=== PATIENT | male | born 1940 | race Caucasian/White ===

== ENCOUNTER 2017-11-10 16:28 | Emergency (ER) | payer BC ==
[~2017-11-10] VITALS: Ht 195.6 cm; Wt 97.6 kg
[~2017-11-10 16:28] MED LIST: ALBU1AER9 INH; CLON0.5T3 PO; CRD200 PO; FINA5TAB PO; MULT-506 PO; SPRIN/30 INH; SYMIN160 INH; VITAMIN D3 PO; XARELTO PO
[2017-11-10 16:33] VITALS: TEMP 36.6; Ht 195.6 cm; Wt 97.6 kg
[2017-11-10] MEDS ORDERED: SILVER NITR/POTASSIUM NITRATE APPLICATOR ONE (16:43)
--- NOTE | 2017-11-10 17:08 | EMERGENCY ROOM VISIT NOTE ---
History Report prepared by Linda: Cain Aquino Under the Supervision of: Dr. Krystal Santiago D.O. 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 He notes the bleeding began last night in the left naris, which resolved itself and immediately began in the right naris. He notes the bleeding has been non-stop. He notes recent cardiac surgery on October 30, 2017. He had a bicuspid valve repair. He has a history of atrial fibrillation. He is currently taking blood thinners. He notes a deviated septum. He denies nausea. He has increased thirst. He denies any history of bloody noses. 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 Review of Systems See HPI for pertinent positives & negatives. A total of 10 systems reviewed and were otherwise negative. 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 (5) Mitral Valve Disorder Surgical Problems: (1) History of prostate surgery (2) S/P aortic valve repair (3) S/P Maze operation for atrial fibrillation Family History Heart disease Social History Smoking Status: Former Smoker Alcohol Use: none Drug Use: none Marital Status: Housing Status: lives with significant other Occupation Status: retired Current/Historical Medications Scheduled Amiodarone HCl (Amiodarone HCl), 200 MG PO QAM Budesonide/Formoterol Fumarate (Symbicort 160/4.5 Inhaler ), 2 PUFFS INH BID Finasteride (Proscar), 5 MG PO QAM Multivitamin (Multivitamin), 1 TAB PO QAM Tiotropium [place] (Spiriva Handihaler), 1 PUFFS INH QAM Scheduled PRN Clonazepam (Klonopin), 0.5 MG PO HS PRN for Sleep Allergies Coded Allergies: No Known Allergies (Verified , 11/10/17) Physical Exam Vital Signs Date Time Temp Pulse Resp B/P (MAP) Pulse Ox O2 Delivery O2 Flow Rate FiO2 11/10/17 17:48 78 16 123/55 96 Room Air 11/10/17 16:33 36.6 81 18 143/65 98 Room Air Physical Exam GENERAL: alert, well appearing, well nourished, no distress, non-toxic EYE EXAM: normal conjunctiva, PERRL and EOM's grossly intact OROPHARYNX: no exudate, no erythema, lips, buccal mucosa, and tongue normal and mucous membranes are moist. There is no active bleeding on the left naris. Right naris: small gauze initially noted and was removed. A large clot was present on the end of the gauze. LUNGS: Clear to auscultation. Normal chest wall mechanics HEART: no murmurs, S1 normal and S2 normal. Healing vertical midline sternotomy scar, glue intact. No surrounding erythema. No drainage. No bleeding. ABDOMEN: abdomen soft, non-tender, normo-active bowel sounds, no masses, no rebound or guarding. SKIN: no rashes and no bruising UPPER EXTREMITIES: upper extremities are grossly normal. LOWER EXTREMITIES: No pitting edema. NEURO EXAM: Normal sensorium, cranial nerves II-XII grossly intact, normal speech, no gross weakness of arms, no gross weakness of legs. Medical Decision & Procedures ED Course 1638: The patient was evaluated in room B2. A complete history and physical exam was performed. 1644: Ordered Silver Nitrate/Potassium Nitrate 2 applications 1645: A silver nitrate stick was used to chemically cauterize right anterior naris along the medial wall. 1656: I reassessed the patient at this time. He is no longer bleeding. 1730: I reassessed the patient at this time. He is feeling better and resting comfortably. I discussed the results and treatment plan with the patient. I answered all pertaining questions that he had. He expressed understanding and verbalized agreement. The patient will be discharged home. Medical Decision Prior records/ancillary studies reviewed. Triage Nursing notes reviewed. The patient's history was concerning for epistaxis. Differential diagnosis: Etiologies such as anterior epistaxis, coagulopathy, traumatic injury, fracture , septal hematoma, posterior epistaxis as well as other pathologies were entertained. Patient well-appearing, anticoagulated following recent surgery. Bleeding located in right anterior inferior nary and controlled following application of silver nitrate. Vital signs otherwise stable, no bleeding from any other site. Discussed the patient precautions regarding bleeding, symptoms to watch and return for, follow-up with ENT, he verbalized understanding was agreeable with plan. Medication Reconcilliation Current Medication List: was personally reviewed by me Blood Pressure Screening Patient's blood pressure: Elevated blood pressure Blood pressure disposition: Elevated BP felt to be situational Impression Primary Impression: Epistaxis Scribe Attestation The scribe's documentation has been prepared under my direction and personally reviewed by me in its entirety. I confirm that the note above accurately reflects all work, treatment, procedures, and medical decision making performed by me. Departure Information Dispostion Home / Self-Care Referrals Fabiola Soares D.O. (PCP) Forms HOME CARE DOCUMENTATION FORM, IMPORTANT VISIT INFORMATION, WORK / SCHOOL INSTRUCTIONS Patient Instructions My [facility] Additional Instructions Please do not blow your nose for at least 24 hours. Please try to avoid any additional trauma to your nose. Please use a saline nasal mist daily. Please continue regular medications as prescribed. If you have any recurrent bleeding , develop vomiting, dizziness, chest pain, trouble breathing, fevers, or you've any other new concerns, please return the emergency room. If you have recurrent episodes of bleeding, you may need to see an ENT specialist for additional evaluation and treatment.
[2017-11-10 17:48] VITALS: BP 123/55; PULSE 78; O2SAT 96
== END 2017-11-10 19:00 | disposition home or self-care (01) ==
LOC: EDBD 16:28 → C.EDB 16:29
DX: R04.0 Epistaxis (principal); J34.2 Deviated nasal septum; J44.9 Chronic obstructive pulmonary disease, unspecified; Z98.890 Other specified postprocedural states; I48.91 Unspecified atrial fibrillation; I10 Essential (primary) hypertension; I05.9 Rheumatic mitral valve disease, unspecified; Z79.01 Long term (current) use of anticoagulants; Z87.891 Personal history of nicotine dependence; Z82.49 Family history of ischemic heart disease and other diseases of the circulatory system

== ENCOUNTER 2017-11-28 17:27 | Inpatient (IN) | payer BC, OTHER ==
[~2017-11-28] VITALS: Ht 195.6 cm; Wt 88.9 kg
[2017-11-28] VITALS (8 sets, daily range): BP systolic 136–158; BP diastolic 51–82; PULSE 81–88; TEMP 36–37.1; O2SAT 96–100
[~2017-11-28 17:27] MED LIST changes: -ALBU1AER9 INH; -VITAMIN D3 PO; -XARELTO PO
[2017-11-28 18:44] LABS: HEMATOCRIT 18.8 % (42-52); HEMOGLOBIN 5.7 g/dL (14.0-18.0); INR 1.2 (0.9-1.1); MEAN CELL VOLUME 99.5 fL (80-100); MEAN CORPUSCULAR HEMOGLOBIN 30.2 pg (25-34); MEAN CORPUSCULAR HGB CONC 30.3 g/dl (32-36); MEAN PLATELET VOLUME 9.2 fL (7.4-10.4); PLATELET COUNT 192 K/uL (130-400); PTT PATIENT 27.6 SECONDS (21.0-31.0); RED CELL DISTRIBUTION WIDTH CV 20.3 % (11.5-14.5); RED CELL DISTRIBUTION WIDTH SD 73.8 fL (36.4-46.3); WHITE BLOOD COUNT 6.98 K/uL (4.8-10.8)
[2017-11-28 18:58] LABS: BASO % 0.1 %; BASO ABS # 0.01 K/uL (0-0.2); EOS % 0.3 %; EOS ABS # 0.02 K/uL (0-0.5); IG# 0.01 K/uL (0.00-0.02); LYMPH % 8.3 %; LYMPH ABS # 0.58 K/uL (1.2-3.4); MONO % 10.6 %; MONO ABS # 0.74 K/uL (0.11-0.59); NEUT % 80.6 %; NEUT ABS # 5.62 K/uL (1.4-6.5)
[2017-11-28 18:59] LABS: ALBUMIN 3.1 gm/dl (3.4-5.0); CALCIUM 8.9 mg/dl (8.5-10.1); CREATININE 1.37 mg/dl (0.60-1.40); POTASSIUM 4.2 mmol/L (3.5-5.1)
[2017-11-28 19:00] LABS: TOTAL PROTEIN 6.3 gm/dl (6.4-8.2)
[2017-11-28] MEDS ORDERED: SENN8.6T36 PO (19:12)
[2017-11-28] MEDS ORDERED: BENZ1CAP90 PO (19:12)
[2017-11-28] MEDS ORDERED: FRS/40 PO (19:12)
[2017-11-28] MEDS ORDERED: ASPI81TA28 PO (19:12)
[2017-11-28] MEDS ORDERED: OXYC1TAB3 PO (19:12)
[2017-11-28] MEDS ORDERED: XRL20 PO (19:12)
[2017-11-28] MEDS ORDERED: SALI0.6510 NAE (19:12)
[2017-11-28] MEDS ORDERED: DOCU100C31 PO (19:12)
[2017-11-28] MEDS ORDERED: LPT40 PO (19:12)
[2017-11-28] MEDS ORDERED: ACET-1256 PO (19:12)
[2017-11-28] MEDS ORDERED: AMOX500C3 PO (19:12)
[2017-11-28] MEDS ORDERED: GUAI1TAB55 PO (19:12)
[2017-11-28] MEDS ORDERED: OXYM0.0525 NAE (19:12)
[2017-11-28] MEDS ORDERED: CHOL1000 PO (19:12)
[2017-11-28] MEDS ORDERED: ALBU18002 INH (19:12)
[2017-11-28] MEDS ORDERED: PRS5 PO (19:12)
[2017-11-28] MEDS ORDERED: POLY1POW2 PO (19:12)
[2017-11-28] MEDS ORDERED: MULT-106 PO (19:12)
[2017-11-28] MEDS ORDERED: FERR325T5 PO (19:12)
--- NOTE | 2017-11-28 22:04 | History and Physical ---
History & Physical Date & Time of Service: Nov 28, 2017 at 22:04 Chief Complaint: Ref By Dr, Out Of Breath, Dark Stool, Abnrmal Labs Primary Care Physician: Fabiola Soares D.O. History of Present Illness Source: patient, spouse, hospital records The patient is a 77-year-old male status post valve replacement one month ago, a recent episode of epistaxis, who is on Xarelto for atrial fibrillation and aspirin daily, who was seen as outpatient doctor's office and laboratories performed showed a hemoglobin in the 5 range, for which he was referred to the ED today. He also notes that he's been having dark stool for the past 2 weeks, and his daughter, who is with him in the ED, notes that he's been short of breath, progressively more pale, and feeling more weak. He also reports an area in his intergluteal region where there is skin breakdown that he is concerned about. 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 Status: Chronic (5) Mitral Valve Disorder Status: Chronic Surgical Problems: (1) History of prostate surgery Status: Resolved (2) S/P aortic valve repair Status: Resolved (3) S/P Maze operation for atrial fibrillation Status: Resolved Family History Heart disease Social History Smoking Status: Former Smoker Smokeless Tobacco Use: No Alcohol Use: none Drug Use: none Marital Status: Housing status: lives with family Occupational Status: retired Immunizations History of Tetanus Vaccine?: YES,5 YRS History of Pneumococcal: YES,5 YRS AGO History of Hepatitis B Vaccine: YES,UNSURE OF DATES Multi-Drug Resistant Organisms History of MDRO: No Allergies Coded Allergies: Levofloxacin (Verified Allergy, Intermediate, A.Fib, 11/28/17) Home Medications Scheduled Aspirin (Aspirin Ec), 81 MG PO QAM Atorvastatin (Atorvastatin Calcium), 40 MG PO HS Budesonide/Formoterol Fumarate (Symbicort 160/4.5 Inhaler ), 2 PUFFS INH AMPM Cholecalciferol (Vitamin D3), 1,000 INTER.UNIT PO QAM Ferrous Sulfate (Ferrous Sulfate), 325 MG PO BIDM Finasteride (Finasteride), 5 MG PO QAM Furosemide (Lasix), 40 MG PO QAM Guaifenesin Ext Rel (Mucinex Ext Rel), 600 MG PO Q12 Multiple Vitamins W/ Minerals (One Daily Mens), 1 TAB PO QAM Rivaroxaban (Xarelto), 20 MG PO QPM Tiotropium [place] (Spiriva Handihaler), 1 CAP INH QAM Scheduled PRN Acetaminophen (Tylenol), 1,000 MG PO Q8 PRN for Pain Albuterol Sulfate (Proair Respiclick), 2 PUFFS INH Q6H PRN for Wheezing Amoxicillin (Amoxil), 2,000 MG PO UD PRN for Dental Pre Treat Benzonatate (Tessalon Perles), 200 MG PO TID PRN for Cough Docusate Sodium (Docusate Sodium), 100 MG PO AMHS PRN for Constipation Oxycodone Ir (Roxicodone Ir), 5 MG PO Q4H PRN for Pain Oxymetazoline Hcl (Nasal Decongestant [place]), 2 SPRAYS CARL Q6H PRN for Nose Bleed(s) Polyethylene Glycol 3350 (Bulk (Polyethylene Glycol 3350), 17 GM PO AMHS PRN for Constipation Saline (Stark Nasal [place]), 2 SPRAYS CARL Q4H PRN for Nasal Dryness Sennosides-Docusate Sodium (Docusate Sodium/Senna), 2 TABS PO AMHS PRN for Constipation Review of Systems The patient denies chest pain, palpitations, vision change, hearing change, sore throat, fevers, chills, sweats, nausea, vomiting, diarrhea or constipation , abdominal pain, pelvic pain, blood in urine or stool, dysuria, urinary frequency or urgency, memory loss, loss of consciousness, rash, abnormal bruising or bleeding, imbalance, focal weakness, numbness or tingling in arms or legs, generalized arthralgias or myalgias, back or neck pain, or night sweats. The review of systems is otherwise negative other than for that already noted above, and at least 10 systems have been reviewed. Physical Exam Vital Signs Date Time Temp Pulse Resp B/P (MAP) Pulse Ox O2 Delivery O2 Flow Rate FiO2 11/28/17 21:10 37.0 81 22 158/70 98 11/28/17 20:10 37.0 82 22 158/70 100 2.0 11/28/17 20:10 36.9 84 20 146/72 100 2.0 11/28/17 19:40 36.0 82 20 147/67 100 2.0 11/28/17 19:23 36.7 84 20 156/68 100 2.0 11/28/17 19:17 83 11/28/17 19:00 82 18 129/53 100 Nasal Cannula 3.0 11/28/17 18:09 100 Nasal Cannula 2.0 11/28/17 17:35 36.7 113 26 95/40 98 Nasal Cannula The patient is awake, alert and oriented 3, normocephalic and atraumatic, sitting upright in bed and in mild respiratory distress with pursed lip breathing. HEENT--PERRL, EOMI, mucous membranes and oropharynx dry. Neck--supple, no JVD or bruits, thyroid normal, trachea midline, no adenopathy. Heart--irregularly irregular, no murmurs, rubs or gallops. Lungs--decreased breath sounds at the bases bilaterally, mild respiratory distress with pursed lip breathing, no accessory muscle use. Abdomen--normal bowel sounds and soft, nontender and nondistended, no hernias or masses, no organomegaly. Extremities--no cyanosis or clubbing. There is bilateral pretibial 2+ pitting Edema. There are good distal pulses b/l. Dermatologic--normal skin turgor. Appears pale. Neurologic--cranial nerves II through XII grossly intact. Rheumatologic--normal range of motion. Psychiatric--normal affect. Diagnostics Laboratory Results Results Past 24 Hours Test 11/28/17 18:19 Range/Units White Blood Count 6.98 4.8-10.8 K/uL Red Blood Count 1.89 4.7-6.1 M/uL Hemoglobin 5.7 14.0-18.0 g/dL Hematocrit 18.8 42-52 % Mean Corpuscular Volume 99.5 80-100 fL Mean Corpuscular Hemoglobin 30.2 25-34 pg Mean Corpuscular Hemoglobin Concent 30.3 32-36 g/dl Platelet Count 192 130-400 K/uL Mean Platelet Volume 9.2 7.4-10.4 fL Neutrophils (%) (Auto) 80.6 % Lymphocytes (%) (Auto) 8.3 % Monocytes (%) (Auto) 10.6 % Eosinophils (%) (Auto) 0.3 % Basophils (%) (Auto) 0.1 % Neutrophils # (Auto) 5.62 1.4-6.5 K/uL Lymphocytes # (Auto) 0.58 1.2-3.4 K/uL Monocytes # (Auto) 0.74 0.11-0.59 K/uL Eosinophils # (Auto) 0.02 0-0.5 K/uL Basophils # (Auto) 0.01 0-0.2 K/uL RDW Standard Deviation 73.8 36.4-46.3 fL RDW Coefficient of Variation 20.3 11.5-14.5 % Immature Granulocyte % (Auto) 0.1 % Immature Granulocyte # (Auto) 0.01 0.00-0.02 K/uL Polychromasia 1+ Basophilic Stippling OCCASIONAL Anisocytosis PRESENT Prothrombin Time 12.9 9.0-12.0 SECONDS Prothromb Time International Ratio 1.2 0.9-1.1 Activated Partial Thromboplast Time 27.6 21.0-31.0 SECONDS Partial Thromboplastin Ratio 1.1 Sodium Level 138 136-145 mmol/L Potassium Level 4.2 3.5-5.1 mmol/L Chloride Level 105 98-107 mmol/L Carbon Dioxide Level 25 21-32 mmol/L Anion Gap 8.0 3-11 mmol/L Blood Urea Nitrogen 43 7-18 mg/dl Creatinine 1.37 0.60-1.40 mg/dl Est Creatinine Clear Calc Drug Dose 56.9 ml/min Estimated GFR () 57.3 Estimated GFR (Non- 49.4 BUN/Creatinine Ratio 31.3 10-20 Random Glucose 104 70-99 mg/dl Calcium Level 8.9 8.5-10.1 mg/dl Total Bilirubin 0.9 0.2-1 mg/dl Direct Bilirubin 0.3 0-0.2 mg/dl Aspartate Amino Transf (AST/SGOT) 13 15-37 U/L Alanine Aminotransferase (ALT/SGPT) 16 12-78 U/L Alkaline Phosphatase 108 45-117 U/L Total Protein 6.3 6.4-8.2 gm/dl Albumin 3.1 3.4-5.0 gm/dl Lipase 251 73-393 U/L EKG EKG shows normal sinus rhythm at 86 bpm, ST-T segment changes in leads V5 and V6. Impression Assessment and Plan Symptomatic anemia/status post valve replacement/ status post episode of epistaxis/hemoglobin 5.7 in the ED andrzej, on Xarelto for atrial fibrillation and aspirin-- The patient will be admitted to telemetry for serial cardiac enzymes, and cardiac rhythm monitoring. The plan will be to transfuse patient to target hemoglobin of 10. We'll give 2 units PRBCs now, with Lasix 40 mg IV during or after the second unit. We'll check H&H every 6 hours Will transfuse 2 additional PRBCs, if appropriate, based on follow-up hemoglobin after the first 2. We will hold Xarelto and aspirin at this time, but not reverse Xarelto unless there is a more acute bleed process. 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 Sacral wound--- Air mattress Consult wound care. COPD-- Continue Symbicort, and Spiriva. BPH-- Continue finasteride Hyperlipidemia-- Hold atorvastatin for now. Level of Care Telemetry Advanced Directives Existing Advance Directive: No Existing Living Will: No Existing Power of Clarity Specialists: No Resuscitation Status FULL RESUSCITATION VTE Prophylaxis VTE Risk Assessment Done? Y/N: Yes Risk Level: Moderate Given or contraindicated: Other Anticoagulation (Xarelto)
[2017-11-28] MEDS ORDERED: ACETAMINOPHEN 325 MG TAB PO PRN (22:45)
[2017-11-28] MEDS ORDERED: FUROSEMIDE INJ 40 MG in SYRINGE 0 ML IV ONE (22:45)
[2017-11-28] MEDS ORDERED: FUROSEMIDE 40 MG/4 ML VIAL IV STA (22:45)
[2017-11-28] MEDS ORDERED: ONDANSETRON 8MG OD TAB PO PRN (22:45)
[2017-11-28] MEDS ORDERED: POLYETHYLENE (MIRALAX) 17 GM PACK PO PRN (22:45)
--- NOTE | 2017-11-28 23:50 | EMERGENCY ROOM VISIT NOTE ---
History Report prepared by Linda: Jb King Under the Supervision of: Dr. Martinez Henry M.D. First contact with patient: 17:41 Chief Complaint: ABNORMAL LABS Stated Complaint: REF BY DR, OUT OF BREATH, DARK STOOL, ABNRMAL LABS History of Present Illness The patient is a 77 year old male who presents to the Emergency Room with complaints of low hemoglobin that was noticed this morning after going to his doctor. The patient's hemoglobin was 5. The patient additionally notes that he has been having dark stool for the past two weeks, and he had a nose bleed three days ago. The patient's daughter states that the patient has also been short of breath, pale, and he has been feeling weak. The patient has been put on oxygen, and he has been taking iron supplements. The patient had an open heart surgery performed at the beginning of last month. He saw his doctor this morning and had blood work, and they told the patient to come to the ED for low hemoglobin. He does not have any history of ulcers, and the patient is currently on Xarelto for A-fib and a baby aspirin. Pt denies LOC, headache, fevers, chills, diaphoresis, visual changes, neck pain, nausea, vomiting, abdominal pain, back pain, urinary symptoms, numbness, weakness, lymphadenopathy , rash, or other complaints. Source of History: patient Onset: this morning Position: other (global) Quality: other (low hemoglobin) Timing: constant Associated Symptoms: + SOB, + melena, + weakness Review of Systems See HPI for pertinent positives and negatives. A total of ten systems were reviewed and were otherwise negative. 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 (5) Mitral Valve Disorder (6) Symptomatic anemia Surgical Problems: (1) History of prostate surgery (2) S/P aortic valve repair (3) S/P Maze operation for atrial fibrillation Family History Heart disease Social History Smoking Status: Unknown if Ever Smoked Alcohol Use: none Drug Use: none Marital Status: Housing Status: lives with significant other Occupation Status: retired Current/Historical Medications Scheduled Aspirin (Aspirin Ec), 81 MG PO QAM Atorvastatin (Atorvastatin Calcium), 40 MG PO HS Budesonide/Formoterol Fumarate (Symbicort 160/4.5 Inhaler ), 2 PUFFS INH AMPM Cholecalciferol (Vitamin D3), 1,000 INTER.UNIT PO QAM Ferrous Sulfate (Ferrous Sulfate), 325 MG PO BIDM Finasteride (Finasteride), 5 MG PO QAM Furosemide (Lasix), 40 MG PO QAM Guaifenesin Ext Rel (Mucinex Ext Rel), 600 MG PO Q12 Multiple Vitamins W/ Minerals (One Daily Mens), 1 TAB PO QAM Rivaroxaban (Xarelto), 20 MG PO QPM Tiotropium [place] (Spiriva Handihaler), 1 CAP INH QAM Scheduled PRN Acetaminophen (Tylenol), 1,000 MG PO Q8 PRN for Pain Albuterol Sulfate (Proair Respiclick), 2 PUFFS INH Q6H PRN for Wheezing Amoxicillin (Amoxil), 2,000 MG PO UD PRN for Dental Pre Treat Benzonatate (Tessalon Perles), 200 MG PO TID PRN for Cough Docusate Sodium (Docusate Sodium), 100 MG PO AMHS PRN for Constipation Oxycodone Ir (Roxicodone Ir), 5 MG PO Q4H PRN for Pain Oxymetazoline Hcl (Nasal Decongestant [place]), 2 SPRAYS CARL Q6H PRN for Nose Bleed(s) Polyethylene Glycol 3350 (Bulk (Polyethylene Glycol 3350), 17 GM PO AMHS PRN for Constipation Saline ([place] Nasal [place]), 2 SPRAYS CARL Q4H PRN for Nasal Dryness Sennosides-Docusate Sodium (Docusate Sodium/Senna), 2 TABS PO AMHS PRN for Constipation Allergies Coded Allergies: Levofloxacin (Verified Allergy, Intermediate, A.Fib, 11/28/17) Physical Exam Vital Signs Date Time Temp Pulse Resp B/P (MAP) Pulse Ox O2 Delivery O2 Flow Rate FiO2 11/28/17 23:28 37.1 87 22 136/51 96 2.0 11/28/17 22:50 37.0 88 2 153/55 100 4.0 11/28/17 22:33 36.8 85 24 150/68 97 2.0 11/28/17 22:12 37.1 86 20 150/82 96 2.0 11/28/17 21:10 37.0 81 22 158/70 98 11/28/17 20:10 37.0 82 22 158/70 100 2.0 11/28/17 20:10 36.9 84 20 146/72 100 2.0 11/28/17 19:40 36.0 82 20 147/67 100 2.0 11/28/17 19:23 36.7 84 20 156/68 100 2.0 11/28/17 19:17 83 11/28/17 19:00 82 18 129/53 100 Nasal Cannula 3.0 11/28/17 18:09 100 Nasal Cannula 2.0 11/28/17 17:35 36.7 113 26 95/40 98 Nasal Cannula Physical Exam GENERAL: Awake, alert, well-appearing, in no distress HENT: Normocephalic, atraumatic. Oropharynx unremarkable. EYES: Pale conjunctiva. Sclera non-icteric. NECK: Supple. No nuchal rigidity. FROM. No JVD. RESPIRATORY: Clear to auscultation. CARDIAC: Regular rate, normal rhythm. Extremities warm and well perfused. Pulses equal. ABDOMEN: Soft, non-distended. No tenderness to palpation. No rebound or guarding. No masses. RECTAL: Deferred. MUSCULOSKELETAL: Chest examination reveals no tenderness. The back is symmetrical on inspection without obvious abnormality. There is no CVA tenderness to palpation. No joint edema. LOWER EXTREMITIES: 1+ lower extremity edema. Chronic venous discoloration. NEURO: Normal sensorium. No sensory or motor deficits noted. SKIN: No rash or jaundice noted. Medical Decision & Procedures Laboratory Results 11/28/17 18:19 Red Blood Count 1.89, Mean Corpuscular Volume 99.5, Mean Corpuscular Hemoglobin 30.2, Mean Corpuscular Hemoglobin Concent 30.3, Mean Platelet Volume 9.2, Neutrophils (%) (Auto) 80.6, Lymphocytes (%) (Auto) 8.3, Monocytes (%) (Auto) 10.6, Eosinophils (%) (Auto) 0.3, Basophils (%) (Auto) 0.1, Neutrophils # (Auto ) 5.62, Lymphocytes # (Auto) 0.58, Monocytes # (Auto) 0.74, Eosinophils # (Auto ) 0.02, Basophils # (Auto) 0.01 11/28/17 18:19 Test 11/28/17 18:19 11/28/17 22:11 White Blood Count 6.98 K/uL (4.8-10.8) Red Blood Count 1.89 M/uL (4.7-6.1) Hemoglobin 5.7 g/dL (14.0-18.0) Hematocrit 18.8 % (42-52) Mean Corpuscular Volume 99.5 fL (80-100) Mean Corpuscular Hemoglobin 30.2 pg (25-34) Mean Corpuscular Hemoglobin Concent 30.3 g/dl (32-36) Platelet Count 192 K/uL (130-400) Mean Platelet Volume 9.2 fL (7.4-10.4) Neutrophils (%) (Auto) 80.6 % Lymphocytes (%) (Auto) 8.3 % Monocytes (%) (Auto) 10.6 % Eosinophils (%) (Auto) 0.3 % Basophils (%) (Auto) 0.1 % Neutrophils # (Auto) 5.62 K/uL (1.4-6.5) Lymphocytes # (Auto) 0.58 K/uL (1.2-3.4) Monocytes # (Auto) 0.74 K/uL (0.11-0.59) Eosinophils # (Auto) 0.02 K/uL (0-0.5) Basophils # (Auto) 0.01 K/uL (0-0.2) RDW Standard Deviation 73.8 fL (36.4-46.3) RDW Coefficient of Variation 20.3 % (11.5-14.5) Immature Granulocyte % (Auto) 0.1 % Immature Granulocyte # (Auto) 0.01 K/uL (0.00-0.02) Polychromasia 1+ Basophilic Stippling OCCASIONAL Anisocytosis PRESENT Prothrombin Time 12.9 SECONDS (9.0-12.0) Prothromb Time International Ratio 1.2 (0.9-1.1) Activated Partial Thromboplast Time 27.6 SECONDS (21.0-31.0) Partial Thromboplastin Ratio 1.1 Anion Gap 8.0 mmol/L (3-11) Est Creatinine Clear Calc Drug Dose 56.9 ml/min Estimated GFR () 57.3 Estimated GFR (Non- 49.4 BUN/Creatinine Ratio 31.3 (10-20) Calcium Level 8.9 mg/dl (8.5-10.1) Total Bilirubin 0.9 mg/dl (0.2-1) Direct Bilirubin 0.3 mg/dl (0-0.2) Aspartate Amino Transf (AST/SGOT) 13 U/L (15-37) Alanine Aminotransferase (ALT/SGPT) 16 U/L (12-78) Alkaline Phosphatase 108 U/L (45-117) Total Protein 6.3 gm/dl (6.4-8.2) Albumin 3.1 gm/dl (3.4-5.0) Lipase 251 U/L (73-393) Urine Color YELLOW Urine Appearance CLEAR (CLEAR) Urine pH 5.5 (4.5-7.5) Urine Specific [place] 1.015 (1.000-1.030) Urine Protein TRACE (NEG) Urine Glucose (UA) NEG (NEG) Urine Ketones NEG (NEG) Urine Occult Blood NEG (NEG) Urine Nitrite NEG (NEG) Urine Bilirubin NEG (NEG) Urine Urobilinogen NEG (NEG) Urine Leukocyte Esterase NEG (NEG) Urine RBC 0-4 /hpf (0-4) Urine WBC 1-5 /hpf (0-5) Urine Epithelial Cells 0-5 /lpf (0-5) Urine Bacteria NEG (NEG) Urine Hyaline Casts 5-10 /lpf (0-5) Urine Granular Casts 0-3 /lpf (0) Laboratory results reviewed by me Medications Administered Medications (Trade) Dose Ordered Sig/Sha Route Start Time Stop Time Status Last Admin Dose Admin Furosemide (Lasix Inj) 40 mg NOW STAT IV 11/28/17 22:45 11/28/17 22:46 DC 11/28/17 22:52 40 MG ECG Indication: SOB/dyspnea Rate (beats per minute): 86 Rhythm: normal sinus Findings: T-wave inversion (Lateral), no ectopy Comparison ECG Date: 11/14/17 Change: T wave inversions are now present. ED Course 1802: The patient was evaluated in room B2. A complete history and physical exam was performed. 2035: I reevaluated the patient, and he was doing okay. 2107: I reassessed the patient, and he was getting his transfusion. 2110: Discussed the patient's case Dr. Salamanca. The patient will be evaluated for further treatment and disposition. Medical Decision Triage Nursing notes reviewed. The patient's presentation and history were concerning for severe anemia and dark stools. Etiologies such as diverticulosis, AVM, coagulopathy, colitis, inflammatory bowel disease, malignancy,Serene-Nuno tear, esophagitis, peptic ulcer disease , variceal bleed, gastritis, epistaxis, fissure, hemorrhoids, as well as others were entertained. The patient was hemodynamically stable. He was initially little tachycardic but repeat vital signs improved. He had pale conjunctiva. He did have some mild ECG changes. He was not having any chest pain. He had blood work obtained. His severe anemia was confirmed with a hemoglobin of 5. The patient was verbally consented and consent was filled out for blood transfusion. I gave my usual and customary discussion regarding this issue. The patient had his transfusion initiated. Consultation with internal medicine. The patient was evaluated in the Emergency Room for further management. Medication Reconcilliation Current Medication List: was personally reviewed by me Blood Pressure Screening Patient's blood pressure: Elevated blood pressure Monitored by the hospitalist. Consults Time Called: 2035 Consulting Physician: Dr. Clark Returned Call: 2110 Discussed the patient's case with Dr. Salamanca. The patient will be evaluated for further treatment and disposition. Impression Primary Impression: GI bleed Additional Impression: Severe anemia Scribe Attestation The scribe's documentation has been prepared under my direction and personally reviewed by me in its entirety. I confirm that the note above accurately reflects all work, treatment, procedures, and medical decision making performed by me. Departure Information Dispostion Being Evaluated By Hospitalist Referrals Fabiola Soares D.O. (PCP) Patient Instructions My [facility] Problem Qualifiers
[2017-11-29] VITALS (25 sets, daily range): BP systolic 107–163; BP diastolic 51–75; PULSE 66–95; TEMP 36–37.2; O2SAT 93–100; BMI 24.8
[2017-11-29 04:03] LABS: BASO % 0.1 %; BASO ABS # 0.01 K/uL (0-0.2); EOS % 0.4 %; EOS ABS # 0.03 K/uL (0-0.5); HEMATOCRIT 23.1 % (42-52); HEMOGLOBIN 7.1 g/dL (14.0-18.0); IG# 0.02 K/uL (0.00-0.02); LYMPH % 6.7 %; LYMPH ABS # 0.45 K/uL (1.2-3.4); MEAN CELL VOLUME 97.5 fL (80-100); MEAN CORPUSCULAR HGB CONC 30.7 g/dl (32-36); MEAN PLATELET VOLUME 9.1 fL (7.4-10.4); MONO % 11.2 %; MONO ABS # 0.75 K/uL (0.11-0.59); NEUT % 81.3 %; NEUT ABS # 5.44 K/uL (1.4-6.5); NUCLEATED RED BLOOD CELL ABS 0.05 K/uL (0-0); PLATELET COUNT 191 K/uL (130-400); RED CELL DISTRIBUTION WIDTH CV 20.1 % (11.5-14.5)
[2017-11-29] MEDS ORDERED: FUROSEMIDE INJ 40 MG in SYRINGE 0 ML IV ONE ×2 (04:15→15:00)
[2017-11-29 04:16] LABS: INR 1.2 (0.9-1.1); PTT PATIENT 29.9 SECONDS (21.0-31.0)
[2017-11-29 04:27] LABS: CALCIUM 8.3 mg/dl (8.5-10.1); CREATININE 1.33 mg/dl (0.60-1.40); POTASSIUM 3.9 mmol/L (3.5-5.1)
[2017-11-29] MEDS ORDERED: PANTOprazole INJ 40 MG in SYRINGE 0 ML IV ONE (06:00)
[2017-11-29 06:48] LABS: CKMB 5.1 ng/ml (0.5-3.6)
--- NOTE | 2017-11-29 07:39 | DIAGNOSTIC IMAGING REPORT ---
CHEST ONE VIEW PORTABLE CLINICAL HISTORY: acute chf dyspnea COMPARISON STUDY: 08/19/2015 Findings: Diffuse prominent parenchymal infiltrative changes versus atypical pulmonary edema. Bilateral parenchymal infiltrative changes are noted. There has been a interval median sternotomy and valve replacement. There is a small left pleural effusion. IMPRESSION: Interval development of pulmonary edema versus a bilateral parenchymal infiltrative change. Small left pleural effusion. The above report was generated using voice recognition software. It may contain grammatical, syntax or spelling errors. Electronically signed by: Jamal Chavez M.D. 11/29/2017 7:38 AM Dictated Date/Time: 11/29/2017 7:36 AM
[2017-11-29] MEDS: BUDESONIDE/FORMOTEROL FUMARATE 160/4.5 60 PUFFS/INHALER INH SCH ×2 (08:12→21:21)
[2017-11-29] MEDS: TIOTROPIUM BROMIDE 5 PUFF/90 MCG INH INH SCH (08:12)
[2017-11-29] MEDS: AMIODARONE 200 MG TAB PO SCH (08:57)
[2017-11-29] MEDS: METOPROLOL TARTRATE 1 MG/ML VIAL IV. SCH ×4 (08:59→23:47)
[2017-11-29] MEDS ORDERED: PANTOprazole INJ 40 MG in SYRINGE 0 ML IV SCH (09:00)
--- NOTE | 2017-11-29 09:21 | CARDIOLOGY CONSULTATION ---
DATE OF CONSULTATION: 11/29/2017 REQUESTING PHYSICIAN: Dr. Salamanca. HEAD WAITER/WAITRESS: Mihir Delgado DO of [facility] Cardiology. REASON FOR CONSULTATION: GI bleed on anticoagulation with a recent bioprosthetic aortic valve replacement. Dear Dr. Salamanca, As you know, Mr. Vallejo underwent an aortic valve replacement with a bioprosthetic aortic valve in October 2017. He was seen at a 2-week post-hospital visit and was doing quite well. He was volume overloaded. We adjusted his diuretics. He is continued at a rehabilitation facility. He notes that his stools have been dark there. According to him, the staff there attributed this to iron supplementation. He was discharged on Monday from [facility] and notes that his stools became darker and more tarry in nature. Additionally, he describes being hypoxic when he was discharged. He did not wish to stay there any longer and they ultimately discharged him home with the understanding that he would see me in the office the next day. When he arrived at the office, he was significantly hypoxic with an O2 sat of 82%. He was also very lacey and ashen and looks significantly worse than he did at the 2-week followup on 11/14/2017 in the office. In light of that, a number of studies were done. An echocardiogram was done, which revealed normal LV function and normal function of his bioprosthetic aortic valve replacement. There was no pericardial effusion. His right ventricle was dilated and he had RV dysfunction, but this has been a known issue even before his open heart surgery. A CBC was drawn and he was found to be significantly anemic with a hemoglobin of 5.5. In light of that, it was recommended he come to the Emergency Room for further evaluation for what appears to be an upper GI bleed. This morning, he looks better. He does describe being short of breath and he describes being anxious, but after talking to him, much of his anxiety is related to his concern about what is going to happen and why this may have happened and whether he had some part in leading to this admission. He denies any lightheadedness, dizziness, chest pain, chest pressure, or chest heaviness. He denies any PND. He does have some orthopnea. His color looks significantly better. He notes he continues to have darker stools. He denies any fevers, chills, sweats, cough, or productive sputum. The rest of review of systems is otherwise negative. PAST MEDICAL HISTORY: 1. Paroxysmal atrial fibrillation, which was initially controlled with amiodarone. 2. Subsequent 3-1 atrial flutter in October 2015, on amiodarone, status post AFib and flutter ablation in February 2016. 3. 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 4. History of severe aortic stenosis with a bicuspid aortic valve and a dimensionless index of 0.12, status post bioprosthetic aortic valve replacement in October 2017 with a 29-mm Olvera valve, Maze procedure, and amputation of his left atrial appendage in October 2017. 5. Minimal epicardial coronary artery disease preoperatively. 6. History of chronic anticoagulation with Xarelto. 7. Moderate pulmonary hypertension. 8. Moderate COPD with an FEV1 to FVC ratio of 73% in September 2017 at [facility]. 9. History of significant right-sided heart failure. SOCIAL HISTORY: He smoked 2 packs per day for 35 years, stopping in 1994. 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 He is . FAMILY HISTORY: Dad at 73. He had atrial fibrillation and after aneurysm surgery in his leg. Mom at 93 of old age. ALLERGIES: No known drug allergies. MEDICATIONS: Reviewed from the outpatient chart as well as the inpatient chart. PHYSICAL EXAMINATION: GENERAL: He is awake, alert, and oriented x3. He does appear slightly anxious. VITAL SIGNS: His heart rate is 84, his respirations are 20, his blood pressure is 149/67, and his sat is 98% on 4 liters. HEENNT: 2+ carotid upstrokes. No evidence of carotid bruits. Jugular venous pressure appeared slightly elevated. His sclerae anicteric. His hearing is normal. LUNGS: Decreased breath sounds in the bases bilaterally. No rales, rhonchi or wheezing. HEART: Regular rate and rhythm. Tachycardic. No appreciable murmurs, rubs or gallops. ABDOMEN: Soft, nontender, and nondistended. Positive bowel sounds. EXTREMITIES: Mild to moderate bilateral lower extremity edema to the mid tibia. PSYCHIATRIC: His affect appeared appropriate. NEUROLOGIC: He is awake, alert and oriented x3. DIAGNOSTIC STUDIES: EKG, sinus rhythm, prolonged QTC, low voltage QRS, and nonspecific ST changes. LABORATORY STUDIES: Hemoglobin 5.7 on admission, white count is 6.98, and platelet count of 192. His hemoglobin after 2 units is 7.1 with a platelet count of 191. Sodium 140, potassium 3.9, his BUN is 37, and creatinine 1.33. His troponin is negative. Chest x-ray was read as congestive heart failure. IMPRESSIONS: 1. Upper gastrointestinal bleed. 2. Recent bioprosthetic aortic valve replacement in October 2017 with a 29-mm Olvera valve, Maze procedure, and amputation of left atrial appendage. 3. History of both atrial fibrillation and atrial flutter ablations. 4. Minimal preoperative epicardial coronary artery disease. 5. Moderate pulmonary hypertension. 6. Known right ventricular dysfunction and chronic right-sided heart failure. As was discussed with the ER physician, I would stop the Xarelto, which has already been done. He has been in sinus rhythm on all of his EKGs postoperatively. In addition, he has had his left atrial appendage amputated. I therefore think the risk of stroke is very small at this point and I would leave him off Xarelto fci. I would try to restart his aspirin therapy when it is okay with GI after his planned endoscopy today. He does need some antiplatelet therapy given his new bioprosthetic aortic valve replacement. He has received diuretics after each unit of blood. We will check a stat H&H as he has received 3 units currently. As long as his hemoglobin is in the 8-9 range, given the fact he does not have coronary artery disease, I would not aggressively transfuse him. I would recommend an additional dose of furosemide 40 mg IV this afternoon with close monitoring of his H&H. He is on a pantoprazole drip for GI protection. I would restart his amiodarone 200 mg daily, which he was on as an outpatient to maintain sinus rhythm and I would also add low dose beta blockers with 2.5 mg of metoprolol q. 6 hours to help with his tachycardia and also to slow and lower his blood pressure. All this was discussed with the patient as well as his nursing staff. We will continue to follow him with you. I believe he can proceed with endoscopy. He would be at intermediate risk and I think the greatest risk is from a respiratory standpoint given his mild heart failure and underlying COPD.
[2017-11-29] MEDS ORDERED: SODIUM CHLORIDE 0.65% NA SOLN 45 ML (OCEAN) ONE (11:32)
[2017-11-29 11:41] LABS: HEMATOCRIT 24.9 % (42-52); HEMOGLOBIN 7.8 g/dL (14.0-18.0)
--- NOTE | 2017-11-29 14:34 | Endo History and Physical ---
History & Physical Date of Service: Nov 29, 2017. Chief Complaint: GI bleed Referring Physician: Dr Soares History of Present Illness For EGD Past Medical History Atrial Fibrillation, Male Genitourinary Prob., Gastrointestinal Disorder, High Cholesterol, CHF, Hypertension, COPD Past Surgical History Hx Cardiac Surgery: Yes (Valve replacement 11/05, CARDIOVERSION-07/2015) Hx Internal Defibrillator: No Hx Pacemaker: No Hx Abdominal Surgery: Yes (AAA REPAIR, INGUINAL HERNIA REPAIR X 2, HIATAL HERNIA REPAIR) Hx Post-Op Nausea and Vomiting: No Hx Cancer Surgery: No Hx Thoracic Surgery: No Hx Orthopedic: No Hx Urinary Tract Surgery: Yes (TURP) Social History Smoking Status: Never Smoker Smokeless Tobacco Use: No Hx Substance Use: No Hx Alcohol Use: No Allergies Coded Allergies: Levofloxacin (Verified Allergy, Intermediate, AAriel, 11/28/17) Current Medications Reported Home Medications Medications Dose Route/Sig Max Daily Dose Days Date Category Dose Instructions Docusate Sodium/Senna (Sennosides-Docusate Sodium) 1 Tab Tab 2 Tabs PO AMHS PRN 11/28/17 Reported Mucinex Ext Rel (Guaifenesin) 600 Mg Tab 600 Mg PO Q12 11/28/17 Reported Tylenol (Acetaminophen) 500 Mg Tab 1,000 Mg PO Q8 PRN 11/28/17 Reported One Daily Mens (Multiple Vitamins W/ Minerals) 1 Tab Tab 1 Tab PO QAM 11/28/17 Reported Vitamin D3 (Cholecalciferol) 1,000 Unit Tab 1,000 Inter.unit PO QAM 11/28/17 Reported Xarelto (Rivaroxaban) 20 Mg Tab 20 Mg PO QPM 11/28/17 Reported Finasteride 5 Mg Tab 5 Mg PO QAM 11/28/17 Reported Aspirin Ec (Aspirin) 81 Mg Tab 81 Mg PO QAM 11/28/17 Reported Atorvastatin Calcium (Atorvastatin) 40 Mg Tab 40 Mg PO HS 11/28/17 Reported Proair Respiclick (Albuterol Sulfate) 108 Mcg/Act Aer 2 Puffs INH Q6H PRN 11/28/17 Reported Ferrous Sulfate 325 Mg Tab 325 Mg PO BIDM 11/28/17 Reported [place] Nasal [place] (Saline) 0.65 % Spr 2 Sprays CARL Q4H PRN 11/28/17 Reported Tessalon Perles (Benzonatate) 200 Mg Cap 200 Mg PO TID PRN 11/28/17 Reported Polyethylene Glycol 3350 (Polyethylene Glycol 3350 (Bulk) 1 Pow Pow 17 Gm PO AMHS PRN 11/28/17 Reported Roxicodone Ir (Oxycodone HCl) 5 Mg Tab 5 Mg PO Q4H PRN 11/28/17 Reported Nasal Decongestant [place] (Oxymetazoline Hcl) 0.05 % Spr 2 Sprays CARL Q6H PRN 11/28/17 Reported Lasix (Furosemide) 40 Mg Tab 40 Mg PO QAM 11/28/17 Reported Docusate Sodium 100 Mg Cap 100 Mg PO AMHS PRN 11/28/17 Reported Amoxil (Amoxicillin) 500 Mg Cap 2,000 Mg PO UD PRN 11/28/17 Reported TAKE 4 CAPSULES ONE HOUR PRIOR TO DENTAL APPOINTMENTS Symbicort 160/4.5 Inhaler (Budesonide/Formoterol Fumarate) Aero 2 Puffs INH AMPM 09/02/15 Reported Spiriva Handihaler (Tiotropium [place]) 30 Puff/540 Mcg Aerp 1 Cap INH QAM 01/08/15 Reported Vital Signs Weight (Kilograms): 91.200 Height (Feet): 6 Height (Inches): 5.00 Date Time Temp Pulse Resp B/P (MAP) Pulse Ox O2 Delivery O2 Flow Rate FiO2 11/29/17 14:05 37.1 82 22 126/56 (79) 100 Partial Rebreather 4 11/29/17 14:00 37.1 82 22 126/56 100 4.0 11/29/17 13:25 37.0 76 18 147/66 99 4.0 11/29/17 12:13 86 136/60 11/29/17 12:00 96 Nasal Cannula 4.0 11/29/17 11:15 36.8 75 20 137/69 (91) 100 4.0 11/29/17 08:59 86 136/65 11/29/17 08:45 36.9 90 18 162/66 99 4.0 11/29/17 08:30 36.0 90 16 158/69 99 4.0 11/29/17 08:00 98 Nasal Cannula 4.0 11/29/17 07:34 37.2 84 20 149/67 (94) 98 4.0 11/29/17 07:30 36.9 95 18 158/69 99 4.0 1/10/18 07:15 36.8 84 18 152/66 99 4.0 11/29/17 06:45 36.8 85 16 143/63 99 4.0 11/29/17 06:14 36.9 86 18 156/73 100 4.0 11/29/17 05:44 36.9 83 18 143/71 100 2.0 11/29/17 05:26 36.8 83 18 134/59 99 2.0 11/29/17 04:00 Nasal Cannula 2.0 11/29/17 03:11 36.8 82 18 148/63 (91) 100 Nasal Cannula 2.0 11/29/17 02:28 36.9 81 18 149/65 100 2.0 11/29/17 01:28 36.9 83 18 133/69 97 2.0 11/29/17 00:28 36.8 84 20 146/73 95 2.0 11/29/17 00:01 36.7 92 20 163/63 93 Nasal Cannula 2.0 11/28/17 23:28 37.1 87 22 136/51 96 2.0 11/28/17 22:50 37.0 88 2 153/55 100 4.0 11/28/17 22:33 36.8 85 24 150/68 97 2.0 11/28/17 22:12 37.1 86 20 150/82 96 2.0 11/28/17 21:10 37.0 81 22 158/70 98 11/28/17 20:10 37.0 82 22 158/70 100 2.0 11/28/17 20:10 36.9 84 20 146/72 100 2.0 11/28/17 19:40 36.0 82 20 147/67 100 2.0 11/28/17 19:23 36.7 84 20 156/68 100 2.0 11/28/17 19:17 83 11/28/17 19:00 82 18 129/53 100 Nasal Cannula 3.0 11/28/17 18:09 100 Nasal Cannula 2.0 11/28/17 17:35 36.7 113 26 95/40 98 Nasal Cannula Physical Exam General Appearance: no apparent distress Respiratory/Chest: Respiratory effort: pertinent finding (Nasal oxygen) Cardiovascular: Apical Impulse: pertinent finding (AVR) Abdomen: Inspection & Palpation: soft (GI bleed for EGD) Assessment and Plan GI bleed for EGD
--- NOTE | 2017-11-29 14:49 | GASTROINTESTINAL CONSULTATION ---
DATE OF CONSULTATION: 11/29/2017 REASON FOR EVALUATION: GI bleed. HISTORY OF PRESENT ILLNESS: The patient is a 77-year-old male who had an aortic valve replacement a month ago and was placed on Xarelto and aspirin for his valve and atrial fibrillation. The patient has been seeing dark stools for the past 2 weeks and has had a recent episode of nose bleeding. He was seen in the doctor's office yesterday and appeared pale and had a hemoglobin done which was in the 5 range. He was referred to the ER where he was subsequently admitted. Since being hospitalized, he has been transfused 3 units of red cells and started on IV Protonix and GI consultation has been requested. PAST MEDICAL HISTORY: Remarkable for an abdominal aortic aneurysm, COPD, hypertension, benign prostatic hypertrophy, mitral valve disorder, aortic valve disorder with repair. He has had prostate surgery. MEDICATIONS: Per list: He is on aspirin and Xarelto, but no PPI. ALLERGIES: LEVOFLOXACIN. SOCIAL HISTORY: The patient is and lives with his . He is retired, former smoker, no alcohol use. FAMILY HISTORY: Positive for heart disease. REVIEW OF SYSTEMS: The patient has a little bit of shortness of breath at rest. PHYSICAL EXAMINATION: GENERAL: The patient appears in no distress. He is on a mask oxygen. VITAL SIGNS: Blood pressure is 158/70, pulse is 80, O2 saturation on 2 liters of oxygen is 98%. HEART: Showed an irregularly irregular rhythm. LUNGS: Showed some decreased breath sounds. ABDOMEN: Soft. There are no masses or hepatosplenomegaly. EXTREMITIES: Showed no clubbing, cyanosis or edema other than a little bit of ankle edema. LABORATORY: Shows hemoglobin of 5.7, MCV 99.5; BUN 43 and creatinine 1.37. IMPRESSION AND PLAN: The patient has evidence of gastrointestinal bleeding, probably an aspirin-induced ulcer with bleeding exacerbated by Xarelto. The patient has been transfused 3 units of blood and was placed on IV Protonix. We will proceed with an esophagogastroduodenoscopy today for further evaluation.
--- NOTE | 2017-11-29 14:50 | Discharge Instructions ---
Endoscopy Patient Instructions Date / Procedure(s) Performed Nov 29, 2017. EGD Allergy Information Coded Allergies: Levofloxacin (Verified Allergy, Intermediate, A.Fib, 11/28/17) Discharge Date / Findings Nov 29, 2017. normal EGD Medication Instructions Restart Stopped Medication(s): resume meds Current Inpatient Medications Medications (Trade) Dose Ordered Sig/Sha Route Start Time Stop Time Status Last Admin Dose Admin Acetaminophen (Tylenol Tab) 650 mg Q4H PRN PO 11/28/17 22:45 12/28/17 22:44 Budesonide/ Formoterol Fumarate (Symbicort 160/ 4.5 Inh) 2 puffs BID INH 11/29/17 09:00 12/29/17 08:59 11/29/17 08:12 2 PUFFS Tiotropium [place] (Spiriva Handihaler Inhaler) 1 puff QAM INH 11/29/17 09:00 12/29/17 08:59 11/29/17 08:12 1 PUFF Polyethylene (Miralax Powder Packet) 17 gm BID PRN PO 11/28/17 22:45 12/28/17 22:44 Ondansetron HCl (Zofran Odt) 8 mg Q6H PRN PO 11/28/17 22:45 12/28/17 22:44 Pantoprazole Sodium 40 mg/ Syringe 10 ml @ 5 mls/min DAILY@09,21 IV 11/29/17 09:00 12/29/17 08:59 11/29/17 08:12 5 MLS/MIN Furosemide 40 mg/ Syringe 4 ml @ 4 mls/min TODAY@1500 ONCE IV 11/29/17 15:00 11/29/17 15:01 Amiodarone HCl (Cordarone Tab) 200 mg QAM PO 11/29/17 09:00 12/29/17 08:59 11/29/17 08:57 200 MG Metoprolol Tartrate (Lopressor Iv) 2.5 mg Q6 IV. 11/29/17 08:45 12/29/17 08:44 11/29/17 12:13 2.5 MG Provider Instructions Activity Restrictions - No exercising or heavy lifting for 24 hours. - Do not drink alcohol the day of the procedure. - Do not drive a car or operate machinery until the day after the procedure. - Do not make any important decisions or sign important papers in 24 hours after the procedure. Following Day: - Return to full activity which may include returning to work/school. Diet Start your diet with liquids and light foods (jello, soup, juice, toast). Then eat your usual diet if not nauseated. Treatment For Common After Affects For mild abdominal pain, bloating, or excessive gas: - Rest - Eat lightly - Lie on right side Follow-Up Information Follow-up with as scheduled Anesthesia Information What You Should Know You have had a procedure that required some medicine to reduce anxiety and discomfort. This treatment is called moderate sedation. After receiving the treatment, you may be sleepy, but you will be able to breathe on your own. The effects of the treatment may last for several hours. Follow these instructions along with Activity/Diet recommendations noted above: * Do NOT do anything where dizziness or clumsiness would be dangerous. * Rest quietly at home today, then you can be up and about tomorrow. * Have a responsible person stay with you the rest of today. * You may have had an I.V. today. If so, you may take the dressing off later today. Recommendations Call your doctor if: * Trouble breathing * Continuous vomiting for more than 24 hours * Temperature above 101 degrees * Severe abdominal pain or bloating * Pain not relieved by pain medicine ordered * There is increased drainage or redness from any incision * A large amount of rectal bleeding greater than 2-3 tablespoons. (If you had a polyp/s removed or have hemorrhoids, a small amount of blood - from the rectum is to be expected.) * You have any unanswered questions or concerns. IN THE EVENT OF A SERIOUS EMERGENCY, GO TO THE NEAREST EMERGENCY ROOM Your discharge instructions were prepared by provider Kiran He. Patient Instructions Signature Page Cristofer Vallejo Patient (or Guardian) Signature/Date: I have read and understand the instructions given to me by my caregivers. Caregiver/RN/Doctor Signature/Date: The above-named patient and/or guardian has received patient instructions on this date. + Original Patient Signature Page (only) stays with chart. Please make copy for patient.
--- NOTE | 2017-11-29 14:54 | GI REPORT ---
Procedure Date: 11/29/2017 2:38 PM Procedure: Upper GI endoscopy Indications: Acute post hemorrhagic anemia, Melena Medicines: Propofol total dose 100 mg IV, Lidocaine 80 mg IV Complications: No immediate complications. Estimated Blood Loss: Estimated blood loss: none. Procedure: Pre-Anesthesia Assessment: - Prior to the procedure, a History and Physical was performed, and patient medications, allergies and sensitivities were reviewed. The patient's tolerance of previous anesthesia was reviewed. - The risks and benefits of the procedure and the sedation options and risks were discussed with the patient. All questions were answered and informed consent was obtained. - Prior to the procedure, a History and Physical was performed, and patient medications, allergies and sensitivities were reviewed. The patient's tolerance of previous anesthesia was reviewed. - The risks and benefits of the procedure and the sedation options and risks were discussed with the patient. All questions were answered and informed consent was obtained. After obtaining informed consent, the endoscope was passed under direct vision. Throughout the procedure, the patient's blood pressure, pulse, and oxygen saturations were monitored continuously. The scope was introduced through the mouth, and advanced to the second part of duodenum. The upper GI endoscopy was accomplished without difficulty. The patient tolerated the procedure well. Findings: The esophagus was normal. The stomach was normal. The examined duodenum was normal. Impression: - Normal esophagus. - Normal stomach. - Normal examined duodenum. - No specimens collected. Recommendation: - Return patient to [facility] care. - Resume regular diet today. Kiran He M.D. Kiran He MD 11/29/2017 2:53:40 PM This report has been signed electronically. Note Initiated On: 11/29/2017 2:38 PM I attest to the content of the Intraoperative Record and orders documented therein, exceptions below
[2017-11-29] MEDS ORDERED: LIDOCAINE HCL 2% 2 ML VIAL (20MG/ML) ONE (14:59)
[2017-11-29] MEDS ORDERED: PROPOFOL IV EMULSION 10 MG/ML 20 ML VIAL IV ONE (14:59)
--- NOTE | 2017-11-29 15:02 | PROGRESS NOTE ---
DATE: 11/29/2017 SUBJECTIVE: The patient underwent an EGD and was found to have a normal esophagus, stomach and duodenum without any source of bleeding identified. IMPRESSION: The patient is having melena and anemia probably from his previous nosebleeds. These are probably exacerbated by his aspirin and Xarelto. There is no digestive tract source of blood loss identified on his upper endoscopy given the fact that he had melena and an elevated BUN. It is highly unlikely that this is coming from a lower gastrointestinal source. At this point, I would probably keep the patient on a proton pump inhibitor if he is going to continue taking aspirin to prevent gastric erosions or ulcerations and transfuse him up into a safe range. We will continue to follow him during his hospital stay.
[2017-11-29] MEDS ORDERED: PANTOprazole SOD 40 MG TAB PO STA (15:17)
--- NOTE | 2017-11-29 15:23 | Anesthesiology Progress Note ---
Anesthesia Post Op Note Date & Time Nov 29, 2017 at 15:23 Vital Signs Pain Intensity: 0.0 Vital Signs Past 12 Hours Date Time Temp Pulse Resp B/P (MAP) Pulse Ox O2 Delivery O2 Flow Rate FiO2 11/29/17 15:09 36.5 73 24 107/51 (69) 95 Oxymask 4 11/29/17 14:54 37.1 72 16 101/42 (61) 97 Oxymask 4 11/29/17 14:05 37.1 82 22 126/56 (79) 100 Partial Rebreather 4 11/29/17 14:00 37.1 82 22 126/56 100 4.0 11/29/17 13:25 37.0 76 18 147/66 99 4.0 11/29/17 12:13 86 136/60 11/29/17 12:00 96 Nasal Cannula 4.0 11/29/17 11:15 36.8 75 20 137/69 (91) 100 4.0 11/29/17 08:59 86 136/65 11/29/17 08:45 36.9 90 18 162/66 99 4.0 11/29/17 08:30 36.0 90 16 158/69 99 4.0 11/29/17 08:00 98 Nasal Cannula 4.0 11/29/17 07:34 37.2 84 20 149/67 (94) 98 4.0 11/29/17 07:30 36.9 95 18 158/69 99 4.0 11/29/17 07:15 36.8 84 18 152/66 99 4.0 11/29/17 06:45 36.8 85 16 143/63 99 4.0 11/29/17 06:14 36.9 86 18 156/73 100 4.0 11/29/17 05:44 36.9 83 18 143/71 100 2.0 11/29/17 05:26 36.8 83 18 134/59 99 2.0 11/29/17 04:00 Nasal Cannula 2.0 Notes Mental Status: alert / awake / arousable, participated in evaluation Pt Amnestic to Procedure: Yes Nausea / Vomiting: adequately controlled Pain: adequately controlled Airway Patency, RR, SpO2: stable & adequate BP & HR: stable & adequate Hydration State: stable & adequate Anesthetic Complications: no major complications apparent
--- NOTE | 2017-11-29 15:36 | Hospitalist Progress Note ---
Hospitalist Progress Note Date of Service Nov 29, 2017. (Zenia Bunch .JANUSZ) Subjective Pt evaluation today including: conversation w/ patient, physical exam, chart review, lab review, review of inpatient medication list Voiding: no voiding problems Mr. Vallejo is feeling much improved after receiving transfusion of 3 units total. He had an EGD this afternoon which did not find any upper GI sources for bleed, attributing the melena and hgb drop to epistaxis ROS Constitutional: no chills, aches, sweats or fever Respiratory: no sob,cough, sputum, or wheezing Cardiac: no chest pain, palpitations, edema, orthopnea or lightheadedness GI: no abdominal pain, nausea, vomiting, diarrhea or constipation : no dysuria or hesitancy Extremities: no joint pain or weakness Skin: no rash All other systems reviewed and negative (Zenia Bunch CRNP) Medications Medications Administered Medications (Trade) Dose Ordered Sig/Sha Route Start Time Stop Time Status Last Admin Dose Admin Budesonide/ Formoterol Fumarate (Symbicort 160/ 4.5 Inh) 2 puffs BID INH 11/29/17 09:00 12/29/17 08:59 11/29/17 08:12 2 PUFFS Tiotropium [place] (Spiriva Handihaler Inhaler) 1 puff QAM INH 11/29/17 09:00 12/29/17 08:59 11/29/17 08:12 1 PUFF Furosemide (Lasix Inj) 40 mg NOW STAT IV 11/28/17 22:45 11/28/17 22:46 DC 11/28/17 22:52 40 MG Furosemide 40 mg/ Syringe 4 ml @ 4 mls/min ONE ONCE IV 11/29/17 04:15 11/29/17 04:23 DC 11/29/17 08:50 4 MLS/MIN Pantoprazole Sodium 40 mg/ Syringe 10 ml @ 5 mls/min DAILY@09,21 IV 11/29/17 09:00 12/29/17 08:59 11/29/17 08:12 5 MLS/MIN Pantoprazole Sodium 40 mg/ Syringe 10 ml @ 5 mls/min NOW ONCE IV 11/29/17 06:00 11/29/17 06:01 DC 11/29/17 06:46 5 MLS/MIN Amiodarone HCl (Cordarone Tab) 200 mg QAM PO 11/29/17 09:00 12/29/17 08:59 11/29/17 08:57 200 MG Metoprolol Tartrate (Lopressor Iv) 2.5 mg Q6 IV. 11/29/17 08:45 2 08:44 11/29/17 12:13 2.5 MG Sodium Chloride ([place] Nasal [place]) 225 sprays STK-MED ONCE .ROUTE 11/29/17 11:32 11/29/17 11:33 DC 11/29/17 11:40 225 SPRAYS (Zenia Bunch CRNP) Objective Vital Signs Date Time Temp Pulse Resp B/P (MAP) Pulse Ox O2 Delivery O2 Flow Rate FiO2 11/29/17 15:09 36.5 73 24 107/51 (69) 95 Oxymask 4 11/29/17 14:54 37.1 72 16 101/42 (61) 97 Oxymask 4 11/29/17 14:05 37.1 82 22 126/56 (79) 100 Partial Rebreather 4 11/29/17 14:00 37.1 82 22 126/56 100 4.0 11/29/17 13:25 37.0 76 18 147/66 99 4.0 11/29/17 12:13 86 136/60 11/29/17 12:00 96 Nasal Cannula 4.0 11/29/17 11:15 36.8 75 20 137/69 (91) 100 4.0 11/29/17 08:59 86 136/65 11/29/17 08:45 36.9 90 18 162/66 99 4.0 11/29/17 08:30 36.0 90 16 158/69 99 4.0 11/29/17 08:00 98 Nasal Cannula 4.0 11/29/17 07:34 37.2 84 20 149/67 (94) 98 4.0 11/29/17 07:30 36.9 95 18 158/69 99 4.0 11/29/17 07:15 36.8 84 18 152/66 99 4.0 11/29/17 06:45 36.8 85 16 143/63 99 4.0 11/29/17 06:14 36.9 86 18 156/73 100 4.0 11/29/17 05:44 36.9 83 18 143/71 100 2.0 11/29/17 05:26 36.8 83 18 134/59 99 2.0 11/29/17 04:00 Nasal Cannula 2.0 11/29/17 03:11 36.8 82 18 148/63 (91) 100 Nasal Cannula 2.0 11/29/17 02:28 36.9 81 18 149/65 100 2.0 11/29/17 01:28 36.9 83 18 133/69 97 2.0 11/29/17 00:28 36.8 84 20 146/73 95 2.0 11/29/17 00:01 36.7 92 20 163/63 93 Nasal Cannula 2.0 11/28/17 23:28 37.1 87 22 136/51 96 2.0 11/28/17 22:50 37.0 88 2 153/55 100 4.0 11/28/17 22:33 36.8 85 24 150/68 97 2.0 11/28/17 22:12 37.1 86 20 150/82 96 2.0 11/28/17 21:10 37.0 81 22 158/70 98 11/28/17 20:10 37.0 82 22 158/70 100 2.0 11/28/17 20:10 36.9 84 20 146/72 100 2.0 11/28/17 19:40 36.0 82 20 147/67 100 2.0 11/28/17 19:23 36.7 84 20 156/68 100 2.0 11/28/17 19:17 83 11/28/17 19:00 82 18 129/53 100 Nasal Cannula 3.0 11/28/17 18:09 100 Nasal Cannula 2.0 11/28/17 17:35 36.7 113 26 95/40 98 Nasal Cannula (Zenia Bunch, JANUSZ) Physical Exam Notes: General: no distress Eyes: normal inspection, PERLL Respiratory: chest non tender, clear to auscultation, normal breath sounds, no respiratory distress, no accessory muscle use Cardiac: regular rate and rhythm, no rub or gallop, 3/6 systolic murmur, no edema, no jvd GI/: active bowel sounds, no abd pain or tenderness, soft, non distended Extremities: normal range of motion, normal strength, non tender Neuro/Psych: alert and oriented x 3, normal mood and affect Skin: normal color, dry, incision well approximated, no drainage (Zenia Bunch ., JANUSZ) Laboratory Results Last 24 Hours Test 11/28/17 18:19 11/28/17 22:11 11/29/17 03:51 11/29/17 06:09 White Blood Count 6.98 K/uL 6.70 K/uL Red Blood Count 1.89 M/uL 2.37 M/uL Hemoglobin 5.7 g/dL 7.1 g/dL Hematocrit 18.8 % 23.1 % Mean Corpuscular Volume 99.5 fL 97.5 fL Mean Corpuscular Hemoglobin 30.2 pg 30.0 pg Mean Corpuscular Hemoglobin Concent 30.3 g/dl 30.7 g/dl Platelet Count 192 K/uL 191 K/uL Mean Platelet Volume 9.2 fL 9.1 fL Neutrophils (%) (Auto) 80.6 % 81.3 % Lymphocytes (%) (Auto) 8.3 % 6.7 % Monocytes (%) (Auto) 10.6 % 11.2 % Eosinophils (%) (Auto) 0.3 % 0.4 % Basophils (%) (Auto) 0.1 % 0.1 % Neutrophils # (Auto) 5.62 K/uL 5.44 K/uL Lymphocytes # (Auto) 0.58 K/uL 0.45 K/uL Monocytes # (Auto) 0.74 K/uL 0.75 K/uL Eosinophils # (Auto) 0.02 K/uL 0.03 K/uL Basophils # (Auto) 0.01 K/uL 0.01 K/uL RDW Standard Deviation 73.8 fL 70.0 fL RDW Coefficient of Variation 20.3 % 20.1 % Immature Granulocyte % (Auto) 0.1 % 0.3 % Immature Granulocyte # (Auto) 0.01 K/uL 0.02 K/uL Polychromasia 1+ 1+ Basophilic Stippling OCCASIONAL Anisocytosis PRESENT PRESENT Prothrombin Time 12.9 SECONDS 12.4 SECONDS Prothromb Time International Ratio 1.2 1.2 Activated Partial Thromboplast Time 27.6 SECONDS 29.9 SECONDS Partial Thromboplastin Ratio 1.1 1.2 Sodium Level 138 mmol/L 140 mmol/L Potassium Level 4.2 mmol/L 3.9 mmol/L Chloride Level 105 mmol/L 108 mmol/L Carbon Dioxide Level 25 mmol/L 27 mmol/L Anion Gap 8.0 mmol/L 5.0 mmol/L Blood Urea Nitrogen 43 mg/dl 37 mg/dl Creatinine 1.37 mg/dl 1.33 mg/dl Est Creatinine Clear Calc Drug Dose 56.9 ml/min 58.6 ml/min Estimated GFR () 57.3 59.3 Estimated GFR (Non- 49.4 51.2 BUN/Creatinine Ratio 31.3 28.0 Random Glucose 104 mg/dl 97 mg/dl Calcium Level 8.9 mg/dl 8.3 mg/dl Total Bilirubin 0.9 mg/dl Direct Bilirubin 0.3 mg/dl Aspartate Amino Transf (AST/SGOT) 13 U/L Alanine Aminotransferase (ALT/SGPT) 16 U/L Alkaline Phosphatase 108 U/L Total Protein 6.3 gm/dl Albumin 3.1 gm/dl Lipase 251 U/L Urine Color YELLOW Urine Appearance CLEAR Urine pH 5.5 Urine Specific [place] 1.015 Urine Protein TRACE Urine Glucose (UA) NEG Urine Ketones NEG Urine Occult Blood NEG Urine Nitrite NEG Urine Bilirubin NEG Urine Urobilinogen NEG Urine Leukocyte Esterase NEG Urine RBC 0-4 /hpf Urine WBC 1-5 /hpf Urine Epithelial Cells 0-5 /lpf Urine Bacteria NEG Urine Hyaline Casts 5-10 /lpf Urine Granular Casts 0-3 /lpf Nucleated RBC Absolute Count (auto) 0.05 K/uL Nucleated Red Blood Cells % 0.8 % Magnesium Level 2.2 mg/dl Total Creatine Kinase 30 U/L Creatine Kinase MB 5.1 ng/ml Creatine Kinase MB Ratio 17.0 Troponin I 0.038 ng/ml Test 11/29/17 11:20 Hemoglobin 7.8 g/dL Hematocrit 24.9 % (Zenia Bunch, JANUSZ) Assessment and Plan Mr. Vallejo is a 77 year old man here for severe anemia due to epistaxis while taking Xeralto and ASA for atrial fibrillation Acute blood loss anemia due to epistaxis in the setting of anticoagulation for history of A.fib/valve replacement - post 3 units total PRBCs - initial hgb was 5.7, 7.8 today after transfusion - GI endoscopy did not find source of bleeding in upper GI system. Per Dr. He, unlikely that source is lower GI given elevated BUN - ok to start AHA diet - per cardiology recommendation - restart ASA in the morning, discontinue further Xeralto as patient has been in SR and has had his atrial appendage removed so risk for stroke is decreased. - per GI recs - continue ppi when restarting ASA - recheck hgb this evening Hx of severe aortic stenosis s/p valve replacement, history of right sided heart failure - lasix given after prbc transfusions - patient negative 3L - not currently experiencing exacerbation Sacral wound - continue air mattress - wound care COPD - continue symbicort and spiriva BPH - continue finasteride Hyperlipidemia - restart atorvastatin Full code, DVT chemoprophylaxis contraindicated due to severe epistaxis and anemia (Zenia Bunch ., JANUSZ) i personally examined pt and verified all starr points w Rex BOUDREAUX feeling better - was anxious earlier but having situation explained helped. vitals noted nad breathing unlabored no accessory muscles, transfusion running when i see him. no pallor acute blood loss anemia - initially thought to be UGI source - after EGD negative likely anticoagulant induced epistaxis - now stable. ongoing vigilance and supportive care. otherwise as above (Jaime Addison D.O.)
[2017-11-29 22:05] LABS: HEMATOCRIT 27.6 % (42-52); HEMOGLOBIN 8.5 g/dL (14.0-18.0)
[2017-11-30 03:08] LABS: BASO % 0.2 %; BASO ABS # 0.01 K/uL (0-0.2); EOS % 1.2 %; EOS ABS # 0.06 K/uL (0-0.5); HEMATOCRIT 25.2 % (42-52); HEMOGLOBIN 7.8 g/dL (14.0-18.0); IG# 0.01 K/uL (0.00-0.02); LYMPH % 9.6 %; LYMPH ABS # 0.48 K/uL (1.2-3.4); MEAN CELL VOLUME 96.2 fL (80-100); MEAN CORPUSCULAR HEMOGLOBIN 29.8 pg (25-34); MEAN PLATELET VOLUME 8.7 fL (7.4-10.4); MONO % 12.6 %; MONO ABS # 0.63 K/uL (0.11-0.59); NEUT % 76.2 %; NUCLEATED RED BLOOD CELL ABS 0.05 K/uL (0-0); PLATELET COUNT 158 K/uL (130-400); RED CELL DISTRIBUTION WIDTH CV 19.3 % (11.5-14.5); WHITE BLOOD COUNT 4.99 K/uL (4.8-10.8)
[2017-11-30 03:27] LABS: INR 1.2 (0.9-1.1)
[2017-11-30 03:31] VITALS: BP 118/58; PULSE 71; TEMP 36.9; O2SAT 97
[2017-11-30 03:31] LABS: CALCIUM 7.9 mg/dl (8.5-10.1); CREATININE 1.21 mg/dl (0.60-1.40); POTASSIUM 3.5 mmol/L (3.5-5.1)
[2017-11-30] MEDS: METOPROLOL TARTRATE 1 MG/ML VIAL IV. SCH ×4 (06:35→23:45)
[2017-11-30 07:38] VITALS: BP 123/61; PULSE 70; TEMP 36.7; O2SAT 95
--- NOTE | 2017-11-30 09:23 | Cardiology Follow-Up ---
Subjective General Date of Service: Nov 30, 2017. Pt evaluation today including: conversation w/ patient, chart review, lab review, review of studies, conversation w/ biometrics consultant History of Present Illness The patient is a 77 year old male Allergies Coded Allergies: Levofloxacin (Verified Allergy, Pedro Avilez, 11/28/17) Social History Smoking Status: Never Smoker Hx Tobacco Use In Past Year?: No Hx Alcohol Use - Type And Amou: No Hx Substance Use - Type And Am: No Problem List Medical Problems: (1) Epistaxis Status: Acute (2) GI bleed Status: Acute (3) Severe anemia Status: Acute Review of Systems Respiratory: + shortness of breath, + dyspnea on exertion, No cough, No dyspnea at rest Cardiac: No chest pain, No edema, No palpitations Additional ROS Details: No blood from nose that he is aware of Physical Exam Vital Signs Last Vital Signs Documentation Date Time Temp Pulse Resp B/P (MAP) Pulse Ox O2 Delivery O2 Flow Rate FiO2 11/30/17 07:38 36.7 70 20 123/61 (81) 95 Room Air 11/30/17 04:00 3.0 Physical Exam Constitutional: Level of Distress: NAD, acutely ill Lungs: Respiratory effort: pertinent finding (Nasal oxygen) Auscultation: decreased breath sounds (bases B/l) Cardiovascular: Heart Auscultation: RRR, no rubs, no gallops, I/ LAKESHIA Abdomen: Bowel Sounds: normal Inspection & Palpation: soft, non-distended, no tenderness, guarding & rebound Extremities: no edema Assessment and Plan Assessment and Plan IMPRESSIONS: 1. Anemia/Acute Blood loss--Negative EGD for source. 2. Recent bioprosthetic aortic valve replacement in October 2017 with a 29-mm Ol[place] valve, Maze procedure, and amputation of left atrial appendage. 3. History of both atrial fibrillation and atrial flutter ablations. 4. Minimal preoperative epicardial coronary artery disease. 5. Moderate pulmonary hypertension. 6. Known right ventricular dysfunction and chronic right-sided heart failure. Still with drop in HGb--?? small bowel AVM associated with Aortic stenosis--?? capsule endoscopy Check Hgb this afternoon ok with ASA Protonix Amio and BB--remains in NSR Ambulate Legs look much better Laboratory Results Last 24 Hours Test 11/29/17 11:20 1/10/18 21:28 11/30/17 02:52 Hemoglobin 7.8 g/dL 8.5 g/dL 7.8 g/dL Hematocrit 24.9 % 27.6 % 25.2 % White Blood Count 4.99 K/uL Red Blood Count 2.62 M/uL Mean Corpuscular Volume 96.2 fL Mean Corpuscular Hemoglobin 29.8 pg Mean Corpuscular Hemoglobin Concent 31.0 g/dl Platelet Count 158 K/uL Mean Platelet Volume 8.7 fL Neutrophils (%) (Auto) 76.2 % Lymphocytes (%) (Auto) 9.6 % Monocytes (%) (Auto) 12.6 % Eosinophils (%) (Auto) 1.2 % Basophils (%) (Auto) 0.2 % Neutrophils # (Auto) 3.80 K/uL Lymphocytes # (Auto) 0.48 K/uL Monocytes # (Auto) 0.63 K/uL Eosinophils # (Auto) 0.06 K/uL Basophils # (Auto) 0.01 K/uL RDW Standard Deviation 66.0 fL RDW Coefficient of Variation 19.3 % Immature Granulocyte % (Auto) 0.2 % Immature Granulocyte # (Auto) 0.01 K/uL Nucleated RBC Absolute Count (auto) 0.05 K/uL Nucleated Red Blood Cells % 1.0 % Polychromasia 1+ Anisocytosis PRESENT Prothrombin Time 12.6 SECONDS Prothromb Time International Ratio 1.2 Sodium Level 141 mmol/L Potassium Level 3.5 mmol/L Chloride Level 107 mmol/L Carbon Dioxide Level 30 mmol/L Anion Gap 4.0 mmol/L Blood Urea Nitrogen 32 mg/dl Creatinine 1.21 mg/dl Est Creatinine Clear Calc Drug Dose 64.4 ml/min Estimated GFR () 66.5 Estimated GFR (Non- 57.4 BUN/Creatinine Ratio 26.3 Random Glucose 90 mg/dl Calcium Level 7.9 mg/dl Magnesium Level 2.1 mg/dl
--- NOTE | 2017-11-30 10:51 | Clinical Documentation Query ---
QUERY 1 OF 2 CLINICAL DOCUMENTATION QUERY Ms. XIE, In your clinical opinion is this patient being managed for: ( ) Chronic heart failure with preserved EF ( ) Not Agree ( ) Other explanation of clinical findings (Please Explain) ( ) Unable to determine (Please Define) ( ) Need to Discuss The medical record reflects the following clinical findings, treatment, and risk factors. Clinical Indicators: 77 yo male presenting with epistaxis, acute blood loss anemia. Noted to have a history of chronic R sided heart failure. Treatment: chronic lasix/cordarone, lopressor, cardiology consult Risk Factors: age, pulmonary HTN, A fib/A flutter, severe aortic stenosis with recent valve replacement QUERY 2 OF 2 In your clinical opinion is this patient being managed for: ( ) Pressure ulcer L and R buttock, stage 2 ( ) Not Agree ( ) Other explanation of clinical findings (Please Explain) ( ) Unable to determine (Please Define) ( ) Need to Discuss The medical record reflects the following clinical findings, treatment, and risk factors. Clinical Indicators: 77 yo male presenting with anemia. Noted to have a sacral wound. Documentation in nursing progress note indicates pt with bilateral stage II ulcerations. Treatment: optifoam dressing, air mattress Risk Factors: age, recent hospital stay for surgery with rehab stay, COPD, HTN Please clarify and document your clinical opinion in the progress notes and discharge summary. Terms such as "probable", "suspected", "likely", "questionable", "possible", or "still to be ruled out" are acceptable. IF IN AGREEMENT, YOU MUST DOCUMENT ABOVE DIAGNOSTIC STATEMENT IN DAILY PROGRESS NOTES AND DISCHARGE SUMMARY. This document is not part of the patient's record. Thank You, Elayne Birch, MERCEDES [phone]
--- NOTE | 2017-11-30 10:53 | Clinical Documentation Query ---
QUERY 1 OF [address] MINA, In your clinical opinion is this patient being managed for: (x ) Chronic heart failure with preserved EF see discharge summary ( ) Not Agree ( ) Other explanation of clinical findings (Please Explain) ( ) Unable to determine (Please Define) ( ) Need to Discuss The medical record reflects the following clinical findings, treatment, and risk factors. Clinical Indicators: 77 yo male presenting with epistaxis, acute blood loss anemia. Noted to have a history of chronic R sided heart failure. Treatment: chronic lasix/cordarone, lopressor, cardiology consult Risk Factors: age, pulmonary HTN, A fib/A flutter, severe aortic stenosis with recent valve replacement QUERY 2 OF 2 In your clinical opinion is this patient being managed for: ( x ) Pressure ulcer L and R buttock, stage 2 ( ) Not Agree ( ) Other explanation of clinical findings (Please Explain) ( ) Unable to determine (Please Define) ( ) Need to Discuss The medical record reflects the following clinical findings, treatment, and risk factors. Clinical Indicators: 77 yo male presenting with anemia. Noted to have a sacral wound. Documentation in nursing progress note indicates pt with bilateral stage II ulcerations. Treatment: optifoam dressing, air mattress Risk Factors: age, recent hospital stay for surgery with rehab stay, COPD, HTN Please clarify and document your clinical opinion in the progress notes and discharge summary. Terms such as "probable", "suspected", "likely", "questionable", "possible", or "still to be ruled out" are acceptable. IF IN AGREEMENT, YOU MUST DOCUMENT ABOVE DIAGNOSTIC STATEMENT IN DAILY PROGRESS NOTES AND DISCHARGE SUMMARY. This document is not part of the patient's record. Thank You, Elayne Birch, RN [phone]
[2017-11-30 11:09] VITALS: BP 102/48; PULSE 69; TEMP 36.8; O2SAT 95
[2017-11-30 12:31] LABS: HEMOGLOBIN 7.8 g/dL (14.0-18.0)
[2017-11-30] MEDS: AMIODARONE 200 MG TAB PO SCH (12:31)
[2017-11-30] MEDS: TIOTROPIUM BROMIDE 5 PUFF/90 MCG INH INH SCH (12:31)
[2017-11-30] MEDS: ASPIRIN 81 MG ECTAB PO SCH (12:31)
[2017-11-30] MEDS: BUDESONIDE/FORMOTEROL FUMARATE 160/4.5 60 PUFFS/INHALER INH SCH ×2 (12:31→20:44)
[2017-11-30] MEDS: PANTOprazole SOD 40 MG TAB PO SCH (12:32)
--- NOTE | 2017-11-30 13:07 | Hospitalist Progress Note ---
Hospitalist Progress Note Date of Service Nov 30, 2017. (Zenia Bunch CRNP) Subjective Pt evaluation today including: conversation w/ patient, physical exam, chart review, lab review, conversation w/ project consultant, review of inpatient medication list Voiding: no voiding problems Mr. Vallejo feels much better today however he is still having low hgb of 7.8 today. His stools continue to be dark and like "toothpaste" which he says he had been experiencing since a week before his nose bleed. He has not had any abdominal pain, chest pain and his sob is much improved. He is on room air. Discussed his case with both GI and cardiology. ROS Constitutional: no chills, aches, sweats or fever Respiratory: no sob,cough, sputum, or wheezing Cardiac: no chest pain, palpitations, edema, orthopnea or lightheadedness GI: no abdominal pain, nausea, vomiting, diarrhea or constipation : no dysuria or hesitancy Extremities: no joint pain or weakness Skin: no rash All other systems reviewed and negative (Zenia Bunch CRNP) Medications Medications Administered Medications (Trade) Dose Ordered Sig/Sha Route Start Time Stop Time Status Last Admin Dose Admin Budesonide/ Formoterol Fumarate (Symbicort 160/ 4.5 Inh) 2 puffs BID INH 11/29/17 09:00 12/29/17 08:59 11/30/17 12:31 2 PUFFS Tiotropium Lindsay (Spiriva Handihaler Inhaler) 1 puff QAM INH 11/29/17 09:00 12/29/17 08:59 11/30/17 12:31 1 PUFF Furosemide (Lasix Inj) 40 mg NOW STAT IV 11/28/17 22:45 11/28/17 22:46 DC 11/28/17 22:52 40 MG Furosemide 40 mg/ Syringe 4 ml @ 4 mls/min ONE ONCE IV 11/29/17 04:15 11/29/17 04:23 DC 11/29/17 08:50 4 MLS/MIN Pantoprazole Sodium 40 mg/ Syringe 10 ml @ 5 mls/min DAILY@09,21 IV 11/29/17 09:00 11/29/17 15:21 DC 11/29/17 08:12 5 MLS/MIN Pantoprazole Sodium 40 mg/ Syringe 10 ml @ 5 mls/min NOW ONCE IV 11/29/17 06:00 11/29/17 06:01 DC 11/29/17 06:46 5 MLS/MIN Furosemide 40 mg/ Syringe 4 ml @ 4 mls/min TODAY@1500 ONCE IV 11/29/17 15:00 11/29/17 15:01 DC 11/29/17 17:24 4 MLS/MIN Amiodarone HCl (Cordarone Tab) 200 mg QAM PO 11/29/17 09:00 12/29/17 08:59 11/30/17 12:31 200 MG Metoprolol Tartrate (Lopressor Iv) 2.5 mg Q6 IV. 11/29/17 08:45 12/29/17 08:44 11/30/17 12:33 2.5 MG Sodium Chloride (Cidra Nasal [place]) 225 sprays STK-MED ONCE .ROUTE 11/29/17 11:32 11/29/17 11:33 DC 11/29/17 11:40 225 SPRAYS Aspirin (Ecotrin Tab) 81 mg QAM PO 11/30/17 09:00 12/30/17 08:59 11/30/17 12:31 81 MG Pantoprazole Sodium (Protonix Tab) 40 mg NOW STAT PO 11/29/17 15:17 11/29/17 15:25 DC 11/29/17 17:25 40 MG Pantoprazole Sodium (Protonix Tab) 40 mg QAM PO 11/30/17 09:00 12/04/17 08:59 11/30/17 12:32 40 MG (Zenia Bunch, JANUSZ) Objective Vital Signs Date Time Temp Pulse Resp B/P (MAP) Pulse Ox O2 Delivery O2 Flow Rate FiO2 11/30/17 12:33 69 102/48 11/30/17 12:00 Nasal Cannula 2.0 11/30/17 11:09 36.8 69 18 102/48 (66) 95 3.0 11/30/17 08:00 Nasal Cannula 2.0 11/30/17 07:38 36.7 70 20 123/61 (81) 95 Room Air 11/30/17 06:35 71 124/54 11/30/17 04:00 Nasal Cannula 3.0 11/30/17 03:31 36.9 71 16 118/58 (78) 97 Nasal Cannula 3.0 11/29/17 23:59 Nasal Cannula 3.0 11/29/17 23:47 75 108/53 11/29/17 23:25 36.9 75 17 108/53 (71) 97 Nasal Cannula 3.0 11/29/17 20:00 Nasal Cannula 4.0 11/29/17 19:20 36.7 70 19 119/61 (80) 100 Nasal Cannula 3.0 11/29/17 17:24 72 110/52 11/29/17 16:20 77 20 132/66 (88) 100 Nasal Cannula 4.0 11/29/17 16:08 36.8 76 20 133/75 (94) 97 Nasal Cannula 4.0 11/29/17 16:00 Nasal Cannula 4.0 11/29/17 15:53 36.9 66 20 129/60 (83) 98 Nasal Cannula 4.0 11/29/17 15:24 72 20 110/52 (71) 100 Oxymask 4 11/29/17 15:09 36.5 73 24 107/51 (69) 95 Oxymask 4 11/29/17 15:00 36.5 73 24 107/51 97 4.0 11/29/17 14:54 37.1 72 16 101/42 (61) 97 Oxymask 4 11/29/17 14:05 37.1 82 22 126/56 (79) 100 Partial Rebreather 4 11/29/17 14:00 37.1 82 22 126/56 100 4.0 11/29/17 13:25 37.0 76 18 147/66 99 4.0 (Zenia Bunch CRNP) Physical Exam Notes: General: no distress Eyes: normal inspection, PERLL Respiratory: chest non tender, clear to auscultation, normal breath sounds, no respiratory distress, no accessory muscle use Cardiac: regular rate and rhythm, no rub or gallop, systolic murmur 3/6, no edema, no jvd GI/: active bowel sounds, no abd pain or tenderness, soft, non distended Extremities: normal range of motion, normal strength, non tender Neuro/Psych: alert and oriented x 3, normal mood and affect Skin: normal color, dry (Zenia Bunch CRNP) Laboratory Results Last 24 Hours Test 11/29/17 21:28 1/11/18 02:52 11/30/17 12:15 Hemoglobin 8.5 g/dL 7.8 g/dL 7.8 g/dL Hematocrit 27.6 % 25.2 % 25.0 % White Blood Count 4.99 K/uL Red Blood Count 2.62 M/uL Mean Corpuscular Volume 96.2 fL Mean Corpuscular Hemoglobin 29.8 pg Mean Corpuscular Hemoglobin Concent 31.0 g/dl Platelet Count 158 K/uL Mean Platelet Volume 8.7 fL Neutrophils (%) (Auto) 76.2 % Lymphocytes (%) (Auto) 9.6 % Monocytes (%) (Auto) 12.6 % Eosinophils (%) (Auto) 1.2 % Basophils (%) (Auto) 0.2 % Neutrophils # (Auto) 3.80 K/uL Lymphocytes # (Auto) 0.48 K/uL Monocytes # (Auto) 0.63 K/uL Eosinophils # (Auto) 0.06 K/uL Basophils # (Auto) 0.01 K/uL RDW Standard Deviation 66.0 fL RDW Coefficient of Variation 19.3 % Immature Granulocyte % (Auto) 0.2 % Immature Granulocyte # (Auto) 0.01 K/uL Nucleated RBC Absolute Count (auto) 0.05 K/uL Nucleated Red Blood Cells % 1.0 % Polychromasia 1+ Anisocytosis PRESENT Prothrombin Time 12.6 SECONDS Prothromb Time International Ratio 1.2 Sodium Level 141 mmol/L Potassium Level 3.5 mmol/L Chloride Level 107 mmol/L Carbon Dioxide Level 30 mmol/L Anion Gap 4.0 mmol/L Blood Urea Nitrogen 32 mg/dl Creatinine 1.21 mg/dl Est Creatinine Clear Calc Drug Dose 64.4 ml/min Estimated GFR () 66.5 Estimated GFR (Non- 57.4 BUN/Creatinine Ratio 26.3 Random Glucose 90 mg/dl Calcium Level 7.9 mg/dl Magnesium Level 2.1 mg/dl (Zenia Bunch, JANUSZ) Assessment and Plan Mr. Vallejo is a 77 year old man here for severe anemia due to epistaxis while taking Xeralto and ASA for atrial fibrillation Acute blood loss anemia due to epistaxis in the setting of anticoagulation for history of A.fib/valve replacement - post 3 units total PRBCs - initial hgb was 5.7, up to 8.5 yesterday evening but back down to 7.8 this morning and the same on repeat at 1200. - GI endoscopy did not find source of bleeding in upper GI system. Discussed with Dr. He hbg results and patient's account of previous bm - colonoscopy tomorrow - Per cardiology recommendation - restarted ASA, discontinue further Xeralto as patient has been in SR and has had his atrial appendage removed so risk for stroke is decreased. - per GI recs - continue ppi when restarting ASA - recheck hgb this evening Hx of severe aortic stenosis s/p valve replacement, history of chronic right sided heart failure with preserved ejection fraction - lasix given after prbc transfusions - patient negative 4.5L - not currently experiencing exacerbation Stage II sacral decubitus - continue air mattress - wound care COPD - continue symbicort and spiriva BPH - continue finasteride Hyperlipidemia - restart atorvastatin Transfer to med surg Full code, DVT chemoprophylaxis contraindicated due to severe epistaxis and anemia (Zenia Bunch ., JANUSZ) pt seen, case dw S Julio C BOUDREAUX sleeping comfortably each time i come to room. doing better, for colo tomorrow luzma noted nad breathing unlabored no pallor acute blood loss anemia - may all be nosebleed but stools raise concern for GI source- agree colo otherwise stable, otherwise as above, safe for med surg (Jaime Addison D.Kisha.)
[2017-11-30 14:51] VITALS: BP 102/48; PULSE 69; TEMP 36.8; O2SAT 94
--- NOTE | 2017-11-30 15:55 | PROGRESS NOTE ---
DATE: 11/29/2017 SUBJECTIVE: The patient feels well today. His vital signs show blood pressure 102/48, pulse 69; hemoglobin is 7.8, down from 8.5 yesterday. He has received 4 units of blood. EGD yesterday was negative. IMPRESSION: The patient has had some gastrointestinal bleeding which initially was thought to be due to nose bleeds, on blood thinners following aortic valve replacement, although his blood count dropped a little bit overnight. PLAN: I plan on proceeding with a colonoscopy tomorrow for complete list to make sure there is no other potential source for blood loss. This will be done by Dr. Martinez, tomorrow afternoon.
[2017-11-30 16:16] VITALS: BP 105/55; PULSE 65; TEMP 36.6; O2SAT 96
[2017-11-30] MEDS: LAVAGE SOLUTION 4000ML PO SCH (17:40)
[2017-11-30 21:10] LABS: HEMATOCRIT 28.4 % (42-52); HEMOGLOBIN 8.7 g/dL (14.0-18.0)
[2017-11-30 23:30] VITALS: BP 107/52; PULSE 60; TEMP 36.7; O2SAT 96
[2017-12-01] VITALS (7 sets, daily range): BP systolic 101–113; BP diastolic 50–60; PULSE 62–74; TEMP 36.6–36.8; O2SAT 93–99; Ht 195.6 cm; Wt 88.9 kg
[2017-12-01] MEDS: METOPROLOL TARTRATE 1 MG/ML VIAL IV. SCH ×3 (05:48→17:49)
[2017-12-01] MEDS: LAVAGE SOLUTION 4000ML PO SCH (07:06)
[2017-12-01] MEDS: ASPIRIN 81 MG ECTAB PO SCH (07:30)
[2017-12-01] MEDS: AMIODARONE 200 MG TAB PO SCH (07:30)
[2017-12-01] MEDS: PANTOprazole SOD 40 MG TAB PO SCH (07:30)
[2017-12-01] MEDS: TIOTROPIUM BROMIDE 5 PUFF/90 MCG INH INH SCH (07:31)
[2017-12-01] MEDS: BUDESONIDE/FORMOTEROL FUMARATE 160/4.5 60 PUFFS/INHALER INH SCH ×2 (07:31→20:02)
[2017-12-01 07:37] LABS: BASO % 0.2 %; BASO ABS # 0.01 K/uL (0-0.2); EOS % 2.1 %; HEMATOCRIT 25.2 % (42-52); HEMOGLOBIN 7.8 g/dL (14.0-18.0); IG# 0.01 K/uL (0.00-0.02); LYMPH % 11.6 %; LYMPH ABS # 0.56 K/uL (1.2-3.4); MEAN CELL VOLUME 96.6 fL (80-100); MEAN CORPUSCULAR HEMOGLOBIN 29.9 pg (25-34); MEAN PLATELET VOLUME 9.8 fL (7.4-10.4); MONO % 12.7 %; MONO ABS # 0.61 K/uL (0.11-0.59); NEUT % 73.2 %; NEUT ABS # 3.53 K/uL (1.4-6.5); NUCLEATED RED BLOOD CELL ABS 0.02 K/uL (0-0); PLATELET COUNT 164 K/uL (130-400); RED CELL DISTRIBUTION WIDTH CV 18.4 % (11.5-14.5); RED CELL DISTRIBUTION WIDTH SD 64.6 fL (36.4-46.3); WHITE BLOOD COUNT 4.82 K/uL (4.8-10.8)
[2017-12-01 07:51] LABS: INR 1.2 (0.9-1.1)
[2017-12-01 08:13] LABS: CALCIUM 7.9 mg/dl (8.5-10.1); CREATININE 0.94 mg/dl (0.60-1.40); POTASSIUM 3.4 mmol/L (3.5-5.1)
--- NOTE | 2017-12-01 09:42 | Cardiology Follow-Up ---
Subjective General Date of Service: Dec 01, 2017. Pt evaluation today including: conversation w/ patient, chart review, lab review, review of studies History of Present Illness The patient is a 77 year old male Allergies Coded Allergies: Levofloxacin (Verified Allergy, Pedro Avilez, 11/28/17) Social History Smoking Status: Never Smoker Hx Tobacco Use In Past Year?: No Hx Alcohol Use - Type And Amou: No Hx Substance Use - Type And Am: No Problem List Medical Problems: (1) Epistaxis Status: Acute (2) GI bleed Status: Acute (3) Severe anemia Status: Acute Review of Systems Respiratory: + shortness of breath, No cough, No dyspnea at rest Cardiac: No chest pain, No edema, No palpitations Additional ROS Details: with dark tarry stools as he is prepping for colonoscopy Physical Exam Vital Signs Last Vital Signs Documentation Date Time Temp Pulse Resp B/P (MAP) Pulse Ox O2 Delivery O2 Flow Rate FiO2 12/01/17 08:00 98 Nasal Cannula 3.0 12/01/17 07:10 36.7 63 18 107/56 (73) Physical Exam Constitutional: Level of Distress: NAD, acutely ill Lungs: Respiratory effort: pertinent finding (Nasal oxygen) Auscultation: decreased breath sounds (bases B/l) Cardiovascular: Heart Auscultation: RRR, no rubs, no gallops, I/ LAKESHIA Abdomen: Bowel Sounds: normal Inspection & Palpation: soft, non-distended, no tenderness, guarding & rebound Extremities: no edema Assessment and Plan Assessment and Plan IMPRESSIONS: 1. Anemia/Acute Blood loss--Negative EGD for source. 2. Recent bioprosthetic aortic valve replacement in October 2017 with a 29-mm Olvera valve, Maze procedure, and amputation of left atrial appendage. 3. History of both atrial fibrillation and atrial flutter ablations. 4. Minimal preoperative epicardial coronary artery disease. 5. Moderate pulmonary hypertension. 6. Known right ventricular dysfunction and chronic right-sided heart failure. hgb stable from yesterday morning; ?? lab error with last nights as he did not receive blood Colon today ASA Protonix Amio and BB--remains in NSR--when taking PO change BB from IV to toprol XL 25mg QHS Legs look much better Laboratory Results Last 24 Hours Test 11/30/17 12:15 11/30/17 20:59 12/01/17 07:09 Hemoglobin 7.8 g/dL 8.7 g/dL 7.8 g/dL Hematocrit 25.0 % 28.4 % 25.2 % White Blood Count 4.82 K/uL Red Blood Count 2.61 M/uL Mean Corpuscular Volume 96.6 fL Mean Corpuscular Hemoglobin 29.9 pg Mean Corpuscular Hemoglobin Concent 31.0 g/dl Platelet Count 164 K/uL Mean Platelet Volume 9.8 fL Neutrophils (%) (Auto) 73.2 % Lymphocytes (%) (Auto) 11.6 % Monocytes (%) (Auto) 12.7 % Eosinophils (%) (Auto) 2.1 % Basophils (%) (Auto) 0.2 % Neutrophils # (Auto) 3.53 K/uL Lymphocytes # (Auto) 0.56 K/uL Monocytes # (Auto) 0.61 K/uL Eosinophils # (Auto) 0.10 K/uL Basophils # (Auto) 0.01 K/uL RDW Standard Deviation 64.6 fL RDW Coefficient of Variation 18.4 % Immature Granulocyte % (Auto) 0.2 % Immature Granulocyte # (Auto) 0.01 K/uL Nucleated RBC Absolute Count (auto) 0.02 K/uL Nucleated Red Blood Cells % 0.5 % Basophilic Stippling 1+ Anisocytosis PRESENT Ovalocytes 1+ Acanthocytes 1+ Prothrombin Time 12.2 SECONDS Prothromb Time International Ratio 1.2 Sodium Level 142 mmol/L Potassium Level 3.4 mmol/L Chloride Level 106 mmol/L Carbon Dioxide Level 29 mmol/L Anion Gap 7.0 mmol/L Blood Urea Nitrogen 24 mg/dl Creatinine 0.94 mg/dl Est Creatinine Clear Calc Drug Dose 82.8 ml/min Estimated GFR () 90.3 Estimated GFR (Non- 77.9 BUN/Creatinine Ratio 25.1 Random Glucose 83 mg/dl Calcium Level 7.9 mg/dl Magnesium Level 2.2 mg/dl
[2017-12-01] MEDS ORDERED: EpHEDrine SULFATE INJ 50 MG/ML AMP IV PRN (13:00)
[2017-12-01] MEDS ORDERED: ATROPINE SULFATE 0.1 MG/ML 5ML SYR IV PRN (13:00)
--- NOTE | 2017-12-01 13:13 | History & Physical Bridge Note ---
H&P Re-Evaluation Bridge Note: I have examined the patient, reviewed the History & Physical and in the interval since the performance of the History & Physical I have noted the following changes of clinical significance: No changes noted
[2017-12-01] MEDS ORDERED: LIDOCAINE HCL 2% 2 ML VIAL (20MG/ML) ONE (14:00)
[2017-12-01] MEDS ORDERED: PROPOFOL IV EMULSION 10 MG/ML 20 ML VIAL IV ONE (14:00)
[2017-12-01] MEDS ORDERED: EpHEDrine SULFATE 50MG/5ML SYR ONE (14:01)
[2017-12-01] MEDS ORDERED: PHENYLEPHRINE 100MCG/ML 5ML SYR ONE (14:01)
--- NOTE | 2017-12-01 14:23 | GI REPORT ---
Procedure Date: 12/01/2017 1:07 PM Procedure: Colonoscopy Indications: Hematochezia, Melena Medicines: Propofol per Anesthesia Complications: No immediate complications. Estimated blood loss: Minimal. Estimated Blood Loss: Estimated blood loss was minimal. Procedure: Pre-Anesthesia Assessment: - Prior to the procedure, a History and Physical was performed, and patient medications and allergies were reviewed. The patient's tolerance of previous anesthesia was also reviewed. The risks and benefits of the procedure and the sedation options and risks were discussed with the patient. All questions were answered, and informed consent was obtained. Prior Anticoagulants: The patient has taken no previous anticoagulant or antiplatelet agents. ASA Grade Assessment: III - A patient with severe systemic disease. After reviewing the risks and benefits, the patient was deemed in satisfactory condition to undergo the procedure. After I obtained informed consent, the scope was passed under direct vision. Throughout the procedure, the patient's blood pressure, pulse, and oxygen saturations were monitored continuously. The scope was introduced through the anus and advanced to the terminal ileum, with identification of the appendiceal orifice and IC valve. The colonoscopy was performed without difficulty. The patient tolerated the procedure well. The quality of the bowel preparation was unsatisfactory. Findings: The perianal and digital rectal examinations were normal. Pertinent negatives include normal sphincter tone, no palpable rectal lesions and no anal lesion or abnormality was detected. A 2 mm polyp was found in the cecum. The polyp was sessile. The polyp was removed with a cold biopsy forceps. Resection and retrieval were complete. Estimated blood loss was minimal. Verification of patient identification for the specimen was done by the physician and monogram technician using the patient's name and medical record number. Multiple small and large-mouthed diverticula were found in the entire colon. The retroflexed view of the distal rectum and anal verge was normal and showed no anal or rectal abnormalities. Active bleeding is not identified. No signicnat hematin detected. The terminal ileum appeared normal. Blood is not identified in the TI lumen. Impression: - Preparation of the colon was unsatisfactory. - One 2 mm polyp in the cecum, removed with a cold biopsy forceps. Resected and retrieved. - Diverticulosis in the entire examined colon. - The distal rectum and anal verge are normal on retroflexion view. - The examined portion of the ileum was normal. Recommendation: - [facility] for [facility] care. MD Claus Saleh MD 12/01/2017 2:23:37 PM This report has been signed electronically. Note Initiated On: 12/01/2017 1:07 PM I attest to the content of the Intraoperative Record and orders documented therein, exceptions below
--- NOTE | 2017-12-01 14:26 | Anesthesiology Progress Note ---
Anesthesia Post Op Note Date & Time Dec 01, 2017 at 14:26 Vital Signs Pain Intensity: 0.0 Vital Signs Past 12 Hours Date Time Temp Pulse Resp B/P (MAP) Pulse Ox O2 Delivery O2 Flow Rate FiO2 12/01/17 14:20 65 16 106/53 (70) 99 Nasal Cannula 3 12/01/17 14:05 68 16 119/56 (77) 99 Nasal Cannula 3 12/01/17 12:55 36.7 72 18 119/63 (81) 100 Room Air 12/01/17 11:52 69 117/66 12/01/17 08:00 98 Nasal Cannula 3.0 12/01/17 07:10 36.7 63 18 107/56 (73) 98 Nasal Cannula 3.0 12/01/17 05:48 68 113/50 12/01/17 05:46 68 113/50 (71) Notes Mental Status: alert / awake / arousable, participated in evaluation Pt Amnestic to Procedure: Yes Nausea / Vomiting: adequately controlled Pain: adequately controlled Airway Patency, RR, SpO2: stable & adequate BP & HR: stable & adequate Hydration State: stable & adequate Anesthetic Complications: no major complications apparent
--- NOTE | 2017-12-01 14:41 | GASTROENTEROLOGY PROGRESS NOTE ---
DATE: 12/01/2017 DATE: 12/01/2017 The patient underwent colonoscopy short time ago, a small polyp in the cecum removed. No evidence of active bleeding in the terminal ileal or throughout the colon. Prep was unsatisfactory, but adequate for viewing moderate and large lesions. Colon has pancolonic diverticulosis without diverticulitis. No masses are detected, active bleeding or significant hematemesis not appreciated on this exam. Would follow hemoglobin serially, await path results. Dr. Diaz is covering this weekend for the GI service. LOPEZ
--- NOTE | 2017-12-01 16:44 | Progress Note ---
Subjective Date of Service: Dec 01, 2017. Subjective Pt evaluation today including: conversation w/ patient, physical exam, chart review, lab review, review of studies, review of inpatient medication list feeling very good overall no new complaints no further bleeding hungry Problem List Medical Problems: (1) Epistaxis Status: Acute (2) GI bleed Status: Acute (3) Severe anemia Status: Acute Review of Systems all other ROS otherwise negative except for as above Objective Vital Signs Date Time Temp Pulse Resp B/P (MAP) Pulse Ox O2 Delivery O2 Flow Rate FiO2 12/01/17 16:02 Room Air 1.0 12/01/17 15:29 36.6 64 18 101/60 (74) 93 Nasal Cannula 2.0 12/01/17 14:35 65 16 105/51 (69) 98 Room Air 12/01/17 14:20 65 16 106/53 (70) 99 Nasal Cannula 3 12/01/17 14:05 68 16 119/56 (77) 99 Nasal Cannula 3 12/01/17 12:55 36.7 72 18 119/63 (81) 100 Room Air 12/01/17 11:52 69 117/66 12/01/17 08:00 98 Nasal Cannula 3.0 12/01/17 07:10 36.7 63 18 107/56 (73) 98 Nasal Cannula 3.0 12/01/17 05:48 68 113/50 12/01/17 05:46 68 113/50 (71) 12/01/17 00:00 Nasal Cannula 3.0 11/30/17 23:45 60 107/52 11/30/17 23:30 36.7 60 20 107/52 (70) 96 3.0 11/30/17 17:41 65 105/55 Physical Exam General Appearance: no apparent distress Eyes: EOMI ENT: hearing grossly normal Neck: trachea midline Respiratory/Chest: no respiratory distress, no accessory muscle use Extremities: normal range of motion 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: 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, alert, normal mood/affect Skin: normal color, warm/dry Laboratory Results Last 24 Hours Test 11/30/17 20:59 12/01/17 07:09 Hemoglobin 8.7 g/dL 7.8 g/dL Hematocrit 28.4 % 25.2 % White Blood Count 4.82 K/uL Red Blood Count 2.61 M/uL Mean Corpuscular Volume 96.6 fL Mean Corpuscular Hemoglobin 29.9 pg Mean Corpuscular Hemoglobin Concent 31.0 g/dl Platelet Count 164 K/uL Mean Platelet Volume 9.8 fL Neutrophils (%) (Auto) 73.2 % Lymphocytes (%) (Auto) 11.6 % Monocytes (%) (Auto) 12.7 % Eosinophils (%) (Auto) 2.1 % Basophils (%) (Auto) 0.2 % Neutrophils # (Auto) 3.53 K/uL Lymphocytes # (Auto) 0.56 K/uL Monocytes # (Auto) 0.61 K/uL Eosinophils # (Auto) 0.10 K/uL Basophils # (Auto) 0.01 K/uL RDW Standard Deviation 64.6 fL RDW Coefficient of Variation 18.4 % Immature Granulocyte % (Auto) 0.2 % Immature Granulocyte # (Auto) 0.01 K/uL Nucleated RBC Absolute Count (auto) 0.02 K/uL Nucleated Red Blood Cells % 0.5 % Basophilic Stippling 1+ Anisocytosis PRESENT Ovalocytes 1+ Acanthocytes 1+ Prothrombin Time 12.2 SECONDS Prothromb Time International Ratio 1.2 Sodium Level 142 mmol/L Potassium Level 3.4 mmol/L Chloride Level 106 mmol/L Carbon Dioxide Level 29 mmol/L Anion Gap 7.0 mmol/L Blood Urea Nitrogen 24 mg/dl Creatinine 0.94 mg/dl Est Creatinine Clear Calc Drug Dose 82.8 ml/min Estimated GFR () 90.3 Estimated GFR (Non- 77.9 BUN/Creatinine Ratio 25.1 Random Glucose 83 mg/dl Calcium Level 7.9 mg/dl Magnesium Level 2.2 mg/dl Assessment and Plan Acute blood loss anemia due to epistaxis in the setting of anticoagulation for history of A.fib/valve replacement - post 4 units total PRBCs - initial hgb was 5.7, now more stable. continue to follow - EGD and colo noted - no significant or active bleeding - Per cardiology recommendation - restarted ASA, discontinue further Xeralto as patient has been in SR and has had his atrial appendage removed so risk for stroke is decreased. - per GI recs - continue ppi when restarting ASA - CBC again in AM, as long as stable likely home 12/02 Hx of severe aortic stenosis s/p valve replacement, history of chronic right sided heart failure with preserved ejection fraction - lasix given after prbc transfusions - patient negative 4.5L - not currently experiencing exacerbation - off O2 Stage II sacral decubitus - continue air mattress - wound care COPD - continue symbicort and spiriva BPH - continue finasteride Hyperlipidemia - restart atorvastatin weakness - ambulation - hopefully home after discharge Full code, DVT chemoprophylaxis contraindicated due to severe epistaxis and anemia
[2017-12-01] MEDS ORDERED: POTASSIUM CHLORIDE 10 MEQ TABCR PO STA (16:56)
[2017-12-02 00:51] LABS: HEMATOCRIT 27.5 % (42-52); HEMOGLOBIN 8.2 g/dL (14.0-18.0)
[2017-12-02] MEDS: METOPROLOL TARTRATE 1 MG/ML VIAL IV. SCH ×3 (05:45→11:16)
[2017-12-02 07:36] VITALS: BP 126/63; PULSE 70; TEMP 36.8; O2SAT 86
[2017-12-02 08:00] VITALS: O2SAT 96
[2017-12-02] MEDS: TIOTROPIUM BROMIDE 5 PUFF/90 MCG INH INH SCH (08:10)
[2017-12-02] MEDS: BUDESONIDE/FORMOTEROL FUMARATE 160/4.5 60 PUFFS/INHALER INH SCH (08:10)
[2017-12-02 08:41] LABS: BASO % 0.2 %; BASO ABS # 0.01 K/uL (0-0.2); EOS % 2.6 %; EOS ABS # 0.11 K/uL (0-0.5); HEMATOCRIT 26.9 % (42-52); HEMOGLOBIN 8.2 g/dL (14.0-18.0); IG# 0.01 K/uL (0.00-0.02); LYMPH % 11.2 %; LYMPH ABS # 0.48 K/uL (1.2-3.4); MEAN CELL VOLUME 97.5 fL (80-100); MEAN CORPUSCULAR HEMOGLOBIN 29.7 pg (25-34); MEAN CORPUSCULAR HGB CONC 30.5 g/dl (32-36); MONO % 12.6 %; MONO ABS # 0.54 K/uL (0.11-0.59); NEUT % 73.2 %; NEUT ABS # 3.15 K/uL (1.4-6.5); PLATELET COUNT 173 K/uL (130-400); RED CELL DISTRIBUTION WIDTH CV 17.7 % (11.5-14.5); RED CELL DISTRIBUTION WIDTH SD 62.5 fL (36.4-46.3)
[2017-12-02] MEDS: AMIODARONE 200 MG TAB PO SCH (09:09)
[2017-12-02] MEDS: ASPIRIN 81 MG ECTAB PO SCH (09:10)
[2017-12-02] MEDS: PANTOprazole SOD 40 MG TAB PO SCH (09:10)
[2017-12-02] MEDS ORDERED: CRD200 PO (12:13)
--- NOTE | 2017-12-02 12:25 | Discharge Instructions ---
Discharge Instructions Date of Service Dec 02, 2017. Admission Reason for Admission: Sob, Symptomatic Anemia Discharge Discharge Diagnosis / Problem: anemia from nosebleed Discharge Goals Goal(s): Diagnostic testing, Therapeutic intervention Activity Recommendations Activity Limitations: resume your previous activity (see below in regards to oxygen) . Instructions / Follow-Up Instructions / Follow-Up anemia -this appears to have been due to blood loss from the nosebleed -fortunately your upper and lower scopes did not show any worrisome findings for bleeding; as GI discussed with you, it's a reasonable measure to do the "camera pill" in the office in the next week or so, simply because the small bowel is about 20 feet of intestine that can (rarely) be a cause of bleeding - and the capsule endoscopy (camera pill) is a simple, easy way to rule that out -we'll want you to hold off on the xarelto until or unless directed otherwise by Dr Delgado -we've resumed your aspirin, so continue to take that daily -have your regular doctors check blood counts (CBC) once a week for the next several weeks until it's clear that your counts are getting back to normal - if they're not, then it would raise the question of if you need additional iron beyond what you're taking, or if you'd need other building blocks for red cells such as B12/folic acid, etc low oxygen -this is really an amalgamation of everything you're recovering from - technically falling under the category of "congestive heart failure" (see below ) but really is more of a multifactorial problem between resolving fluid, generalized weakness, and recent heart surgery. I anticipate that with your regular medications, this problem will "fix itself" over time. for now, however , it does appear that you'll need to use your oxygen more than you have been: -use it when you sleep, with a setting of 2L -use it with exertion - likely a setting of 2L is all you will need, but use your pulse ox (finger oxygen meter) to be sure that's enough - we'd want to see you staying above 92% at all times. if you are falling below 92% with exertion - you can increase your oxygen to as much as a setting of 4L; if you're needing more than 4L to maintain a pulse ox above 92%, then things would not be fitting with what we're seeing now, and we'd want you seen right away -i anticipate that it will likely take several weeks for you to recover to where you don't need the oxygen except for at night anymore; it sounds like overall you'd probably do better with cardiopulmonary status taking the oxygen at night indefinitely - although continue to talk with your primary care doc and Dr Delgado about this atrial fibrillation -Dr Delgado has stopped your xarelto indefinitely, and started amiodarone 200mg daily -follow up with him in about 2 weeks to check on how well this is going -amiodarone is usually well tolerated, although rarely can cause thyroid and pulmonary issues - so let him know right away if you feel a racing heart or shortness of breath "[facility] Plate Statement for Congestive Heart Failure" (required due to the fact that when we needed to transfuse you so much, we also had to use diuretics to take the extra fluid off, making you technically a "congestive heart failure patient" for government chart review/quality measures purposes. Call your Primary Care doctor if any of the following symptoms or problems start or get worse: * Shortness of breath or difficulty breathing * Wake up at night short of breath * Chest pain * Cough * Swelling of your hands, feet, or legs * More fatigued or tired with your normal activity * Palpitations - sudden fast heart beats WEIGHT * Weigh yourself every morning after using the bathroom. * Use the same scale. * Wear the same amount of clothing. * Write your weight down on a chart. * Call your Primary Care doctor if you gain more than 2-3 pounds in 1-2 days. MEDICATIONS * Use this discharge instruction sheet for medication instructions. * Take your medications at the time your doctor ordered. * Do not skip a dose of your medicines. * If you miss a dose of medicine, take it as soon as possible, but DO NOT DOUBLE A DOSE. * Read your medicine information when you get home. * Know all of the side effects of your medicine. If in doubt, ask your pharmacist * Call your Primary Care doctor's office if you have any side effects. * Be sure all of your doctors know what medicine and herbs you take (including cold, flu, and herbal medicine). Take the following with you to your follow-up doctor appointments: * Weight Chart * Medication List * List of questions Do not drink excessive alcohol, beer or wine. Current Hospital Diet Patient's current hospital diet: Regular Diet Discharge Diet Recommended Diet: Regular Diet Procedures Procedures Performed: Colonoscopy with polypectomy Pending Studies Studies pending at discharge: yes List of pending studies: biopsy from colonoscopy Medical Emergencies . Who to Call and When: Call 911 or go to the Emergency Room if: * If at any time you feel your situation is an emergency * You have tightness or pain in your chest that does not go away with rest or Nitroglycerin * You are very short of breath even with rest . Non-Emergent Contact Non-Emergency issues call your: Primary Care Provider (next week, weekly CBC for several weeks, BMP (kidney/electrolyte panel) periodically as you recover as well), House Moving Supervisor (Dr Delgado in about 2 weeks to follow up on the afib as well as your overall recovery), An Employee Sponsor Or Advocate And (next week or the following - to set up the capsule endoscopy (camera pill)) . . "Provider Documentation" section prepared by Jaime Addison. . VTE Core Measure Inpt VTE Proph given/why not?: Other Anticoagulation (Xarelto)
[2017-12-02 12:56] VITALS: BP 111/61; PULSE 71; TEMP 36.8; O2SAT 96
[2017-12-02 15:01] VITALS: BP 106/74; PULSE 82; TEMP 36.6; O2SAT 98
--- NOTE | 2017-12-02 18:01 | Discharge Summary ---
Discharge Summary Date of Service Dec 02, 2017. Discharge Summary Admission Date: Nov 28, 2017 at 22:36 Discharge Date: Dec 02, 2017 Discharge Disposition: Home with services Principal Diagnosis: epistaxis related to anticoagulant with severe acute blood loss anemia Immunizations: History of Tetanus Vaccine?: YES,5 YRS History of Pneumococcal: YES,5 YRS AGO History of Hepatitis B Vaccine: YES,UNSURE OF DATES Procedures: EGD: Findings: The esophagus was normal. The stomach was normal. The examined duodenum was normal. Impression: - Normal esophagus. - Normal stomach. - Normal examined duodenum. - No specimens collected. Recommendation: - [facility]. - Resume regular diet today. Kiran He M.D. Findings: The perianal and digital rectal examinations were normal. Pertinent negatives include normal sphincter tone, no palpable rectal lesions and no anal lesion or abnormality was detected. A 2 mm polyp was found in the cecum. The polyp was sessile. The polyp was removed with a cold biopsy forceps. Resection and retrieval were complete. Estimated blood loss was minimal. Verification of patient identification for the specimen was done by the physician and emergency medical technician basic using the patient's name and medical record number. Multiple small and large-mouthed diverticula were found in the entire colon. The retroflexed view of the distal rectum and anal verge was normal and showed no anal or rectal abnormalities. Active bleeding is not identified. No signicnat hematin detected. The terminal ileum appeared normal. Blood is not identified in the TI lumen. Impression: - Preparation of the colon was unsatisfactory. - One 2 mm polyp in the cecum, removed with a cold biopsy forceps. Resected and retrieved. - Diverticulosis in the entire examined colon. - The distal rectum and anal verge are normal on retroflexion view. - The examined portion of the ileum was normal. Recommendation: - [facility] care. Claus Martinez MD Last Resulted CBC 12/02/17 07:37 Red Blood Count 2.76, Mean Corpuscular Volume 97.5, Mean Corpuscular Hemoglobin 29.7, Mean Corpuscular Hemoglobin Concent 30.5, Mean Platelet Volume 10.0, Neutrophils (%) (Auto) 73.2, Lymphocytes (%) (Auto) 11.2, Monocytes (%) (Auto) 12.6, Eosinophils (%) (Auto) 2.6, Basophils (%) (Auto) 0.2, Neutrophils # (Auto ) 3.15, Lymphocytes # (Auto) 0.48, Monocytes # (Auto) 0.54, Eosinophils # (Auto ) 0.11, Basophils # (Auto) 0.01 Last Resulted BMP 12/01/17 07:09 CHEST ONE VIEW PORTABLE CLINICAL HISTORY: acute chf dyspnea COMPARISON STUDY: 08/19/2015 Findings: Diffuse prominent parenchymal infiltrative changes versus atypical pulmonary edema. Bilateral parenchymal infiltrative changes are noted. There has been a interval median sternotomy and valve replacement. There is a small left pleural effusion. IMPRESSION: Interval development of pulmonary edema versus a bilateral parenchymal infiltrative change. Small left pleural effusion. The above report was generated using voice recognition software. It may contain grammatical, syntax or spelling errors. Electronically signed by: Jamal Chavez M.D. Consultations: GI, cardiology Medication Reconciliation New Medications: Amiodarone HCl (Amiodarone HCl) 200 Mg Tab 200 MG PO QAM, #30 TAB Continued Medications: Acetaminophen (Tylenol) 500 Mg Tab 1000 MG PO Q8 PRN for Pain, TAB Albuterol Sulfate (Proair Respiclick) 108 Mcg/Act Aer 2 PUFFS INH Q6H PRN for Wheezing Amoxicillin (Amoxil) 500 Mg Cap 2000 MG PO UD PRN for Dental Pre Treat, CAP TAKE 4 CAPSULES ONE HOUR PRIOR TO DENTAL APPOINTMENTS Aspirin (Aspirin Ec) 81 Mg Tab 81 MG PO QAM Atorvastatin (Lipitor) 40 Mg Tab 40 MG PO HS Benzonatate (Tessalon Perles) 200 Mg Cap 200 MG PO TID PRN for Cough, CAP Budesonide/Formoterol Fumarate (Symbicort 160/4.5 Inhaler ) Aero 2 PUFFS INH AMPM, INHALER Cholecalciferol (Vitamin D3) 1,000 Unit Tab 1000 INTER.UNIT PO QAM, TAB Docusate Sodium (Docusate Sodium) 100 Mg Cap 100 MG PO AMHS PRN for Constipation, CAP Ferrous Sulfate (Ferrous Sulfate) 325 Mg Tab 325 MG PO BIDM Finasteride (Finasteride) 5 Mg Tab 5 MG PO QAM Furosemide (Lasix) 40 Mg Tab 40 MG PO QAM, TAB Guaifenesin Ext Rel (Mucinex Ext Rel) 600 Mg Tab 600 MG PO Q12, TAB Multiple Vitamins W/ Minerals (One Daily Mens) 1 Tab Tab 1 TAB PO QAM Oxycodone Ir (Roxicodone Ir) 5 Mg Tab 5 MG PO Q4H PRN for Pain, TAB Oxymetazoline Hcl (Nasal Decongestant [place]) 0.05 % Spr 2 SPRAYS CARL Q6H PRN for Nose Bleed(s) Polyethylene Glycol 3350 (Bulk (Polyethylene Glycol 3350) 1 Pow Pow 17 GM PO AMHS PRN for Constipation, GM Saline ([place] Nasal [place]) 0.65 % Spr 2 SPRAYS CARL Q4H PRN for Nasal Dryness Sennosides-Docusate Sodium (Docusate Sodium/Senna) 1 Tab Tab 2 TABS PO AMHS PRN for Constipation Tiotropium [place] (Spiriva Handihaler) 30 Puff/540 Mcg Aerp 1 CAP INH QAM Discontinued Medications: Rivaroxaban (Xarelto) 20 Mg Tab 20 MG PO QPM Discharge Exam Physical Exam: General Appearance: no apparent distress Eyes: EOMI ENT: hearing grossly normal Neck: trachea midline Respiratory/Chest: no respiratory distress, no accessory muscle use Extremities: normal inspection 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 continue to follow - EGD and colo noted - no significant or active bleeding; to have capsule endoscopy as outpt for completeness but clinically all appears related to nosebleed - Per cardiology recommendation - restarted ASA, discontinue further Xeralto as patient has been in SR and has had his atrial appendage removed so risk for stroke is decreased. - per GI recs - continue ppi when restarting ASA - CBC next week and periodically thereafter until normalizes - cardiology added amiodarone for afib Hx of severe aortic stenosis s/p valve replacement, history of chronic right sided heart failure with preserved ejection fraction - lasix given after prbc transfusions - patient negative 4.5L - not currently experiencing exacerbation - needing O2 right now - has at home - stable on this, anticipate this weaning fairly quickly as he's really only appearing to need with exertion (also appears to have been instructed chronically to take HS) - cardiology added amiodarone for afib Stage II sacral decubitus - outpt f/u COPD - continue symbicort and spiriva BPH - continue finasteride Hyperlipidemia - restart atorvastatin weakness - stable for home stable to discharge to home, close PCP, GI, cardiology f/u - see instructions given to pt for further information Total Time Spent: Greater than 30 minutes This includes examination of the patient, discharge planning, medication reconciliation, and communication with other providers. Discharge Instructions Please refer to the electronic Patient Visit Report (Discharge Instructions) for additional information. Additional Copies To Mihir Delgado, DO; Fabiola Soares D.O.; Kiran He M.D.
== END 2017-12-02 15:27 | disposition home health service (06) | DRG 813 ==
LOC: C.EDB 17:29 → C.2T 22:36 → ENRESERV 22:53 → C.2T 11-29 01:16 → UNDODISIN 11-29 13:36 → C.2T 11-29 20:24 → ENRESERV 11-30 14:32 → C.MS4W 11-30 14:56
PROVIDERS: ADMIT Hospitalist; ATTEND Family Medicine
PROC: 0DJD8ZZ Inspection of Lower Intestinal Tract, Via Natural or Artificial Opening Endoscopic (ICD-10-PCS; principal; 2017-12-01 12:47)
DX: D68.32 Hemorrhagic disorder due to extrinsic circulating anticoagulants (principal); K92.2 Gastrointestinal hemorrhage, unspecified; D62 Acute posthemorrhagic anemia; I50.32 Chronic diastolic (congestive) heart failure; N40.0 Benign prostatic hyperplasia without lower urinary tract symptoms; I11.0 Hypertensive heart disease with heart failure; L89.302 Pressure ulcer of unspecified buttock, stage 2; S39.92XA Unspecified injury of lower back, initial encounter; J44.9 Chronic obstructive pulmonary disease, unspecified; R04.0 Epistaxis; E78.5 Hyperlipidemia, unspecified; Z79.82 Long term (current) use of aspirin; Z82.49 Family history of ischemic heart disease and other diseases of the circulatory system; X58.XXXA Exposure to other specified factors, initial encounter

== ENCOUNTER → 2017-12-05 | Outpatient (CLI) | payer BC ==
[~2017-12-05] MED LIST changes: +ACET-1256 PO; +ALBU18002 INH; +AMOX500C3 PO; +ASPI81TA28 PO; +BENZ1CAP90 PO; +CHOL1000 PO; -CLON0.5T3 PO; +DOCU100C31 PO; +FERR325T5 PO; -FINA5TAB PO; +FRS/40 PO; +GUAI1TAB55 PO; +LPT40 PO; +MULT-106 PO; -MULT-506 PO; +OXYC1TAB3 PO; +OXYM0.0525 NAE; +POLY1POW2 PO; +PRS5 PO; +SALI0.6510 NAE; +SENN8.6T36 PO
[2017-12-05 12:56] LABS: HEMATOCRIT 27.7 % (42-52); HEMOGLOBIN 8.3 g/dL (14.0-18.0); MEAN CELL VOLUME 97.2 fL (80-100); MEAN CORPUSCULAR HEMOGLOBIN 29.1 pg (25-34); MEAN PLATELET VOLUME 10.3 fL (7.4-10.4); PLATELET COUNT 215 K/uL (130-400); RED CELL DISTRIBUTION WIDTH CV 17.1 % (11.5-14.5); RED CELL DISTRIBUTION WIDTH SD 60.8 fL (36.4-46.3); WHITE BLOOD COUNT 6.15 K/uL (4.8-10.8)
--- NOTE | 2017-12-06 12:56 | CODING QUERY NO DIAGNOSIS ---
PLEASE PROVIDE COPY OF PHYSICIAN ORDER To promote full compliance with coding requirements relating to patient care, physician participation is requested in all cases of environmental services worker uncertainty. Please assist us with providing a copy of the original physician order including diagnosis and signature for the tests below: CBC W/O DIFF A valid physician order is required to bill all insurances. Thank you Carina Santiago [email or web address] Information Management Once completed, please kindly fax back to [phone] For questions please call [phone]
== END | disposition home or self-care (01) ==
LOC: C.LABSPEC 12:12
PROVIDERS: ATTEND Internal Medicine Cardiovascular Disease
DX: D64.9 Anemia, unspecified (principal)

== ENCOUNTER → 2017-12-26 | Outpatient (CLI) | payer BC ==
[2017-12-26 14:53] LABS: HEMATOCRIT 32.3 % (42-52); HEMOGLOBIN 9.9 g/dL (14.0-18.0); MEAN CELL VOLUME 98.8 fL (80-100); MEAN CORPUSCULAR HEMOGLOBIN 30.3 pg (25-34); MEAN CORPUSCULAR HGB CONC 30.7 g/dl (32-36); MEAN PLATELET VOLUME 10.7 fL (7.4-10.4); PLATELET COUNT 135 K/uL (130-400); RED CELL DISTRIBUTION WIDTH CV 17.8 % (11.5-14.5); WHITE BLOOD COUNT 4.14 K/uL (4.8-10.8)
== END | disposition home or self-care (01) ==
LOC: C.LABSPEC 14:20
PROVIDERS: ATTEND Internal Medicine Cardiovascular Disease
DX: D64.9 Anemia, unspecified (principal)

== ENCOUNTER → 2018-02-08 | Day surgery (SDC) | payer BC ==
[2018-01-24 11:52] VITALS: Ht 195.6 cm; Wt 94.5 kg
[~2018-02-08] VITALS: Ht 195.6 cm; Wt 94.5 kg
[~2018-02-08] MED LIST changes: +AMIO200T4 PO; -CRD200 PO; -GUAI1TAB55 PO; +LIDOCAINE HCL 2% 2 ML VIAL (20MG/ML) ONE; +OXGN; -OXYC1TAB3 PO; -OXYM0.0525 NAE; -POLY1POW2 PO; +PROPOFOL IV EMULSION 10 MG/ML 20 ML VIAL IV ONE
--- NOTE | 2018-02-08 14:38 | Endo History and Physical ---
History & Physical Date of Service: Feb 08, 2018. Chief Complaint: Anemia Referring Physician: Dr Soares History of Present Illness For EGD Past Medical History Atrial Fibrillation, Male Genitourinary Prob., Gastrointestinal Disorder, High Cholesterol, CHF, Hypertension, COPD Past Surgical History Hx Cardiac Surgery: Yes (AVR/MURTAZA PROCEDURE 10/2017, CARDIOVERSION-07/2015) Hx Internal Defibrillator: No Hx Pacemaker: No Hx Abdominal Surgery: Yes (AAA REPAIR, INGUINAL HERNIA REPAIR X 2, HIATAL HERNIA REPAIR) Hx Post-Op Nausea and Vomiting: No Hx Cancer Surgery: No Hx Thoracic Surgery: No Hx Orthopedic: No Hx Urinary Tract Surgery: Yes (TURP) Family History None Social History Smoking Status: Former Smoker Hx Substance Use: No Hx Alcohol Use: No Allergies Coded Allergies: Levofloxacin (Verified Allergy, Intermediate, AAriel, 02/08/18) Current Medications Reported Home Medications Medications Dose Route/Sig Max Daily Dose Days Date Category Dose Instructions Oxygen Gas 2 Liters NA HS 01/24/18 Reported Cordarone (Amiodarone Hcl) 200 Mg Tab 200 Mg PO QAM 01/24/18 Reported Docusate Sodium/Senna (Sennosides-Docusate Sodium) 1 Tab Tab 2 Tabs PO AMHS PRN 11/28/17 Reported Tylenol (Acetaminophen) 500 Mg Tab 1,000 Mg PO Q8 PRN 11/28/17 Reported One Daily Mens (Multiple Vitamins W/ Minerals) 1 Tab Tab 1 Tab PO QAM 11/28/17 Reported Vitamin D3 (Cholecalciferol) 1,000 Unit Tab 1,000 Inter.unit PO QAM 11/28/17 Reported Finasteride 5 Mg Tab 5 Mg PO QAM 11/28/17 Reported Aspirin Ec (Aspirin) 81 Mg Tab 81 Mg PO QAM 11/28/17 Reported Lipitor (Atorvastatin Calcium) 40 Mg Tab 40 Mg PO HS 11/28/17 Reported Proair Respiclick (Albuterol Sulfate) 108 Mcg/Act Aer 2 Puffs INH Q6H PRN 11/28/17 Reported Ferrous Sulfate 325 Mg Tab 325 Mg PO BIDM 11/28/[address] Nasal [place] (Saline) 0.65 % Spr 2 Sprays CARL Q4H PRN 11/28/17 Reported Tessalon Perles (Benzonatate) 200 Mg Cap 200 Mg PO TID PRN 11/28/17 Reported Lasix (Furosemide) 40 Mg Tab 40 Mg PO QAM 11/28/17 Reported Docusate Sodium 100 Mg Cap 100 Mg PO AMHS PRN 11/28/17 Reported Amoxil (Amoxicillin) 500 Mg Cap 2,000 Mg PO UD PRN 11/28/17 Reported TAKE 4 CAPSULES ONE HOUR PRIOR TO DENTAL APPOINTMENTS Symbicort 160/4.5 Inhaler (Budesonide/Formoterol Fumarate) Aero 2 Puffs INH AMPM 09/02/15 Reported Spiriva Handihaler (Tiotropium [place]) 30 Puff/540 Mcg Aerp 1 Cap INH QAM 01/08/15 Reported Vital Signs Weight (Kilograms): 94.55 Height (Feet): 6 Height (Inches): 5 Date Time Temp Pulse Resp B/P (MAP) Pulse Ox O2 Delivery O2 Flow Rate FiO2 02/08/18 13:44 36.8 77 20 157/80 (105) 96 Room Air Physical Exam General Appearance: WD/WN Respiratory/Chest: Respiratory effort: no dyspnea Cardiovascular: Heart Auscultation: RRR Abdomen: Inspection & Palpation: soft Assessment and Plan Anemia for EGD
--- NOTE | 2018-02-08 14:53 | Discharge Instructions ---
Endoscopy Patient Instructions Date / Procedure(s) Performed Feb 08, 2018. EGD Allergy Information Coded Allergies: Levofloxacin (Verified Allergy, Intermediate, AAriel, 02/08/18) Discharge Date / Findings Feb 08, 2018. Hemorrhagic gastritis Medication Instructions Stopped Medication(s): ASA 81 MG LD 02/04/18 Restart Stopped Medication(s): resume meds Reported Home Medications Medications Dose Route/Sig Max Daily Dose Days Date Category Dose Instructions Oxygen Gas 2 Liters NA HS 01/24/18 Reported Cordarone (Amiodarone Hcl) 200 Mg Tab 200 Mg PO QAM 01/24/18 Reported Docusate Sodium/Senna (Sennosides-Docusate Sodium) 1 Tab Tab 2 Tabs PO AMHS PRN 11/28/17 Reported Tylenol (Acetaminophen) 500 Mg Tab 1,000 Mg PO Q8 PRN 11/28/17 Reported One Daily Mens (Multiple Vitamins W/ Minerals) 1 Tab Tab 1 Tab PO QAM 11/28/17 Reported Vitamin D3 (Cholecalciferol) 1,000 Unit Tab 1,000 Inter.unit PO QAM 11/28/17 Reported Finasteride 5 Mg Tab 5 Mg PO QAM 11/28/17 Reported Aspirin Ec (Aspirin) 81 Mg Tab 81 Mg PO QAM 11/28/17 Reported Lipitor (Atorvastatin Calcium) 40 Mg Tab 40 Mg PO HS 11/28/17 Reported Proair Respiclick (Albuterol Sulfate) 108 Mcg/Act Aer 2 Puffs INH Q6H PRN 11/28/17 Reported Ferrous Sulfate 325 Mg Tab 325 Mg PO BIDM 11/28/17 Reported [place] Nasal [place] (Saline) 0.65 % Spr 2 Sprays CARL Q4H PRN 11/28/17 Reported Tessalon Perles (Benzonatate) 200 Mg Cap 200 Mg PO TID PRN 11/28/17 Reported Lasix (Furosemide) 40 Mg Tab 40 Mg PO QAM 11/28/17 Reported Docusate Sodium 100 Mg Cap 100 Mg PO AMHS PRN 11/28/17 Reported Amoxil (Amoxicillin) 500 Mg Cap 2,000 Mg PO UD PRN 11/28/17 Reported TAKE 4 CAPSULES ONE HOUR PRIOR TO DENTAL APPOINTMENTS Symbicort 160/4.5 Inhaler (Budesonide/Formoterol Fumarate) Aero 2 Puffs INH AMPM 09/02/15 Reported Spiriva Handihaler (Tiotropium [place]) 30 Puff/540 Mcg Aerp 1 Cap INH QAM 01/08/15 Reported Provider Instructions Activity Restrictions - No exercising or heavy lifting for 24 hours. - Do not drink alcohol the day of the procedure. - Do not drive a car or operate machinery until the day after the procedure. - Do not make any important decisions or sign important papers in 24 hours after the procedure. Following Day: - Return to full activity which may include returning to work/school. Diet Start your diet with liquids and light foods (jello, soup, juice, toast). Then eat your usual diet if not nauseated. Treatment For Common After Affects For mild abdominal pain, bloating, or excessive gas: - Rest - Eat lightly - Lie on right side Follow-Up Information Follow-up with Dr Soares as scheduled Anesthesia Information What You Should Know You have had a procedure that required some medicine to reduce anxiety and discomfort. This treatment is called moderate sedation. After receiving the treatment, you may be sleepy, but you will be able to breathe on your own. The effects of the treatment may last for several hours. Follow these instructions along with Activity/Diet recommendations noted above: * Do NOT do anything where dizziness or clumsiness would be dangerous. * Rest quietly at home today, then you can be up and about tomorrow. * Have a responsible person stay with you the rest of today. * You may have had an I.V. today. If so, you may take the dressing off later today. Recommendations Call your doctor if: * Trouble breathing * Continuous vomiting for more than 24 hours * Temperature above 101 degrees * Severe abdominal pain or bloating * Pain not relieved by pain medicine ordered * There is increased drainage or redness from any incision * A large amount of rectal bleeding greater than 2-3 tablespoons. (If you had a polyp/s removed or have hemorrhoids, a small amount of blood - from the rectum is to be expected.) * You have any unanswered questions or concerns. IN THE EVENT OF A SERIOUS EMERGENCY, GO TO THE NEAREST EMERGENCY ROOM Your discharge instructions were prepared by provider Kiran He. Patient Instructions Signature Page Cristofer Vallejo Patient (or Guardian) Signature/Date: I have read and understand the instructions given to me by my caregivers. Caregiver/RN/Doctor Signature/Date: The above-named patient and/or guardian has received patient instructions on this date. + Original Patient Signature Page (only) stays with chart. Please make copy for patient.
--- NOTE | 2018-02-08 15:03 | GI REPORT ---
Procedure Date: 02/08/2018 2:20 PM Procedure: Upper GI endoscopy Indications: Iron deficiency anemia Medicines: Propofol total dose 230 mg IV, Lidocaine 40 mg IV Complications: No immediate complications. Estimated Blood Loss: Estimated blood loss: none. Procedure: Pre-Anesthesia Assessment: - Prior to the procedure, a History and Physical was performed, and patient medications, allergies and sensitivities were reviewed. The patient's tolerance of previous anesthesia was reviewed. - The risks and benefits of the procedure and the sedation options and risks were discussed with the patient. All questions were answered and informed consent was obtained. After obtaining informed consent, the endoscope was passed under direct vision. Throughout the procedure, the patient's blood pressure, pulse, and oxygen saturations were monitored continuously. The scope was introduced through the mouth, and advanced to the second part of duodenum. The upper GI endoscopy was accomplished without difficulty. The patient tolerated the procedure well. Findings: The Z-line was regular and was found 44 cm from the incisors. Patchy moderate inflammation with hemorrhage characterized by adherent blood and friability was found in the gastric body. The second portion of the duodenum was normal. Biopsies were taken with a cold forceps for histology. Estimated blood loss: none. Impression: - Z-line regular, 44 cm from the incisors. - Erosive gastritis with hemorrhage. - Normal second portion of the duodenum. Biopsied. Recommendation: - Discharge patient to home (ambulatory). - Continue present medications. - Await pathology results. - Return to primary care physician KELLYN. Kiran He M.D. Kiran He MD 02/08/2018 3:02:33 PM This report has been signed electronically. Note Initiated On: 02/08/2018 2:20 PM I attest to the content of the Intraoperative Record and orders documented therein, exceptions below
[2018-02-08 15:30] VITALS: BP 118/72; PULSE 65; O2SAT 95
--- NOTE | 2018-02-08 15:49 | Anesthesiology Progress Note ---
Anesthesia Post Op Note Date & Time Feb 08, 2018 at 15:49 Vital Signs Vital Signs Past 12 Hours Date Time Temp Pulse Resp B/P (MAP) Pulse Ox O2 Delivery O2 Flow Rate FiO2 02/08/18 15:21 63 20 117/55 (75) 94 Room Air 02/08/18 15:11 67 20 112/49 (70) 96 Room Air 02/08/18 13:44 36.8 77 20 157/80 (105) 96 Room Air Notes Mental Status: alert / awake / arousable, participated in evaluation Pt Amnestic to Procedure: Yes Nausea / Vomiting: adequately controlled Pain: adequately controlled Airway Patency, RR, SpO2: stable & adequate BP & HR: stable & adequate Hydration State: stable & adequate Anesthetic Complications: no major complications apparent
== END | disposition home or self-care (01) ==
LOC: C.GI 13:19
PROVIDERS: ATTEND Internal Medicine Gastroenterology
DX: D50.9 Iron deficiency anemia, unspecified (principal); K29.80 Duodenitis without bleeding; K29.71 Gastritis, unspecified, with bleeding; I48.91 Unspecified atrial fibrillation; E78.00 Pure hypercholesterolemia, unspecified; I50.9 Heart failure, unspecified; I11.0 Hypertensive heart disease with heart failure; J44.9 Chronic obstructive pulmonary disease, unspecified; Z87.891 Personal history of nicotine dependence; Z88.1 Allergy status to other antibiotic agents; Z79.899 Other long term (current) drug therapy; Z79.82 Long term (current) use of aspirin

== ENCOUNTER → 2018-03-09 | Outpatient (CLI) | payer BC ==
[~2018-03-09] MED LIST changes: -LIDOCAINE HCL 2% 2 ML VIAL (20MG/ML) ONE; -PROPOFOL IV EMULSION 10 MG/ML 20 ML VIAL IV ONE
[2018-03-09 10:36] LABS: BLOOD UREA NITROGEN 25 mg/dl (7-18); CREATININE 1.22 mg/dl (0.60-1.40)
== END | disposition home or self-care (01) ==
LOC: C.LAB1850 09:26
PROVIDERS: ATTEND Urology
DX: N40.1 Benign prostatic hyperplasia with lower urinary tract symptoms (principal)

== ENCOUNTER → 2018-03-29 | Day surgery (SDC) | payer BC ==
[2018-02-22 12:31] VITALS: Ht 195.6 cm; Wt 94.5 kg
[~2018-03-29] VITALS: Ht 195.6 cm; Wt 94.5 kg
[~2018-03-29] MED LIST changes: +500ML BSS 0.3ML EPI 1:1000PF IRRIG ONE; +ACETAMINOPHEN 325 MG TAB PO PRN; +AMVISC PLUS 0.8ML SYRINGE INT OCU ONE; +ATROPINE SULFATE 0.1 MG/ML 5ML SYR IV PRN; +BSS FLUSH ONE; +EpINEphrine INJ 1MG/ML AMP 1 MG/ML AMP ONE; +GATIFLOXACIN OP SOLN PER DROP CHARGE OPL SCH; +LACTATED RINGER'S 1000ML 500 ML IV SCH; +LIDOCAINE 3.5% OPH GEL PER APPLICATION CHARGE ONE; +LIDOCAINE HCL 1% MPF 2 ML VIAL ONE; +MIDAZOLAM HCL 1 MG/ML 2ML VIAL ONE; +OCUCOAT 1 ML SOLN IO ONE; +POVIDONE-IODINE OP SOLN 30 ML BTL ONE; +PROPARACAINE 0.5% OP SOLN PER DROP CHARGE OPL SCH; +[UNRECOGNIZED DRUG - REMARK] SCH
[2018-03-29] MEDS: PHENYLEPHRINE HCL 2.5% OP SOLN PER DROP CHARGE OPL SCH ×2 (07:23→07:29)
[2018-03-29] MEDS: TROPICAMIDE 1% OP SOLN PER DROP CHARGE OPL SCH ×2 (07:24→07:30)
[2018-03-29] MEDS: CYCLOPENTOLATE HCL 1% OP SOLN PER DROP CHARGE OPL SCH ×2 (07:25→07:31)
[2018-03-29] MEDS: KETOROLAC 0.5% OP SOLN PER DROP CHARGE OPL SCH ×2 (07:26→07:32)
[2018-03-29] MEDS: GATIFLOXACIN OP SOLN PER DROP CHARGE OPL SCH ×2 (07:27→07:34)
--- NOTE | 2018-03-29 07:28 | History & Physical Bridge - [place] ---
H&P Re-Evaluation Bridge Note: I have examined the patient, reviewed the History & Physical and in the interval since the performance of the History & Physical I have noted the following changes of clinical significance:\ Diagnosis: Left Cataract Procedure: Left Cataract Removal with Lens Implant No changes noted
[2018-03-29] MEDS: TOBRAMYCIN/DEXAMETHASONE OPH OINT PER APPLN CHARGE ONE ×2 (08:03→08:04)
--- NOTE | 2018-03-29 08:10 | [facility] Operative Report ---
Operative Report Date of Service March 29, 2018. Operative Report 1. PREOPERATIVE DIAGNOSIS: Cataract of the left eye. 2. POSTOPERATIVE DIAGNOSIS: Same. 3. PROCEDURE: Phacoemulsification with intraocular lens implantation of the left eye. SURGEON: Dr. Robin Moraes. ANESTHESIA: Topical Lidocaine gel, 1% Non- Preserved intracameral Lidocaine, and monitored intravenous sedation. INDICATIONS FOR THE PROCEDURE: The patient is a 77 - year-old male with a history of cataract of the left eye causing significant visual impairment. The details of the proposed procedure were explained to the patient who asked appropriate questions and following discussion of all risks, benefits and alternatives agreed to have the procedure done. 4. OPERATION AND FINDINGS: DESCRIPTION OF PROCEDURE: After informed consent was obtained, the patient was brought to the Operating Room at the [facility]. The patient was placed in a supine position and then the left eye was prepped and draped in the usual sterile fashion for intraocular surgery. A drop of topical Lidocaine gel was placed in the operative eye. A wire lid speculum was then placed in the fornices. A corneal paracentesis was then created temporally. The Non-Preserved Lidocaine was then instilled into the anterior chamber. The anterior chamber was then pressurized with viscoelastic. A 2.0 mm clear corneal incision was then created temporally. A cystotome was inserted into the anterior chamber and used to create a tear in the anterior lens capsule. This capsular tear was then used to create a small flap and the flap was dragged in a counterclockwise direction in order to create a continuous curvilinear capsulorrhexis. Hydrodissection was accomplished with balanced salt solution. Phacoemulsification of the lens nucleus was then performed in a standard [id number] technique. The phaco time was 29 seconds with an average power of 16 %. The remaining cortical material was removed using irrigation aspiration. The capsular bag was then filled with viscoelastic. A [employer] MI60L +15.5 diopters lens was then loaded into the injector and injected into the capsular bag. The remaining viscoelastic was removed with the irrigation aspiration handpiece. The wound was hydrated and then checked and found to be watertight. The intraocular pressure was checked and found to be adequate. The wire lid speculum was removed and the patient's face was cleaned and dried. TobraDex ointment was placed in the inferior fornix. The patient was discharged to the Recovery Room having tolerated the procedure well. There were no complications. The patient will be seen tomorrow in the office for follow-up. I attest to the content of the Intraoperative Record and any orders documented therein. Any exceptions are noted below.
--- NOTE | 2018-03-29 08:11 | Discharge Instructions-SurgCtr ---
Discharge Instructions Date of Service March 29, 2018. Visit Reason for Visit: Cataract Left Eye Discharge Discharge Diagnosis / Problem: cataract Discharge Goals Goal(s): Improve function Activity Recommendations Activity Limitations: per Instructions/Follow-up section Anesthesia . Post Anesthesia Instructions: If you have had General Anesthesia or IV Sedation: * Do not drive today. * Resume driving when surgeon permits. * Do not make important decisions or sign legal documents today. * Call surgeon for: 1. Temperature elevations greater than 101 degrees F. 2. Uncontrollable pain. 3. Excessive bleeding. 4. Persistent nausea and vomiting. 5. Medication intolerance (nausea, vomiting or rash). * For nausea and vomiting use only clear liquids such as: tea, soda, bouillon until nausea subsides, then gradually increase diet as tolerated. * If you have any concerns or questions, call your surgeon's office. If physician is unavailable and it is an emergency, call 911 or go to the nearest emergency room. . Diet Recommendations Home Diet: resume previous diet Procedures Procedures Performed: Left Cataract Phacoemulsification With Intraocular Lens Implant Pending Studies Studies pending at discharge: no Medical Emergencies . Who to Call and When: Medical Emergencies: If at any time you feel your situation is an emergency, please call 911 immediately. . Non-Emergent Contact Non-Emergency issues call your: Cytogeneticist . . "Provider Documentation" section prepared by Robin Moraes. .
[2018-03-29 08:14] VITALS: TEMP 36.6
[2018-03-29 08:45] VITALS: BP 140/68; PULSE 65; O2SAT 97
--- NOTE | 2018-03-29 08:53 | Anesthesia Progress Nt - [facility] ---
Anesthesia Post Op Note Date & Time March 29, 2018 at 08:53 Vital Signs Pain Intensity: 0 Vital Signs Past 12 Hours Date Time Temp Pulse Resp B/P (MAP) Pulse Ox O2 Delivery O2 Flow Rate FiO2 03/29/18 08:45 65 16 140/68 (92) 97 Room Air 03/29/18 08:14 36.6 66 16 157/72 (100) 97 Room Air 03/29/18 07:11 36.5 69 16 169/80 (109) 96 Room Air Notes Mental Status: alert / awake / arousable, participated in evaluation Pt Amnestic to Procedure: Yes Nausea / Vomiting: adequately controlled Pain: adequately controlled Airway Patency, RR, SpO2: stable & adequate BP & HR: stable & adequate Hydration State: stable & adequate Anesthetic Complications: no major complications apparent
== END | disposition home or self-care (01) ==
LOC: X.SURG 06:45
PROVIDERS: ATTEND Ophthalmology
DX: H26.9 Unspecified cataract (principal); J44.9 Chronic obstructive pulmonary disease, unspecified; I10 Essential (primary) hypertension; I48.91 Unspecified atrial fibrillation; I71.4 Abdominal aortic aneurysm, without rupture; K57.90 Diverticulosis of intestine, part unspecified, without perforation or abscess without bleeding; N40.0 Benign prostatic hyperplasia without lower urinary tract symptoms; F41.9 Anxiety disorder, unspecified

== ENCOUNTER 2020-09-06 09:48 | Inpatient (IN) ==
--- NOTE | 2020-09-06 09:51 | Emergency Department Note ---
Impression & Plan COPD (chronic obstructive pulmonary disease), Hypoxemia, COVID-19 ED Provider Note NAME: GÓMEZ KRAUSE AGE: 79 SEX: M : 1940 ARRIVES VIA: Ambulance INFORMANT: Patient, ED PROVIDER(S): Ty Eaton MD Chief Complaint: Worsening respiratory symptoms HPI: Does present with concern for worsening respiratory symptoms. The patient states that he did get a flu shot completed approximately 2/3 days ago developed some upper respiratory type symptoms with some cough and worsening shortness of breath. The patient does have a known history of prior smoking and quit in the mid but does have a history of COPD. The patient was seen by his outpatient provider who subsequently did get a Covid test completed on Monday and came back positive on Monday. The patient states that when he got up this morning his oxygen saturation was at 97% but by the time he got downstairs he was 84%. The patient denies any fevers or chills. The patient states he has had some decreased appetite. The patient did not take his morning medications. Patient does have a known history of atrial fibrillation as well as CHF and is on amiodarone and metoprolol. Patient does use 2 L of oxygen at nighttime but the patient was turning it up to 4 L at nighttime to help with the symptoms over the last several days. ROS: See HPI for pertinent positives and negatives. A total of 10 systems were reviewed and otherwise negative. Past medical history: See below Surgical history: See below Social history: See below Physical Exam: GENERAL: Nasal cannula in place with a mask. EYE EXAM: Normal conjunctiva. PERRL, no anisocoria and EOM's grossly intact w/o pain. NECK: Supple, no nuchal rigidity, no adenopathy, non-tender. No signs of meningismus. LUNGS: Scant expiratory wheezes throughout. Normal chest wall mechanics. Chest: Device in left chest. HEART: NSR, no MRG. ABDOMEN: Abdomen soft, non-tender, midline incisional scar present well-healed. Normo-active bowel sounds, no masses, no rebound or guarding. BACK: No CVA TTP. SKIN: No rashes and no bruising. UPPER EXTREMITIES: Upper extremities are grossly normal. LOWER EXTREMITIES: Grossly normal, trace symmetric pretibial edema without erythema or calf pain. NEURO EXAM: A&O x3, cranial nerves II-XII grossly intact, normal speech, moves all 4 extremities on command w/o issue. Differential diagnoses: Reactive airway disease, pneumonia, pneumothorax, COPD, CHF, infections, cardiac ischemia, pulmonary embolism, musculoskeletal, gastrointestinal, as well as other pathologies. Course: Patient was seen and evaluated the bedside. Full history physical exam was performed. EKG: Indication: Shortness of breath Peers to be regular with a rate of 92, wide QRS, right bundle mike block. Left axis deviation. Imaging Studies: Radiology results as stated below per my review in the radiologist's interpretation: SINGLE VIEW CHEST CLINICAL HISTORY: Sepsis. FINDINGS: 2 AP, portable, upright chest radiographs are compared to study dated 11/13/2018 and correlated with chest CT dated 08/07/2015. The examination is degraded by portable technique and patient rotation. The patient is status post midline sternotomy and cardiac valve surgery. A 2-lead cardiac pacemaker is new from 2018. The heart is enlarged noting atherosclerotic calcification of the thoracic aorta. There is pulmonary vascular congestion. Emphysema and chronic interstitial thickening is similar to previous. Patchy airspace opacities are present throughout both lungs, left greater than right. There is a left pleural effusion with left basilar consolidation. No pneumothorax is seen. The skeletal structures are osteopenic. The bony thorax is grossly intact. IMPRESSION: 1. Cardiomegaly and cardiac pacemaker with evidence of congestive failure. 2. Bilateral airspace opacities could represent a component of interstitial edema and/or an infectious/inflammatory pneumonitis. Clinical correlation will be required. Radiographic follow-up to resolution is recommended. 3. Small left pleural effusion with left basilar consolidation. 4. Emphysema. ACT 112: Negative or not required by law. Electronically signed by: Lyle Guzman M.D. 09/06/2020 12:50 PM Dictated: 09/06/20 1248 Transcribed: 09/06/20 1248 Cardiac monitoring: An order was placed for continuous cardiac monitoring. The monitor shows a rate of 67 with regular rhythm. MDM: Patient does present with concern for some shortness of breath. The patient has any worsening symptoms no history of COPD and recent positive Covid test completed on Monday confirmed positive on Monday. Patient has been compliant with his medications but has had some slightly decreased p.o. intake. Patient did have an oxygen requirement. The patient does have some leukopenia anemia and mild prerenal azotemia. The patient does have elevations in LFTs. Troponin is not detectable. Patient was given 6 mg of IV dexamethasone given the oxygen requirement history of lung disease and associated hypoxia with coronavirus. The patient does wish to be a full code. His EKG is unchanged from prior. Troponin is not elevated. Patient does have mild elevations in LFTs. Chest x-ray does show some congestion as well as bilateral airspace opacities likely consistent with his Covid illness. Patient does have some associated leukopenia and thrombocytopenia likely secondary to his viral process. Patient was admitted to the medicine service by Dr. Carina MD. Critical Care: I have personally spent 52 minutes of critical care time in direct management of this patient. This includes bedside care, interpretation of diagnostic studies, and testing, discussion with consultants, patient, and family members, and other require inpatient management activities. This 52 minutes is in excess of all separately billable procedures. Past Med/Surg History Medical History AAA (abdominal aortic aneurysm) Acute exacerbation of chronic obstructive airways disease Acute respiratory failure with hypoxia Aortic stenosis s/p valve repair Atrial fibrillation with RVR BPH (benign prostatic hyperplasia) CAD (coronary artery disease) Cataract Cervical spondylosis Cervicalgia Chest pain CKD (chronic kidney disease) Constipation COPD (chronic obstructive pulmonary disease) COPD exacerbation Edema Hematuria History of congestive heart failure Diastolic History of hypertension History of pacemaker Hypercholesteremia Left asymmetrical SNHL New onset atrial fibrillation No family history of adverse response to anesthesia No family history of bleeding disorder SNHL (sensorineural hearing loss) SOB (shortness of breath) on exertion Spondylolisthesis of cervical region Symptomatic anemia Surgical History History of colonoscopy History of hernia repair History of prostate surgery History of repair of dissection of abdominal aorta History of transurethral resection of prostate S/P aortic valve repair S/P Maze operation for atrial fibrillation Family History Father AAA (abdominal aortic aneurysm) Heart disease Brother Cancer Other No family history of adverse response to anesthesia No family history of bleeding disorder Social History Smoking Status: Former smoker Second Hand Exposure: No; Do You Dip or Chew Tobacco: No; Tobacco Cessation Education Requested by Patient: No Hx Alcohol Use: No Hx Substance Use: No Preferred Language: Chinese Communication Ability: Effective Visual Impairment: No 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: No Beliefs That Will Affect Care: None marital status: Current Living Situation: Spouse current occupational status: retired Other Information That Helps Us Care for You: No Feels Safe at Home: Yes Safety Concerns: Feels Safe At This Time Assistive Devices: Glasses and Oxygen - at Night Allergies Allergies Allergy/AdvReac Type Severity Reaction Status Date / Time azithromycin Allergy Intermediate A.FIB Verified 09/06/20 13:18 levofloxacin Allergy Intermediate A.Fib Verified 09/06/20 13:18 Home Meds Home Medications Medication Instructions Recorded Confirmed acetaminophen 500 mg capsule 1,000 mg PO Q8 PRN cap 10/09/18 09/06/20 amiodarone 200 mg tablet 100 mg PO DAILY 10/09/18 09/06/20 aspirin 81 mg tablet,delayed 81 mg PO DAILY 10/09/18 09/06/20 release budesonide-formoterol HFA 160 2 puffs INH BID 10/09/18 09/06/20 mcg-4.5 mcg/actuation aerosol inhaler cholecalciferol (vitamin D3) 25 1,000 units PO DAILY 10/09/18 09/06/20 mcg (1,000 unit) capsule clonazepam 0.5 mg tablet 0.5 mg PO HS tab 10/09/18 09/06/20 ferrous sulfate 325 mg (65 mg 325 mg PO DAILY tab 10/09/18 09/06/20 iron) tablet finasteride 5 mg tablet 5 mg PO DAILY 10/09/18 09/06/20 multivitamin 1 cap PO DAILY 10/09/18 09/06/20 spironolactone 25 mg tablet 25 mg PO DAILY 10/09/18 09/06/20 tiotropium bromide 18 mcg capsule 1 cap INH DAILY 10/09/18 09/06/20 with inhalation device albuterol sulfate 90 mcg/actuation 2 puff INHALATION QID 08/11/20 09/06/20 aerosol inhaler amoxicillin 500 mg capsule 500 mg PO QID 08/11/20 09/06/20 metoprolol succinate 25 mg 25 mg PO DAILY 08/11/20 09/06/20 tablet,extended release 24 hr Previous Rx's Medication Instructions Recorded furosemide 20 mg PO 4XWK #0 tab 11/10/18 tamsulosin 0.4 mg capsule 0.4 mg PO DAILY #90 cap 08/11/20 Results & Data (ED) Vital Signs Vital Signs - 24 hr 09/06/20 09:59 09/06/20 10:01 09/06/20 10:07 Temperature Temperature Source Oral Pulse Rate 93 H 93 H Pulse Rate from SpO2 Sensor Respiratory Rate 22 21 Respiratory Effort / Characteristics Respiratory Depth Respiratory Pattern Blood Pressure 154/63 H Blood Pressure Mean 93 Pulse Oximetry 99 Oxygen Delivery Method Nasal Cannula Oxygen Flow Rate 4 Sepsis Recent Fever Within 48 Hours Sepsis New/Unexplained Change in Mental Status Sepsis Action Taken by Nursing 09/06/20 10:09 09/06/20 10:11 09/06/20 10:14 Temperature 37.2 C Temperature Source Oral Oral Pulse Rate 67 Pulse Rate from SpO2 Sensor Respiratory Rate 20 Respiratory Effort / Characteristics Non-Labored Respiratory Depth Normal Respiratory Pattern Regular Blood Pressure 154/63 H Blood Pressure Mean 93 Pulse Oximetry 99 99 Oxygen Delivery Method Nasal Cannula Nasal Cannula Nasal Cannula Oxygen Flow Rate 4 4 Sepsis Recent Fever Within 48 Hours No Sepsis New/Unexplained Change in Mental Status N/A Sepsis Action Taken by Nursing No Action Required 09/06/20 10:30 09/06/20 11:00 09/06/20 11:30 Temperature Temperature Source Pulse Rate 61 61 60 Pulse Rate from SpO2 Sensor 61 61 60 Respiratory Rate 20 17 18 Respiratory Effort / Characteristics Respiratory Depth Respiratory Pattern Blood Pressure Blood Pressure Mean Pulse Oximetry 100 99 98 Oxygen Delivery Method Room Air Room Air Oxygen Flow Rate Sepsis Recent Fever Within 48 Hours Sepsis New/Unexplained Change in Mental Status Sepsis Action Taken by Nursing 09/06/20 11:50 09/06/20 12:00 09/06/20 12:01 Temperature Temperature Source Pulse Rate 63 64 63 Pulse Rate from SpO2 Sensor 63 63 65 Respiratory Rate 20 18 20 Respiratory Effort / Characteristics Respiratory Depth Respiratory Pattern Blood Pressure 129/60 149/65 H Blood Pressure Mean 68 98 Pulse Oximetry 95 100 97 Oxygen Delivery Method Oxygen Flow Rate Sepsis Recent Fever Within 48 Hours Sepsis New/Unexplained Change in Mental Status Sepsis Action Taken by Nursing 09/06/20 12:30 09/06/20 12:31 Temperature Temperature Source Pulse Rate 68 69 Pulse Rate from SpO2 Sensor 69 67 Respiratory Rate 23 20 Respiratory Effort / Characteristics Respiratory Depth Respiratory Pattern Blood Pressure 149/97 H Blood Pressure Mean 98 Pulse Oximetry 95 99 Oxygen Delivery Method Oxygen Flow Rate Sepsis Recent Fever Within 48 Hours Sepsis New/Unexplained Change in Mental Status Sepsis Action Taken by [facility] Medications Current Medication List: was personally reviewed by me Laboratory Data Attestation: I reviewed the patient's lab results. Result diagrams: 09/06/20 10:07 09/06/20 10:07 Lab Results 09/06/20 09/06/20 09/06/20 Range/Units 10:07 10:07 10:07 WBC 2.90 L (4.8-10.8) K/uL RBC 3.81 L (4.7-6.1) M/uL Hgb 11.4 L (14.0-18.0) g/dL Hct 35.8 L (42-52) % MCV 94.0 (80-100) fL MCH 29.9 (25-34) pg MCHC 31.8 L (32-36) g/dL RDW Std Deviation 56.7 H (36.4-46.3) fL RDW Coeff of Opal 16.5 H (11.5-14.5) % Plt Count 87 L (130-400) K/uL MPV 10.4 (7.4-10.4) fL Immature Gran % (Auto) 0.0 % Neut % (Auto) 79.3 % Lymph % (Auto) 10.0 % [place] % (Auto) 10.7 % Eos % (Auto) 0.0 % Baso % (Auto) 0.0 % Neut # (Auto) 2.30 (1.4-6.5) K/uL Lymph # (Auto) 0.29 L (1.2-3.4) K/uL [place] # (Auto) 0.31 (0.11-0.59) K/uL Eos # (Auto) 0.00 (0-0.5) K/uL Baso # (Auto) 0.00 (0-0.2) K/uL Immature Gran # (Auto) 0.00 (0.00-0.02) K/uL Platelet Estimate Decreased L (Normal) PT 12.3 H (9.0-12.0) Seconds INR 1.2 H (0.9-1.1) APTT 34.7 H (21.0-31.0) Seconds PTT Ratio 1.2 D-Dimer (0-500) ug/L FEU Sodium 139 (136-145) mmol/L Potassium 4.3 (3.5-5.1) mmol/L Chloride 104 (98-107) mmol/L Carbon Dioxide 24 (21-32) mmol/L Anion Gap 11.0 (3-11) BUN 29 H (7-18) mg/dl Creatinine 1.37 (0.6-1.4) mg/dl Est Cr Clr Drug Dosing 55.1 ml/min Est GFR ( Amer) 56.5 Est GFR (Non-Af Amer) 48.7 BUN/Creatinine Ratio 21.1 H (10-20) Glucose 107 H (70-99) mg/dl Lactate (0.4-2.0) mmol/L Calcium 8.8 (8.5-10.1) mg/dl Magnesium 2.1 (1.8-2.4) mg/dl Ferritin (8-388) ng/ml Total Bilirubin 0.9 (0.2-1) mg/dl AST 252 H (15-37) U/L ALT 242 H (12-78) U/L Alkaline Phosphatase 109 (45-117) U/L Lactate Dehydrogenase (87-241) U/L Total Creatine Kinase (39-308) U/L Troponin I < 0.015 (0-0.045) ng/ml C-Reactive Protein (0-0.29) mg/dl Total Protein 7.2 (6.4-8.2) gm/dl Albumin 3.5 (3.4-5.0) gm/dl Globulin 3.7 (2.5-4.0) gm/dl Albumin/Globulin Ratio 0.9 (0.9-2) Procalcitonin (0-0.5) ng/ml 09/06/20 09/06/20 09/06/20 Range/Units 10:07 10:07 10:07 WBC (4.8-10.8) K/uL RBC (4.7-6.1) M/uL Hgb (14.0-18.0) g/dL Hct (42-52) % MCV (80-100) fL MCH (25-34) pg MCHC (32-36) g/dL RDW Std Deviation (36.4-46.3) fL RDW Coeff of Opal (11.5-14.5) % Plt Count (130-400) K/uL MPV (7.4-10.4) fL Immature Gran % (Auto) % Neut % (Auto) % Lymph % (Auto) % [place] % (Auto) % Eos % (Auto) % Baso % (Auto) % Neut # (Auto) (1.4-6.5) K/uL Lymph # (Auto) (1.2-3.4) K/uL [place] # (Auto) (0.11-0.59) K/uL Eos # (Auto) (0-0.5) K/uL Baso # (Auto) (0-0.2) K/uL Immature Gran # (Auto) (0.00-0.02) K/uL Platelet Estimate (Normal) PT (9.0-12.0) Seconds INR (0.9-1.1) APTT (21.0-31.0) Seconds PTT Ratio D-Dimer 860 H* (0-500) ug/L FEU Sodium (136-145) mmol/L Potassium (3.5-5.1) mmol/L Chloride (98-107) mmol/L Carbon Dioxide (21-32) mmol/L Anion Gap (3-11) BUN (7-18) mg/dl Creatinine (0.6-1.4) mg/dl Est Cr Clr Drug Dosing ml/min Est GFR ( Amer) Est GFR (Non-Af Amer) BUN/Creatinine Ratio (10-20) Glucose (70-99) mg/dl Lactate 1.5 (0.4-2.0) mmol/L Calcium (8.5-10.1) mg/dl Magnesium (1.8-2.4) mg/dl Ferritin (8-388) ng/ml Total Bilirubin (0.2-1) mg/dl AST (15-37) U/L ALT (12-78) U/L Alkaline Phosphatase (45-117) U/L Lactate Dehydrogenase (87-241) U/L Total Creatine Kinase (39-308) U/L Troponin I (0-0.045) ng/ml C-Reactive Protein (0-0.29) mg/dl Total Protein (6.4-8.2) gm/dl Albumin (3.4-5.0) gm/dl Globulin (2.5-4.0) gm/dl Albumin/Globulin Ratio (0.9-2) Procalcitonin 0.17 (0-0.5) ng/ml 09/06/20 09/06/20 Range/Units 10:07 10:07 WBC (4.8-10.8) K/uL RBC (4.7-6.1) M/uL Hgb (14.0-18.0) g/dL Hct (42-52) % MCV (80-100) fL MCH (25-34) pg MCHC (32-36) g/dL RDW Std Deviation (36.4-46.3) fL RDW Coeff of Opal (11.5-14.5) % Plt Count (130-400) K/uL MPV (7.4-10.4) fL Immature Gran % (Auto) % Neut % (Auto) % Lymph % (Auto) % [place] % (Auto) % Eos % (Auto) % Baso % (Auto) % Neut # (Auto) (1.4-6.5) K/uL Lymph # (Auto) (1.2-3.4) K/uL [place] # (Auto) (0.11-0.59) K/uL Eos # (Auto) (0-0.5) K/uL Baso # (Auto) (0-0.2) K/uL Immature Gran # (Auto) (0.00-0.02) K/uL Platelet Estimate (Normal) PT (9.0-12.0) Seconds INR (0.9-1.1) APTT (21.0-31.0) Seconds PTT Ratio D-Dimer (0-500) ug/L FEU Sodium (136-145) mmol/L Potassium (3.5-5.1) mmol/L Chloride (98-107) mmol/L Carbon Dioxide (21-32) mmol/L Anion Gap (3-11) BUN (7-18) mg/dl Creatinine (0.6-1.4) mg/dl Est Cr Clr Drug Dosing ml/min Est GFR ( Amer) Est GFR (Non-Af Amer) BUN/Creatinine Ratio (10-20) Glucose (70-99) mg/dl Lactate (0.4-2.0) mmol/L Calcium (8.5-10.1) mg/dl Magnesium (1.8-2.4) mg/dl Ferritin 490.8 H (8-388) ng/ml Total Bilirubin (0.2-1) mg/dl AST (15-37) U/L ALT (12-78) U/L Alkaline Phosphatase (45-117) U/L Lactate Dehydrogenase 259 H (87-241) U/L Total Creatine Kinase 65 (39-308) U/L Troponin I (0-0.045) ng/ml C-Reactive Protein 6.25 H (0-0.29) mg/dl Total Protein (6.4-8.2) gm/dl Albumin (3.4-5.0) gm/dl Globulin (2.5-4.0) gm/dl Albumin/Globulin Ratio (0.9-2) Procalcitonin (0-0.5) ng/ml Administered Medications Discontinued Medications Amiodarone HCl (Amiodarone 200 Mg Tab) 100 mg PO NOW ONE Stop: 09/06/20 10:10 Last Admin: 09/06/20 10:15 Dose: 100 mg Documented by: [id number] Dexamethasone (Dexamethasone Sod Inj 10 Mg/Ml Vial) 6 mg IV NOW ONE Stop: 09/06/20 10:10 Last Admin: 09/06/20 10:15 Dose: 6 mg Documented by: [id number] Discharge Plan Visit Data Chief Complaint: Shortness of Breath/Dyspnea ED Provider: Ty Eaton Discharge Problem: COPD (chronic obstructive pulmonary disease), Hypoxemia, COVID-19 Discharge Instructions Interventions: ED Discharge Assessment Last Done: 09/06/20 14:11 Discharge Problem: COPD (chronic obstructive pulmonary disease) Qualifiers: COPD type: unspecified COPD Qualified Code(s): J44.9 - Chronic obstructive pulmonary disease, unspecified
[2020-09-06] MEDS ORDERED: AMIODARONE 200 MG TAB PO ONE (10:09)
[2020-09-06] MEDS ORDERED: DEXAMETHASONE SOD INJ 10 MG/ML VIAL IV ONE (10:09)
[2020-09-06 10:36] LABS: Hematocrit (blood only) 35.8 % (42-52); Hemoglobin 11.4 g/dL (14.0-18.0); Mean Corpuscular Hemoglobin 29.9 pg (25-34); Mean Corpuscular Hgb Conc 31.8 g/dL (32-36); RDW Coefficient of Variation 16.5 % (11.5-14.5); RDW Standard Deviation 56.7 fL (36.4-46.3); Red Blood Count 3.81 M/uL (4.7-6.1)
[2020-09-06 10:46] LABS: INR 1.2 (0.9-1.1); Partial Thromboplastin Ratio 1.2; Partial Thromboplastin Time 34.7 Seconds (21.0-31.0); Prothrombin Time 12.3 Seconds (9.0-12.0)
[2020-09-06 10:56] LABS: Alanine Aminotransferase 242 U/L (12-78); Albumin Level 3.5 gm/dl (3.4-5.0); Aspartate Aminotransferase 252 U/L (15-37); BUN Creatinine Ratio 21.1 (10-20); Blood Urea Nitrogen 29 mg/dl (7-18); Calcium 8.8 mg/dl (8.5-10.1); Carbon Dioxide 24 mmol/L (21-32); Chloride 104 mmol/L (98-107); Creatinine Clr Calc Pharmacy 55.1 ml/min; Est GFR (African American) 56.5; Est GFR (Non-African American) 48.7; Glucose 107 mg/dl (70-99); Magnesium 2.1 mg/dl (1.8-2.4); Potassium 4.3 mmol/L (3.5-5.1); Sodium 139 mmol/L (136-145)
[2020-09-06 11:01] LABS: Albumin Globulin Ratio 0.9 (0.9-2); Alkaline Phosphatase 109 U/L (45-117); Bilirubin,Total 0.9 mg/dl (0.2-1); Globulin 3.7 gm/dl (2.5-4.0); Total Protein 7.2 gm/dl (6.4-8.2); Troponin I < 0.015 ng/ml (0-0.045)
[2020-09-06 11:05] LABS: Lymphocytes # (auto) 0.29 K/uL (1.2-3.4); Mean Platelet Volume 10.4 fL (7.4-10.4); Monocytes # (auto) 0.31 K/uL (0.11-0.59); Monocytes % (auto) 10.7 %; Neutrophils % (auto) 79.3 %; Platelet Count 87 K/uL (130-400); Platelet Estimate Decreased (Normal)
--- NOTE | 2020-09-06 12:03 | History & Physical Report ---
Date of Service September 06, 2020 Assessment & Plan (1) Acute respiratory failure with hypoxia: Secondary to COVID-19 +/- CHF exacerbation. No COPD exacerbation suspected based on exam. Aim O2 sats > 90 % (2) COVID-19: Hold off remdesivir due to elevated LFTs and over 1 week since initial symptoms. Dexamethasone 6 mg IV daily (3) Acute congestive heart failure: Lasix 20mg IV now, then QAM, monitor BMP. Strict I&Os Daily weights (4) Poor appetite: No dysphagia or dysphagia. Boost supplementation. (5) Paroxysmal atrial fibrillation: Currently in NSR. Continue amiodarone for rhythm control. Previously on Xarelto - unclear why this was discontinued. (6) CAD (coronary artery disease): Continue ASA, metoprolol, unclear why he is not on statin. (7) Hypertension: Lasix as above. Continue metoprolol succinate 25mg PO daily with hold parameters. Continue spironolactone 25mg PO daily (8) BPH (benign prostatic hyperplasia): Continue tamsulosin and finasteride home doses. (9) COPD (chronic obstructive pulmonary disease): Not in acute exacerbation. Continue usual maintenance inhalers with Spiriva and Symbicort or hospital formulary equivalent. (10) Thrombocytopenia: Monitor with AM labs. Suspect suppression secondary to COVID-19. Liver pathology less likely. (11) SNHL (sensorineural hearing loss): (12) DVT prophylaxis: Lovenox COVID dosing 40mg SQ BID Admission and Anticipated Discharge Date Admission Date: 09/06/2020 History of Present Illness Chief Complaint: Shortness of breath Primary Care Provider: DO Cristofer Umana Vallejo is a 79-year-old male with COPD, atrial fibrillation, CHF, nocturnal hypoxia who presents to the ER with shortness of breath. He reports getting the influenza vaccination 1.5 weeks ago, 2-3 days after this started "feeling bad", felt down, mildly short of breath. Has been getting progressively worse since. Called physician to get a z-tg but recommended he takes nasopharyngeal COVID-19 PCR test 4 days ago was positive. has also come back positive. 2L O2 at night. Last night. Not eaten for a couple of days. His PCP called him and recommend he goes to the hospital so came in via EMS. Mainly having shortness of breath. No fevers or chills, smell " I don't know", appetite been poor. Diarrhea 1 day ago, loose, black. No normal BM since then. Taking robitussin, mucinex, quinine, flu medicine - unknown how much acetaminophen he has been taking. Allergies Allergy/AdvReac Type Severity Reaction Status Date / Time azithromycin Allergy Intermediate A.FIB Verified 09/06/20 13:18 levofloxacin Allergy Intermediate A.Fib Verified 09/06/20 13:18 Home Medications Home Medications Medication Instructions Recorded Confirmed Type acetaminophen 500 mg capsule 1,000 mg PO Q8 PRN cap 10/09/18 09/06/20 History amiodarone 200 mg tablet 100 mg PO DAILY 10/09/18 09/06/20 History aspirin 81 mg tablet,delayed 81 mg PO DAILY 10/09/18 09/06/20 History release budesonide-formoterol HFA 160 2 puffs INH BID 10/09/18 09/06/20 History mcg-4.5 mcg/actuation aerosol inhaler cholecalciferol (vitamin D3) 25 1,000 units PO DAILY 10/09/18 09/06/20 History mcg (1,000 unit) capsule clonazepam 0.5 mg tablet 0.5 mg PO HS tab 10/09/18 09/06/20 History ferrous sulfate 325 mg (65 mg 325 mg PO DAILY tab 10/09/18 09/06/20 History iron) tablet finasteride 5 mg tablet 5 mg PO DAILY 10/09/18 09/06/20 History multivitamin 1 cap PO DAILY 10/09/18 09/06/20 History spironolactone 25 mg tablet 25 mg PO DAILY 10/09/18 09/06/20 History tiotropium bromide 18 mcg capsule 1 cap INH DAILY 10/09/18 09/06/20 History with inhalation device furosemide 20 mg PO 4XWK #0 tab 11/10/18 09/06/20 Rx albuterol sulfate 90 mcg/actuation 2 puff INHALATION QID 08/11/20 09/06/20 History aerosol inhaler amoxicillin 500 mg capsule 500 mg PO QID 08/11/20 09/06/20 History metoprolol succinate 25 mg 25 mg PO DAILY 08/11/20 09/06/20 History tablet,extended release 24 hr tamsulosin 0.4 mg capsule 0.4 mg PO DAILY #90 cap 08/11/20 09/06/20 Rx Past Med/Surg History Medical History AAA (abdominal aortic aneurysm) Acute exacerbation of chronic obstructive airways disease Acute respiratory failure with hypoxia Aortic stenosis s/p valve repair Atrial fibrillation with RVR BPH (benign prostatic hyperplasia) CAD (coronary artery disease) Cataract Cervical spondylosis Cervicalgia Chest pain CKD (chronic kidney disease) Constipation COPD (chronic obstructive pulmonary disease) COPD exacerbation Edema Hematuria History of congestive heart failure Diastolic History of hypertension History of pacemaker Hypercholesteremia Left asymmetrical SNHL New onset atrial fibrillation No family history of adverse response to anesthesia No family history of bleeding disorder SNHL (sensorineural hearing loss) SOB (shortness of breath) on exertion Spondylolisthesis of cervical region Symptomatic anemia Surgical History History of colonoscopy History of hernia repair History of prostate surgery History of repair of dissection of abdominal aorta History of transurethral resection of prostate S/P aortic valve repair S/P Maze operation for atrial fibrillation Family History Father AAA (abdominal aortic aneurysm) Heart disease Brother Cancer Other No family history of adverse response to anesthesia No family history of bleeding disorder Social History Smoking Status: Former smoker Second Hand Exposure: No; Do You Dip or Chew Tobacco: No; Tobacco Cessation Education Requested by Patient: No Hx Alcohol Use: No Hx Substance Use: No Preferred Language: Kazakh Communication Ability: Effective Visual Impairment: No Limitations Locomotive Firer Required: No Beliefs That Will Affect Care: None marital status: Current Living Situation: Spouse current occupational status: retired Other Information That Helps Us Care for You: No Feels Safe at Home: Yes Safety Concerns: Feels Safe At This Time Assistive Devices: Glasses and Oxygen - Continuous Review of Systems Review of Systems: All systems reviewed & are unremarkable except as noted in HPI & below Physical Exam Constitutional: well developed and + frail appearing; + not well nourished and no acute distress Eyes: + anicteric sclerae; normal pupil size ENMT: external ear and nose normal, oropharynx normal Ears: + hearing impairment Neck: trachea midline; no tracheal deviation Respiratory: + retractions, + uses accessory muscles, + cough (Intermittent wet sounding) and able to speak in complete sentences; expiratory phase not prolonged Auscultation: + breath sounds absent (Left base), + diminished lung sounds (Left mid back) and + rhonchi (coarse b/l back, clear anteriorly); no crackles and no wheezes Cardiovascular: Rate/Rhythm: regular rate and regular rhythm Heart Sounds: no murmur Extremities: normal capillary refill and + pedal edema (1+ to mid shins b/l equal); no calf tenderness Gastrointestinal (Abdomen): Inspection/Auscultation: + hypoactive bowel sounds Percussion/Palpation: abdomen soft; abdomen nontender, no guarding and abdomen not rigid Musculoskeletal: no cyanosis or clubbing, extremities motor strength 5/5 Skin: no rashes, warm and dry (very dry legs, no areas of cellulitis) Neurologic: moves all extremities and awake; no focal motor deficits and not confused Speech / Cognition: normal speech Motor/Sensory: no tremor, no pronator drift and no sensory deficit Psychiatric: A+Ox3, euthymic affect Genitourinary: no CVA tenderness Results & Data Results & Data ([facility]) Vital Signs (Past 12 Hours) Vital Signs Temp Pulse Resp BP Pulse Ox 09/06/20 11:30 60 18 98 09/06/20 11:00 61 17 99 09/06/20 10:30 61 20 100 09/06/20 10:14 99 09/06/20 10:11 37.2 C 67 20 154/63 H 99 09/06/20 10:07 99 09/06/20 10:01 93 H 21 09/06/20 09:59 93 H 22 154/63 H Diagnostic Findings SINGLE VIEW CHEST IMPRESSION: 1. Cardiomegaly and cardiac pacemaker with evidence of congestive failure. 2. Bilateral airspace opacities could represent a component of interstitial edema and/or an infectious/inflammatory pneumonitis. Clinical correlation will be required. Radiographic follow-up to resolution is recommended. 3. Small left pleural effusion with left basilar consolidation. 4. Emphysema. ECG Indication: SOB/dyspnea Rate (beats per minute): 92 Findings: + LAFB and + RBBB Comparison ECG Date: from (Nov 09, 2018) Code Status & VTE Plan Code Status Full as discussed with the patient VTE Prophylaxis Plan VTE Prophylaxis will be ordered: Yes PG Care Time/CCT Total # of Minutes Spent Total Time Spent with Patient: Total time spent is greater than 50% in coordination of care (as documented) at patient's floor/unit and/or counseling patient: Coding Level of Care Code 29126 Initial Inpt Care Lvl 3 Diagnoses Acute respiratory failure with hypoxia J96.01 COVID-19 U07.1 Acute congestive heart failure I50.9 Poor appetite R63.0 Paroxysmal atrial fibrillation I48.0 CAD (coronary artery disease) I25.10 Hypertension I10 BPH (benign prostatic hyperplasia) N40.0 COPD (chronic obstructive pulmonary disease) J44.9 Thrombocytopenia D69.6 SNHL (sensorineural hearing loss) H90.5 DVT prophylaxis Z29.9
--- NOTE | 2020-09-06 12:52 | XRay Report ---
SINGLE VIEW CHEST CLINICAL HISTORY: Sepsis. FINDINGS: 2 AP, portable, upright chest radiographs are compared to study dated 11/13/2018 and correl ated with chest CT dated 08/07/2015. The examination is degraded by portable technique and patient rot ation. The patient is status post midline sternotomy and cardiac valve surgery. A 2-lead cardiac pace maker is new from 2018. The heart is enlarged noting atherosclerotic calcification of the thoracic ao rta. There is pulmonary vascular congestion. Emphysema and chronic interstitial thickening is similar to previous. Patchy airspace opacities are present throughout both lungs, left greater than right. T here is a left pleural effusion with left basilar consolidation. No pneumothorax is seen. The skeleta l structures are osteopenic. The bony thorax is grossly intact. IMPRESSION: 1. Cardiomegaly and cardiac pacemaker with evidence of congestive failure. 2. Bilateral airspace opacities could represent a component of interstitial edema and/or an infectiou s/inflammatory pneumonitis. Clinical correlation will be required. Radiographic follow-up to resoluti on is recommended. 3. Small left pleural effusion with left basilar consolidation. 4. Emphysema. ACT 112: Negative or not required by law. Electronically signed by: Lyle Guzman M.D. 09/06/2020 12:50 PM
[2020-09-06 13:09] LABS: D Dimer 860 ug/L FEU (0-500)
[2020-09-06 13:13] LABS: C Reactive Protein 6.25 mg/dl (0-0.29); Ferritin 490.8 ng/ml (8-388)
[2020-09-06] MEDS ORDERED: FUROSEMIDE 40 MG/4 ML VIAL IV ONE (14:26)
[2020-09-06] MEDS ORDERED: POLYETHYLENE (MIRALAX) 17 GM PACK PO PRN (14:26)
[2020-09-06] MEDS ORDERED: ALBUTEROL HFA 8 GM INHALER INH PRN (14:26)
[2020-09-06 16:20] LABS: Appearance Urine Clear (Clear); Bacteria Urine Automated Negative (Negative); Bilirubin Urine Negative (Negative); Blood Urine Negative (Negative); Cast Urine Automated 0 /lpf (0-5); Color Urine Yellow; Glucose Urine UA Negative (Negative); Ketones Urine 1+ (Negative); Leukocyte Esterase Urine Negative (Negative); Nitrite Urine Negative (Negative); Protein Urine 1+ (Negative); RBC Urine Automated 0-4 /hpf (0-4); Urobilinogen Urine Negative (Negative)
[2020-09-06] MEDS: clonazePAM 0.5 MG TAB PO PRN (23:30)
[2020-09-07 06:35] LABS: Hematocrit (blood only) 35.6 % (42-52); Hemoglobin 11.3 g/dL (14.0-18.0); Immature Granulocytes # (auto) 0.01 K/uL (0.00-0.02); Immature Granulocytes % (auto) 0.3 %; Lymphocytes # (auto) 0.27 K/uL (1.2-3.4); Lymphocytes % (auto) 7.5 %; Mean Corpuscular Hemoglobin 29.5 pg (25-34); Mean Corpuscular Hgb Conc 31.7 g/dL (32-36); Mean Platelet Volume 11.2 fL (7.4-10.4); Neutrophils # (auto) 2.94 K/uL (1.4-6.5); Neutrophils % (auto) 81.2 %; Platelet Count 103 K/uL (130-400); RDW Coefficient of Variation 16.3 % (11.5-14.5); RDW Standard Deviation 55.6 fL (36.4-46.3); Red Blood Count 3.83 M/uL (4.7-6.1); White Blood Count 3.62 K/uL (4.8-10.8)
[2020-09-07 07:05] LABS: Albumin Level 3.2 gm/dl (3.4-5.0); BUN Creatinine Ratio 26.2 (10-20); Calcium 8.7 mg/dl (8.5-10.1); Creatinine Clr Calc Pharmacy 62.4 ml/min; Est GFR (African American) 65.6; Est GFR (Non-African American) 56.6; Potassium 4.3 mmol/L (3.5-5.1)
[2020-09-07 07:08] LABS: Albumin Globulin Ratio 0.9 (0.9-2); Bilirubin,Total 1.1 mg/dl (0.2-1); Globulin 3.4 gm/dl (2.5-4.0); Total Protein 6.6 gm/dl (6.4-8.2)
[2020-09-07 07:10] LABS: Giant Platelets 1+
[2020-09-07] MEDS: MULTIVITAMIN TAB PO SCH (07:33)
[2020-09-07] MEDS: FINASTERIDE 5 MG TAB PO SCH (07:33)
[2020-09-07] MEDS: FERROUS SULFATE 325 MG TAB PO SCH (07:33)
[2020-09-07] MEDS: CHOLECALCIFEROL 1,000 UNITS 25 MCG TAB PO SCH (07:33)
[2020-09-07] MEDS: TAMSULOSIN HCL 0.4 MG CAP PO SCH (07:33)
[2020-09-07] MEDS: FLUTICASONE/VILANTEROL 100/25MCG 14 PUFFS/INHALER INH SCH (07:34)
[2020-09-07] MEDS: METOPROLOL SUCC 25MG EXT REL TAB PO SCH (07:34)
[2020-09-07] MEDS: AMIODARONE 200 MG TAB PO SCH (07:34)
[2020-09-07] MEDS: UMECLIDINIUM BROMIDE 62.5MCG/BLISTER 7 PUFFS/INHALER INH SCH (07:35)
[2020-09-07] MEDS ORDERED: dexAMETHasone 6 MG in DEXTROSE 5% 25 ML IV SCH (09:00)
[2020-09-07] MEDS ORDERED: FUROSEMIDE 40 MG/4 ML VIAL IV SCH (09:00)
[2020-09-07] MEDS ORDERED: SPIRONOLACTONE 25 MG TAB PO SCH (09:00)
[2020-09-07] MEDS ORDERED: ENOXAPARIN INJ 40 MG/0.4 ML SYR SQ SCH (09:00)
[2020-09-07] MEDS ORDERED: ASPIRIN 81 MG ECTAB PO SCH (09:00)
[2020-09-07] MEDS ORDERED: IOVERSOL 100ml IV ONE (09:44)
--- NOTE | 2020-09-07 10:13 | CT Scan Report ---
CT abdomen w IV con HISTORY: 79 years-old Male Elevated LFTs, COVID acutely elevated LFTs. COMPARISON: CT abdomen and pelvis 02/16/2015 TECHNIQUE: Multiple axial CT images of the abdomen were obtained following the intravenous administra tion of 94 mL Optiray 320 IV contrast. A dose lowering technique was used consistent with the princip als of VICKY. FINDINGS: Trace left pleural effusion. Hyperdensity at the left lung base noted with areas of pleural-parenchym al scarring. Mild patchy partially imaged groundglass opacities of the basal right lower lobe. Mild e mphysema. Cardiomegaly. No pericardial effusion. Mildly motion degraded exam. There is no pneumatosis or pneumoperitoneum. Megaly, 15.9 cm. Mild generalized pancreatic atrophy. No pancreatic ductal dila tion. Mild bilateral adrenal gland thickening suggests hyperplasia. There is a large gallstone within the gallbladder which is mildly contracted. There is equivocal gallbladder wall thickening with mild pericholecystic stranding. No biliary ductal dilation. Prominent periportal lymph nodes measure up t o 9 mm, likely reactive. Patency of the hepatic and portal veins. Ill-defined hypodensity left hepati c lobe adjacent to the falciform ligament measuring 1.4 cm is suggestive of focal fatty infiltration. There is equivocal mild marginal nodularity of the liver. No ascites. Patency of the hepatic and por aixa veins. Mild nonspecific bilateral perinephric stranding. 3 mm nonobstructing calculus of the inferior pole r ight kidney. Indeterminate 6 mm hypodense focus of the inferior pole right kidney is unchanged in siz e from comparison, possibly reflective of a complex cyst. No hydronephrosis. Extensive calcified plaq ue of the abdominal aorta. Fusiform dilation of the infrarenal segment measures 3.4 x 3.2 cm, unchang ed. No bowel obstruction or bowel wall thickening. Colonic diverticulosis without acute diverticulitis. N onvisualization of the appendix. Acute hematoma of the right rectus sheath measures 8.3 x 2.6 x 9.0 c m. There is a small area of active extravasation noted along the superior to mid margin on image 136 series 3. Spondylitic spurring and facet arthrosis. No acute fracture. IMPRESSION: 1. Moderate sized acute right-sided rectus sheath hematoma with active extravasation. 2. Mild marginal nodularity of the liver is suggestive of cirrhosis. No ascites. 3. Cholelithiasis with trace pericholecystic stranding. Correlation with right upper quadrant abdomin al ultrasound recommended. 4. Moderate splenomegaly. 5. Patchy right lung base opacities are suspicious for a nonspecific pneumonitis. 6. Pulmonary emphysema. ACT 112: Negative or not required by law. The above report was generated using voice recognition software. It may contain grammatical, syntax o r spelling errors. Electronically signed by: Jimenez Beltran M.D. 09/07/2020 10:12 AM
[2020-09-07] MEDS ORDERED: PIPERACILL/TAZOBAC CONSULT ACTIVE PRN (10:28)
--- NOTE | 2020-09-07 10:42 | Hospitalist Progress Note ---
Date of Service September 07, 2020 Assessment & Plan (1) Acute respiratory failure with hypoxia: Secondary to COVID-19 +/- CHF exacerbation. No COPD exacerbation suspected based on exam. Aim O2 sats > 90 % (2) COVID-19: Hold off remdesivir due to elevated LFTs and over 1 week since initial symptoms. Dexamethasone 6 mg IV daily (10 day course) (3) Acute congestive heart failure: Continue Lasix 20mg IV daily - lungs appear clearer on auscultation today and he is less orthopneic. Strict I&Os - negative 1360ml yesterday. Daily weights (4) Acute cholecystitis due to biliary calculus: Patient is not a surgical candidate. Unable to tell if RUQ pain due to rectus sheath hematoma vs. cholecystitis as directly over gallbladder. Unable to get HIDA scan due to +ve COVID-19. I do not feel US would give much more information and would elect to treat with antibiotics based on CT results and RUQ pain. Zosyn 3.375mg q8h Discussed with Dr Vyas (gen surg). (5) Elevated LFTs: Increasing this morning therefore underwent CT A/P showing rectus sheath hematoma and concerns for acute cholecystitis. Unclear if LFTs secondary to COVID, cirrhotic appearing liver, rectus sheath hematoma or acute bud. (6) Rectus sheath hematoma: Suspect this is most of the cause of his RUQ pain rather than gallbladder disease. Discussed with Dr Melchor (gen surg). Stopped lovenox (had one dose), aspirin. Trend Hgb. (7) Poor appetite: No odynophagia or dysphagia. Boost supplementation. (8) Paroxysmal atrial fibrillation: Currently in NSR. Continue amiodarone for rhythm control. Previously on Xarelto - unclear why this was discontinued. (9) CAD (coronary artery disease): Continue metoprolol, unclear why he is not on statin. ASA on hold due to rectus sheath heamtoma. (10) Hypertension: Lasix as above. Continue metoprolol succinate 25mg PO daily with hold parameters. Continue spironolactone 25mg PO daily (11) BPH (benign prostatic hyperplasia): Continue tamsulosin and finasteride home doses. Low tolerance to perform bladder scans, but no symptoms currently of LUTS (12) COPD (chronic obstructive pulmonary disease): Not in acute exacerbation. Continue usual maintenance inhalers with Spiriva and Symbicort or hospital fo rmulary equivalent. (13) Thrombocytopenia: Monitor with AM labs. Suspect suppression secondary to COVID-19. Improving. Liver pathology less likely. (14) SNHL (sensorineural hearing loss): (15) DVT prophylaxis: Stop lovenox due to rectus sheath hematoma. SCDs Admission and Anticipated Discharge Date Admission Date: September 06, 2020 Subjective Cristofer feels he is improving with his shortness of breath. No fevers of chills. Due to LFTs increasing he underwent CT A/P this morning showing a rectus sheath hematoma and concern for cholecystitis. He does report RUQ pain on palpation only. He is unsure how long he has had this however not reported to me yesterday on admission. Tolerating normal diet (much improved appetite since admission) without exacerbating the pain. No nausea, vomiting, reyes in bowel habit. Updated his daughter by request over the phone. Review of Systems Review of Systems: All systems reviewed & are unremarkable except as noted in HPI & below Constitutional: + fatigue and + weakness Respiratory: + cough and + dyspnea on exertion Physical Exam Constitutional: well developed; + not well nourished and no acute distress Eyes: + anicteric sclerae; normal pupil size ENMT: Ears: + hearing impairment Neck: trachea midline; no tracheal deviation Respiratory: normal respiratory effort, + cough (Intermittent wet sounding) and able to speak in complete sentences Auscultation: + breath sounds absent (Left bibasal) and + diminished lung sounds (Left mid back); no crackles, no rales, no rhonchi and no wheezes Cardiovascular: Rate/Rhythm: regular rate and regular rhythm Heart Sounds: no murmur Extremities: normal capillary refill and + pedal edema (1+ to mid shins b/l equal); no calf tenderness Gastrointestinal (Abdomen): Inspection/Auscultation: + hypoactive bowel sounds Percussion/Palpation: + abdomen tender (RUQ) and abdomen soft; no guarding and abdomen not rigid Musculoskeletal: no cyanosis or clubbing, extremities motor strength 5/5 Skin: no rashes, warm and dry (very dry legs, no areas of cellulitis) Neurologic: moves all extremities and awake; not confused Psychiatric: A+Ox3, euthymic affect Results & Data Results & Data ([facility]) Vital Signs (Past 12 Hours) Vital Signs Temp Pulse Pulse Resp BP Pulse Ox 09/07/20 08:18 36.8 C 61 18 129/67 92 09/07/20 02:52 37.1 C 63 18 130/61 94 09/07/20 00:00 60 09/06/20 23:27 36.8 C 94 H 20 143/[address] abdomen w IV con IMPRESSION: 1. Moderate sized acute right-sided rectus sheath hematoma with active extravasation. 2. Mild marginal nodularity of the liver is suggestive of cirrhosis. No ascites. 3. Cholelithiasis with trace pericholecystic stranding. Correlation with right upper quadrant abdominal ultrasound recommended. 4. Moderate splenomegaly. 5. Patchy right lung base opacities are suspicious for a nonspecific pneumonitis. 6. Pulmonary emphysema. PG Care Time/CCT Total # of Minutes Spent Total Time Spent with Patient: Total time spent is greater than 50% in coordination of care (as documented) at patient's floor/unit and/or counseling patient: Coding Level of Care Code 69753 Subseq Hosp Care Lvl 3 Diagnoses Acute respiratory failure with hypoxia J96.01 COVID-19 U07.1 Acute congestive heart failure I50.9 Acute cholecystitis due to biliary calculus K80.00 Elevated LFTs R79.89 Rectus sheath hematoma S30.1XXA Poor appetite R63.0 Paroxysmal atrial fibrillation I48.0 CAD (coronary artery disease) I25.10 Hypertension I10 BPH (benign prostatic hyperplasia) N40.0 COPD (chronic obstructive pulmonary disease) J44.9 COPD type: unspecified COPD Thrombocytopenia D69.6 SNHL (sensorineural hearing loss) H90.5 DVT prophylaxis Z29.9 (1) COPD (chronic obstructive pulmonary disease) COPD type: unspecified COPD Qualified Code(s): J44.9 - Chronic obstructive pulmonary disease, unspecified
[2020-09-07] MEDS ORDERED: PIPERACILLIN/TAZOBACTAM 4.5 GM in DEXTROSE 5% 100 ML IV ONE (11:00)
--- NOTE | 2020-09-07 12:30 | Electrocardiogram Report ---
Test Reason : Blood Pressure : / mmHG Vent. Rate : 092 BPM Atrial Rate : 094 BPM P-R Int : 000 ms QRS Dur : 168 ms QT Int : 436 ms P-R-T Axes : 000 -75 065 degrees QTc Int : 539 ms Poor data quality, interpretation may be adversely affected Probable Sinus rhythm Right bundle branch block Left anterior fascicular block Abnormal ECG When compared with ECG of 09-NOV-2018 09:06, Right bundle branch block is now Present Criteria for Anteroseptal infarct are no longer Present Confirmed by Tr Wagner ([id number]) on 09/07/2020 12:30:25 PM Referred By: REFERRED SELF Confirmed By:Tr Wagner
--- NOTE | 2020-09-07 16:59 | Consultation Report ---
DATE OF CONSULTATION: 09/07/2020 GASTROINTESTINAL CONSULTATION REASON FOR EVALUATION: Abnormal liver tests. HISTORY OF PRESENT ILLNESS: The patient is a 79-year-old admitted with respiratory failure and hypoxia due to COVID and underlying lung disease. He has COPD. The patient got a flu shot a week and a half ago and 2-3 days later began experiencing symptoms of fatigue, shortness of breath, anorexia, which got progressively worse. His physician referred him for a COVID test that was positive. He was on oxygen at home at night, but was not improving and not eating, and he was recommended to come to the hospital, which he did via emergency medical services. He is now in the COVID unit. The patient has had no known prior liver disease. His liver tests were found to be abnormal yesterday with AST and ALTs in the 200 range; today they are up a little bit into the 300 range. In 11/2018, they were normal. Of note is that he is on amiodarone for his chronic intermittent atrial fibrillation. On 08/24, his ferritin was normal and now it is elevated. This is most likely an acute phase reactant from his COVID infection. His alkaline phosphatase is normal, bilirubin is 1.1. CT scan of the abdomen shows 1 single large calcified gallstone in his gallbladder with a little bit of rim effect and mild pericholecystic stranding. GI consultation has been requested. PHYSICAL EXAMINATION: VITAL SIGNS: The patient's blood pressure is 154/63, pulse 67, temperature is 37.2, O2 saturation is 99%. CHEST: The patient has a pacemaker in the left anterior chest and has had a sternotomy. ABDOMEN: Nontender by report. IMPRESSION AND PLAN: The patient has elevations in the ALT and AST. His CPK is normal indicating that these are from his liver, not muscle because he does have what looks like a hematoma in the right rectus sheath. The alkaline phosphatase is normal indicating that this is a purely hepatocellular injury and not a cholestatic injury and of acute onset relatively speaking. His ferritin is elevated recently indicating acute phase reactant. I suspect these AST and ALT elevations are due to his coronavirus infection. It is possible that they could also be from amiodarone as this accumulates in the liver over time and can cause abnormal liver tests. He is not able to go down for a biliary scan to check to see how well his gallbladder is functioning due to his coronavirus, but I do think that the gallstone in his gallbladder, which has been there for a couple of years documented on ultrasound, is probably incidental in nature and probably do not want to operate on the patient in his current state regardless. Because it is calcified, the gallstone would not respond to dissolution with Actigall. At this point, I would just continue to follow his liver tests daily and supply supportive care as is underway.
[2020-09-07] MEDS: PIPERACILLIN/TAZOBACTAM 3.375 GM in DEXTROSE 5% 100 ML IV SCH (17:15)
[2020-09-07] MEDS: clonazePAM 0.5 MG TAB PO PRN (23:36)
[2020-09-08] MEDS: PIPERACILLIN/TAZOBACTAM 3.375 GM in DEXTROSE 5% 100 ML IV SCH ×2 (00:03→08:41)
[2020-09-08 06:28] LABS: Hematocrit (blood only) 36.6 % (42-52); Hemoglobin 11.7 g/dL (14.0-18.0); Mean Corpuscular Volume 92.2 fL (80-100); Red Blood Count 3.97 M/uL (4.7-6.1); White Blood Count 4.61 K/uL (4.8-10.8)
[2020-09-08 06:29] LABS: Mean Corpuscular Hemoglobin 29.5 pg (25-34); RDW Coefficient of Variation 16.1 % (11.5-14.5)
[2020-09-08 06:32] LABS: INR 1.1 (0.9-1.1); Prothrombin Time 11.7 Seconds (9.0-12.0)
[2020-09-08 06:38] LABS: D Dimer 630 ug/L FEU (0-500)
[2020-09-08 06:49] LABS: Albumin Level 3.2 gm/dl (3.4-5.0); BUN Creatinine Ratio 28.8 (10-20); C Reactive Protein 2.72 mg/dl (0-0.29); Creatinine Clr Calc Pharmacy 47.2 ml/min; Est GFR (African American) 46.8; Est GFR (Non-African American) 40.4; Potassium 4.2 mmol/L (3.5-5.1)
[2020-09-08 06:54] LABS: Albumin Globulin Ratio 0.9 (0.9-2); Bilirubin,Total 0.9 mg/dl (0.2-1); Globulin 3.4 gm/dl (2.5-4.0); Total Protein 6.6 gm/dl (6.4-8.2); Troponin I 0.028 ng/ml (0-0.045)
[2020-09-08 06:57] LABS: Platelet Count 106 K/uL (130-400)
[2020-09-08 06:58] LABS: Giant Platelets 1+; Immature Granulocytes # (auto) 0.01 K/uL (0.00-0.02); Immature Granulocytes % (auto) 0.2 %; Lymphocytes # (auto) 0.38 K/uL (1.2-3.4); Lymphocytes % (auto) 8.2 %; Monocytes # (auto) 0.48 K/uL (0.11-0.59); Monocytes % (auto) 10.4 %; Neutrophils # (auto) 3.74 K/uL (1.4-6.5); Neutrophils % (auto) 81.2 %; Platelet Estimate Decreased (Normal)
--- NOTE | 2020-09-08 08:39 | Gastroenterology Progress Note ---
Date of Service September 08, 2020 Assessment & Plan (1) Elevated LFTs: (2) COVID-19: Elevated LFTs - likely related to + COVID-19. Concern that IV Zosyn may be contributing. Would recommend discontinuation of Zosyn. Spoke to Dr. Glez this morning. Recommend supportive care. Will continue to follow during hospitalization. Please refer to supervising physician addendum for further recommendations. Admission and Anticipated Discharge Date Admission Date: September 06, 2020 Subjective Spoke to nursing via telephone call and reviewed patient chart. Patient alert and oriented x 3. Reports no shortness of breath this morning. Has had some continued abdominal discomfort - possibly related to rectus sheath hematoma. Denies pain at present time. Denies nausea or vomiting. Review of Systems Review of Systems: All systems reviewed & are unremarkable except as noted in Subjective Physical Exam Physical Exam: Please refer to hospitalist physical examination - limiting bedside evaluation due to + COVID-19 Results & Data ([facility]) Vital Signs (Past 12 Hours) Vital Signs Temp Pulse Pulse Pulse Resp BP BP 09/08/20 08:28 37.3 C 60 19 113/61 09/08/20 03:52 37.0 C 59 L 19 119/60 09/08/20 03:01 66 09/08/20 00:39 37.0 C 61 19 108/56 L Pulse Ox 09/08/20 08:28 90 09/08/20 03:52 90 09/08/20 03:01 09/08/20 00:39 90 Laboratory Results - last 24 hr 09/07/20 09/08/20 09/08/20 05:55 05:41 05:41 WBC 4.61 L RBC 3.97 L Hgb 11.7 L Hct 36.6 L MCV 92.2 MCH 29.5 MCHC 32.0 RDW Std Deviation 55.0 H RDW Coeff of Opal 16.1 H Plt Count 106 L Immature Gran % (Auto) 0.2 Neut % (Auto) 81.2 Lymph % (Auto) 8.2 [place] % (Auto) 10.4 Eos % (Auto) 0.0 Baso % (Auto) 0.0 Neut # (Auto) 3.74 Lymph # (Auto) 0.38 L [place] # (Auto) 0.48 Eos # (Auto) 0.00 Baso # (Auto) 0.00 Immature Gran # (Auto) 0.01 Platelet Estimate Decreased L Giant Platelets 1+ PT INR D-Dimer Sodium 138 Potassium 4.2 Chloride 104 Carbon Dioxide 29 Anion Gap 4.0 BUN 46 H Creatinine 1.60 H D Est Cr Clr Drug Dosing 47.2 Est GFR ( Amer) 46.8 Est GFR (Non-Af Amer) 40.4 BUN/Creatinine Ratio 28.8 H Glucose 101 H Calcium 9.0 Total Bilirubin 0.9 AST 364 H ALT 381 H Alkaline Phosphatase 105 Lactate Dehydrogenase Troponin I 0.024 0.028 C-Reactive Protein 2.72 H Total Protein 6.6 Albumin 3.2 L Globulin 3.4 Albumin/Globulin Ratio 0.9 09/08/20 09/08/20 05:41 05:41 WBC RBC Hgb Hct MCV MCH MCHC RDW Std Deviation RDW Coeff of Opal Plt Count Immature Gran % (Auto) Neut % (Auto) Lymph % (Auto) [place] % (Auto) Eos % (Auto) Baso % (Auto) Neut # (Auto) Lymph # (Auto) [place] # (Auto) Eos # (Auto) Baso # (Auto) Immature Gran # (Auto) Platelet Estimate Giant Platelets PT 11.7 INR 1.1 D-Dimer 630 H* Sodium Potassium Chloride Carbon Dioxide Anion Gap BUN Creatinine Est Cr Clr Drug Dosing Est GFR ( Amer) Est GFR (Non-Af Amer) BUN/Creatinine Ratio Glucose Calcium Total Bilirubin AST ALT Alkaline Phosphatase Lactate Dehydrogenase 286 H Troponin I C-Reactive Protein Total Protein Albumin Globulin Albumin/Globulin Ratio 09/07/2020: CT abdomen/pelvis with IV contrast demonstrated 1. Moderate sized acute right-sided rectus sheath hematoma with active extravasation. 2. Mild marginal nodularity of the liver is suggestive of cirrhosis. No ascites. 3. Cholelithiasis with trace pericholecystic stranding. Correlation with right upper quadrant abdominal ultrasound recommended. 4. Moderate splenomegaly. 5. Patchy right lung base opacities are suspicious for a nonspecific pneumonitis. 6. Pulmonary emphysema.
[2020-09-08] MEDS ORDERED: DEXAMETHASONE SOD PHOSPHATE 6 MG in SYRINGE 0 ML IV SCH (09:00)
[2020-09-08] MEDS: UMECLIDINIUM BROMIDE 62.5MCG/BLISTER 7 PUFFS/INHALER INH SCH (09:06)
[2020-09-08] MEDS: FLUTICASONE/VILANTEROL 100/25MCG 14 PUFFS/INHALER INH SCH (09:07)
[2020-09-08] MEDS: FINASTERIDE 5 MG TAB PO SCH (09:07)
[2020-09-08] MEDS: TAMSULOSIN HCL 0.4 MG CAP PO SCH (09:07)
[2020-09-08] MEDS: FERROUS SULFATE 325 MG TAB PO SCH (09:07)
[2020-09-08] MEDS: AMIODARONE 200 MG TAB PO SCH (09:08)
[2020-09-08] MEDS: METOPROLOL SUCC 25MG EXT REL TAB PO SCH (09:08)
[2020-09-08] MEDS: CHOLECALCIFEROL 1,000 UNITS 25 MCG TAB PO SCH (09:08)
[2020-09-08] MEDS: MULTIVITAMIN TAB PO SCH (09:08)
--- NOTE | 2020-09-08 13:18 | Hospitalist Progress Note ---
Date of Service September 08, 2020 Assessment & Plan (1) COVID-19: With resulting COPD exacerbation, pneumonia, transaminitis, etc. Day #3/10 of decadron. Agree w/ Dr Lim poor candidate for remdesivir due to transaminitis, 6-7+ days out from diagnosis, and now acute kidney injury. He does have a larger O2 requirement today, and even had mild hemoptysis. I believe there is benefit/role for convalescent plasma still. Thus, obtained blood consent from patient, explained risks/benefits of plasma, and gave FDA-produced plasma information sheet to patient. Tx 1 unit convalescent plasma when available. Type/screen now. (2) COPD with exacerbation: Increase decadron to BID dosing. Add combivent 1 puff QID. Add mucinex. Cont incentive ben. Add flutter valve. Cont home inhalers. Consider proning if patient worsens. Low threshold for high-flow NC with any worsening resp status/distress. To cover for superimposed bacterial pneumonia - rocephin 2gm daily; doxy 100mg BID. (3) Acute respiratory failure with hypoxia: Secondary to COVID-19 pneumonia/COPD exacerbation. See above. Some concern for CHF exacerbation earlier this stay - was diuresed -- Cr increased to 1.6. HOLD lasix. HOLD aldactone. (4) Elevated LFTs: I agree with [facility] that transaminitis is likely due to COVID-19. Alk phos and t.bili are normal arguing against acute cholecystitis. His abdominal pain is over the rectus sheath hematoma. Defer on broad-spectrum IV abx (zosyn) for gall bladder at this time. If alk phos/bili rise then RUQ u/s. (5) Rectus sheath hematoma: H/H stable since admission. Uncertain if he developed this from forceful coughing at home, straining at stool, etc. Had 1 dose of lovenox while hosoopitalize - doubt it caused such but can't prove/disprove it. Either way treat pain. K-pad heating to help with pain and enhance resolution. Hold aspirin. Holding chemical DVT proph. (6) Right sided abdominal pain: Likely due to rectus sheath hematoma. Doubt biliary in nature. Treat pain. K-pad heat. (7) Acute kidney injury: New. In face of diuresis. Could be from such, COVID-19 itself, AIN, etc. d/c zosyn. Hold lasix and aldactone. BMP am. (8) Paroxysmal atrial fibrillation: Remains in NSR. Continue amiodarone for rhythm control. (9) CAD (coronary artery disease): Continue metoprolol with hold parameters. Holding asa due to rectus sheath hematoma. No ischemic symptoms at this time. Trops x 3 were negative at admission. (10) Hypertension: Hold lasix. Hold aldactone. Continue metoprolol succinate 25mg PO daily but with hold parameters. (11) BPH (benign prostatic hyperplasia): Continue tamsulosin and finasteride but hold flomax if BPs continue to be low. (12) Thrombocytopenia: Likely 2nd COVID-19. CBC am. (13) Gallstone: Large gallstone in gall bladder on CT abd/pelvis. T. bili and alk phos wnl. Transaminases elevated only - more suggestive of reactive transaminitis from COVID-19. Agree with GI gallstone is unlikely causing symptoms. Need to continue to follow this closely. (14) Pancytopenia: Likely viral suppression from COVID-19. CBC am. (15) DVT prophylaxis: SCDs. Chemical means contraindicated due to rectus sheath hematoma. Ambulate when able. PT, OT consults. Updated daughter by phone tonight. is ill with COVID- they have pulse oximeter at home- recommended that check her pulse ox regularly. total time today 65 minutes including updating daughter, obtaining consent for plasma, explaining plasma process, chart review, numerous orders, and complex management of multiple issues. Admission and Anticipated Discharge Date Admission Date: September 06, 2020 Subjective patient complaints of cough, some production of sputum. had one episode of small-volume hemoptysis earlier this am. denies dyspnea at rest but some MATIAS. no chest pain or tightness. continues with pain over right abdomen with movement, laying wrong, coughing, etc. appetite fair at best. telemetry overnight wnl. staff report having to turn up NC O2 1-2 L more than yesterday. patient reports having been dx with COVID on 09/02 and had symptoms about 1 day prior to testing. is + for COVID and he states she was short of breath on the phone last night. Review of Systems Constitutional: + fatigue, + weakness and + anorexia; no fever and no chills Ear, Nose, Mouth, Throat: no nasal congestion and no sore throat Respiratory: as per Subjective / HPI, + cough, + chest congestion, + dyspnea on exertion, + hemoptysis, + sputum production and + wheezing Cardiovascular: no chest pain Gastrointestinal: as per Subjective / HPI and + diarrhea/loose stools; no nausea and no vomiting Physical Exam Constitutional: + ill appearing; no acute distress (coughing at times ) and no altered mental status ENMT: external ear and nose normal, oropharynx normal Respiratory: + cough; no respiratory distress Auscultation: + diminished lung sounds (bases), + crackles (occasional - bases) and + wheezes (scattered, end-exp) Cardiovascular: Rate/Rhythm: regular rate and regular rhythm Heart Sounds: normal S1 and normal S2; no murmur Vessels: posterior tibial pulses present and dorsalis pedis pulses present; no JVD Extremities: no edema Gastrointestinal (Abdomen): Inspection/Auscultation: + abdomen distended (minimal - right side of abdomen vs the left abdomen ); no abdominal wall ecchymosis Percussion/Palpation: + abdomen tender (very tender to palpation w/ light touch R abdominal wall); no guarding and no hepatosplenomegaly Skin: no rashes, warm and dry Psychiatric: A+Ox3, euthymic affect Results & Data Results & Data ([facility]) Vital Signs (Past 12 Hours) Vital Signs Temp Pulse Pulse Pulse Resp BP BP 09/08/20 11:35 36.8 C 60 18 109/53 L 09/08/20 08:28 37.3 C 60 19 113/61 09/08/20 03:52 37.0 C 59 L 19 119/60 09/08/20 03:01 66 Pulse Ox 09/08/20 11:35 88 L 09/08/20 08:28 90 09/08/20 03:52 90 09/08/20 03:01 Laboratory Results Laboratory Results - last 24 hr 09/08/20 09/08/20 09/08/20 05:41 05:41 05:41 WBC 4.61 L RBC 3.97 L Hgb 11.7 L Hct 36.6 L MCV 92.2 MCH 29.5 MCHC 32.0 RDW Std Deviation 55.0 H RDW Coeff of Opal 16.1 H Plt Count 106 L Immature Gran % (Auto) 0.2 Neut % (Auto) 81.2 Lymph % (Auto) 8.2 [place] % (Auto) 10.4 Eos % (Auto) 0.0 Baso % (Auto) 0.0 Neut # (Auto) 3.74 Lymph # (Auto) 0.38 L [place] # (Auto) 0.48 Eos # (Auto) 0.00 Baso # (Auto) 0.00 Immature Gran # (Auto) 0.01 Platelet Estimate Decreased L Giant Platelets 1+ PT INR D-Dimer Sodium 138 Potassium 4.2 Chloride 104 Carbon Dioxide 29 Anion Gap 4.0 BUN 46 H Creatinine 1.60 H D Est Cr Clr Drug Dosing 47.2 Est GFR ( Amer) 46.8 Est GFR (Non-Af Amer) 40.4 BUN/Creatinine Ratio 28.8 H Glucose 101 H Calcium 9.0 Total Bilirubin 0.9 AST 364 H ALT 381 H Alkaline Phosphatase 105 Lactate Dehydrogenase 286 H Troponin I 0.028 C-Reactive Protein 2.72 H Total Protein 6.6 Albumin 3.2 L Globulin 3.4 Albumin/Globulin Ratio 0.9 Blood Type Antibody Screen 09/08/20 09/08/20 05:41 05:41 WBC RBC Hgb Hct MCV MCH MCHC RDW Std Deviation RDW Coeff of Opal Plt Count Immature Gran % (Auto) Neut % (Auto) Lymph % (Auto) [place] % (Auto) Eos % (Auto) Baso % (Auto) Neut # (Auto) Lymph # (Auto) [place] # (Auto) Eos # (Auto) Baso # (Auto) Immature Gran # (Auto) Platelet Estimate Giant Platelets PT 11.7 INR 1.1 D-Dimer 630 H* Sodium Potassium Chloride Carbon Dioxide Anion Gap BUN Creatinine Est Cr Clr Drug Dosing Est GFR ( Amer) Est GFR (Non-Af Amer) BUN/Creatinine Ratio Glucose Calcium Total Bilirubin AST ALT Alkaline Phosphatase Lactate Dehydrogenase Troponin I C-Reactive Protein Total Protein Albumin Globulin Albumin/Globulin Ratio Blood Type Pending Antibody Screen Pending PG Care Time/CCT Total # of Minutes Spent Total Time Spent with Patient: Total time spent is greater than 50% in coordination of care (as documented) at patient's floor/unit and/or counseling patient: Prolonged Care Time Prolonged Care Time: Yes Total Prolonged Care Time: 65 Coding Level of Care Code 50860 Subseq Hosp Care Lvl 3 (25 - SIGNIFICANT, SEPARATELY IDENTIFIABLE ) Diagnoses COVID-19 U07.1 COPD with exacerbation J44.1 Acute respiratory failure with hypoxia J96.01 Elevated LFTs R79.89 Rectus sheath hematoma S30.1XXA Right sided abdominal pain R10.9 Acute kidney injury N17.9 Paroxysmal atrial fibrillation I48.0 CAD (coronary artery disease) I25.10 Hypertension I10 BPH (benign prostatic hyperplasia) N40.0 Thrombocytopenia D69.6 Gallstone K80.20 Pancytopenia D61.818 DVT prophylaxis Z29.9 Additional Codes Prolonged Care Time - Prolonged Care Time: Yes ([id number]) Time Spent (min) 65
[2020-09-08] MEDS: IPRATROPIUM BROMIDE HFA INHALER INH SCH ×2 (15:30→19:59)
[2020-09-08] MEDS: ALBUTEROL HFA 8 GM INHALER INH SCH ×2 (15:31→19:59)
[2020-09-08] MEDS: guaiFENesin 600 MG TABCR PO SCH ×2 (16:09→19:53)
[2020-09-08] MEDS ORDERED: IPRATROPIUM BROMIDE/ALBUTEROL respimat INH INH SCH (17:00)
[2020-09-08] MEDS: DOXYCYCLINE HYCLATE 100 MG in DEXTROSE 5% 100 ML IV SCH (20:06)
[2020-09-08] MEDS: DEXAMETHASONE SOD PHOSPHATE 6 MG in SYRINGE 0 ML IV SCH (20:28)
[2020-09-08] MEDS: cefTRIAXone SODIUM 2,000 MG in DEXTROSE 5% 50 ML IV SCH (20:28)
[2020-09-09] MEDS: DOXYCYCLINE HYCLATE 100 MG in DEXTROSE 5% 100 ML IV SCH ×2 (07:58→20:52)
[2020-09-09] MEDS: FLUTICASONE/VILANTEROL 100/25MCG 14 PUFFS/INHALER INH SCH (07:59)
[2020-09-09] MEDS: DEXAMETHASONE SOD PHOSPHATE 6 MG in SYRINGE 0 ML IV SCH ×2 (07:59→20:52)
[2020-09-09] MEDS: UMECLIDINIUM BROMIDE 62.5MCG/BLISTER 7 PUFFS/INHALER INH SCH (07:59)
[2020-09-09] MEDS: CHOLECALCIFEROL 1,000 UNITS 25 MCG TAB PO SCH (08:00)
[2020-09-09] MEDS: guaiFENesin 600 MG TABCR PO SCH ×2 (08:00→20:54)
[2020-09-09] MEDS: FERROUS SULFATE 325 MG TAB PO SCH (08:00)
[2020-09-09] MEDS: MULTIVITAMIN TAB PO SCH (08:00)
[2020-09-09] MEDS: FINASTERIDE 5 MG TAB PO SCH (08:00)
[2020-09-09] MEDS: METOPROLOL SUCC 25MG EXT REL TAB PO SCH (08:00)
[2020-09-09] MEDS: AMIODARONE 200 MG TAB PO SCH (08:00)
[2020-09-09] MEDS: TAMSULOSIN HCL 0.4 MG CAP PO SCH (08:01)
[2020-09-09] MEDS: ALBUTEROL HFA 8 GM INHALER INH SCH ×4 (08:06→20:02)
[2020-09-09] MEDS: IPRATROPIUM BROMIDE HFA INHALER INH SCH ×4 (08:06→20:01)
[2020-09-09 08:37] LABS: Mean Corpuscular Hgb Conc 31.4 g/dL (32-36)
--- NOTE | 2020-09-09 08:42 | Gastroenterology Progress Note ---
Date of Service September 09, 2020 Assessment & Plan (1) Elevated LFTs: (2) COVID-19: Elevated LFTs - likely related to + COVID-19. AM labs are pending this morning. Zosyn discontinued 09/09/2020 as felt possibly contributing to worsening LFTs. Recommend supportive care. Will continue to follow during hospitalization. Please refer to supervising physician addendum for further recommendations. Admission and Anticipated Discharge Date Admission Date: September 06, 2020 Subjective Spoke to nursing via telephone call and reviewed patient chart. Patient alert and oriented x 3. Has had some continued abdominal discomfort - possibly related to rectus sheath hematoma. Denies pain at present time. Denies nausea or vomiting. Physical Exam Physical Exam: Please refer to hospitalist physical examination - limiting bedside evaluation due to + COVID-19 Results & Data ([facility]) Vital Signs (Past 12 Hours) Vital Signs Temp Pulse Pulse Resp BP BP Pulse Ox 09/09/20 08:04 95 09/09/20 04:45 36.8 C 62 18 126/63 88 L 09/09/20 02:08 37.1 C 60 20 118/67 90 09/09/20 01:55 60 09/09/20 01:20 37.0 C 61 20 128/66 89 L 09/09/20 00:20 37.1 C 60 20 122/67 90 09/08/20 23:20 37 C 60 16 113/61 89 L 09/08/20 22:50 37.7 C H 60 16 119/64 91 09/08/20 22:35 37.3 C 61 16 120/67 92 09/08/20 22:15 37.2 C 61 20 124/62 94 Abnormal lab results 09/09/20 Range/Units 07:14 MCHC 31.4 L (32-36) g/dL
[2020-09-09 08:58] LABS: Albumin Level 3.3 gm/dl (3.4-5.0); BUN Creatinine Ratio 34.4 (10-20); Calcium 9.3 mg/dl (8.5-10.1); Creatinine Clr Calc Pharmacy 48.1 ml/min; Est GFR (African American) 47.9; Est GFR (Non-African American) 41.3; Potassium 4.3 mmol/L (3.5-5.1)
[2020-09-09 09:02] LABS: Bilirubin Direct 0.3 mg/dl (0-0.2); Bilirubin,Total 0.8 mg/dl (0.2-1); Total Protein 6.7 gm/dl (6.4-8.2)
--- NOTE | 2020-09-09 09:23 | Hospitalist Progress Note ---
Date of Service September 09, 2020 Assessment & Plan (1) COVID-19: With resulting COPD exacerbation, pneumonia, transaminitis, acute hypoxic respiratory failure. Day #4/10 of decadron. Poor candidate for remdesivir due to transaminitis, 7+ days out from diagnosis, and acute kidney injury. Thus defer on remdesivir. s/p convalescent plasma on 09/08/20. Sputum cx with staph aureus; remains on rocephin/doxy for bacterial pneumonia coverage. Check MRSA IT INSTRUCTOR swab while awaiting final culture result. Cont supportive care, NC O2, pulmonary toilet, bronchodilators, etc. (2) COPD with exacerbation: Cont BID decadron dosing. Cont combivent 1 puff QID. Cont mucinex. Cont incentive ben. Cont flutter valve. Cont home inhalers. Consider proning if patient worsens. Low threshold for high-flow NC with any worsening resp status/distress or increasing NC O2 requirements. Follow sputum cx. pCXR in am tomorrow to r/o advancing infiltrates. (3) Acute respiratory failure with hypoxia: Secondary to COVID-19 pneumonia/COPD exacerbation. See above. Some concern for CHF exacerbation earlier this stay - was diuresed -- Cr increased to 1.6. Diuretics stopped. Does not appear volume overloaded today. (4) Elevated LFTs: Transaminitis likely due to COVID-19. IMPROVING. His abdominal pain is over the rectus sheath hematoma not the gall bladder in the high RUQ. Appreciate [facility] input. (5) Rectus sheath hematoma: H/H stable since admission. Uncertain if he developed this from forceful coughing at home, straining at stool, etc. Pain is improved today. Re-order K-pad heating to help with pain and enhance resolution. Hold aspirin. Holding chemical DVT proph. (6) Right sided abdominal pain: Likely due to rectus sheath hematoma. Doubt biliary cause. as above. (7) Acute kidney injury: New. In face of diuresis. Could be from such, COVID-19 itself, AIN, etc. slightly improved today. cont to hold double diuretics. repeat BMP am. (8) Paroxysmal atrial fibrillation: Remains in NSR. Continue amiodarone for rhythm control. (9) CAD (coronary artery disease): Continue metoprolol with hold parameters. Holding asa due to rectus sheath hematoma. No ischemic symptoms. (10) Hypertension: Continue metoprolol succinate 25mg PO daily. Holding diuretics. Controlled. (11) BPH (benign prostatic hyperplasia): Continue tamsulosin and finasteride but hold flomax if BPs continue to be low. No voiding issues. (12) Thrombocytopenia: Likely 2nd COVID-19. Modestly worse today. Repeat CBC am. (13) Gallstone: Large gallstone in gall bladder on CT abd/pelvis. T. bili and alk phos wnl. Transaminases elevated only - more suggestive of reactive transaminitis from COVID-19. Agree with GI gallstone is unlikely causing symptoms. LFTs improved today. Repeat LFTs am. (14) Pancytopenia: Likely viral suppression from COVID-19. CBC am for stability. (15) Acute metabolic encephalopathy: Likely 2nd to COVID infection itself. can't rule out "steroid" psychosis or "ICU" psychosis. either way would simply monitor. reassurance given to daughter that delirium is common in hospital and we will continue to follow it carefully. (16) DVT prophylaxis: SCDs. Chemical means contraindicated due to rectus sheath hematoma. Cont PT, OT. Updated daughter by phone 09/08 and 09/09. Questions answered. is ill with COVID but remains stable in their home. Admission and Anticipated Discharge Date Admission Date: September 06, 2020 Subjective patient reports improved appetite today. did work with PT and was tired and got short of breath. staff report that his O2 sats dropped and his NC O2 was increased to maintain his sats. he has had no further hemoptysis. received plasma last night w/o incident. cont with cough - no worse than previous. no chest pain or tightness. mild diarrhea present. right-sided abd pain from rectus sheath hematoma - mildly improved today. with eating he has NO RUQ abd pain. tele stable overnight. Review of Systems Constitutional: + fatigue; no fever, no chills and no anorexia Ear, Nose, Mouth, Throat: no sore throat Respiratory: + cough, + dyspnea on exertion and + wheezing; no hemoptysis and no sputum production Cardiovascular: no chest pain, no orthopnea and no edema Gastrointestinal: as per Subjective / HPI and + diarrhea/loose stools; no nausea and no vomiting Psychiatric: + confusion Physical Exam Constitutional: + altered mental status (minimal ); no acute distress and not ill appearing (looks better today ) ENMT: external ear and nose normal, oropharynx normal Respiratory: + cough; no respiratory distress Auscultation: + diminished lung sounds (bases) and + crackles (occasional - bases); no wheezes Cardiovascular: Rate/Rhythm: regular rate and regular rhythm Heart Sounds: normal S1 and normal S2; no murmur Vessels: posterior tibial pulses present and dorsalis pedis pulses present; no JVD Extremities: no edema Gastrointestinal (Abdomen): Inspection/Auscultation: + abdomen distended (scant, over expected location of rectus sheath hematoma ); no abdominal wall ecchymosis Percussion/Palpation: + abdomen tender (boiler tenders supervisor to palpation R abdominal wall, less than /20 exam); no guarding and no hepatosplenomegaly Skin: no rashes, warm and dry Psychiatric: Orientation: alert, oriented to person and oriented to place; + not oriented to time (mild confusion ) Results & Data Results & Data ([facility]) Vital Signs (Past 12 Hours) Vital Signs Temp Pulse Pulse Resp BP BP Pulse Ox 09/09/20 08:04 95 09/09/20 04:45 36.8 C 62 18 126/63 88 L 09/09/20 02:08 37.1 C 60 20 118/67 90 09/09/20 01:55 60 09/09/20 01:20 37.0 C 61 20 128/66 89 L 09/09/20 00:20 37.1 C 60 20 122/67 90 09/08/20 23:20 37 C 60 16 113/61 89 L 09/08/20 22:50 37.7 C H 60 16 119/64 91 09/08/20 22:35 37.3 C 61 16 120/67 92 09/08/20 22:15 37.2 C 61 20 124/62 94 Laboratory Results Laboratory Results - last 24 hr 09/08/20 09/09/20 09/09/20 05:41 07:14 07:14 WBC Pending RBC Pending Hgb Pending Hct Pending MCV Pending MCH Pending MCHC 31.4 L Plt Count Pending Sodium 137 Potassium 4.3 Chloride 105 Carbon Dioxide 27 Anion Gap 5.0 BUN 54 H Creatinine 1.57 H Est Cr Clr Drug Dosing 48.1 Est GFR ( Amer) 47.9 Est GFR (Non-Af Amer) 41.3 BUN/Creatinine Ratio 34.4 H Glucose 127 H Calcium 9.3 Total Bilirubin 0.8 Direct Bilirubin 0.3 H AST 232 H ALT 311 H Alkaline Phosphatase 101 Total Protein 6.7 Albumin 3.3 L Blood Type O Positive Antibody Screen NEGATIVE PG Care Time/CCT Total # of Minutes Spent Total Time Spent with Patient: Total time spent is greater than 50% in coordination of care (as documented) at patient's floor/unit and/or counseling patient: Coding Level of Care Code 99307 Subseq Hosp Care Lvl 3 Diagnoses COVID-19 U07.1 COPD with exacerbation J44.1 Acute respiratory failure with hypoxia J96.01 Elevated LFTs R79.89 Rectus sheath hematoma S30.1XXA Right sided abdominal pain R10.9 Acute kidney injury N17.9 Paroxysmal atrial fibrillation I48.0 CAD (coronary artery disease) I25.10 Hypertension I10 BPH (benign prostatic hyperplasia) N40.0 Thrombocytopenia D69.6 Gallstone K80.20 Pancytopenia D61.818 Acute metabolic encephalopathy G93.41 DVT prophylaxis Z29.9
[2020-09-09 09:29] LABS: Hematocrit (blood only) 34.1 % (42-52); Hemoglobin 10.7 g/dL (14.0-18.0); Mean Corpuscular Hemoglobin 29.2 pg (25-34); Mean Corpuscular Volume 92.9 fL (80-100); RDW Coefficient of Variation 16.2 % (11.5-14.5); RDW Standard Deviation 55.2 fL (36.4-46.3); Red Blood Count 3.67 M/uL (4.7-6.1); White Blood Count 3.86 K/uL (4.8-10.8)
[2020-09-09 09:32] LABS: Platelet Count 76 K/uL (130-400); Platelet Estimate Decreased (Normal)
[2020-09-09] MEDS: cefTRIAXone SODIUM 2,000 MG in DEXTROSE 5% 50 ML IV SCH (20:53)
[2020-09-09] MEDS: clonazePAM 0.5 MG TAB PO PRN (23:31)
[2020-09-10 07:30] LABS: Mean Corpuscular Hgb Conc 32.4 g/dL (32-36)
[2020-09-10] MEDS: IPRATROPIUM BROMIDE HFA INHALER INH SCH ×4 (07:33→19:34)
[2020-09-10] MEDS: ALBUTEROL HFA 8 GM INHALER INH SCH ×4 (07:33→19:34)
[2020-09-10 07:43] LABS: Hematocrit (blood only) 34.3 % (42-52); Hemoglobin 11.1 g/dL (14.0-18.0); Mean Corpuscular Hemoglobin 29.8 pg (25-34); Mean Corpuscular Volume 92.2 fL (80-100); RDW Standard Deviation 54.3 fL (36.4-46.3); Red Blood Count 3.72 M/uL (4.7-6.1); White Blood Count 6.29 K/uL (4.8-10.8)
[2020-09-10 07:50] LABS: Platelet Count 108 K/uL (130-400); Platelet Estimate Decreased (Normal)
[2020-09-10] MEDS ORDERED: LINEZOLID CONSULT ACTIVE PRN (07:51)
[2020-09-10] MEDS ORDERED: LINEZOLID 600 MG/300 ML D5W IV SCH (08:00)
[2020-09-10 08:04] LABS: Albumin Level 3.1 gm/dl (3.4-5.0); Creatinine Clr Calc Pharmacy 55.5 ml/min; Est GFR (Non-African American) 49.1; Potassium 4.2 mmol/L (3.5-5.1)
[2020-09-10 08:07] LABS: Albumin Globulin Ratio 0.8 (0.9-2); Bilirubin,Total 0.7 mg/dl (0.2-1); Globulin 3.7 gm/dl (2.5-4.0); Total Protein 6.9 gm/dl (6.4-8.2)
--- NOTE | 2020-09-10 08:40 | Gastroenterology Progress Note ---
Date of Service September 10, 2020 Assessment & Plan (1) Elevated LFTs: (2) COVID-19: Elevated LFTs - likely related to + COVID-19. AST and ALT are improving. Alk phos and t. bili remains WNL. Zosyn discontinued 09/09/2020 as felt possibly contributing to worsening LFTs. Recommend supportive care. Will continue to follow during hospitalization. Please refer to supervising physician addendum for further recommendations. Admission and Anticipated Discharge Date Admission Date: September 06, 2020 Subjective Spoke to nursing via telephone call and reviewed patient chart. Patient alert and oriented x 3. Has had some continued abdominal discomfort - most likely related to rectus sheath hematoma. Denies pain at present time. Denies pain with eating although appetite reportedly poor to fair. Denies nausea or vomiting. Mild diarrhea noted 09/09/2020. Review of Systems Review of Systems: All systems reviewed & are unremarkable except as noted in Subjective Physical Exam Physical Exam: Please refer to hospitalist physical examination - limiting bedside evaluation due to + COVID-19 Results & Data ([facility]) Vital Signs (Past 12 Hours) Vital Signs Temp Pulse Pulse Pulse Resp BP Pulse Ox 09/10/20 08:06 36.4 C L 98 H 22 125/74 90 09/10/20 07:33 98 H 20 89 L 09/10/20 04:05 36.6 C 65 17 123/59 L 90 09/10/20 03:17 62 09/09/20 23:45 37.1 C 65 18 125/56 L 90 09/09/20 21:58 93 Abnormal lab results 09/09/20 09/09/20 09/09/20 Range/Units 07:14 07:14 22:20 WBC 3.86 L (4.8-10.8) K/uL RBC 3.67 L (4.7-6.1) M/uL Hgb 10.7 L (14.0-18.0) g/dL Hct 34.1 L (42-52) % RDW Std Deviation 55.2 H (36.4-46.3) fL RDW Coeff of Opal 16.2 H (11.5-14.5) % Plt Count 76 L (130-400) K/uL Platelet Estimate Decreased L (Normal) BUN 54 H (7-18) mg/dl Creatinine 1.57 H (0.6-1.4) mg/dl BUN/Creatinine Ratio 34.4 H (10-20) Glucose 127 H (70-99) mg/dl Direct Bilirubin 0.3 H (0-0.2) mg/dl AST 232 H (15-37) U/L ALT 311 H (12-78) U/L Albumin 3.3 L (3.4-5.0) gm/dl Albumin/Globulin Ratio (0.9-2) Nasal Screen MRSA (PCR) Positive A (Negative) 09/10/20 09/10/20 Range/Units 06:35 06:35 WBC (4.8-10.8) K/uL RBC 3.72 L (4.7-6.1) M/uL Hgb 11.1 L (14.0-18.0) g/dL Hct 34.3 L (42-52) % RDW Std Deviation 54.3 H (36.4-46.3) fL RDW Coeff of Opal 16.0 H (11.5-14.5) % Plt Count 108 L (130-400) K/uL Platelet Estimate Decreased L (Normal) BUN 48 H (7-18) mg/dl Creatinine (0.6-1.4) mg/dl BUN/Creatinine Ratio 35.0 H (10-20) Glucose 122 H (70-99) mg/dl Direct Bilirubin (0-0.2) mg/dl AST 220 H (15-37) U/L ALT 321 H (12-78) U/L Albumin 3.1 L (3.4-5.0) gm/dl Albumin/Globulin Ratio 0.8 L (0.9-2) Nasal Screen MRSA (PCR) (Negative)
[2020-09-10] MEDS: LINEZOLID 600 MG/300 ML BAG IV SCH ×2 (09:17→20:33)
[2020-09-10] MEDS: DEXAMETHASONE SOD PHOSPHATE 6 MG in SYRINGE 0 ML IV SCH (09:19)
[2020-09-10] MEDS: TAMSULOSIN HCL 0.4 MG CAP PO SCH (09:19)
[2020-09-10] MEDS: AMIODARONE 200 MG TAB PO SCH (09:19)
[2020-09-10] MEDS: FLUTICASONE/VILANTEROL 100/25MCG 14 PUFFS/INHALER INH SCH (09:19)
[2020-09-10] MEDS: UMECLIDINIUM BROMIDE 62.5MCG/BLISTER 7 PUFFS/INHALER INH SCH (09:20)
[2020-09-10] MEDS: FERROUS SULFATE 325 MG TAB PO SCH (09:20)
[2020-09-10] MEDS: FINASTERIDE 5 MG TAB PO SCH (09:21)
[2020-09-10] MEDS: CHOLECALCIFEROL 1,000 UNITS 25 MCG TAB PO SCH (09:21)
[2020-09-10] MEDS: MULTIVITAMIN TAB PO SCH (09:21)
[2020-09-10] MEDS: METOPROLOL SUCC 25MG EXT REL TAB PO SCH (09:22)
[2020-09-10] MEDS: guaiFENesin 600 MG TABCR PO SCH ×2 (09:22→21:19)
--- NOTE | 2020-09-10 10:26 | XRay Report ---
XR chest 1V portable HISTORY: COVID-19, staph pneumonia COMPARISON: Chest 09/06/2020. FINDINGS: No pneumothorax. The heart remains mildly enlarged. Left-sided dual-chamber pacemaker. An a ortic valve prosthesis is again noted. Small left pleural effusion and left mid to lower lung zone robert zy airspace opacities have slightly progressed. There is also progressive hazy airspace opacity withi n the right lower lobe. Mild diffuse interstitial thickening. IMPRESSION: Slight progression of the small left pleural effusion and bibasilar airspace opacities. ACT 112: Negative or not required by law. Electronically signed by: Keo Munroe M.D. 09/10/2020 10:25 AM
--- NOTE | 2020-09-10 12:02 | Pulmonary Consultation ---
Date of Consultation September 10, 2020 Assessment & Plan (1) MRSA pneumonia: I did review the CT of the chest which demonstrates severe centrilobular emphysema. There is some groundglass noted in the upper lobes and the right middle lobe likely consistent with his Covid pneumonitis. There is no significant consolidation. There is no evidence of a pleural effusion. He does have a chronic consolidation in his left lung base which is unchanged from 2015. I do not see any significant evidence for a lobar pneumonia. It is not on reasonable to treat him for MRSA pneumonia with 5-7 days of antibiotics. He received convalescent plasma. He is not a candidate for remdesivir given his transaminitis. I would recommend going back down on his Decadron to once daily and possibly switching over to prednisone. This could be stopped after 10 days. Continue inhalers. Continue oxygen to maintain saturations of 88 to 92%. He may benefit from outpatient pulmonary rehab once he is out of his acute illness. PFTs can be pursued as an outpatient in the future. I discussed the case with the patient's hospitalist. Pulmonary will follow from the periphery. Please call us with questions. Thank you for the consult. I did personal counselor the patient regarding his diagnosis and treatment plan and he expressed understanding. Greater than 50% of the time was spent [id number] with the patient counseling them on their diagnosis and treatment plan. This note was dictated using voice recognition software and may include grammatical errors, extra words, word substitutions and other inaccuracies due to errors in the voice recognition software and differences in speech patterns. (2) Hypoxemia: (3) COVID-19: (4) Pleural effusion: (5) Secondary pulmonary hypertension: History of Present Illness Reason for Consultation: Covid pneumonia with superimposed MRSA Requesting Physician: Dr. Alex Glez Attending Physician: Alex Glez History of Present Illness 79-year-old male with a past medical history of atrial fibrillation status post Maze procedure, reported COPD, possible cirrhosis who presented to the hospital due to general malaise and shortness of breath for several days. He presented to the hospital on 09/06/2020 and has been admitted to the COVID-19 unit since that period of time. Reportedly he became ill after getting his flu shot. During his hospitalization, gastroenterology has been consulted due to transaminitis. Notably, the patient is on amiodarone. He also has a history of cholelithiasis. He was unable to undergo any further imaging such as ultrasound due to the COVID-19 issue. He was on Zosyn, but this was discontinued as it was felt to be contributing to his worsening liver function test. He is procalcitonin on 09/06/2020 was 0.17. Notably he had a chest x-ray on 09/06/2020 that demonstrated cardiomegaly with evidence of congestive failure. Bilateral airspace opacities were seen. Small left pleural effusion was noted with left basilar consolidation. CT abdomen on 09/07/2020 demonstrated moderate size acute right-sided rectus sheath hematoma with active extravasation. Mild marginal nodularity of the liver was suggestive of possible cirrhosis. No ascites was seen. Cholelithiasis with trace refugio-cholecystic stranding was noted. Right upper quadrant ultrasound was recommended. Moderate splenomegaly. Patchy right lung base opacities with possible nonspecific pneumonitis were noted. He had a sputum culture that demonstrated evidence of MRSA. Patient is currently on linezolid and Decadron twice daily. He is also receiving Lasix 20 mg IV every morning. Blood pressure is noted to be 90/53. Pulse of 104. Pulmonary is called because he is requiring more supplemental oxygen and there is concern for possible parapneumonic effusion on the left related to a possible superimposed staph aureus infection. Hemoglobin of 11.1 which is actually up from yesterday. Platelet count of 108,000 which is improved from 76,000 yesterday. Upon my interview, the patient indicated that he started developing symptoms several days ago and underwent a COVID-19 test which was positive. He endorses increasing shortness of breath. He is chronically on 2 L of oxygen that is prescribed by his analytical scientist, . He has been on oxygen for the last 1.5 to 2 years. He notes that he quit smoking roughly 25 years ago. He smoked upwards of 3 packs a day for 20 years or so. He was in the [place]. He denies any significant exposure to asbestosis. He does note that he had pneumonia in the [place] and had a scar in his lung. He went to school at [employer] and gained his masters in business administration. He does not have any pets. He previously had bassPENRITH hounds. He grew up in [place]. He is most concerned about his . He says that she is doing well and checking her pulse ox and satting in the high 90s. He describes that a couple weeks ago he and his were in [place] [place] where many people were not wearing a mask. Currently he denies any significant cough. He does have some abdominal pain. He notes that since starting iron supplements, he has had constipation. Since being tested for COVID-19, he has been having diarrhea. He notes that he usually gets sick after getting his influenza vaccine. He was asking his primary care doctor for azithromycin. However, due to his increasing shortness of breath he came to the hospital and was ultimately admitted in hypoxemic respiratory failure. He denies any chest pain, fevers or chills currently. Allergies Allergy/AdvReac Type Severity Reaction Status Date / Time azithromycin Allergy Intermediate A.FIB Verified 09/06/20 13:18 levofloxacin Allergy Intermediate A.Fib Verified 09/06/20 13:18 Home Medications Home Medications Medication Instructions Recorded Confirmed Type acetaminophen 500 mg capsule 1,000 mg PO Q8 PRN cap 10/09/18 09/06/20 History amiodarone 200 mg tablet 100 mg PO DAILY 10/09/18 09/06/20 History aspirin 81 mg tablet,delayed 81 mg PO DAILY 10/09/18 09/06/20 History release budesonide-formoterol HFA 160 2 puffs INH BID 10/09/18 09/06/20 History mcg-4.5 mcg/actuation aerosol inhaler cholecalciferol (vitamin D3) 25 1,000 units PO DAILY 10/09/18 09/06/20 History mcg (1,000 unit) capsule clonazepam 0.5 mg tablet 0.5 mg PO HS tab 10/09/18 09/06/20 History ferrous sulfate 325 mg (65 mg 325 mg PO DAILY tab 10/09/18 09/06/20 History iron) tablet finasteride 5 mg tablet 5 mg PO DAILY 10/09/18 09/06/20 History multivitamin 1 cap PO DAILY 10/09/18 09/06/20 History spironolactone 25 mg tablet 25 mg PO DAILY 10/09/18 09/06/20 History tiotropium bromide 18 mcg capsule 1 cap INH DAILY 10/09/18 09/06/20 History with inhalation device furosemide 20 mg PO 4XWK #0 tab 11/10/18 09/06/20 Rx albuterol sulfate 90 mcg/actuation 2 puff INHALATION QID 08/11/20 09/06/20 History aerosol inhaler amoxicillin 500 mg capsule 500 mg PO QID 08/11/20 09/06/20 History metoprolol succinate 25 mg 25 mg PO DAILY 08/11/20 09/06/20 History tablet,extended release 24 hr tamsulosin 0.4 mg capsule 0.4 mg PO DAILY #90 cap 08/11/20 09/06/20 Rx Patient History Medical History (Updated 09/10/20 @ 13:13 by Jewel Llamas MD) AAA (abdominal aortic aneurysm) Acute exacerbation of chronic obstructive airways disease Acute respiratory failure with hypoxia Aortic stenosis s/p valve repair Atrial fibrillation with RVR BPH (benign prostatic hyperplasia) CAD (coronary artery disease) Cataract Cervical spondylosis Cervicalgia Chest pain CKD (chronic kidney disease) Constipation COPD (chronic obstructive pulmonary disease) COPD exacerbation Edema Hematuria History of congestive heart failure Diastolic History of hypertension History of pacemaker Hypercholesteremia Left asymmetrical SNHL MRSA pneumonia New onset atrial fibrillation No family history of adverse response to anesthesia No family history of bleeding disorder Pleural effusion Secondary pulmonary hypertension SNHL (sensorineural hearing loss) SOB (shortness of breath) on exertion Spondylolisthesis of cervical region Symptomatic anemia Surgical History History of colonoscopy History of hernia repair History of prostate surgery History of repair of dissection of abdominal aorta History of transurethral resection of prostate S/P aortic valve repair S/P Maze operation for atrial fibrillation Family History Father AAA (abdominal aortic aneurysm) Heart disease Brother Cancer Other No family history of adverse response to anesthesia No family history of bleeding disorder Social History Smoking Status: Former smoker Second Hand Exposure: No; Do You Dip or Chew Tobacco: No; Tobacco Cessation Education Requested by Patient: No Hx Alcohol Use: No Hx Substance Use: No Preferred Language: Botswanan Communication Ability: Effective Visual Impairment: No Limitations Graphic Technician Required: No Beliefs That Will Affect Care: None marital status: Current Living Situation: Spouse current occupational status: retired Other Information That Helps Us Care for You: No Feels Safe at Home: Yes Safety Concerns: Feels Safe At This Time Assistive Devices: Denture - Upper and Oxygen - Continuous Physical Exam 2 Constitutional: Elderly-appearing male in no apparent distress. He is sitting and able to speak full sentences. He has a nasal cannula in place. Eyes: PERRL, conjunctivae normal, anicteric sclerae ENMT: external ear and nose normal, oropharynx normal Neck: trachea midline, no thyromegaly Respiratory: normal respiratory effort Auscultation: + rhonchi Cardiovascular: RRR, no murmur, no edema Musculoskeletal: no cyanosis or clubbing, extremities motor strength 5/5 Skin: no rashes, warm and dry Neurologic: PERRL, EOMI, accommodation nl, no face palsy, no dysarthria Psychiatric: A+Ox3, euthymic affect Results & Data Results & Data ([facility]) Vital Signs (Past 12 Hours) Vital Signs Temp Pulse Pulse Pulse Resp BP BP 09/10/20 11:44 104 H 20 09/10/20 11:33 97.3 F L 103 H 19 90/53 L 09/10/20 08:06 97.5 F L 98 H 22 125/74 09/10/20 07:45 94 H 09/10/20 07:33 98 H 20 09/10/20 04:05 97.9 F 65 17 123/59 L 09/10/20 03:17 62 Pulse Ox 09/10/20 11:44 89 L 09/10/20 11:33 91 09/10/20 08:06 90 09/10/20 07:45 09/10/20 07:33 89 L 09/10/20 04:05 90 09/10/20 03:17 I reviewed the vital signs, labs and imaging PG Care Time/CCT Total # of Minutes Spent Total Time Spent with Patient: Total time spent is greater than 50% in coordination of care (as documented) at patient's floor/unit and/or counseling patient: Coding Level of Care Code 96834 Inpt Consult Level 5 Diagnoses MRSA pneumonia J15.212 Hypoxemia R09.02 COVID-19 U07.1 Pleural effusion J90 Secondary pulmonary hypertension
[2020-09-10] MEDS ORDERED: OPTIRAY 320 125ml IV ONE (12:15)
--- NOTE | 2020-09-10 12:43 | CT Scan Report ---
CT ANGIOGRAM OF THE CHEST CLINICAL HISTORY: Covid. Dyspnea. Pneumonia and pleural effusion. COMPARISON STUDY: Chest x-ray dated 09/10/2020. Chest CT dated 08/07/2015. TECHNIQUE: Following the IV administration of 112 cc of Optiray 320, CT angiogram of the chest was pe rformed from the upper abdomen to the thoracic inlet utilizing the pulmonary embolus protocol. Images are reviewed in the axial, sagittal, and coronal planes. 3-D MIPS images are created and assessed. I V contrast was administered without complication. A dose lowering technique was utilized adhering to the principles of ALARA. The examination is degraded by motion artifact. There is also streak artifa ct from the arms which could not be elevated above the chest. CT DOSE: 785.89 mGycm FINDINGS: Thyroid: Imaged portions of the thyroid gland are normal in size and attenuation. Thoracic aorta: There is atherosclerotic calcification of the thoracic aorta, which is normal in henry iber and demonstrates standard 3-vessel arch anatomy. No dissection is seen. Pulmonary vasculature: The pulmonary trunk is pulmonary trunk is dilated measuring 4.4 cm in diameter . This indicates pulmonary artery hypertension. There are no filling defects identified in main, loba r, or proximal segmental pulmonary branches to suggest pulmonary embolus. Heart: The patient is status post midline sternotomy and aortic valve surgery. A 2-lead cardiac pacem jeffry is present in the left chest wall. The heart is markedly enlarged and without pericardial effusi on. The coronary arteries are densely calcified. Lungs and pleural spaces: Advanced emphysematous change is noted. The trachea and central airways are clear. Chronic hyperdense consolidation at the left lung base is similar to the 2015 examination. Sc attered foci of parenchymal scarring are observed. No pleural effusion is seen. Groundglass consolida tion is present in the right lower lobe. There is also mild patchy subpleural groundglass consolidati on in the right middle lobe, and in the upper lobes along the major fissures. A 1.6 cm paramediastina l nodule is seen in the left upper lobe on image #171. Mediastinum: There is no mediastinal lymphadenopathy. Kaya: Clear. Axillae: There is no axillary lymphadenopathy. Upper abdomen: Diverticulosis is noted in the partially imaged left colon. Partially visualized upper abdominal viscera is otherwise grossly unremarkable. Skeletal structures: The skeletal structures are osteopenic. No lytic or blastic bony lesions are see n. IMPRESSION: 1. Streak and motion compromised examination. 2. There is no evidence of pulmonary embolus in the main, lobar, or proximal segmental pulmonary fabien yanick. 3. Advanced emphysema. 4. Cardiomegaly and cardiac pacemaker. 5. Groundglass consolidation is seen at the right lung base. Milder groundglass consolidation is seen in the upper lobes and in the right middle lobe. Correlate clinically for evidence of an infectious/ inflammatory pneumonitis. 6. Chronic hyperdense consolidation at the left lung base is unchanged from the 2015 examination. 7. There is a 1.6 cm paramediastinal nodule in the left upper lobe. This was not seen in 2015, and a 3 month follow-up examination is recommended for reassessment as neoplasm could have this appearance. 8. Additional findings as above. ACT 112: Negative or not required by law. Electronically signed by: Lyle Guzman M.D. 09/10/2020 12:42 PM
--- NOTE | 2020-09-10 22:39 | Hospitalist Progress Note ---
Date of Service September 10, 2020 Assessment & Plan (1) COVID-19: With resulting COPD exacerbation, pneumonia, transaminitis, acute hypoxic respiratory failure. Day #5/10 of decadron. Will lower decadron back to daily dosing. Poor candidate for remdesivir due to transaminitis, 7+ days out from diagnosis, and acute kidney injury. Thus cont to defer on remdesivir. s/p convalescent plasma on 09/08/20. COVID-19 infection complicated by MRSA pneumonia - see below. Cont NC O2 - O2 sats 90-92% acceptable. Pulmonary toilet. Chest CT obtained - no PE, no parapneumonic effusion, no pulmonary edema. Pulmonary consult obtained - appreciate Dr Llamas's recommendations/assistance. Repeat AST, ALT, etc in am. (2) MRSA pneumonia: Sputum cx with such. In light of acute kidney injury will use IV zyvox in barbie of vancomycin. Supportive care. CT chest findings noted. Appreciate pulmonary consultation. No complicating parapneumonic effusion. (3) COPD with exacerbation: Cont daily decadron. Cont combivent 1 puff QID. Cont mucinex. Cont incentive ben. Cont flutter valve. Cont home inhalers. Low threshold for high-flow NC with any worsening resp status/distress or increasing NC O2 requirements. Treat MRSA. (4) Acute respiratory failure with hypoxia: Secondary to COVID-19 pneumonia/COPD exacerbation/MRSA pneumonia. See above. Some concern for CHF exacerbation earlier this stay - was diuresed -- Cr increased to 1.6. Diuretics stopped. (5) Elevated LFTs: Transaminitis likely due to COVID-19. IMPROVING. Abd pain from rectus sheath hematoma resolved. Appreciate [facility] GI input. Repeat ast/alt in am. (6) Rectus sheath hematoma: H/H stable since admission. Uncertain if he developed this from forceful coughing at home, straining at stool, etc. Pain again improved today. Hold aspirin. Holding chemical DVT proph. (7) Acute kidney injury: 2nd to over-diuresis, COVID, AIN, etc. Either way Cr continues to improve. BMP am. (8) Paroxysmal atrial fibrillation: Continue amiodarone for rhythm control. Did have tachycardia this am - suspect atrial tachycardia. Could be a flutter but less likely. Cont to monitor. (9) CAD (coronary artery disease): Continue metoprolol with hold parameters. Holding asa due to rectus sheath hematoma. No ischemic symptoms. (10) Hypertension: Continue metoprolol succinate 25mg PO daily. Holding diuretics. Controlled. (11) BPH (benign prostatic hyperplasia): Continue tamsulosin and finasteride. (12) Thrombocytopenia: Likely 2nd COVID-19. acceptable level today. (13) Gallstone: Large gallstone in gall bladder on CT abd/pelvis. T. bili and alk phos wnl. Transaminases elevated only - more suggestive of reactive transaminitis from COVID-19. Agree with GI gallstone is unlikely causing symptoms. Abdominal pain has been over the rectus sheath hematoma, not the gall bladder. (14) Pancytopenia: Likely viral suppression from COVID-19. CBC remains acceptable. (15) Acute metabolic encephalopathy: Likely 2nd to COVID infection itself. can't rule out "steroid" psychosis or "ICU" psychosis. either way it is improved today. (16) DVT prophylaxis: SCDs. Chemical means contraindicated due to rectus sheath hematoma. Cont PT, OT. Updated daughter by phone 09/08, 09/09 and tonight. is ill with COVID but continues to remain stable. Admission and Anticipated Discharge Date Admission Date: September 06, 2020 Subjective patient sitting in chair during my visit. he reports ongoing cough and MATIAS but no worse than yesterday. cough is productive of mild sputum. he is, however, now requiring 6 L NC O2. denies any pleuritic chest pain. right-sided abdominal pain is improved. ate a good breakfast - this did not cause any abd pain, nausea, or emesis. telemetry overnight -- about 0530 to early this afternoon had mild tachycardia -- atach? aflutter? Review of Systems Constitutional: + fatigue; no fever, no chills and no anorexia Respiratory: + cough, + chest congestion, + dyspnea on exertion and + sputum production; no hemoptysis Cardiovascular: no chest pain Gastrointestinal: no vomiting Physical Exam Constitutional: no acute distress, not ill appearing (stable appearing, nontoxic ) and no altered mental status ENMT: external ear and nose normal, oropharynx normal Respiratory: + cough; no respiratory distress Auscultation: + diminished lung sounds (left base ) and + crackles (b/l bases ); no wheezes Cardiovascular: Rate/Rhythm: regular rhythm and + tachycardic Heart Sounds: normal S1 and normal S2; no murmur Vessels: posterior tibial pulses present and dorsalis pedis pulses present; no JVD Extremities: no edema Gastrointestinal (Abdomen): Inspection/Auscultation: normal bowel sounds; abdomen not distended and no abdominal wall ecchymosis Percussion/Palpation: abdomen nontender, no guarding and no hepatosplenomegaly Skin: no rashes, warm and dry Psychiatric: A+Ox3, euthymic affect Results & Data Results & Data ([facility]) Vital Signs (Past 12 Hours) Vital Signs Temp Pulse Pulse Pulse Resp BP Pulse Ox 09/10/20 19:55 36.6 C 104 H 20 112/71 90 09/10/20 19:35 103 H 19 91 09/10/20 15:47 36.6 C 65 19 93/50 L 91 09/10/20 15:21 64 20 93 09/10/20 15:07 64 09/10/20 13:09 104/65 09/10/20 11:44 104 H 20 89 L 09/10/20 11:33 36.3 C L 103 H 19 90/53 L 91 Laboratory Results Laboratory Results - last 24 hr 09/09/20 09/10/20 09/10/20 22:20 06:35 06:35 WBC 6.29 RBC 3.72 L Hgb 11.1 L Hct 34.3 L MCV 92.2 MCH 29.8 MCHC 32.4 RDW Std Deviation 54.3 H RDW Coeff of Opal 16.0 H Plt Count 108 L Platelet Estimate Decreased L Sodium 138 Potassium 4.2 Chloride 105 Carbon Dioxide 29 Anion Gap 4.0 BUN 48 H Creatinine 1.36 Est Cr Clr Drug Dosing 55.5 Est GFR ( Amer) 57.0 Est GFR (Non-Af Amer) 49.1 BUN/Creatinine Ratio 35.0 H Glucose 122 H Calcium 9.0 Total Bilirubin 0.7 AST 220 H ALT 321 H Alkaline Phosphatase 116 Total Protein 6.9 Albumin 3.1 L Globulin 3.7 Albumin/Globulin Ratio 0.8 L Nasal Screen MRSA (PCR) Positive A sputum cx - MRSA PG Care Time/CCT Total # of Minutes Spent Total Time Spent with Patient: Total time spent is greater than 50% in coordination of care (as documented) at patient's floor/unit and/or counseling patient: Coding Level of Care Code 29712 Subseq Hosp Care Lvl 3 Diagnoses COVID-19 U07.1 MRSA pneumonia J15.212 Laterality: unspecified laterality Lung location: unspecified part of lung COPD with exacerbation J44.1 Acute respiratory failure with hypoxia J96.01 Elevated LFTs R79.89 Rectus sheath hematoma S30.1XXA Acute kidney injury N17.9 Paroxysmal atrial fibrillation I48.0 CAD (coronary artery disease) I25.10 Hypertension I10 BPH (benign prostatic hyperplasia) N40.0 Thrombocytopenia D69.6 Gallstone K80.20 Pancytopenia D61.818 Acute metabolic encephalopathy G93.41 DVT prophylaxis Z29.9 (1) MRSA pneumonia Laterality: unspecified laterality Lung location: unspecified part of lung Qualified Code(s): J15.212 - Pneumonia due to Methicillin resistant Staphylococcus aureus
[2020-09-10] MEDS: clonazePAM 0.5 MG TAB PO PRN (23:25)
[2020-09-11 07:42] LABS: Mean Corpuscular Hgb Conc 32.8 g/dL (32-36)
[2020-09-11] MEDS: ALBUTEROL HFA 8 GM INHALER INH SCH ×4 (07:49→19:59)
[2020-09-11] MEDS: IPRATROPIUM BROMIDE HFA INHALER INH SCH ×4 (07:49→19:59)
[2020-09-11 07:54] LABS: Hematocrit (blood only) 35.7 % (42-52); Hemoglobin 11.7 g/dL (14.0-18.0); Mean Corpuscular Volume 91.5 fL (80-100); RDW Coefficient of Variation 15.9 % (11.5-14.5); RDW Standard Deviation 53.7 fL (36.4-46.3); White Blood Count 7.95 K/uL (4.8-10.8)
[2020-09-11 08:06] LABS: Platelet Count 92 K/uL (130-400)
[2020-09-11 08:07] LABS: Immature Granulocytes # (auto) 0.02 K/uL (0.00-0.02); Immature Granulocytes % (auto) 0.3 %; Lymphocytes # (auto) 0.43 K/uL (1.2-3.4); Lymphocytes % (auto) 5.4 %; Monocytes # (auto) 0.55 K/uL (0.11-0.59); Monocytes % (auto) 6.9 %; Neutrophils # (auto) 6.95 K/uL (1.4-6.5); Neutrophils % (auto) 87.4 %; Platelet Estimate Decreased (Normal)
[2020-09-11 08:15] LABS: BUN Creatinine Ratio 33.4 (10-20); Creatinine Clr Calc Pharmacy 61.9 ml/min; Potassium 4.1 mmol/L (3.5-5.1)
[2020-09-11] MEDS: FLUTICASONE/VILANTEROL 100/25MCG 14 PUFFS/INHALER INH SCH (08:27)
[2020-09-11] MEDS: LINEZOLID 600 MG/300 ML BAG IV SCH ×2 (08:27→19:39)
[2020-09-11] MEDS: AMIODARONE 200 MG TAB PO SCH (08:28)
[2020-09-11] MEDS: FERROUS SULFATE 325 MG TAB PO SCH (08:29)
[2020-09-11] MEDS: TAMSULOSIN HCL 0.4 MG CAP PO SCH (08:29)
[2020-09-11] MEDS: UMECLIDINIUM BROMIDE 62.5MCG/BLISTER 7 PUFFS/INHALER INH SCH (08:29)
[2020-09-11] MEDS: DEXAMETHASONE SOD PHOSPHATE 6 MG in SYRINGE 0 ML IV SCH (08:29)
[2020-09-11] MEDS: guaiFENesin 600 MG TABCR PO SCH ×2 (08:30→21:09)
[2020-09-11] MEDS: FINASTERIDE 5 MG TAB PO SCH (08:30)
[2020-09-11] MEDS: METOPROLOL SUCC 25MG EXT REL TAB PO SCH (08:30)
[2020-09-11] MEDS: MULTIVITAMIN TAB PO SCH (08:30)
[2020-09-11] MEDS: CHOLECALCIFEROL 1,000 UNITS 25 MCG TAB PO SCH (08:31)
--- NOTE | 2020-09-11 09:25 | Gastroenterology Progress Note ---
Date of Service September 11, 2020 Assessment & Plan (1) Elevated LFTs: (2) COVID-19: Elevated LFTs - likely related to + COVID-19. AST and ALT continue to improve. Recommend supportive care. Thank you for allowing our service to participate in the care of this patient. Please reconsult if needed. Please refer to supervising physician addendum for further recommendations. Admission and Anticipated Discharge Date Admission Date: September 06, 2020 Subjective Spoke to nursing via telephone call and reviewed patient chart. Patient alert and oriented x 3. Denies abdominal pain. Tolerating po diet. Denies nausea or vomiting. Review of Systems Review of Systems: All systems reviewed & are unremarkable except as noted in Subjective Physical Exam Physical Exam: Please refer to hospitalist physical examination - limiting bedside evaluation due to + COVID-19 Results & Data ([facility]) Vital Signs (Past 12 Hours) Vital Signs Temp Pulse Pulse Resp BP BP Pulse Ox 09/11/20 07:49 109 H 18 86 L 09/11/20 07:43 36.5 C 105 H 20 108/64 87 L 09/11/20 04:52 36.5 C 100 H 18 101/56 L 89 L 09/10/20 23:24 37.0 C 104 H 18 123/76 90 Laboratory Results - last 24 hr 09/11/20 09/11/20 07:24 07:24 WBC 7.95 RBC 3.90 L Hgb 11.7 L Hct 35.7 L MCV 91.5 MCH 30.0 MCHC 32.8 RDW Std Deviation 53.7 H RDW Coeff of Opal 15.9 H Plt Count 92 L Immature Gran % (Auto) 0.3 Neut % (Auto) 87.4 Lymph % (Auto) 5.4 Davis % (Auto) 6.9 Eos % (Auto) 0.0 Baso % (Auto) 0.0 Neut # (Auto) 6.95 H Lymph # (Auto) 0.43 L Davis # (Auto) 0.55 Eos # (Auto) 0.00 Baso # (Auto) 0.00 Immature Gran # (Auto) 0.02 Platelet Estimate Decreased L Sodium 137 Potassium 4.1 Chloride 106 Carbon Dioxide 26 Anion Gap 5.0 BUN 41 H Creatinine 1.22 Est Cr Clr Drug Dosing 61.9 Est GFR ( Amer) 65.0 Est GFR (Non-Af Amer) 56.0 BUN/Creatinine Ratio 33.4 H Glucose 92 Calcium 9.0 AST 141 H ALT 279 H
[2020-09-11] MEDS: NYSTATIN SUSP 500,000 U/5 ML UDC PO SCH ×2 (18:21→21:11)
--- NOTE | 2020-09-11 20:53 | Hospitalist Progress Note ---
Date of Service September 11, 2020 Assessment & Plan (1) COVID-19: With resulting COPD exacerbation, pneumonia, transaminitis, acute hypoxic respiratory failure. I am concerned by his escalating O2 requirements. Day #6/10 of decadron. Poor candidate for remdesivir due to transaminitis, 7+ days out from diagnosis, and acute kidney injury. Thus cont to defer on remdesivir. s/p convalescent plasma on 09/08/20. COVID-19 infection complicated by MRSA pneumonia - see below. Repeat AST, ALT both improving. Continue supportive care. Consider proning. (2) MRSA pneumonia: Sputum cx with such. In light of acute kidney injury will use IV zyvox in barbie of vancomycin. Supportive care. CT chest findings noted. Appreciate pulmonary consultation. No complicating parapneumonic effusion. Day #2 of zyvox. Plan 7-day course. Repeat CXR in am on 09/12/20. (3) COPD with exacerbation: Same or worse given his increasing O2 requirements. Cont daily decadron. Consider increase in such, but pulmonary recommended against such. Cont combivent 1 puff QID. Consider changing to nebs. Cont mucinex. Cont incentive ben. Cont flutter valve. Cont home inhalers. Low threshold for high-flow NC with any worsening/increasing NC O2 requirements. Treat MRSA. (4) Acute respiratory failure with hypoxia: Secondary to COVID-19 pneumonia/COPD exacerbation/MRSA pneumonia. Worse. Some concern for CHF exacerbation earlier this stay - was diuresed -- appears clinically euvolemic. (5) Elevated LFTs: Transaminitis likely due to COVID-19. IMPROVING. Appreciate [facility] GI input. Repeat ast/alt in 48 hours. (6) Rectus sheath hematoma: H/H stable since admission. Uncertain if he developed this from forceful coughing at home, straining at stool, etc. Either way pain nearly resolved. Hold aspirin. Holding chemical DVT proph. (7) Acute kidney injury: 2nd to over-diuresis, COVID, AIN, etc. Either way Cr continues to improve. Peak Cr 1.6; now 1.2. (8) Paroxysmal atrial fibrillation: Continue amiodarone for rhythm control. None seen on monitoring. See below re: possible PAT. (9) CAD (coronary artery disease): Continue metoprolol with hold parameters. Holding asa due to rectus sheath hematoma. No ischemic symptoms. (10) Hypertension: Continue metoprolol succinate 25mg PO daily. Holding diuretics. Controlled. (11) BPH (benign prostatic hyperplasia): Continue tamsulosin and finasteride. (12) Thrombocytopenia: Likely 2nd COVID-19. Again acceptable level today. (13) Gallstone: Large gallstone in gall bladder on CT abd/pelvis. T. bili and alk phos wnl. Transaminases elevated only - more suggestive of reactive transaminitis from COVID-19. Agree with GI gallstone is unlikely causing symptoms. Abdominal pain has been over the rectus sheath hematoma, not the gall bladder. (14) Pancytopenia: Likely viral suppression from COVID-19. CBC remains acceptable. (15) Acute metabolic encephalopathy: Likely 2nd to COVID infection itself. Resolved today. (16) Candidiasis of mouth and esophagus: nystatin 5cc ac/hs swish/spit (17) Atrial tachycardia: Episodes of tachycardia to the low 100s appear to be PAT. Doubt 2:1 aflutter. Doubt sinus tach as the HRs go from 60s to the low 100s quickly, remain in low 100s for hours, then resolve and revert back to HRs of 60s. Consider increasing BB. Consider increasing amiodarone. (18) DVT prophylaxis: SCDs. Chemical means contraindicated due to rectus sheath hematoma. Cont PT, OT. Updated daughter by phone 09/08, 09/09, 09/10, 09/11. is ill with COVID but continues to remain stable at home fortunately. Admission and Anticipated Discharge Date Admission Date: September 06, 2020 Subjective patient states he is coughing up more sputum than previous. no hemoptysis. some wheezing. when moving in the room he becomes dyspneic and o2 sats drop quickly to the 80s. his O2 requirements have increased overnight. he has been changed to an oxymask. appetite fair today at breakfast. right-sided abdominal pain is improved. no nausea/vomiting. tele with episodes of what appears to be PAT. Review of Systems Constitutional: + fatigue; no fever, no chills and no body aches Respiratory: + cough, + dyspnea, + dyspnea on exertion, + sputum production and + wheezing; no hemoptysis Cardiovascular: no chest pain, no orthopnea, no paroxysmal nocturnal dyspnea and no edema Gastrointestinal: as per Subjective / HPI; no nausea and no vomiting Physical Exam Constitutional: no acute distress and no altered mental status ENMT: Mouth: + oral mucosal abnormality (thrush plaques on tongue ) Respiratory: + cough and + tachypneic (mild); no respiratory distress Auscultation: + diminished lung sounds (left base ), + crackles (right base ) and + wheezes (b/l - new from yesterday) Cardiovascular: Rate/Rhythm: regular rhythm and + tachycardic Heart Sounds: normal S1 and normal S2; no murmur Vessels: posterior tibial pulses present and dorsalis pedis pulses present; no JVD Extremities: no edema Gastrointestinal (Abdomen): Inspection/Auscultation: normal bowel sounds; abdomen not distended and no abdominal wall ecchymosis Percussion/Palpation: abdomen nontender, no guarding and no hepatosplenomegaly Skin: no rashes, warm and dry Psychiatric: A+Ox3, euthymic affect Results & Data Results & Data ([facility]) Vital Signs (Past 12 Hours) Vital Signs Temp Pulse Pulse Resp BP BP Pulse Ox 09/11/20 19:59 63 18 90 09/11/20 19:40 37.3 C 60 60 104/53 L 92 09/11/20 17:21 36.8 C 106 H 18 98/64 L 89 L 09/11/20 15:41 107 H 20 86 L 09/11/20 12:05 106 H 18 90 09/11/20 11:56 36.7 C 107 H 20 107/68 91 Laboratory Results Laboratory Results - last 24 hr 09/11/20 09/11/20 09/11/20 07:24 07:24 11:54 WBC 7.95 RBC 3.90 L Hgb 11.7 L Hct 35.7 L MCV 91.5 MCH 30.0 MCHC 32.8 RDW Std Deviation 53.7 H RDW Coeff of Opal 15.9 H Plt Count 92 L Immature Gran % (Auto) 0.3 Neut % (Auto) 87.4 Lymph % (Auto) 5.4 [place] % (Auto) 6.9 Eos % (Auto) 0.0 Baso % (Auto) 0.0 Neut # (Auto) 6.95 H Lymph # (Auto) 0.43 L [place] # (Auto) 0.55 Eos # (Auto) 0.00 Baso # (Auto) 0.00 Immature Gran # (Auto) 0.02 Platelet Estimate Decreased L Sodium 137 Potassium 4.1 Chloride 106 Carbon Dioxide 26 Anion Gap 5.0 BUN 41 H Creatinine 1.22 Est Cr Clr Drug Dosing 61.9 Est GFR ( Amer) 65.0 Est GFR (Non-Af Amer) 56.0 BUN/Creatinine Ratio 33.4 H Glucose 92 POC Glucose 118 H Calcium 9.0 AST 141 H ALT 279 H PG Care Time/CCT Total # of Minutes Spent Total Time Spent with Patient: Total time spent is greater than 50% in coordination of care (as documented) at patient's floor/unit and/or counseling patient: Coding Level of Care Code 82481 Subseq Hosp Care Lvl 3 Diagnoses COVID-19 U07.1 MRSA pneumonia J15. Laterality: unspecified laterality Lung location: unspecified part of lung COPD with exacerbation J44.1 Acute respiratory failure with hypoxia J96.01 Elevated LFTs R79.89 Rectus sheath hematoma S30.1XXA Acute kidney injury N17.9 Paroxysmal atrial fibrillation I48.0 CAD (coronary artery disease) I25.10 Hypertension I10 BPH (benign prostatic hyperplasia) N40.0 Thrombocytopenia D69.6 Gallstone K80.20 Pancytopenia D61.818 Acute metabolic encephalopathy G93.41 Candidiasis of mouth and esophagus B37.81; B37.0 Atrial tachycardia I47.1 DVT prophylaxis Z29.9 (1) MRSA pneumonia Laterality: unspecified laterality Lung location: unspecified part of lung Qualified Code(s): J15.212 - Pneumonia due to Methicillin resistant Staphylococcus aureus
[2020-09-11] MEDS: clonazePAM 0.5 MG TAB PO PRN (21:09)
[2020-09-12 06:56] LABS: Mean Corpuscular Hgb Conc 32.3 g/dL (32-36)
[2020-09-12 06:59] LABS: Base Excess VBG 2.4 mEq/L; HCO3 VBG 28 mmol/L; Oxygen Saturation VBG < 60.0 %; PCO2 VBG 45 mmHg (38-50); PO2 VBG 24 mmHg
[2020-09-12 07:21] LABS: D Dimer 3010 ug/L FEU (0-500)
[2020-09-12 07:25] LABS: BUN Creatinine Ratio 33.2 (10-20); Calcium 8.9 mg/dl (8.5-10.1); Creatinine Clr Calc Pharmacy 57.6 ml/min; Est GFR (African American) 59.6; Est GFR (Non-African American) 51.4; Potassium 4.1 mmol/L (3.5-5.1)
[2020-09-12 07:36] LABS: Hematocrit (blood only) 36.2 % (42-52); Hemoglobin 11.7 g/dL (14.0-18.0); Mean Corpuscular Hemoglobin 29.9 pg (25-34); Mean Corpuscular Volume 92.6 fL (80-100); RDW Coefficient of Variation 16.1 % (11.5-14.5); RDW Standard Deviation 54.6 fL (36.4-46.3); Red Blood Count 3.91 M/uL (4.7-6.1); White Blood Count 8.14 K/uL (4.8-10.8)
[2020-09-12 07:44] LABS: Eosinophils # (auto) 0.01 K/uL (0-0.5); Eosinophils % (auto) 0.1 %; Immature Granulocytes # (auto) 0.02 K/uL (0.00-0.02); Immature Granulocytes % (auto) 0.2 %; Lymphocytes # (auto) 0.28 K/uL (1.2-3.4); Lymphocytes % (auto) 3.4 %; Monocytes % (auto) 9.8 %; Neutrophils # (auto) 7.03 K/uL (1.4-6.5); Neutrophils % (auto) 86.5 %; Platelet Count 96 K/uL (130-400); Platelet Estimate Decreased (Normal)
[2020-09-12] MEDS: IPRATROPIUM BROMIDE HFA INHALER INH SCH ×4 (08:00→20:05)
[2020-09-12] MEDS: ALBUTEROL HFA 8 GM INHALER INH SCH ×4 (08:00→20:05)
[2020-09-12] MEDS: LINEZOLID 600 MG/300 ML BAG IV SCH ×2 (08:12→20:10)
[2020-09-12] MEDS: CHOLECALCIFEROL 1,000 UNITS 25 MCG TAB PO SCH (08:13)
[2020-09-12] MEDS: AMIODARONE 200 MG TAB PO SCH (08:13)
[2020-09-12] MEDS: MULTIVITAMIN TAB PO SCH (08:13)
[2020-09-12] MEDS: guaiFENesin 600 MG TABCR PO SCH ×2 (08:15→21:21)
[2020-09-12] MEDS: UMECLIDINIUM BROMIDE 62.5MCG/BLISTER 7 PUFFS/INHALER INH SCH (08:15)
[2020-09-12] MEDS: FLUTICASONE/VILANTEROL 100/25MCG 14 PUFFS/INHALER INH SCH (08:16)
[2020-09-12] MEDS: FERROUS SULFATE 325 MG TAB PO SCH (08:17)
[2020-09-12] MEDS: METOPROLOL SUCC 25MG EXT REL TAB PO SCH (08:17)
[2020-09-12] MEDS: TAMSULOSIN HCL 0.4 MG CAP PO SCH (08:18)
[2020-09-12] MEDS: FINASTERIDE 5 MG TAB PO SCH (08:18)
--- NOTE | 2020-09-12 08:49 | XRay Report ---
XR chest 1V portable CLINICAL HISTORY: COVID pneumonia, interval change, worsening O2 sat COMPARISON STUDY: Chest radiograph and chest CT September 10, 2020. FINDINGS: Note is made of a prosthetic aortic valve, median sternotomy wires and a left subclavian pa cemaker. There is no pneumothorax. Moderate cardiomegaly is noted. Blunting of the left costophrenic angle with elevation of the left hemidiaphragm is chronic. Interstitial thickening with bilateral opa cities is similar to prior exam. IMPRESSION: No significant change in appearance of the chest with interstitial thickening and bilate ral opacities which favor an infectious process. ACT 112: Negative or not required by law. Electronically signed by: Sotero Jacobo M.D. 09/12/2020 8:47 AM
[2020-09-12] MEDS: DEXAMETHASONE SOD PHOSPHATE 6 MG in SYRINGE 0 ML IV SCH (09:37)
[2020-09-12] MEDS: NYSTATIN SUSP 500,000 U/5 ML UDC PO SCH ×4 (09:37→21:21)
--- NOTE | 2020-09-12 15:35 | Hospitalist Progress Note ---
Date of Service September 12, 2020 Assessment & Plan (1) COVID-19: With resulting COPD exacerbation, pneumonia, transaminitis, acute hypoxic respiratory failure. Day #05/29 of Decadron. Poor candidate for remdesivir due to transaminitis, 7+ days out from diagnosis, and acute kidney injury. Thus cont to defer on remdesivir. S/p convalescent plasma on 09/08/20. COVID-19 infection complicated by MRSA pneumonia - see below. - Continue supportive care. - Could consider awake proning, though this may be harder for the patient given his known COPD. Would be preferential to intubation however. (2) MRSA pneumonia: Sputum cx on 09/[address] chest on 09/10 showed right-sided multifocal pneumonia. - Continue linezolid (End date: 09/17/2020 for a 7-day course) (3) Atrial tachycardia: Episodes of tachycardia to the low 100s appear to be PAT. Doubt 2:1 aflutter. Doubt sinus tach as the HRs go from 60s to the low 100s quickly, remain in low 100s for hours, then resolve and revert back to HRs of 60s. - Consider increasing beta-taco or amiodarone. - If continues to be an issue, will consult cardiology. (4) COPD with exacerbation: Same or worse given his increasing O2 requirements. - Continue daily Decadron, Combivent, Mucinex, and home inhalers. - Continue high-flow (switched on 09/12) (5) Acute respiratory failure with hypoxia: Secondary to COVID-19 pneumonia/COPD exacerbation/MRSA pneumonia. - Worse. (6) Elevated LFTs: Transaminitis likely due to COVID-19. Peak AST/ALT were 365/380 on 09/08. - Appreciate [facility] GI input. - Presently down to 140/280. (7) Rectus sheath hematoma: H/H stable since admission. Uncertain if he developed this from forceful coughing at home, straining at stool, etc. - Either way pain nearly resolved. - Hold aspirin, holding chemical DVT proph. (8) Acute kidney injury: 2nd to over-diuresis, COVID, AIN, etc. - Peak Cr 1.6; now 1.3. (9) Paroxysmal atrial fibrillation: Continue amiodarone for rhythm control. None seen on monitoring. - See below re: possible PAT. (10) CAD (coronary artery disease): - Continue metoprolol with hold parameters. - Holding asa due to rectus sheath hematoma. (11) Hypertension: BP 100/60 today. - Continue metoprolol succinate 25mg PO daily. - Holding diuretics. (12) BPH (benign prostatic hyperplasia): - Continue tamsulosin and finasteride. (13) Thrombocytopenia: Likely 2nd ID-. - Plts stable at 95 today which is stable from at least last 5 days. (14) Gallstone: Large gallstone in gallbladder on CT abd/pelvis on 09/07. T. bili and alk phos wnl. - Transaminases elevated only - more suggestive of reactive transaminitis from ID-. - Outpatient follow up. (15) Candidiasis of mouth and esophagus: - Continue nystatin 5cc ac/hs swish/spit (16) DVT prophylaxis: SCDs. - Chemical means contraindicated due to rectus sheath hematoma. Admission and Anticipated Discharge Date Admission Date: September 06, 2020 Subjective Doesn't feel too bad today, though he is tired because he had a lot of sputum production overnight and has become "tired" from all the coughing. Reports no fevers/chills, chest pain, abdominal pain, nausea, or vomiting. Physical Exam Constitutional: WD/WN, vitals as above Eyes: EOM intact bilaterally; no conjunctival abnormality ENMT: external ear and nose normal, oropharynx normal Neck: trachea midline, no thyromegaly normal visual inspection Respiratory: normal respiratory effort, lungs clear to auscultation no respiratory distress Cardiovascular: RRR, no murmur, no edema Gastrointestinal (Abdomen): Inspection/Auscultation: abdomen normal to inspection; abdomen not distended Musculoskeletal: no cyanosis or clubbing, extremities motor strength 5/5 Skin: no rashes, warm and dry Neurologic: moves all extremities and awake Psychiatric: Orientation: alert, oriented to person and cooperative Results & Data Results & Data ([facility]) Vital Signs (Past 12 Hours) Vital Signs Temp Pulse Pulse Resp BP Pulse Ox 09/12/20 11:36 36.9 C 109 H 20 102/61 91 09/12/20 11:24 111 H 22 93 09/12/20 11:10 110 H 22 97 09/12/20 08:00 107 H 22 92 10/24/20 07:57 36.6 C 105 H 22 118/61 89 L PG Care Time/CCT Total # of Minutes Spent Total Time Spent with Patient: Total time spent is greater than 50% in coordination of care (as documented) at patient's floor/unit and/or counseling patient: Coding Level of Care Code 89422 Subseq Hosp Care Lvl 2 Diagnoses COVID-19 U07.1 MRSA pneumonia J15.212 Laterality: unspecified laterality Lung location: unspecified part of lung Atrial tachycardia I47.1 COPD with exacerbation J44.1 Acute respiratory failure with hypoxia J96.01 Elevated LFTs R79.89 Rectus sheath hematoma S30.1XXA Acute kidney injury N17.9 Paroxysmal atrial fibrillation I48.0 CAD (coronary artery disease) I25.10 Hypertension I10 BPH (benign prostatic hyperplasia) N40.0 Thrombocytopenia D69.6 Gallstone K80.20 Candidiasis of mouth and esophagus B37.81; B37.0 DVT prophylaxis Z29.9 (1) MRSA pneumonia Laterality: unspecified laterality Lung location: unspecified part of lung Qualified Code(s): J15.212 - Pneumonia due to Methicillin resistant Staphylococcus aureus
[2020-09-13] MEDS ORDERED: LORazepam 0.5 MG/1 ML VIAL IV STA (05:58)
[2020-09-13 07:33] LABS: Mean Corpuscular Hgb Conc 31.9 g/dL (32-36)
[2020-09-13] MEDS: ALBUTEROL HFA 8 GM INHALER INH SCH ×4 (07:53→19:13)
[2020-09-13] MEDS: IPRATROPIUM BROMIDE HFA INHALER INH SCH ×4 (07:53→19:13)
[2020-09-13 08:06] LABS: BUN Creatinine Ratio 27.8 (10-20); Calcium 8.9 mg/dl (8.5-10.1); Creatinine Clr Calc Pharmacy 62.8 ml/min; Est GFR (African American) 66.3; Est GFR (Non-African American) 57.2; Magnesium 2.2 mg/dl (1.8-2.4); Potassium 4.1 mmol/L (3.5-5.1)
[2020-09-13 08:09] LABS: Albumin Globulin Ratio 0.8 (0.9-2); Bilirubin,Total 1.7 mg/dl (0.2-1); Globulin 3.7 gm/dl (2.5-4.0); Phosphorus 2.3 mg/dl (2.5-4.9); Total Protein 6.7 gm/dl (6.4-8.2)
[2020-09-13 08:21] LABS: Hemoglobin 11.8 g/dL (14.0-18.0); Mean Corpuscular Hemoglobin 29.4 pg (25-34); RDW Coefficient of Variation 16.1 % (11.5-14.5); RDW Standard Deviation 54.3 fL (36.4-46.3); Red Blood Count 4.02 M/uL (4.7-6.1); White Blood Count 8.97 K/uL (4.8-10.8)
[2020-09-13 08:28] LABS: Platelet Count 112 K/uL (130-400); Platelet Estimate Decreased (Normal)
[2020-09-13] MEDS: DEXAMETHASONE SOD PHOSPHATE 6 MG in SYRINGE 0 ML IV SCH (09:16)
[2020-09-13] MEDS: LINEZOLID 600 MG/300 ML BAG IV SCH ×2 (09:17→19:56)
[2020-09-13] MEDS: FLUTICASONE/VILANTEROL 100/25MCG 14 PUFFS/INHALER INH SCH (09:20)
[2020-09-13] MEDS: FINASTERIDE 5 MG TAB PO SCH (09:22)
[2020-09-13] MEDS: AMIODARONE 200 MG TAB PO SCH (09:22)
[2020-09-13] MEDS: MULTIVITAMIN TAB PO SCH (09:23)
[2020-09-13] MEDS: FERROUS SULFATE 325 MG TAB PO SCH (09:23)
[2020-09-13] MEDS: METOPROLOL SUCC 25MG EXT REL TAB PO SCH (09:23)
[2020-09-13] MEDS: CHOLECALCIFEROL 1,000 UNITS 25 MCG TAB PO SCH (09:23)
[2020-09-13] MEDS: TAMSULOSIN HCL 0.4 MG CAP PO SCH (09:23)
[2020-09-13] MEDS: UMECLIDINIUM BROMIDE 62.5MCG/BLISTER 7 PUFFS/INHALER INH SCH (09:24)
[2020-09-13] MEDS: guaiFENesin 600 MG TABCR PO SCH ×2 (09:24→20:54)
[2020-09-13] MEDS: NYSTATIN SUSP 500,000 U/5 ML UDC PO SCH ×4 (09:24→20:54)
[2020-09-13 12:42] LABS: Base Excess ABG -0.2 mEq/L (-9-1.8); HCO3 ABG 23 mmol/L (19-24); Oxygen Saturation ABG 96.2 % (90-95); PCO2 ABG 32 mmHg (35-46); PO2 ABG 78 mmHg (80-95); pH ABG 7.47 (7.35-7.45)
[2020-09-13 12:59] LABS: Allen Test Pos (Pos)
--- NOTE | 2020-09-13 13:24 | Hospitalist Progress Note ---
Date of Service September 13, 2020 Assessment & Plan (1) COVID-19: With resulting COPD exacerbation, pneumonia, transaminitis, acute hypoxic respiratory failure. Day #06/29 of Decadron. Poor candidate for remdesivir due to transaminitis, 7+ days out from diagnosis, and acute kidney injury. Thus cont to defer on remdesivir. S/p convalescent plasma on 09/08/20. COVID-19 infection complicated by MRSA pneumonia - see below. - Continue supportive care. - Worsening today. BNP elevated more than prior, indicating some level of volume overload. Will give Lasix 40 mg IV x 1 today. - Will get echo as well. (2) MRSA pneumonia: Sputum cx on 09/[address] chest on 09/10 showed right-sided multifocal pneumonia. - Continue linezolid (End date: 09/17/2020 for a 7-day course) (3) Atrial tachycardia: Episodes of tachycardia to the low 100s appear to be PAT. Doubt 2:1 aflutter. Doubt sinus tach as the HRs go from 60s to the low 100s quickly, remain in low 100s for hours, then resolve and revert back to HRs of 60s. - Consider increasing beta-taco or amiodarone. - Has presently been in the 100 range for >24 hours. Will get cardiology consult. (4) COPD with exacerbation: Same or worse given his increasing O2 requirements. - Continue daily Decadron, Combivent, Mucinex, and home inhalers. - Continue high-flow (switched on 09/12) (5) Acute respiratory failure with hypoxia: Secondary to COVID-19 pneumonia/COPD exacerbation/MRSA pneumonia, and possibly now pulmonary edema. - Worse. (6) Elevated LFTs: Transaminitis likely due to COVID-19. Peak AST/ALT were 365/380 on 09/08. - Appreciate [facility] GI input. - Presently down to 70/200. (7) Rectus sheath hematoma: H/H stable since admission. Uncertain if he developed this from forceful coughing at home, straining at stool, etc. - Either way pain nearly resolved. - Hold aspirin, holding chemical DVT proph. (8) Acute kidney injury: 2nd to over-diuresis, COVID, AIN, etc. - Peak Cr 1.6; now 1.2. (9) Paroxysmal atrial fibrillation: Continue amiodarone for rhythm control. - As above (10) CAD (coronary artery disease): - Continue metoprolol with hold parameters. - Holding ASA due to rectus sheath hematoma. (11) Hypertension: BP 110/60 today. - Continue metoprolol succinate 25mg PO daily. (12) BPH (benign prostatic hyperplasia): - Continue tamsulosin and finasteride. (13) Thrombocytopenia: Likely 2nd . - Plts stable at 110 today which is stable from at least last 5 days. (14) Gallstone: Large gallstone in gallbladder on CT abd/pelvis on 09/07. T. bili and alk phos wnl. - Transaminases elevated only - more suggestive of reactive transaminitis from . - Outpatient follow up. (15) Candidiasis of mouth and esophagus: - Continue nystatin 5cc ac/hs swish/spit (16) DVT prophylaxis: SCDs. - Chemical means contraindicated due to rectus sheath hematoma. Admission and Anticipated Discharge Date Admission Date: September 06, 2020 Subjective More tired and short of breath today. Overnight had a rough time and needed BiPap. Presently reporting his breathing isn't bad, but he is tachypneic. Physical Exam Constitutional: WD/WN, vitals as above + acute distress and + lethargic Eyes: EOM intact bilaterally; no conjunctival abnormality ENMT: external ear and nose normal, oropharynx normal Neck: trachea midline, no thyromegaly normal visual inspection Respiratory: + labored breathing, + uses accessory muscles and + tachypneic Auscultation: + crackles Cardiovascular: Rate/Rhythm: + tachycardic Heart Sounds: normal S1 and normal S2 Extremities: no edema Gastrointestinal (Abdomen): Inspection/Auscultation: abdomen normal to inspection; abdomen not distended Musculoskeletal: no cyanosis or clubbing, extremities motor strength 5/5 Skin: no rashes, warm and dry Neurologic: moves all extremities and awake (Though tired) Psychiatric: Orientation: oriented to person and cooperative Results & Data Results & Data ([place]) Vital Signs (Past 12 Hours) Vital Signs Temp Pulse Pulse Pulse Resp BP BP 09/13/20 11:36 37.1 C 110 H 25 H 109/82 09/13/20 11:28 108 H 26 H 09/13/20 11:27 108 H 26 H 09/13/20 08:03 112 H 22 09/13/20 08:02 112 H 22 09/13/20 08:00 113 H 09/13/20 07:57 37.3 C 110 H 25 H 116/84 09/13/20 05:46 113 H 26 H 09/13/20 04:23 110 H 20 09/13/20 03:30 108 H 16 09/13/20 02:51 36.7 C 108 H 19 104/64 Pulse Ox 09/13/20 11:36 95 09/13/20 11:28 93 09/13/20 11:27 93 09/13/20 08:03 90 09/13/20 08:02 89 L 09/13/20 08:00 09/13/20 07:57 93 09/13/20 05:46 94 09/13/20 04:23 87 L 09/13/20 03:30 91 09/13/20 02:51 90 PG Care Time/CCT Total # of Minutes Spent Total Time Spent with Patient: Total time spent is greater than 50% in coordination of care (as documented) at patient's floor/unit and/or counseling patient: Coding Level of Care Code 57600 Subseq Hosp Care Lvl 3 Diagnoses COVID-19 U07.1 MRSA pneumonia J15.212 Laterality: unspecified laterality Lung location: unspecified part of lung Atrial tachycardia I47.1 COPD with exacerbation J44.1 Acute respiratory failure with hypoxia J96.01 Elevated LFTs R79.89 Rectus sheath hematoma S30.1XXA Acute kidney injury N17.9 Paroxysmal atrial fibrillation I48.0 CAD (coronary artery disease) I25.10 Hypertension I10 BPH (benign prostatic hyperplasia) N40.0 Thrombocytopenia D69.6 Gallstone K80.20 Candidiasis of mouth and esophagus B37.81; B37.0 DVT prophylaxis Z29.9 (1) MRSA pneumonia Laterality: unspecified laterality Lung location: unspecified part of lung Qualified Code(s): J15.212 - Pneumonia due to Methicillin resistant Staphylococc us aureus
[2020-09-13] MEDS ORDERED: FUROSEMIDE 40 MG in SYRINGE 0 ML IV ONE (13:30)
[2020-09-13] MEDS ORDERED: SODIUM PHOSPHATE 3 MMOL/1 ML INFUSION IV STA (13:38)
--- NOTE | 2020-09-13 13:55 | XRay Report ---
XR chest 1V portable HISTORY: Hypoxemia COMPARISON: Chest 09/12/2020. FINDINGS: No pneumothorax. The heart remains enlarged. Interstitial thickening and bilateral mid to l ower lung zone hazy airspace opacities have slightly progressed. Small left pleural effusion and left basilar densities, unchanged. Poststernotomy changes and a cardiac valve prosthesis. Left-sided dual -chamber pacemaker. No pneumothorax. IMPRESSION: 1. Slight progressive interstitial thickening and bilateral mid to lower lung zone hazy airspace opac ities. This could represent progressive pneumonia or superimposed pulmonary edema. 2. No change in the small left pleural effusion and left basilar densities. ACT 112: Negative or not required by law. Electronically signed by: Keo Munroe M.D. 09/13/2020 1:54 PM
[2020-09-13] MEDS ORDERED: SODIUM PHOSPHATE 21 MMOL in SODIUM CHLORIDE 0.9% 500 ML IV ONE (14:00)
--- NOTE | 2020-09-13 17:02 | XCELERA ---
[id number] \\[id number]
[2020-09-14] MEDS: IPRATROPIUM BROMIDE HFA INHALER INH SCH ×4 (07:23→19:54)
[2020-09-14] MEDS: ALBUTEROL HFA 8 GM INHALER INH SCH ×4 (07:24→19:55)
[2020-09-14] MEDS: LINEZOLID 600 MG/300 ML BAG IV SCH ×2 (08:31→20:26)
[2020-09-14] MEDS: NYSTATIN SUSP 500,000 U/5 ML UDC PO SCH ×4 (08:31→20:27)
[2020-09-14] MEDS: TAMSULOSIN HCL 0.4 MG CAP PO SCH (08:47)
[2020-09-14] MEDS: AMIODARONE 200 MG TAB PO SCH ×2 (08:47→18:44)
[2020-09-14] MEDS: FINASTERIDE 5 MG TAB PO SCH (08:48)
[2020-09-14] MEDS: DEXAMETHASONE SOD PHOSPHATE 6 MG in SYRINGE 0 ML IV SCH (08:48)
[2020-09-14] MEDS: MULTIVITAMIN TAB PO SCH (08:49)
[2020-09-14] MEDS: CHOLECALCIFEROL 1,000 UNITS 25 MCG TAB PO SCH (08:49)
[2020-09-14] MEDS: FERROUS SULFATE 325 MG TAB PO SCH (08:49)
[2020-09-14] MEDS: METOPROLOL SUCC 25MG EXT REL TAB PO SCH (08:49)
[2020-09-14] MEDS: guaiFENesin 600 MG TABCR PO SCH ×2 (08:50→20:27)
[2020-09-14] MEDS: UMECLIDINIUM BROMIDE 62.5MCG/BLISTER 7 PUFFS/INHALER INH SCH (08:50)
[2020-09-14] MEDS: FLUTICASONE/VILANTEROL 100/25MCG 14 PUFFS/INHALER INH SCH (08:51)
[2020-09-14 09:03] LABS: Mean Corpuscular Hgb Conc 31.8 g/dL (32-36)
[2020-09-14 09:27] LABS: Hematocrit (blood only) 36.2 % (42-52); Hemoglobin 11.5 g/dL (14.0-18.0); Mean Corpuscular Hemoglobin 29.3 pg (25-34); Mean Corpuscular Volume 92.3 fL (80-100); Platelet Count 150 K/uL (130-400); Platelet Estimate Normal (Normal); RDW Coefficient of Variation 16.2 % (11.5-14.5); RDW Standard Deviation 54.5 fL (36.4-46.3); Red Blood Count 3.92 M/uL (4.7-6.1); White Blood Count 8.41 K/uL (4.8-10.8)
[2020-09-14 09:51] LABS: Albumin Globulin Ratio 0.7 (0.9-2); Albumin Level 2.7 gm/dl (3.4-5.0); BUN Creatinine Ratio 29.4 (10-20); Bilirubin,Total 1.5 mg/dl (0.2-1); Calcium 8.6 mg/dl (8.5-10.1); Creatinine Clr Calc Pharmacy 64.9 ml/min; Est GFR (African American) 70.5; Est GFR (Non-African American) 60.8; Globulin 3.7 gm/dl (2.5-4.0); Magnesium 2.3 mg/dl (1.8-2.4); Phosphorus 2.6 mg/dl (2.5-4.9); Potassium 3.9 mmol/L (3.5-5.1); Total Protein 6.4 gm/dl (6.4-8.2)
--- NOTE | 2020-09-14 13:44 | Hospitalist Progress Note ---
Date of Service September 14, 2020 Assessment & Plan (1) COVID-19: With resulting COPD exacerbation, pneumonia, transaminitis, acute hypoxic respiratory failure. Day #9/ of Decadron. Poor candidate for remdesivir due to transaminitis, 7+ days out from diagnosis, and acute kidney injury. Thus cont to defer on remdesivir. S/p convalescent plasma on 09/08/20. COVID-19 infection complicated by MRSA pneumonia - see below. - Lasix 40 mg IV x 1 given on 09/13 for worsening respiratory state and elevated BNP. - Some better today. Will give another dose of Lasix today. (2) MRSA pneumonia: Sputum cx on 09/[address] chest on 09/10 showed right-sided multifocal pneumonia. - Continue linezolid (End date: 09/17/2020 for a 7-day course) (3) Atrial tachycardia: Episodes of tachycardia to the low 100s appear to be PAT. Doubt 2:1 aflutter. Doubt sinus tach as the HRs go from 60s to the low 100s quickly, remain in low 100s for hours, then resolve and revert back to HRs of 60s. - Discussed with Dr. Delgado on 09/14 -> Will increase amiodarone to BID. (4) COPD with exacerbation: Same or worse given his increasing O2 requirements. - Continue daily Decadron, Combivent, Mucinex, and home inhalers. - Continue high-flow (switched on 09/12) (5) Acute respiratory failure with hypoxia: Secondary to COVID-19 pneumonia/COPD exacerbation/MRSA pneumonia, and possibly now pulmonary edema. - Worse. (6) Elevated LFTs: Transaminitis likely due to COVID-19. Peak AST/ALT were 365/380 on 09/08. - Appreciate [facility] GI input. - Presently down to 60/165. (7) Rectus sheath hematoma: H/H stable since admission. Uncertain if he developed this from forceful coughing at home, straining at stool, etc. - Either way pain resolved. - Hold aspirin, holding chemical DVT proph. (8) Acute kidney injury: 2nd to over-diuresis, COVID, AIN, etc. - Peak Cr 1.6; now 1.1. (9) Paroxysmal atrial fibrillation: Continue amiodarone for rhythm control. - As above (10) CAD (coronary artery disease): - Continue metoprolol with hold parameters. - Holding ASA due to rectus sheath hematoma. (11) Hypertension: BP 120/70 today. - Continue metoprolol succinate 25mg PO daily. (12) BPH (benign prostatic hyperplasia): - Continue tamsulosin and finasteride. (13) Thrombocytopenia: Likely 2nd . - Plts improved to 150 from hugo of 75 on 09/09. (14) Gallstone: Large gallstone in gallbladder on CT abd/pelvis on 09/07. T. bili and alk phos wnl. - Transaminases elevated only - more suggestive of reactive transaminitis from . - Outpatient follow up. (15) Candidiasis of mouth and esophagus: - Continue nystatin 5cc ac/hs swish/spit (16) DVT prophylaxis: SCDs. - Chemical means contraindicated due to rectus sheath hematoma. Admission and Anticipated Discharge Date Admission Date: September 06, 2020 Subjective Breathing some better overnight. Reports no fevers/chills, chest pain, abdominal pain, nausea, or vomiting. Physical Exam Constitutional: WD/WN, vitals as above + acute distress and + lethargic Eyes: EOM intact bilaterally; no conjunctival abnormality ENMT: external ear and nose normal, oropharynx normal Neck: trachea midline, no thyromegaly normal visual inspection Respiratory: normal respiratory effort, lungs clear to auscultation + labored breathing, + uses accessory muscles and + tachypneic Auscultation: + crackles Cardiovascular: RRR, no murmur, no edema Rate/Rhythm: + tachycardic He art Sounds: normal S1 and normal S2 Extremities: no edema Gastrointestinal (Abdomen): Inspection/Auscultation: abdomen normal to inspection; abdomen not distended Musculoskeletal: no cyanosis or clubbing, extremities motor strength 5/5 Skin: no rashes, warm and dry Neurologic: moves all extremities and awake (Though tired) Psychiatric: Orientation: oriented to person and cooperative Results & Data Results [facility]) Vital Signs (Past 12 Hours) Vital Signs Temp Pulse Pulse Pulse Resp BP BP 09/14/20 12:30 70 21 09/14/20 10:44 36.3 C L 79 22 120/71 09/14/20 10:09 66 20 09/14/20 08:25 36.6 C 112 H 18 102/60 09/14/20 07:30 72 09/14/20 07:23 68 20 09/14/20 04:55 64 22 09/14/20 04:38 36.8 C 64 18 125/63 09/14/20 02:34 70 20 09/14/20 01:39 70 20 Pulse Ox 09/14/20 12:30 93 09/14/20 10:44 90 09/14/20 10:09 94 09/14/20 08:25 90 09/14/20 07:30 09/14/20 07:23 93 09/14/20 04:55 98 09/14/20 04:38 95 09/14/20 02:34 94 09/14/20 01:39 94 PG Care Time/CCT Total # of Minutes Spent Total Time Spent with Patient: Total time spent is greater than 50% in coordination of care (as documented) at patient's floor/unit and/or counseling patient: Coding Level of Care Code 79662 Subseq Hosp Care Lvl 3 Diagnoses COVID-19 U07.1 MRSA pneumonia J15. Laterality: unspecified laterality Lung location: unspecified part of lung Atrial tachycardia I47.1 COPD with exacerbation J44.1 Acute respiratory failure with hypoxia J96.01 Elevated LFTs R79.89 Rectus sheath hematoma S30.1XXA Acute kidney injury N17.9 Paroxysmal atrial fibrillation I48.0 CAD (coronary artery disease) I25.10 Hypertension I10 BPH (benign prostatic hyperplasia) N40.0 Thrombocytopenia D69.6 Gallstone K80.20 Candidiasis of mouth and esophagus B37.81; B37.0 DVT prophylaxis Z29.9 (1) MRSA pneumonia Laterality: unspecified laterality Lung location: unspecified part of lung Qualified Code(s): J15.212 - Pneumonia due to Methicillin resistant Staphylococcus aureus
[2020-09-14] MEDS ORDERED: FUROSEMIDE 40 MG in SYRINGE 0 ML IV ONE (13:45)
[2020-09-14] MEDS ORDERED: FUROSEMIDE 40 MG/4 ML VIAL IV SCH (14:00)
[2020-09-14] MEDS: clonazePAM 0.5 MG TAB PO PRN (20:40)
[2020-09-15] MEDS ORDERED: hydrOXYzine HCl 25 MG TAB PO PRN (01:31)
[2020-09-15] MEDS ORDERED: hydrOXYzine HCl 25 MG TAB PO STA (01:34)
[2020-09-15] MEDS ORDERED: LORazepam 0.5 MG/1 ML VIAL IV STA (02:13)
[2020-09-15 06:29] LABS: Hematocrit (blood only) 33.5 % (42-52); Hemoglobin 10.7 g/dL (14.0-18.0); Mean Corpuscular Hemoglobin 28.8 pg (25-34); Mean Corpuscular Hgb Conc 31.9 g/dL (32-36); Mean Corpuscular Volume 90.3 fL (80-100); Mean Platelet Volume 12.4 fL (7.4-10.4); Platelet Count 159 K/uL (130-400); RDW Coefficient of Variation 15.9 % (11.5-14.5); RDW Standard Deviation 52.6 fL (36.4-46.3); Red Blood Count 3.71 M/uL (4.7-6.1); White Blood Count 8.28 K/uL (4.8-10.8)
[2020-09-15 06:55] LABS: Albumin Level 2.5 gm/dl (3.4-5.0); BUN Creatinine Ratio 27.3 (10-20); Calcium 8.3 mg/dl (8.5-10.1); Creatinine Clr Calc Pharmacy 56.5 ml/min; Est GFR (African American) 59.6; Est GFR (Non-African American) 51.4; Magnesium 2.1 mg/dl (1.8-2.4); Potassium 4.1 mmol/L (3.5-5.1)
[2020-09-15 06:58] LABS: Albumin Globulin Ratio 0.7 (0.9-2); Bilirubin,Total 1.6 mg/dl (0.2-1); Globulin 3.5 gm/dl (2.5-4.0); Phosphorus 2.2 mg/dl (2.5-4.9)
[2020-09-15] MEDS: ALBUTEROL HFA 8 GM INHALER INH SCH ×4 (07:32→19:00)
[2020-09-15] MEDS: IPRATROPIUM BROMIDE HFA INHALER INH SCH ×4 (07:32→18:59)
[2020-09-15] MEDS: DEXAMETHASONE SOD PHOSPHATE 6 MG in SYRINGE 0 ML IV SCH (08:37)
[2020-09-15] MEDS: NYSTATIN SUSP 500,000 U/5 ML UDC PO SCH ×4 (08:38→20:06)
[2020-09-15] MEDS: CHOLECALCIFEROL 1,000 UNITS 25 MCG TAB PO SCH (08:38)
[2020-09-15] MEDS: MULTIVITAMIN TAB PO SCH (08:38)
[2020-09-15] MEDS: LINEZOLID 600 MG/300 ML BAG IV SCH ×2 (08:38→19:56)
[2020-09-15] MEDS: FERROUS SULFATE 325 MG TAB PO SCH (08:39)
[2020-09-15] MEDS: AMIODARONE 200 MG TAB PO SCH ×2 (08:39→16:59)
[2020-09-15] MEDS: guaiFENesin 600 MG TABCR PO SCH ×2 (08:39→20:05)
[2020-09-15] MEDS: FINASTERIDE 5 MG TAB PO SCH (08:40)
[2020-09-15] MEDS: METOPROLOL SUCC 25MG EXT REL TAB PO SCH ×2 (08:40→12:00)
[2020-09-15] MEDS: UMECLIDINIUM BROMIDE 62.5MCG/BLISTER 7 PUFFS/INHALER INH SCH (08:40)
[2020-09-15] MEDS: FLUTICASONE/VILANTEROL 100/25MCG 14 PUFFS/INHALER INH SCH (08:40)
[2020-09-15] MEDS: TAMSULOSIN HCL 0.4 MG CAP PO SCH (08:40)
--- NOTE | 2020-09-15 18:17 | Hospitalist Progress Note ---
Date of Service September 15, 2020 Assessment & Plan (1) COVID-19: With resulting COPD exacerbation, pneumonia, transaminitis, acute hypoxic respiratory failure. Poor candidate for remdesivir due to transaminitis, 7+ days out from diagnosis, and acute kidney injury. Thus cont to defer on remdesivir. - S/p convalescent plasma on 09/08/20. - Finished dexamethasone on 09/15/2020. COVID-19 infection complicated by MRSA pneumonia - see below. - Lasix 40 mg IV x 1 given on 09/13 & 09/14 for worsening respiratory state and elevated BNP. - Better today. Will hold Lasix given slight increase in Cr. (2) MRSA pneumonia: Sputum cx on 09/[address] chest on 09/10 showed right-sided multifocal pneumonia. - Continue linezolid (End date: 09/17/2020 for a 7-day course) (3) Atrial tachycardia: Episodes of tachycardia to the low 100s appear to be PAT. Doubt 2:1 aflutter. Doubt sinus tach as the HRs go from 60s to the low 100s quickly, remain in low 100s for hours, then resolve and revert back to HRs of 60s. - Discussed with Dr. Delgado on 09/14 -> Will increase amiodarone to BID. (4) COPD with exacerbation: Same or worse given his increasing O2 requirements. - Finished 10 days of dexamethasone on 09/15. - Continue Combivent, Mucinex, and home inhalers. - Continue high-flow (switched on 09/12) (5) Acute respiratory failure with hypoxia: Secondary to COVID-19 pneumonia/COPD exacerbation/MRSA pneumonia, and possibly now pulmonary edema. - Worse. (6) Elevated LFTs: Transaminitis likely due to COVID-19. Peak AST/ALT were 365/380 on 09/08. - Appreciate [facility] GI input. - Presently down to 50/130. (7) Rectus sheath hematoma: H/H stable since admission. Uncertain if he developed this from forceful coughing at home, straining at stool, etc. - Either way pain resolved. - Hold aspirin, holding chemical DVT proph. (8) Acute kidney injury: 2nd to over-diuresis, COVID, AIN, etc. - Peak Cr 1.6; now 1.3. (9) Paroxysmal atrial fibrillation: Continue amiodarone for rhythm control. - As above (10) CAD (coronary artery disease): - Continue metoprolol with hold parameters. - Holding ASA due to rectus sheath hematoma. (11) Hypertension: BP is 90/60 today. - Continue metoprolol succinate 25mg PO daily. (12) BPH (benign prostatic hyperplasia): - Continue tamsulosin and finasteride. (13) Thrombocytopenia: Likely 2nd ID-. - Plts improved to 159 from hugo of 75 on 09/09. (14) Gallstone: Large gallstone in gallbladder on CT abd/pelvis on 09/07. T. bili and alk phos wnl. - Transaminases elevated only - more suggestive of reactive transaminitis from ID-. - Outpatient follow up. (15) Candidiasis of mouth and esophagus: - Continue nystatin 5cc ac/hs swish/spit (16) DVT prophylaxis: SCDs. - Chemical means contraindicated due to rectus sheath hematoma. Admission and Anticipated Discharge Date Admission Date: September 06, 2020 Subjective Doing better today. Better breathing today. Reports no fevers/chills, chest pain, abdominal pain, nausea, or vomiting. Physical Exam Constitutional: WD/WN, vitals as above no acute distress and not lethargic Eyes: EOM intact bilaterally; no conjunctival abnormality ENMT: external ear and nose normal, oropharynx normal Neck: trachea midline, no thyromegaly normal visual inspection Respiratory: normal respiratory effort, lungs clear to auscultation + tachypneic; no labored breathing and does not use accessory muscles Auscultation: + crackles Cardiovascular: Rate/Rhythm: + tachycardic Heart Sounds: normal S1 and normal S2 Extremities: no edema Gastrointestinal (Abdomen): Inspection/Auscultation: abdomen normal to inspection; abdomen not distended Musculoskeletal: no cyanosis or clubbing, extremities motor strength 5/5 Skin: no rashes, warm and dry Neurologic: moves all extremities and awake (Though tired) Psychiatric: Orientation: oriented to person and cooperative Results & Data Results & Data ([place]) Vital Signs (Past 12 Hours) Vital Signs Temp Pulse Pulse Resp BP BP Pulse Ox 09/15/20 16:42 112 H 24 95 09/15/20 16:29 36.6 C 114 H 20 91/57 L 95 09/15/20 12:06 37.0 C 111 H 21 100/64 92 09/15/20 11:28 110 H 30 H 90 09/15/20 11:25 111 H 30 H 92 09/15/20 10:37 111 H 09/15/20 08:03 36.7 C 112 H 22 94/62 L 87 L 09/15/20 07:39 109 H 28 H 90 09/15/20 07:33 109 H 28 H 84 L PG Care Time/CCT Total # of Minutes Spent Total Time Spent with Patient: Total time spent is greater than 50% in coordination of care (as documented) at patient's floor/unit and/or counseling patient: Coding Level of Care Code 28946 Subseq Hosp Care Lvl 3 Diagnoses COVID-19 U07.1 MRSA pneumonia J15. Laterality: unspecified laterality Lung location: unspecified part of lung Atrial tachycardia I47.1 COPD with exacerbation J44.1 Acute respiratory failure with hypoxia J96.01 Elevated LFTs R79.89 Rectus sheath hematoma S30.1XXA Acute kidney injury N17.9 Paroxysmal atrial fibrillation I48.0 CAD (coronary artery disease) I25.10 Hypertension I10 BPH (benign prostatic hyperplasia) N40.0 Thrombocytopenia D69.6 Gallstone K80.20 Candidiasis of mouth and esophagus B37.81; B37.0 DVT prophylaxis Z29.9 (1) MRSA pneumonia Laterality: unspecified laterality Lung location: unspecified part of lung Qualified Code(s): J15.212 - Pneumonia due to Methicillin resistant Staphylococcus aureus
[2020-09-16] MEDS: IPRATROPIUM BROMIDE HFA INHALER INH SCH ×4 (07:44→19:33)
[2020-09-16] MEDS: ALBUTEROL HFA 8 GM INHALER INH SCH ×4 (07:44→19:33)
[2020-09-16 07:50] LABS: Hematocrit (blood only) 35.2 % (42-52); Hemoglobin 11.4 g/dL (14.0-18.0); Mean Corpuscular Hemoglobin 29.4 pg (25-34); Mean Corpuscular Hgb Conc 32.4 g/dL (32-36); Mean Corpuscular Volume 90.7 fL (80-100); Mean Platelet Volume 11.7 fL (7.4-10.4); Platelet Count 162 K/uL (130-400); RDW Coefficient of Variation 16.1 % (11.5-14.5); RDW Standard Deviation 53.2 fL (36.4-46.3); Red Blood Count 3.88 M/uL (4.7-6.1); White Blood Count 7.69 K/uL (4.8-10.8)
[2020-09-16 08:26] LABS: Albumin Level 2.6 gm/dl (3.4-5.0); BUN Creatinine Ratio 32.8 (10-20); Calcium 8.5 mg/dl (8.5-10.1); Creatinine Clr Calc Pharmacy 62.1 ml/min; Est GFR (African American) 66.3; Est GFR (Non-African American) 57.2; Magnesium 2.4 mg/dl (1.8-2.4)
[2020-09-16 08:28] LABS: Albumin Globulin Ratio 0.8 (0.9-2); Bilirubin,Total 1.7 mg/dl (0.2-1); Globulin 3.3 gm/dl (2.5-4.0); Total Protein 5.9 gm/dl (6.4-8.2)
[2020-09-16] MEDS: TAMSULOSIN HCL 0.4 MG CAP PO SCH (08:32)
[2020-09-16] MEDS: AMIODARONE 200 MG TAB PO SCH ×2 (08:32→16:14)
[2020-09-16] MEDS: guaiFENesin 600 MG TABCR PO SCH ×2 (08:33→21:21)
[2020-09-16] MEDS: FINASTERIDE 5 MG TAB PO SCH (08:33)
[2020-09-16] MEDS: CHOLECALCIFEROL 1,000 UNITS 25 MCG TAB PO SCH (08:34)
[2020-09-16] MEDS: NYSTATIN SUSP 500,000 U/5 ML UDC PO SCH ×4 (08:34→21:20)
[2020-09-16] MEDS: MULTIVITAMIN TAB PO SCH (08:35)
[2020-09-16] MEDS: FLUTICASONE/VILANTEROL 100/25MCG 14 PUFFS/INHALER INH SCH (08:36)
[2020-09-16] MEDS: LINEZOLID 600 MG/300 ML BAG IV SCH ×2 (08:47→21:19)
[2020-09-16] MEDS: METOPROLOL SUCC 25MG EXT REL TAB PO SCH (08:52)
[2020-09-16] MEDS ORDERED: LORazepam 0.5 MG TAB PO STA (09:39)
[2020-09-16] MEDS ORDERED: LORazepam 0.5 MG TAB ONE (09:43)
[2020-09-16] MEDS: UMECLIDINIUM BROMIDE 62.5MCG/BLISTER 7 PUFFS/INHALER INH SCH (09:50)
--- NOTE | 2020-09-16 14:18 | Hospitalist Progress Note ---
Date of Service September 16, 2020 Assessment & Plan (1) COVID-19: With resulting COPD exacerbation, pneumonia, transaminitis, acute hypoxic respiratory failure. Poor candidate for remdesivir due to transaminitis, 7+ days out from diagnosis, and acute kidney injury. Thus continue to defer on remdesivir. - S/p convalescent plasma on 09/08/20. - Finished dexamethasone on 09/15/2020. COVID-19 infection complicated by MRSA pneumonia - see below. - Lasix 40 mg IV x 1 given on 09/13 & 09/14 for worsening respiratory state and elevated BNP. - Cr stable today; will give Lasix 20 mg IV x 1. BUN does continue to climb, so will just do the one-time dose. - In overarching sense, he is stable, but not making much/any improvement. Will discuss with patient, family, and CM the possibility of an LTACH. I do not see him getting off high-flow for days/weeks. (2) MRSA pneumonia: Sputum cx on 09/[address] chest on 09/10 showed right-sided multifocal pneumonia. - Continue linezolid (End date: 09/17/2020 for a 7-day course) (3) Atrial tachycardia: Episodes of tachycardia to the low 100s appear to be PAT. Doubt 2:1 aflutter. Doubt sinus tach as the HRs go from 60s to the low 100s quickly, remain in low 100s for hours, then resolve and revert back to HRs of 60s. - Discussed with Dr. Delgado on 09/14 -> Increased amiodarone to BID. - Still having some runs, but the increase in amiodarone seems to be gradually making them shorter and further in between. (4) COPD with exacerbation: Same or worse given his increasing O2 requirements. - Finished 10 days of dexamethasone on 09/15. - Continue Combivent, Mucinex, and home inhalers. - Continue high-flow (switched on 09/12) (5) Acute respiratory failure with hypoxia: Secondary to COVID-19 pneumonia/COPD exacerbation/MRSA pneumonia, and possibly now pulmonary edema. - Worse. (6) Elevated LFTs: Transaminitis likely due to COVID-19. Peak AST/ALT were 365/380 on 09/08. - Appreciate [facility] GI input. - Presently down to 50/130. (7) Rectus sheath hematoma: H/H stable since admission. Uncertain if he developed this from forceful coughing at home, straining at stool, etc. - Either way pain resolved. - Hold aspirin, holding chemical DVT proph. (8) Acute kidney injury: 2nd to over-diuresis, COVID, AIN, etc. - Peak Cr 1.6; now 1.2. (9) Paroxysmal atrial fibrillation: Continue amiodarone for rhythm control. - As above (10) CAD (coronary artery disease): - Continue metoprolol with hold parameters. - Holding ASA due to rectus sheath hematoma. (11) Hypertension: BP is 90/60 today. Not sure why this is a problem of his, as he seems to generally run low-normal. - Continue metoprolol succinate 25mg PO daily. (12) BPH (benign prostatic hyperplasia): - Continue tamsulosin and finasteride. (13) Thrombocytopenia: Likely 2nd COVID-. - Plts improved to 159 from hugo of 75 on 09/09. (14) Gallstone: Large gallstone in gallbladder on CT abd/pelvis on 09/07. T. bili and alk phos wnl. - Transaminases elevated only - more suggestive of reactive transaminitis from -. - Outpatient follow up. (15) Candidiasis of mouth and esophagus: - Continue nystatin 5cc ac/hs swish/spit (16) DVT prophylaxis: SCDs. - Chemical means contraindicated due to rectus sheath hematoma. Admission and Anticipated Discharge Date Admission Date: September 06, 2020 Subjective Had a rough morning with increased anxiety and work of breathing. Received Ativan and is now more comfortable. Reports his breathing is largely steady. Reports no fevers/chills, chest pain, abdominal pain, nausea, or vomiting. Physical Exam Constitutional: WD/WN, vitals as above no acute distress and not lethargic Eyes: EOM intact bilaterally; no conjunctival abnormality ENMT: external ear and nose normal, oropharynx normal Neck: trachea midline, no thyromegaly normal visual inspection Respiratory: normal respiratory effort, lungs clear to auscultation + tachypneic; no labored breathing and does not use accessory muscles Auscultation: + crackles Cardiovascular: RRR, no murmur, no edema Rate/Rhythm: + tachycardic Heart Sounds: normal S1 and normal S2 Extremities: no edema Gastrointestinal (Abdomen): Inspection/Auscultation: abdomen normal to inspection; abdomen not distended Musculoskeletal: no cyanosis or clubbing, extremities motor strength 5/5 Skin: no rashes, warm and dry Neurologic: moves all extremities and awake (Though tired) Psychiatric: Orientation: oriented to person and cooperative Results & Data Results & Data ([facility]) Vital Signs (Past 12 Hours) Vital Signs Temp Pulse Pulse Resp BP BP Pulse Ox 09/16/20 11:59 36.4 C L 61 20 92/52 L 92 09/16/20 11:45 61 16 95 09/16/20 08:41 36.7 C 73 22 162/78 H 89 L 09/16/20 07:47 78 24 94 09/16/20 07:45 78 24 94 09/16/20 05:00 36.8 C 61 24 122/72 93 09/16/20 04:37 71 09/16/20 03:30 61 18 92 PG Care Time/CCT Total # of Minutes Spent Total Time Spent with Patient: Total time spent is greater than 50% in coordination of care (as documented) at patient's floor/unit and/or counseling patient: Coding Level of Care Code 03905 Subseq Hosp Care Lvl 3 Diagnoses COVID-19 U07.1 MRSA pneumonia J15. Laterality: unspecified laterality Lung location: unspecified part of lung Atrial tachycardia I47.1 COPD with exacerbation J44.1 Acute respiratory failure with hypoxia J96.01 Elevated LFTs R79.89 Rectus sheath hematoma S30.1XXA Acute kidney injury N17.9 Paroxysmal atrial fibrillation I48.0 CAD (coronary artery disease) I25.10 Hypertension I10 BPH (benign prostatic hyperplasia) N40.0 Thrombocytopenia D69.6 Gallstone K80.20 Candidiasis of mouth and esophagus B37.81; B37.0 DVT prophylaxis Z29.9 (1) MRSA pneumonia Laterality: unspecified laterality Lung location: unspecified part of lung Qualified Code(s): J15.212 - Pneumonia due to Methicillin resistant Staphylococcus aureus
[2020-09-16] MEDS ORDERED: FUROSEMIDE 20 MG in SYRINGE 0 ML IV ONE (14:30)
[2020-09-16] MEDS: clonazePAM 0.5 MG TAB PO PRN (21:20)
[2020-09-17 06:20] LABS: Hematocrit (blood only) 34.3 % (42-52); Mean Corpuscular Hemoglobin 29.3 pg (25-34); Mean Corpuscular Hgb Conc 32.1 g/dL (32-36); Mean Corpuscular Volume 91.2 fL (80-100); Mean Platelet Volume 10.1 fL (7.4-10.4); Platelet Count 137 K/uL (130-400); RDW Coefficient of Variation 16.1 % (11.5-14.5); RDW Standard Deviation 54.2 fL (36.4-46.3); Red Blood Count 3.76 M/uL (4.7-6.1); White Blood Count 7.23 K/uL (4.8-10.8)
[2020-09-17 06:54] LABS: Albumin Globulin Ratio 0.8 (0.9-2); Albumin Level 2.5 gm/dl (3.4-5.0); BUN Creatinine Ratio 31.5 (10-20); Bilirubin,Total 1.7 mg/dl (0.2-1); Calcium 8.5 mg/dl (8.5-10.1); Creatinine Clr Calc Pharmacy 56.4 ml/min; Est GFR (African American) 58.5; Est GFR (Non-African American) 50.5; Globulin 3.3 gm/dl (2.5-4.0); Magnesium 2.4 mg/dl (1.8-2.4); Potassium 4.2 mmol/L (3.5-5.1); Total Protein 5.8 gm/dl (6.4-8.2)
[2020-09-17] MEDS: ALBUTEROL HFA 8 GM INHALER INH SCH ×4 (07:46→20:20)
[2020-09-17] MEDS: IPRATROPIUM BROMIDE HFA INHALER INH SCH ×4 (07:46→20:21)
--- NOTE | 2020-09-17 08:29 | XRay Report ---
XR chest 1V portable HISTORY: Hypoxemia COMPARISON: Chest 09/13/2020. FINDINGS: No pneumothorax. Small left and trace right pleural effusions persist. Progressive intersti tial thickening and bilateral mid to lower lung zone airspace opacities. The heart is mildly enlarged . There are poststernotomy changes and a cardiac valve prosthesis. Left-sided dual-chamber pacemaker. Emphysema. IMPRESSION: Slight progression of the bilateral mid to lower lung zone hazy airspace opacities. Interstitial thic kening and bilateral pleural effusions persist. ACT 112: Negative or not required by law. Electronically signed by: Keo Munroe M.D. 09/17/2020 8:27 AM
[2020-09-17] MEDS: UMECLIDINIUM BROMIDE 62.5MCG/BLISTER 7 PUFFS/INHALER INH SCH (09:26)
[2020-09-17] MEDS: guaiFENesin 600 MG TABCR PO SCH ×2 (09:26→21:16)
[2020-09-17] MEDS: NYSTATIN SUSP 500,000 U/5 ML UDC PO SCH ×4 (09:26→21:14)
[2020-09-17] MEDS: MULTIVITAMIN TAB PO SCH (09:26)
[2020-09-17] MEDS: FLUTICASONE/VILANTEROL 100/25MCG 14 PUFFS/INHALER INH SCH (09:26)
[2020-09-17] MEDS: AMIODARONE 200 MG TAB PO SCH ×2 (09:27→16:57)
[2020-09-17] MEDS: FINASTERIDE 5 MG TAB PO SCH (09:27)
[2020-09-17] MEDS: TAMSULOSIN HCL 0.4 MG CAP PO SCH (09:27)
[2020-09-17] MEDS: CHOLECALCIFEROL 1,000 UNITS 25 MCG TAB PO SCH (09:27)
[2020-09-17] MEDS: METOPROLOL SUCC 25MG EXT REL TAB PO SCH (09:27)
--- NOTE | 2020-09-17 11:53 | Hospitalist Progress Note ---
Date of Service September 17, 2020 Assessment & Plan (1) COVID-19: With resulting COPD exacerbation, pneumonia, transaminitis, acute hypoxic respiratory failure. Poor candidate for remdesivir due to transaminitis, 7+ days out from diagnosis, and acute kidney injury. Thus continue to defer on remdesivir. - S/p convalescent plasma on 09/08/20. - Finished dexamethasone on 09/15/2020. COVID-19 infection complicated by MRSA pneumonia - see below. he is on HFNC 100% and 40L, not much distress, needs some Ativan 0.5mg PO PRN for anxiety discussed with him that this a marathon, not a sprint he needs to focus on eating, maintaining strength updated his daughter over the phone - Lasix 40 mg IV x 1 given on 09/13 & 09/14 for worsening respiratory state and elevated BNP. - hold on Lasix today (2) MRSA pneumonia: Sputum cx on 09/[address] chest on 09/10 showed right-sided multifocal pneumonia. - finish linezolid today for 7 day course (3) Atrial tachycardia: Episodes of tachycardia to the low 100s appear to be PAT. Doubt 2:1 aflutter. Doubt sinus tach as the HRs go from 60s to the low 100s quickly, remain in low 100s for hours, then resolve and revert back to HRs of 60s. - Discussed with Dr. Delgado on 09/14 -> Increased amiodarone to BID. - Still having some runs, but the increase in amiodarone seems to be gradually making them shorter and further in between. no major issues today (4) COPD with exacerbation: Same or worse given his increasing O2 requirements. - Finished 10 days of dexamethasone on 09/15. - Continue Combivent, Mucinex, and home inhalers. - Continue high-flow (switched on 09/12) (5) Acute respiratory failure with hypoxia: Secondary to COVID-19 pneumonia/COPD exacerbation/MRSA pneumonia, and possibly now pulmonary edema. still on HFNC, will likely take a long time to recover (6) Elevated LFTs: Transaminitis likely due to COVID-19. Peak AST/ALT were 365/380 on 09/08. - Appreciate [facility] GI input. - Presently down to 50/130. (7) Rectus sheath hematoma: H/H stable since admission. Uncertain if he developed this from forceful coughing at home, straining at stool, etc. - Either way pain resolved. - Hold aspirin, holding chemical DVT proph. (8) Acute kidney injury: 2nd to over-diuresis, COVID, AIN, etc. - Peak Cr 1.6; now 1.3 (9) Paroxysmal atrial fibrillation: Continue amiodarone for rhythm control. - As above (10) CAD (coronary artery disease): - Continue metoprolol with hold parameters. - Holding ASA due to rectus sheath hematoma. (11) Hypertension: BP stable. Not sure why this is a problem of his, as he seems to generally run low-normal. - Continue metoprolol succinate 25mg PO daily. (12) BPH (benign prostatic hyperplasia): - Continue tamsulosin and finasteride. (13) Thrombocytopenia: Likely 2nd COVID-. - Plts stable at 137 (14) Gallstone: Large gallstone in gallbladder on CT abd/pelvis on 09/07. T. bili and alk phos wnl. - Transaminases elevated only - more suggestive of reactive transaminitis from . - Outpatient follow up. (15) Candidiasis of mouth and esophagus: - Continue nystatin 5cc ac/hs swish/spit (16) DVT prophylaxis: SCDs. - Chemical means contraindicated due to rectus sheath hematoma. Admission and Anticipated Discharge Date Admission Date: September 06, 2020 Subjective patient is on high flow nasal canula at 90% and 35L he says he is breathing comfortably he has a wet cough but only intermittently brings up sputum his appetite is okay, said his food was cold, encouraged him to drink Boost explained that this is going to be a marathon, not a sprint most important thing is for him to keep his strength, stay well hydrated and well nourished reviewed the chart since this is my first day with him reviewed labs spoke with RN, she said he did well with a dose of Ativan 0.5mg PO yesterday, really calmed him down Review of Systems Review of Systems: All systems reviewed & are unremarkable except as noted in Subjective Constitutional: + fatigue and + weakness; no fever, no chills and no sweats Respiratory: + cough, + chest congestion, + dyspnea, + dyspnea on exertion and + sputum production; no pain with cough Cardiovascular: no chest pain and no edema Gastrointestinal: no abdominal pain, no nausea, no vomiting, no constipation and no diarrhea/loose stools Physical Exam Constitutional: well developed, + ill appearing and cooperative; no acute distress Neck: trachea midline, no thyromegaly Respiratory: + labored breathing, + cough and + tachypneic; no respiratory distress Auscultation: + rhonchi; no crackles, no rales and no wheezes Cardiovascular: RRR, no murmur, no edema Gastrointestinal (Abdomen): normal bowel sounds, soft, nontender, no hepatosplenomegaly Musculoskeletal: no cyanosis or clubbing, extremities motor strength 5/5 Skin: no rashes, warm and dry Neurologic: patellar DTR's 2+ bilat, sensation intact and PERRL, EOMI, accommodation nl, no face palsy, no dysarthria Psychiatric: A+Ox3, euthymic affect Lymphatic: no cervical or axillary lymphadenopathy Results & Data Results & Data ([facility]) Vital Signs (Past 12 Hours) Vital Signs Temp Pulse Resp BP Pulse Ox 09/17/20 11:41 36.7 C 67 20 113/73 94 09/17/20 11:00 67 32 H 93 09/17/20 10:58 64 32 H 93 09/17/20 07:47 65 32 H 91 09/17/20 07:46 65 32 H 91 09/17/20 07:43 36.5 C 63 19 132/65 91 09/17/20 04:49 36.8 C 60 24 113/62 94 09/17/20 02:26 68 18 91 Laboratory Results Laboratory Results - last 24 hr 09/17/20 09/17/20 05:59 05:59 WBC 7.23 RBC 3.76 L Hgb 11.0 L Hct 34.3 L MCV 91.2 MCH 29.3 MCHC 32.1 RDW Std Deviation 54.2 H RDW Coeff of Opal 16.1 H Plt Count 137 MPV 10.1 Sodium 134 L Potassium 4.2 Chloride 100 Carbon Dioxide 29 Anion Gap 5.0 BUN 42 H Creatinine 1.33 Est Cr Clr Drug Dosing 56.4 Est GFR ( Amer) 58.5 Est GFR (Non-Af Amer) 50.5 BUN/Creatinine Ratio 31.5 H Glucose 94 Calcium 8.5 Magnesium 2.4 Total Bilirubin 1.7 H AST 42 H ALT 112 H Alkaline Phosphatase 112 Total Protein 5.8 L Albumin 2.5 L Globulin 3.3 Albumin/Globulin Ratio 0.8 L Medications Administered Current Inpatient Medications Albuterol (Albuterol Hfa 8 Gm Inhaler) 2 puffs INH QID PRN PRN Reason: wheezing, shortness of breath Stop: 10/06/20 14:25 Last Admin: 09/13/20 04:21 Dose: 2 puffs Documented by: Albuterol (Albuterol Hfa 8 Gm Inhaler) 1 puffs INH QIDR GIORGIO Stop: 10/08/20 14:59 Last Admin: 09/17/20 10:57 Dose: 1 puffs Documented by: Amiodarone HCl (Amiodarone 200 Mg Tab) 100 mg PO BIDM GIORGIO Stop: 10/14/20 16:59 Last Admin: 09/17/20 09:27 Dose: 100 mg Documented by: Clonazepam (Clonazepam 0.5 Mg Tab) 0.5 mg PO HS PRN PRN Reason: insomnia Stop: 10/06/20 14:25 Last Admin: 09/16/20 21:20 Dose: 0.5 mg Documented by: Finasteride (Finasteride 5 Mg Tab) 5 mg PO DAILY GIORGIO Stop: 10/07/20 08:59 Last Admin: 09/17/20 09:27 Dose: 5 mg Documented by: Fluticasone/Vilanterol (Fluticasone/Vilanterol 100/25mcg 14 Puffs/Inhaler) 1 puffs INH DAILY GIORGIO Stop: 10/07/20 08:59 Last Admin: 09/17/20 09:26 Dose: 1 puffs Documented by: Guaifenesin (Guaifenesin 600 Mg Tabcr) 1,200 mg PO Q12 GIORGIO Stop: 10/08/20 13:19 Last Admin: 09/17/20 09:26 Dose: 1,200 mg Documented by: Ipratropium [place] (Ipratropium [place] Hfa Inhaler) 1 puffs INH QIDR GIORGIO Stop: 10/08/20 14:59 Last Admin: 09/17/20 10:58 Dose: 1 puffs Documented by: Metoprolol Succinate (Metoprolol Succ 25mg Ext Rel Tab) 25 mg PO DAILY GIORGIO Stop: 10/07/20 08:59 Last Admin: 09/17/20 09:27 Dose: 25 mg Documented by: Multivitamins (Multivitamin Tab) 1 tab PO DAILY GIORGIO Stop: 10/07/20 08:59 Last Admin: 09/17/20 09:26 Dose: 1 tab Documented by: Nystatin (Nystatin Susp 500,000 U/5 Ml Udc) 5 ml PO QID GIORGIO Stop: 09/21/20 16:59 Last Admin: 09/17/20 09:26 Dose: 5 ml Documented by: Ondansetron HCl (Ondansetron Inj 2 Mg/Ml 2 Ml Vial) 4 mg IV Q6H PRN PRN Reason: Nausea Stop: 10/06/20 14:25 Polyethylene Glycol (Polyethylene (Miralax) 17 Gm Pack) 17 gm PO DAILY PRN PRN Reason: Constipation Stop: 10/06/20 14:25 Tamsulosin HCl (Tamsulosin Hcl 0.4 Mg Cap) 0.4 mg PO DAILY GIORGIO Stop: 10/07/20 08:59 Last Admin: 09/17/20 09:27 Dose: 0.4 mg Documented by: Umeclidinium [place] (Umeclidinium [place] 62.5mcg/Blister 7 Puffs/Inhaler) 1 puffs INH DAILY GIORGIO Stop: 10/07/20 08:59 Last Admin: 09/17/20 09:26 Dose: 1 puffs Documented by: Vitamin D (Cholecalciferol 1,000 Units 25 Mcg Tab) 2,000 units PO DAILY GIORGIO Stop: 10/10/20 08:59 Last Admin: 09/17/20 09:27 Dose: 2,000 units Documented by: PG Care Time/CCT Total # of Minutes Spent Total Time Spent with Patient: Total time spent is greater than 50% in coordination of care (as documented) at patient's floor/unit and/or counseling patient: Coding Level of Care Code 26558 Subseq Hosp Care Lvl 3 Diagnoses COVID-19 U07.1 MRSA pneumonia J15.212 Laterality: unspecified laterality Lung location: unspecified part of lung Atrial tachycardia I47.1 COPD with exacerbation J44.1 Acute respiratory failure with hypoxia J96.01 Elevated LFTs R79.89 Rectus sheath hematoma S30.1XXA Acute kidney injury N17.9 Paroxysmal atrial fibrillation I48.0 CAD (coronary artery disease) I25.10 Hypertension I10 BPH (benign prostatic hyperplasia) N40.0 Thrombocytopenia D69.6 Gallstone K80.20 Candidiasis of mouth and esophagus B37.81; B37.0 DVT prophylaxis Z29.9 (1) MRSA pneumonia Laterality: unspecified laterality Lung location: unspecified part of lung Qualified Code(s): J15.212 - Pneumonia due to Methicillin resistant S taphylococcus aureus
[2020-09-17] MEDS ORDERED: LORazepam 0.5 MG TAB PO STA (14:54)
[2020-09-17] MEDS: clonazePAM 0.5 MG TAB PO PRN (21:16)
[2020-09-18 05:56] LABS: Hematocrit (blood only) 34.1 % (42-52); Hemoglobin 11.1 g/dL (14.0-18.0); Mean Corpuscular Hemoglobin 30.1 pg (25-34); Mean Corpuscular Hgb Conc 32.6 g/dL (32-36); Mean Corpuscular Volume 92.4 fL (80-100); Mean Platelet Volume 11.1 fL (7.4-10.4); Nucleated RBC # (auto) 0.02 K/uL (0-0); Nucleated RBC % (auto) 0.2 %; Platelet Count 142 K/uL (130-400); RDW Coefficient of Variation 16.2 % (11.5-14.5); RDW Standard Deviation 54.6 fL (36.4-46.3); Red Blood Count 3.69 M/uL (4.7-6.1); White Blood Count 8.05 K/uL (4.8-10.8)
[2020-09-18 06:20] LABS: D Dimer 5730 ug/L FEU (0-500)
[2020-09-18 06:25] LABS: Albumin Level 2.3 gm/dl (3.4-5.0); BUN Creatinine Ratio 36.4 (10-20); Calcium 8.5 mg/dl (8.5-10.1); Potassium 4.1 mmol/L (3.5-5.1)
[2020-09-18 06:28] LABS: Albumin Globulin Ratio 0.7 (0.9-2); Bilirubin,Total 1.7 mg/dl (0.2-1); Globulin 3.4 gm/dl (2.5-4.0); Total Protein 5.7 gm/dl (6.4-8.2)
[2020-09-18] MEDS: ALBUTEROL HFA 8 GM INHALER INH SCH ×4 (07:20→19:27)
[2020-09-18] MEDS: IPRATROPIUM BROMIDE HFA INHALER INH SCH ×4 (07:21→19:27)
[2020-09-18] MEDS: AMIODARONE 200 MG TAB PO SCH ×2 (08:53→17:11)
[2020-09-18] MEDS: FLUTICASONE/VILANTEROL 100/25MCG 14 PUFFS/INHALER INH SCH (08:54)
[2020-09-18] MEDS: UMECLIDINIUM BROMIDE 62.5MCG/BLISTER 7 PUFFS/INHALER INH SCH (08:54)
[2020-09-18] MEDS: TAMSULOSIN HCL 0.4 MG CAP PO SCH (08:54)
[2020-09-18] MEDS: MULTIVITAMIN TAB PO SCH (08:55)
[2020-09-18] MEDS: guaiFENesin 600 MG TABCR PO SCH ×2 (08:55→20:50)
[2020-09-18] MEDS: FINASTERIDE 5 MG TAB PO SCH (08:56)
[2020-09-18] MEDS: NYSTATIN SUSP 500,000 U/5 ML UDC PO SCH ×4 (08:56→20:50)
[2020-09-18] MEDS: METOPROLOL SUCC 25MG EXT REL TAB PO SCH (08:57)
[2020-09-18] MEDS: CHOLECALCIFEROL 1,000 UNITS 25 MCG TAB PO SCH (08:57)
--- NOTE | 2020-09-18 17:06 | Hospitalist Progress Note ---
Date of Service September 18, 2020 Assessment & Plan (1) COVID-19: With resulting COPD exacerbation, pneumonia, transaminitis, acute hypoxic respiratory failure. Poor candidate for remdesivir due to transaminitis, 7+ days out from diagnosis, and acute kidney injury. - S/p convalescent plasma on 09/08/20. - Finished dexamethasone on 09/15/2020. COVID-19 infection complicated by MRSA pneumonia - see below. he is on HFNC 85% and 40L, not much distress, needs some Ativan 0.5mg PO PRN for anxiety discussed with him that this a marathon, not a sprint he needs to focus on eating, maintaining strength updated his daughter in law over the phone - Lasix 40 mg IV x 1 given on 09/13 & 09/14 for worsening respiratory state and elevated BNP. - hold on Lasix again today, he examines euvolemic (2) MRSA pneumonia: Sputum cx on 09/[address] chest on 09/10 showed right-sided multifocal pneumonia. - finish linezolid today for 7 day course has a dry cough, no fever, WBC normal (3) Atrial tachycardia: Episodes of tachycardia to the low 100s appear to be PAT. Doubt 2:1 aflutter. Doubt sinus tach as the HRs go from 60s to the low 100s quickly, remain in low 100s for hours, then resolve and revert back to HRs of 60s. - Discussed with Dr. Delgado on 09/14 -> Increased amiodarone to BID. - Still having some runs, but the increase in amiodarone seems to be gradually making them shorter and further in between. no major issues for two days (4) COPD with exacerbation: Same or worse given his increasing O2 requirements. - Finished 10 days of dexamethasone on 09/15. - Continue Combivent, Mucinex, and home inhalers. - Continue high-flow (switched on 09/12) (5) Acute respiratory failure with hypoxia: Secondary to COVID-19 pneumonia/COPD exacerbation/MRSA pneumonia, and possibly now pulmonary edema. still on HFNC, will likely take a long time to recover he is on 40L and 85%, would hope to see some gradual improvement over the next few days/week discussed with him that I will be honest, will tell him if he is getting worse, for now he is staying the same (6) Elevated LFTs: Transaminitis likely due to COVID-19. Peak AST/ALT were 365/380 on 09/08. - Appreciate [facility] GI input. - trended down (7) Rectus sheath hematoma: H/H stable since admission. Uncertain if he developed this from forceful coughing at home, straining at stool, etc. - Either way pain resolved. - Hold aspirin, resume DVT prophylaxis as his D dimer is 5000 (8) Acute kidney injury: 2nd to over-diuresis, COVID, AIN, etc. - Peak Cr 1.6; now 1.2 (9) Paroxysmal atrial fibrillation: Continue amiodarone for rhythm control. - As above (10) CAD (coronary artery disease): - Continue metoprolol with hold parameters. - Holding ASA due to rectus sheath hematoma. (11) Hypertension: BP stable. - Continue metoprolol succinate 25mg PO daily. (12) BPH (benign prostatic hyperplasia): - Continue tamsulosin and finasteride. (13) Thrombocytopenia: Likely 2nd COVID-19. - Plts stable at 142 (14) Gallstone: Large gallstone in gallbladder on CT abd/pelvis on 09/07. T. bili and alk phos wnl. - Transaminases elevated only - more suggestive of reactive transaminitis from COVID-19. - Outpatient follow up. (15) Candidiasis of mouth and esophagus: - Continue nystatin 5cc ac/hs swish/spit (16) DVT prophylaxis: SCDs. - Chemical means contraindicated due to rectus sheath hematoma. Hb has been stable for days, resume anticoagulation tomorrow Admission and Anticipated Discharge Date Admission Date: September 06, 2020 Subjective patient laying in bed at 30 degrees, no distress, watching TV he is eating okay, not great, told him he needs to drink Boost three times a day if not eating again, stressed importance of stamina, needs to maintain nutrition to maintain strength reviewed labs, CBC and BMP stable, D dimer elevated at 5000 updated his in her room and updated his daughter in law over the phone later in evening he was down to 85% FiO2, still on 40L per minute Review of Systems Review of Systems: All systems reviewed & are unremarkable except as noted in Subjective Constitutional: + weakness; no fever, no chills, no sweats and no fatigue Respiratory: + cough, + dyspnea and + dyspnea on exertion; no sputum production and no wheezing Cardiovascular: no chest pain and no edema Gastrointestinal: + early satiety; no abdominal pain, no nausea, no vomiting, no constipation and no diarrhea/loose stools Physical Exam Constitutional: well developed, + ill appearing and cooperative; no acute distress Neck: trachea midline, no thyromegaly Respiratory: + labored breathing, + cough and + tachypneic; no respiratory distress Auscultation: + rhonchi; no crackles, no rales and no wheezes Cardiovascular: RRR, no murmur, no edema Gastrointestinal (Abdomen): normal bowel sounds, soft, nontender, no hepatosplenomegaly Musculoskeletal: no cyanosis or clubbing, extremities motor strength 5/5 Skin: no rashes, warm and dry Neurologic: patellar DTR's 2+ bilat, sensation intact and PERRL, EOMI, accommodation nl, no face palsy, no dysarthria Psychiatric: A+Ox3, euthymic affect Lymphatic: no cervical or axillary lymphadenopathy Results & Data Results & Data ([facility]) Vital Signs (Past 12 Hours) Vital Signs Temp Pulse Resp BP BP Pulse Ox 09/18/20 15:35 36.8 C 62 20 95/59 L 96 09/18/20 15:07 61 22 93 09/18/20 11:44 36.8 C 64 23 91/52 L 92 09/18/20 11:35 64 20 91 09/18/20 07:50 36.5 C 64 22 97/60 L 90 09/18/20 07:21 63 24 97 Laboratory Results Laboratory Results - last 24 hr 09/18/20 09/18/20 09/18/20 05:17 05:17 05:17 WBC 8.05 RBC 3.69 L Hgb 11.1 L Hct 34.1 L MCV 92.4 MCH 30.1 MCHC 32.6 RDW Std Deviation 54.6 H RDW Coeff of Opal 16.2 H Plt Count 142 MPV 11.1 H Absolute Nucleated RBC 0.02 H Nucleated RBC % (auto) 0.2 D-Dimer 5730 H* Sodium 138 Potassium 4.1 Chloride 102 Carbon Dioxide 30 Anion Gap 6.0 BUN 49 H Creatinine 1.34 Est Cr Clr Drug Dosing 56.0 Est GFR ( Amer) 58.0 Est GFR (Non-Af Amer) 50.0 BUN/Creatinine Ratio 36.4 H Glucose 91 Calcium 8.5 Total Bilirubin 1.7 H AST 37 ALT 96 H Alkaline Phosphatase 103 Total Protein 5.7 L Albumin 2.3 L Globulin 3.4 Albumin/Globulin Ratio 0.7 L Medications Administered Current Inpatient Medications Albuterol (Albuterol Hfa 8 Gm Inhaler) 2 puffs INH QID PRN PRN Reason: wheezing, shortness of breath Stop: 10/06/20 14:25 Last Admin: 09/13/20 04:21 Dose: 2 puffs Documented by: Albuterol (Albuterol Hfa 8 Gm Inhaler) 1 puffs INH QIDR GIORGIO Stop: 10/08/20 14:59 Last Admin: 09/18/20 19:27 Dose: 1 puffs Documented by: Amiodarone HCl (Amiodarone 200 Mg Tab) 100 mg PO BIDM GIORGIO Stop: 10/14/20 16:59 Last Admin: 09/18/20 17:11 Dose: 100 mg Documented by: Clonazepam (Clonazepam 0.5 Mg Tab) 0.5 mg PO HS PRN PRN Reason: insomnia Stop: 10/06/20 14:25 Last Admin: 09/17/20 21:16 Dose: 0.5 mg Documented by: Finasteride (Finasteride 5 Mg Tab) 5 mg PO DAILY GIORGIO Stop: 10/07/20 08:59 Last Admin: 09/18/20 08:56 Dose: 5 mg Documented by: Fluticasone/Vilanterol (Fluticasone/Vilanterol 100/25mcg 14 Puffs/Inhaler) 1 puffs INH DAILY GIORGIO Stop: 10/07/20 08:59 Last Admin: 09/18/20 08:54 Dose: 1 puffs Documented by: Guaifenesin (Guaifenesin 600 Mg Tabcr) 1,200 mg PO Q12 GIORGIO Stop: 10/08/20 13:19 Last Admin: 09/18/20 08:55 Dose: 1,200 mg Documented by: Ipratropium [place] (Ipratropium [place] Hfa Inhaler) 1 puffs INH QIDR GIORGIO Stop: 10/08/20 14:59 Last Admin: 09/18/20 19:27 Dose: 1 puffs Documented by: Lorazepam (Lorazepam 0.5 Mg Tab) 0.5 mg PO Q8 PRN PRN Reason: Anxiety Stop: 10/17/20 14:53 Metoprolol Succinate (Metoprolol Succ 25mg Ext Rel Tab) 25 mg PO DAILY GIORGIO Stop: 10/07/20 08:59 Last Admin: 09/18/20 08:57 Dose: 25 mg Documented by: Multivitamins (Multivitamin Tab) 1 tab PO DAILY GIORGIO Stop: 10/07/20 08:59 Last Admin: 09/18/20 08:55 Dose: 1 tab Documented by: Nystatin (Nystatin Susp 500,000 U/5 Ml Udc) 5 ml PO QID GIORGIO Stop: 09/21/20 16:59 Last Admin: 09/18/20 17:02 Dose: 5 ml Documented by: Ondansetron HCl (Ondansetron Inj 2 Mg/Ml 2 Ml Vial) 4 mg IV Q6H PRN PRN Reason: Nausea Stop: 10/06/20 14:25 Polyethylene Glycol (Polyethylene (Miralax) 17 Gm Pack) 17 gm PO DAILY PRN PRN Reason: Constipation Stop: 10/06/20 14:25 Tamsulosin HCl (Tamsulosin Hcl 0.4 Mg Cap) 0.4 mg PO DAILY GIORGIO Stop: 10/07/20 08:59 Last Admin: 09/18/20 08:54 Dose: 0.4 mg Documented by: Umeclidinium [place] (Umeclidinium [place] 62.5mcg/Blister 7 Puffs/Inhaler) 1 puffs INH DAILY GIORGIO Stop: 10/07/20 08:59 Last Admin: 09/18/20 08:54 Dose: 1 puffs Documented by: Vitamin D (Cholecalciferol 1,000 Units 25 Mcg Tab) 2,000 units PO DAILY GIORGIO Stop: 10/10/20 08:59 Last Admin: 09/18/20 08:57 Dose: 2,000 units Documented by: PG Care Time/CCT Total # of Minutes Spent Total Time Spent with Patient: Total time spent is greater than 50% in coordination of care (as documented) at patient's floor/unit and/or counseling patient: Coding Level of Care Code 88404 Subseq Hosp Care Lvl 3 Diagnoses COVID-19 U07.1 MRSA pneumonia J15.212 Laterality: unspecified laterality Lung location: unspecified part of lung Atrial tachycardia I47.1 COPD with exacerbation J44.1 Acute respiratory failure with hypoxia J96.01 Elevated LFTs R79.89 Rectus sheath hematoma S30.1XXA Acute kidney injury N17.9 Paroxysmal atrial fibrillation I48.0 CAD (coronary artery disease) I25.10 Hypertension I10 BPH (benign prostatic hyperplasia) N40.0 Thrombocytopenia D69.6 Gallstone K80.20 Candidiasis of mouth and esophagus B37.81; B37.0 DVT prophylaxis Z29.9 (1) MRSA pneumonia Laterality: unspecified laterality Lung location: unspecified part of lung Qualified Code(s): J15.212 - Pneumonia due to Methicillin resistant Staphylococcus aureus
[2020-09-18] MEDS: ENOXAPARIN INJ 40 MG/0.4 ML SYR SQ SCH (21:58)
[2020-09-18] MEDS: LORazepam 0.5 MG TAB PO PRN (23:04)
[2020-09-18] MEDS: clonazePAM 0.5 MG TAB PO PRN (23:04)
[2020-09-19 06:19] LABS: Hematocrit (blood only) 31.8 % (42-52); Hemoglobin 10.2 g/dL (14.0-18.0); Mean Corpuscular Hemoglobin 29.3 pg (25-34); Mean Corpuscular Hgb Conc 32.1 g/dL (32-36); Mean Corpuscular Volume 91.4 fL (80-100); Mean Platelet Volume 11.5 fL (7.4-10.4); Platelet Count 125 K/uL (130-400); RDW Coefficient of Variation 16.3 % (11.5-14.5); RDW Standard Deviation 54.4 fL (36.4-46.3); Red Blood Count 3.48 M/uL (4.7-6.1); White Blood Count 8.78 K/uL (4.8-10.8)
[2020-09-19 06:49] LABS: Albumin Level 2.2 gm/dl (3.4-5.0); BUN Creatinine Ratio 37.4 (10-20); Bilirubin,Total 1.4 mg/dl (0.2-1); Calcium 8.5 mg/dl (8.5-10.1); Creatinine Clr Calc Pharmacy 60.9 ml/min; Est GFR (African American) 63.7; Est GFR (Non-African American) 54.9; Potassium 3.8 mmol/L (3.5-5.1)
[2020-09-19 06:50] LABS: Albumin Globulin Ratio 0.7 (0.9-2); Globulin 3.4 gm/dl (2.5-4.0); Total Protein 5.6 gm/dl (6.4-8.2)
[2020-09-19] MEDS: IPRATROPIUM BROMIDE HFA INHALER INH SCH ×4 (07:42→20:09)
[2020-09-19] MEDS: ALBUTEROL HFA 8 GM INHALER INH SCH ×4 (07:42→20:08)
[2020-09-19] MEDS: FLUTICASONE/VILANTEROL 100/25MCG 14 PUFFS/INHALER INH SCH (07:58)
[2020-09-19] MEDS: AMIODARONE 200 MG TAB PO SCH ×2 (07:58→16:24)
[2020-09-19] MEDS: UMECLIDINIUM BROMIDE 62.5MCG/BLISTER 7 PUFFS/INHALER INH SCH (07:59)
[2020-09-19] MEDS: ENOXAPARIN INJ 40 MG/0.4 ML SYR SQ SCH ×2 (08:04→20:19)
[2020-09-19] MEDS: TAMSULOSIN HCL 0.4 MG CAP PO SCH (08:04)
[2020-09-19] MEDS: guaiFENesin 600 MG TABCR PO SCH ×2 (08:05→20:19)
[2020-09-19] MEDS: FINASTERIDE 5 MG TAB PO SCH (08:06)
[2020-09-19] MEDS: NYSTATIN SUSP 500,000 U/5 ML UDC PO SCH ×4 (08:06→20:19)
[2020-09-19] MEDS: METOPROLOL SUCC 25MG EXT REL TAB PO SCH (08:06)
[2020-09-19] MEDS: MULTIVITAMIN TAB PO SCH (08:06)
[2020-09-19] MEDS: CHOLECALCIFEROL 1,000 UNITS 25 MCG TAB PO SCH (08:07)
[2020-09-19] MEDS: LORazepam 0.5 MG TAB PO PRN (11:49)
--- NOTE | 2020-09-19 16:35 | Hospitalist Progress Note ---
Date of Service September 19, 2020 Assessment & Plan (1) COVID-19: With resulting COPD exacerbation, pneumonia, transaminitis, acute hypoxic respiratory failure. Poor candidate for remdesivir due to transaminitis, 7+ days out from diagnosis, and acute kidney injury. - S/p convalescent plasma on 09/08/20. - Finished dexamethasone on 09/15/2020. COVID-19 infection complicated by MRSA pneumonia - see below. he is on HFNC 85% and 40L, not showing signs of distress or fatigue, needs some Ativan 0.5mg PO PRN for anxiety discussed with him that this a marathon, not a sprint he needs to focus on eating, maintaining strength updated his step daughter and daughter over the phone - hold on Lasix again today, he examines euvolemic (2) MRSA pneumonia: Sputum cx on 09/[address] chest on 09/10 showed right-sided multifocal pneumonia. - finish linezolid today for 7 day course has a dry cough, no fever, WBC normal (3) Atrial tachycardia: Episodes of tachycardia to the low 100s appear to be PAT. Doubt 2:1 aflutter. Doubt sinus tach as the HRs go from 60s to the low 100s quickly, remain in low 100s for hours, then resolve and revert back to HRs of 60s. - Discussed with Dr. Delgado on 09/14 -> Increased amiodarone to BID. - Still having some runs, but the increase in amiodarone seems to be gradually making them shorter and further in between. no major issues for three days (4) COPD with exacerbation: Same or worse given his increasing O2 requirements. - Finished 10 days of dexamethasone on 09/15. - Continue Combivent, Mucinex, and home inhalers. - Continue high-flow (switched on 09/12) (5) Acute respiratory failure with hypoxia: Secondary to COVID-19 pneumonia/COPD exacerbation/MRSA pneumonia, and possibly now pulmonary edema. still on HFNC, will likely take a long time to recover he is on 40L and 85%, would hope to see some gradual improvement over the next few days/week discussed with him that I will be honest, will tell him if he is getting worse, for now he is staying the same (6) Elevated LFTs: Transaminitis likely due to COVID-19. Peak AST/ALT were 365/380 on 09/08. - Appreciate [facility] GI input. - trended down (7) Rectus sheath hematoma: H/H stable since admission. Uncertain if he developed this from forceful coughing at home, straining at stool, etc. - Either way pain resolved. - Hold aspirin, resume DVT prophylaxis on 09/18 as his D dimer is 5000 (8) Acute kidney injury: 2nd to over-diuresis, COVID, AIN, etc. - Peak Cr 1.6; now 1.24 (9) Paroxysmal atrial fibrillation: Continue amiodarone for rhythm control. - As above (10) CAD (coronary artery disease): - Continue metoprolol with hold parameters. - Holding ASA due to rectus sheath hematoma. (11) Hypertension: BP stable. - Continue metoprolol succinate 25mg PO daily. (12) BPH (benign prostatic hyperplasia): - Continue tamsulosin and finasteride. (13) Thrombocytopenia: Likely 2nd COVID-19. - Plts stable at 142 (14) Gallstone: Large gallstone in gallbladder on CT abd/pelvis on 09/07. T. bili and alk phos wnl. - Transaminases elevated only - more suggestive of reactive transaminitis from COVID-19. - Outpatient follow up. (15) Candidiasis of mouth and esophagus: - Continue nystatin 5cc ac/hs swish/spit (16) DVT prophylaxis: SCDs. - Chemical means contraindicated due to rectus sheath hematoma. Hb has been stable for days, resume anticoagulation today Admission and Anticipated Discharge Date Admission Date: September 06, 2020 Subjective patient eating a little better today, at lunch he had ice cream, apple sauce, 25% of mashed potatoes and several bites of chicken I told him his was being discharged, this gave his a lot of relief, he was worried about her reviewed labs, CBC and BMP stable I updated his daughter and daughter in law over the phone, all questions answered Review of Systems Review of Systems: All systems reviewed & are unremarkable except as noted in Subjective Constitutional: + weakness Respiratory: + cough, + dyspnea and + dyspnea on exertion Gastrointestinal: + early satiety; no abdominal pain, no nausea, no vomiting, no constipation and no diarrhea/loose stools Physical Exam Constitutional: well developed, + ill appearing and cooperative; no acute distress Neck: trachea midline, no thyromegaly Respiratory: + labored breathing, + cough and + tachypneic; no respiratory distress Auscultation: + rhonchi; no crackles, no rales and no wheezes Cardiovascular: RRR, no murmur, no edema Gastrointestinal (Abdomen): normal bowel sounds, soft, nontender, no hepatosplenomegaly Musculoskeletal: no cyanosis or clubbing, extremities motor strength 5/5 Skin: no rashes, warm and dry Neurologic: patellar DTR's 2+ bilat, sensation intact and PERRL, EOMI, accommodation nl, no face palsy, no dysarthria Psychiatric: A+Ox3, euthymic affect Lymphatic: no cervical or axillary lymphadenopathy Results & Data Results & Data ([facility]) Vital Signs (Past 12 Hours) Vital Signs Temp Pulse Resp BP Pulse Ox 09/19/20 16:00 36.4 C L 63 20 103/54 L 93 09/19/20 12:00 61 22 96/59 L 92 09/19/20 11:28 64 20 92 09/19/20 07:51 36.7 C 63 20 96/54 L 88 L 09/19/20 07:43 63 18 95 Laboratory Results Laboratory Results - last 24 hr 09/19/20 09/19/20 05:52 05:52 WBC 8.78 RBC 3.48 L Hgb 10.2 L Hct 31.8 L MCV 91.4 MCH 29.3 MCHC 32.1 RDW Std Deviation 54.4 H RDW Coeff of Opal 16.3 H Plt Count 125 L MPV 11.5 H Sodium 136 Potassium 3.8 Chloride 103 Carbon Dioxide 28 Anion Gap 5.0 BUN 46 H Creatinine 1.24 Est Cr Clr Drug Dosing 60.9 Est GFR ( Amer) 63.7 Est GFR (Non-Af Amer) 54.9 BUN/Creatinine Ratio 37.4 H Glucose 106 H Calcium 8.5 Total Bilirubin 1.4 H AST 39 H ALT 83 H Alkaline Phosphatase 106 Total Protein 5.6 L Albumin 2.2 L Globulin 3.4 Albumin/Globulin Ratio 0.7 L Medications Administered Current Inpatient Medications Albuterol (Albuterol Hfa 8 Gm Inhaler) 2 puffs INH QID PRN PRN Reason: wheezing, shortness of breath Stop: 10/06/20 14:25 Last Admin: 09/13/20 04:21 Dose: 2 puffs Documented by: Albuterol (Albuterol Hfa 8 Gm Inhaler) 1 puffs INH QIDR GIORGIO Stop: 10/08/20 14:59 Last Admin: 09/19/20 16:16 Dose: 1 puffs Documented by: Amiodarone HCl (Amiodarone 200 Mg Tab) 100 mg PO BIDM GIORGIO Stop: 10/14/20 16:59 Last Admin: 09/19/20 16:24 Dose: 100 mg Documented by: Clonazepam (Clonazepam 0.5 Mg Tab) 0.5 mg PO HS PRN PRN Reason: insomnia Stop: 10/06/20 14:25 Last Admin: 09/18/20 23:04 Dose: 0.5 mg Documented by: Enoxaparin Sodium (Enoxaparin Inj 40 Mg/0.4 Ml Syr) 40 mg SQ Q12H [facility] Stop: 10/18/20 20:59 Last Admin: 09/19/20 08:04 Dose: 40 mg Documented by: Finasteride (Finasteride 5 Mg Tab) 5 mg PO DAILY [facility] Stop: 10/07/20 08:59 Last Admin: 09/19/20 08:06 Dose: 5 mg Documented by: Fluticasone/Vilanterol (Fluticasone/Vilanterol 100/25mcg 14 Puffs/Inhaler) 1 puffs INH DAILY [facility] Stop: 10/07/20 08:59 Last Admin: 09/19/20 07:58 Dose: 1 puffs Documented by: Guaifenesin (Guaifenesin 600 Mg Tabcr) 1,200 mg PO Q12 [facility] Stop: 10/08/20 13:19 Last Admin: 09/19/20 08:05 Dose: 1,200 mg Documented by: Ipratropium [place] (Ipratropium [place] Hfa Inhaler) 1 puffs INH QIDR GIORGIO Stop: 10/08/20 14:59 Last Admin: 09/19/20 16:15 Dose: 1 puffs Documented by: Lorazepam (Lorazepam 0.5 Mg Tab) 0.5 mg PO Q8 PRN PRN Reason: Anxiety Stop: 10/17/20 14:53 Last Admin: 09/19/20 11:49 Dose: 0.5 mg Documented by: Metoprolol Succinate (Metoprolol Succ 25mg Ext Rel Tab) 25 mg PO DAILY [facility] Stop: 10/07/20 08:59 Last Admin: 09/19/20 08:06 Dose: 25 mg Documented by: Multivitamins (Multivitamin Tab) 1 tab PO DAILY [facility] Stop: 10/07/20 08:59 Last Admin: 09/19/20 08:06 Dose: 1 tab Documented by: Nystatin (Nystatin Susp 500,000 U/5 Ml Udc) 5 ml PO QID [facility] Stop: 09/21/20 16:59 Last Admin: 09/19/20 16:24 Dose: 5 ml Documented by: Ondansetron HCl (Ondansetron Inj 2 Mg/Ml 2 Ml Vial) 4 mg IV Q6H PRN PRN Reason: Nausea Stop: 10/06/20 14:25 Polyethylene Glycol (Polyethylene (Miralax) 17 Gm Pack) 17 gm PO DAILY PRN PRN Reason: Constipation Stop: 10/06/20 14:25 Tamsulosin HCl (Tamsulosin Hcl 0.4 Mg Cap) 0.4 mg PO DAILY [facility] Stop: 10/07/20 08:59 Last Admin: 09/19/20 08:04 Dose: 0.4 mg Documented by: Umeclidinium [place] (Umeclidinium [place] 62.5mcg/Blister 7 Puffs/Inhaler) 1 puffs INH DAILY [facility] Stop: 10/07/20 08:59 Last Admin: 09/19/20 07:59 Dose: 1 puffs Documented by: Vitamin D (Cholecalciferol 1,000 Units 25 Mcg Tab) 2,000 units PO DAILY [facility] Stop: 10/10/20 08:59 Last Admin: 09/19/20 08:07 Dose: 2,000 units Documented by: PG Care Time/CCT Total # of Minutes Spent Total Time Spent with Patient: Total time spent is greater than 50% in coordination of care (as documented) at patient's floor/unit and/or counseling patient: Coding Level of Care Code 08327 Subseq Hosp Care Lvl 3 Diagnoses COVID-19 U07.1 MRSA pneumonia J15.212 Laterality: unspecified laterality Lung location: unspecified part of lung Atrial tachycardia I47.1 COPD with exacerbation J44.1 Acute respiratory failure with hypoxia J96.01 Elevated LFTs R79.89 Rectus sheath hematoma S30.1XXA Acute kidney injury N17.9 Paroxysmal atrial fibrillation I48.0 CAD (coronary artery disease) I25.10 Hypertension I10 BPH (benign prostatic hyperplasia) N40.0 Thrombocytopenia D69.6 Gallstone K80.20 Candidiasis of mouth and esophagus B37.81; B37.0 DVT prophylaxis Z29.9 (1) MRSA pneumonia Laterality: unspecified laterality Lung location: unspecified part of lung Qualified Code(s): J15.212 - Pneumonia due to Methicillin resistant Staphylococcus aureus
[2020-09-20] MEDS: clonazePAM 0.5 MG TAB PO PRN ×2 (01:43→20:46)
[2020-09-20] MEDS: IPRATROPIUM BROMIDE HFA INHALER INH SCH ×4 (07:20→19:47)
[2020-09-20] MEDS: ALBUTEROL HFA 8 GM INHALER INH SCH ×4 (07:21→19:47)
[2020-09-20 07:40] LABS: Hematocrit (blood only) 32.2 % (42-52); Hemoglobin 10.2 g/dL (14.0-18.0); Mean Corpuscular Hemoglobin 29.5 pg (25-34); Mean Corpuscular Hgb Conc 31.7 g/dL (32-36); Mean Corpuscular Volume 93.1 fL (80-100); Mean Platelet Volume 10.9 fL (7.4-10.4); Platelet Count 129 K/uL (130-400); RDW Coefficient of Variation 16.2 % (11.5-14.5); RDW Standard Deviation 55.3 fL (36.4-46.3); Red Blood Count 3.46 M/uL (4.7-6.1); White Blood Count 8.79 K/uL (4.8-10.8)
[2020-09-20 08:07] LABS: Albumin Level 2.3 gm/dl (3.4-5.0); BUN Creatinine Ratio 34.7 (10-20); Calcium 8.7 mg/dl (8.5-10.1); Creatinine Clr Calc Pharmacy 63.3 ml/min; Est GFR (African American) 68.3; Est GFR (Non-African American) 58.9; Potassium 3.5 mmol/L (3.5-5.1)
[2020-09-20 08:10] LABS: Albumin Globulin Ratio 0.7 (0.9-2); Bilirubin,Total 1.4 mg/dl (0.2-1); Globulin 3.4 gm/dl (2.5-4.0); Total Protein 5.7 gm/dl (6.4-8.2)
--- NOTE | 2020-09-20 08:51 | Hospitalist Progress Note ---
Date of Service September 20, 2020 Assessment & Plan (1) COVID-19: With resulting COPD exacerbation, pneumonia, transaminitis, acute hypoxic respiratory failure. Poor candidate for remdesivir due to transaminitis, 7+ days out from diagnosis, and acute kidney injury. - S/p convalescent plasma on 09/08/20. - Finished dexamethasone on 09/15/2020. COVID-19 infection complicated by MRSA pneumonia - see below. he is on HFNC 80% and 40L, not showing signs of distress or fatigue, needs some Ativan 0.5mg PO PRN for anxiety discussed with him that this a marathon, not a sprint he needs to focus on eating, maintaining strength, he has been eating better the past two days updated his step daughter over the phone check CXR today for increased cough and low grade temp (2) MRSA pneumonia: Sputum cx on 09/[address] chest on 09/10 showed right-sided multifocal pneumonia. - finish linezolid today for 7 day course has a dry cough, no true fever, WBC normal for days repeat CXR today (3) Atrial tachycardia: Episodes of tachycardia to the low 100s appear to be PAT. Doubt 2:1 aflutter. Doubt sinus tach as the HRs go from 60s to the low 100s quickly, remain in low 100s for hours, then resolve and revert back to HRs of 60s. - Discussed with Dr. Delgado on 09/14 -> Increased amiodarone to BID. - Still having some runs, but the increase in amiodarone seems to be gradually making them shorter and further in between. no major issues for four days (4) COPD with exacerbation: no wheezing on exam - Finished 10 days of dexamethasone on 09/15. - Continue Combivent, Mucinex, and home inhalers. - Continue high-flow (switched on 09/12) (5) Acute respiratory failure with hypoxia: Secondary to COVID-19 pneumonia/COPD exacerbation/MRSA pneumonia, and possibly now pulmonary edema. still on HFNC, will likely take a long time to recover he is on 40L and 80%, would hope to see some gradual improvement over the next few days/week discussed with him that I will be honest, will tell him if he is getting worse (6) Elevated LFTs: Transaminitis likely due to COVID-19. Peak AST/ALT were 365/380 on 09/08. - Appreciate [facility] GI input. - slightly elevated today (7) Rectus sheath hematoma: H/H stable since admission. Uncertain if he developed this from forceful coughing at home, straining at stool, etc. - Either way pain resolved. - Hold aspirin, resumed DVT prophylaxis on 09/18 as his D dimer is 5000 (8) Acute kidney injury: 2nd to over-diuresis, COVID, AIN, etc. - Peak Cr 1.6; now 1.17 (9) Paroxysmal atrial fibrillation: Continue amiodarone for rhythm control. - As above (10) CAD (coronary artery disease): - Continue metoprolol with hold parameters. - Holding ASA due to rectus sheath hematoma. (11) Hypertension: BP stable. - Continue metoprolol succinate 25mg PO daily. (12) BPH (benign prostatic hyperplasia): - Continue tamsulosin and finasteride. (13) Thrombocytopenia: Likely 2nd COVID-. - Plts stable at 129 (14) Gallstone: Large gallstone in gallbladder on CT abd/pelvis on 09/07. T. bili and alk phos wnl. - Transaminases elevated only - more suggestive of reactive transaminitis from COVID-19. - Outpatient follow up. (15) Candidiasis of mouth and esophagus: - Continue nystatin 5cc ac/hs swish/spit (16) DVT prophylaxis: Lovenox, higher dose with COVID 19 Admission and Anticipated Discharge Date Admission Date: September 06, 2020 Subjective patient is eating well again today, ate about half his lunch he is drinking he says his breathing is stable, not in distress when I was with him, he was sleeping soundly when I came in he says he gets really anxious when he is alone at night, the Ativan helps reviewed labs, CBC shows Hb 10.2, WBC normal, BMP is stable, minimal elevation in LFT he had a low grade temperature at 37.6 this afternoon and coughing a little more, difficult time bringing up sputum will get a portable CXR today updated his step daughter over the phone Review of Systems Review of Systems: All systems reviewed & are unremarkable except as noted in Subjective Constitutional: + fatigue and + weakness Respiratory: + cough, + dyspnea, + dyspnea on exertion and + sputum production Cardiovascular: no chest pain and no edema Gastrointestinal: no abdominal pain, no nausea, no vomiting, no constipation and no diarrhea/loose stools Physical Exam Constitutional: well developed, + ill appearing and cooperative; no acute distress Neck: trachea midline, no thyromegaly Respiratory: + cough and + tachypneic; no respiratory distress Auscultation: + rhonchi; no crackles, no rales and no wheezes Cardiovascular: RRR, no murmur, no edema Gastrointestinal (Abdomen): normal bowel sounds, soft, nontender, no hepatosplenomegaly Musculoskeletal: no cyanosis or clubbing, extremities motor strength 5/5 Skin: no rashes, warm and dry Neurologic: patellar DTR's 2+ bilat, sensation intact and PERRL, EOMI, accommodation nl, no face palsy, no dysarthria Psychiatric: A+Ox3, euthymic affect Lymphatic: no cervical or axillary lymphadenopathy Results & Data Results & Data ([facility]) Vital Signs (Past 12 Hours) Vital Signs Temp Pulse Resp BP BP Pulse Ox 09/20/20 08:34 36.8 C 66 20 104/52 L 90 09/20/20 07:23 64 91 09/20/20 07:21 64 19 91 09/20/20 04:00 36.8 C 65 22 103/58 L 91 09/20/20 02:10 63 18 93 09/19/20 23:51 36.6 C 66 22 101/58 L 90 09/19/20 23:34 65 22 91 Laboratory Results Laboratory Results - last 24 hr 09/20/20 09/20/20 07:27 07:27 WBC 8.79 RBC 3.46 L Hgb 10.2 L Hct 32.2 L MCV 93.1 MCH 29.5 MCHC 31.7 L RDW Std Deviation 55.3 H RDW Coeff of Opal 16.2 H Plt Count 129 L MPV 10.9 H Sodium 137 Potassium 3.5 Chloride 104 Carbon Dioxide 29 Anion Gap 4.0 BUN 41 H Creatinine 1.17 Est Cr Clr Drug Dosing 63.3 Est GFR ( Amer) 68.3 Est GFR (Non-Af Amer) 58.9 BUN/Creatinine Ratio 34.7 H Glucose 98 Calcium 8.7 Total Bilirubin 1.4 H AST 38 H ALT 79 H Alkaline Phosphatase 105 Total Protein 5.7 L Albumin 2.3 L Globulin 3.4 Albumin/Globulin Ratio 0.7 L Medications Administered Current Inpatient Medications Albuterol (Albuterol Hfa 8 Gm Inhaler) 2 puffs INH QID PRN PRN Reason: wheezing, shortness of breath Stop: 10/06/20 14:25 Last Admin: 09/13/20 04:21 Dose: 2 puffs Documented by: Albuterol (Albuterol Hfa 8 Gm Inhaler) 1 puffs INH QIDR GIORGIO Stop: 10/08/20 14:59 Last Admin: 09/20/20 07:21 Dose: 1 puffs Documented by: Amiodarone HCl (Amiodarone 200 Mg Tab) 100 mg PO BIDM [facility] Stop: 10/14/20 16:59 Last Admin: 09/19/20 16:24 Dose: 100 mg Documented by: Clonazepam (Clonazepam 0.5 Mg Tab) 0.5 mg PO HS PRN PRN Reason: insomnia Stop: 10/06/20 14:25 Last Admin: 09/20/20 01:43 EST Dose: 0.5 mg Documented by: Enoxaparin Sodium (Enoxaparin Inj 40 Mg/0.4 Ml Syr) 40 mg SQ Q12H [facility] Stop: 10/18/20 20:59 Last Admin: 09/19/20 20:19 Dose: 40 mg Documented by: Finasteride (Finasteride 5 Mg Tab) 5 mg PO DAILY [facility] Stop: 10/07/20 08:59 Last Admin: 09/19/20 08:06 Dose: 5 mg Documented by: Fluticasone/Vilanterol (Fluticasone/Vilanterol 100/25mcg 14 Puffs/Inhaler) 1 puffs INH DAILY [facility] Stop: 10/07/20 08:59 Last Admin: 09/19/20 07:58 Dose: 1 puffs Documented by: Guaifenesin (Guaifenesin 600 Mg Tabcr) 1,200 mg PO Q12 [facility] Stop: 10/08/20 13:19 Last Admin: 09/19/20 20:19 Dose: 1,200 mg Documented by: Ipratropium [place] (Ipratropium [place] Hfa Inhaler) 1 puffs INH QIDR GIORGIO Stop: 10/08/20 14:59 Last Admin: 09/20/20 07:20 Dose: 1 puffs Documented by: Lorazepam (Lorazepam 0.5 Mg Tab) 0.5 mg PO Q8 PRN PRN Reason: Anxiety Stop: 10/17/20 14:53 Last Admin: 09/19/20 11:49 Dose: 0.5 mg Documented by: Metoprolol Succinate (Metoprolol Succ 25mg Ext Rel Tab) 25 mg PO DAILY [facility] Stop: 10/07/20 08:59 Last Admin: 09/19/20 08:06 Dose: 25 mg Documented by: Multivitamins (Multivitamin Tab) 1 tab PO DAILY [facility] Stop: 10/07/20 08:59 Last Admin: 09/19/20 08:06 Dose: 1 tab Documented by: Nystatin (Nystatin Susp 500,000 U/5 Ml Udc) 5 ml PO QID [facility] Stop: 09/21/20 16:59 Last Admin: 09/19/20 20:19 Dose: 5 ml Documented by: Ondansetron HCl (Ondansetron Inj 2 Mg/Ml 2 Ml Vial) 4 mg IV Q6H PRN PRN Reason: Nausea Stop: 10/06/20 14:25 Polyethylene Glycol (Polyethylene (Miralax) 17 Gm Pack) 17 gm PO DAILY PRN PRN Reason: Constipation Stop: 10/06/20 14:25 Tamsulosin HCl (Tamsulosin Hcl 0.4 Mg Cap) 0.4 mg PO DAILY [facility] Stop: 10/07/20 08:59 Last Admin: 09/19/20 08:04 Dose: 0.4 mg Documented by: Umeclidinium [place] (Umeclidinium [place] 62.5mcg/Blister 7 Puffs/Inhaler) 1 puffs INH DAILY [facility] Stop: 10/07/20 08:59 Last Admin: 09/19/20 07:59 Dose: 1 puffs Documented by: Vitamin D (Cholecalciferol 1,000 Units 25 Mcg Tab) 2,000 units PO DAILY [facility] Stop: 10/10/20 08:59 Last Admin: 09/19/20 08:07 Dose: 2,000 units Documented by: PG Care Time/CCT Total # of Minutes Spent Total Time Spent with Patient: Total time spent is greater than 50% in coordination of care (as documented) at patient's floor/unit and/or counseling patient: Coding Level of Care Code 27848 Subseq Hosp Care Lvl 3 Diagnoses COVID-19 U07.1 MRSA pneumonia J15.212 Laterality: unspecified laterality Lung location: unspecified part of lung Atrial tachycardia I47.1 COPD with exacerbation J44.1 Acute respiratory failure with hypoxia J96.01 Elevated LFTs R79.89 Rectus sheath hematoma S30.1XXA Acute kidney injury N17.9 Paroxysmal atrial fibrillation I48.0 CAD (coronary artery disease) I25.10 Hypertension I10 BPH (benign prostatic hyperplasia) N40.0 Thrombocytopenia D69.6 Gallstone K80.20 Candidiasis of mouth and esophagus B37.81; B37.0 DVT prophylaxis Z29.9 (1) MRSA pneumonia Laterality: unspecified laterality Lung location: unspecified part of lung Qualified Code(s): J15.212 - Pneumonia due to Methicillin resistant Staphylococcus aureus
[2020-09-20] MEDS: AMIODARONE 200 MG TAB PO SCH ×2 (08:59→17:04)
[2020-09-20] MEDS: FLUTICASONE/VILANTEROL 100/25MCG 14 PUFFS/INHALER INH SCH (09:00)
[2020-09-20] MEDS: NYSTATIN SUSP 500,000 U/5 ML UDC PO SCH ×4 (09:00→20:46)
[2020-09-20] MEDS: UMECLIDINIUM BROMIDE 62.5MCG/BLISTER 7 PUFFS/INHALER INH SCH (09:01)
[2020-09-20] MEDS: TAMSULOSIN HCL 0.4 MG CAP PO SCH (09:01)
[2020-09-20] MEDS: ENOXAPARIN INJ 40 MG/0.4 ML SYR SQ SCH ×2 (09:01→20:46)
[2020-09-20] MEDS: FINASTERIDE 5 MG TAB PO SCH (09:02)
[2020-09-20] MEDS: MULTIVITAMIN TAB PO SCH (09:02)
[2020-09-20] MEDS: guaiFENesin 600 MG TABCR PO SCH ×2 (09:02→20:46)
[2020-09-20] MEDS: CHOLECALCIFEROL 1,000 UNITS 25 MCG TAB PO SCH (09:03)
[2020-09-20] MEDS: METOPROLOL SUCC 25MG EXT REL TAB PO SCH (09:03)
[2020-09-20] MEDS: ASCORBIC ACID 500 MG TAB PO SCH (11:28)
[2020-09-20] MEDS: ZINC SULFATE 220 MG CAPSULE PO SCH (11:28)
[2020-09-20] MEDS: THIAMINE HCL 100 MG TAB PO SCH (11:28)
--- NOTE | 2020-09-20 12:59 | Electrocardiogram Report ---
Test Reason : Blood Pressure : / mmHG Vent. Rate : 108 BPM Atrial Rate : 028 BPM P-R Int : 000 ms QRS Dur : 168 ms QT Int : 436 ms P-R-T Axes : 000 -60 067 degrees QTc Int : 584 ms Probable Sinus rhythm with 1st degree A-V block Right bundle branch block Left anterior fascicular block Abnormal ECG When compared with ECG of 06-SEP-2020 09:57, No significant change Confirmed by Tr Wagner ([id number]) on 09/20/2020 12:59:02 PM Referred By: REFERRED SELF Confirmed By:Tr Wagner
[2020-09-20] MEDS: LORazepam 0.5 MG TAB PO PRN (14:36)
--- NOTE | 2020-09-20 16:13 | XRay Report ---
XR chest 1V portable HISTORY: 79 years-old Male worsening cough, low grade fever chronic cough with fever. COMPARISON: Chest radiograph 09/17/2020, CTA chest 09/08/2020 TECHNIQUE: Portable AP view of the chest FINDINGS: Cardiac silhouette is enlarged. Prior median sternotomy with cardiac valvular prosthesis. Left subcla vian pacer. Advanced emphysema with chronic interstitial coarsening. No pneumothorax or large pleural effusion. Unchanged airspace opacities of the left lung with progressively worsened right lung base consolidation. Pulmonary vascular congestion with worsened interstitial coarsening. Degenerative mauricio ges of the shoulders and spine. IMPRESSION: 1. Cardiomegaly with severe emphysema and chronic interstitial coarsening. Additionally, there is mil dly progressed interstitial opacities suggestive of pulmonary edema. 2. Progressively worsened right lung consolidation suspicious for superimposed pneumonia. ACT 112: Negative or not required by law. The above report was generated using voice recognition software. It may contain grammatical, syntax o r spelling errors. Electronically signed by: Jimenez Beltran M.D. 09/20/2020 4:11 PM
[2020-09-20] MEDS ORDERED: FUROSEMIDE 40 MG in SYRINGE 0 ML IV ONE (16:15)
[2020-09-21] MEDS ORDERED: ALBUMIN 25% 12.5 GM/50 ML VIAL IV ONE (00:59)
[2020-09-21 06:17] LABS: Hematocrit (blood only) 32.5 % (42-52); Hemoglobin 10.5 g/dL (14.0-18.0); Mean Corpuscular Hemoglobin 29.9 pg (25-34); Mean Corpuscular Hgb Conc 32.3 g/dL (32-36); Mean Corpuscular Volume 92.6 fL (80-100); Mean Platelet Volume 10.9 fL (7.4-10.4); Platelet Count 113 K/uL (130-400); RDW Coefficient of Variation 16.4 % (11.5-14.5); RDW Standard Deviation 54.9 fL (36.4-46.3); Red Blood Count 3.51 M/uL (4.7-6.1); White Blood Count 8.36 K/uL (4.8-10.8)
[2020-09-21 06:40] LABS: Albumin Level 2.4 gm/dl (3.4-5.0); BUN Creatinine Ratio 35.1 (10-20); Calcium 8.5 mg/dl (8.5-10.1); Creatinine Clr Calc Pharmacy 62.8 ml/min; D Dimer 4860 ug/L FEU (0-500); Est GFR (African American) 67.6; Est GFR (Non-African American) 58.3; Potassium 3.7 mmol/L (3.5-5.1)
[2020-09-21 06:43] LABS: Albumin Globulin Ratio 0.7 (0.9-2); Bilirubin,Total 1.5 mg/dl (0.2-1); Globulin 3.6 gm/dl (2.5-4.0)
[2020-09-21] MEDS: IPRATROPIUM BROMIDE HFA INHALER INH SCH ×4 (07:28→20:44)
[2020-09-21] MEDS: ALBUTEROL HFA 8 GM INHALER INH SCH ×4 (07:29→20:43)
[2020-09-21] MEDS: AMIODARONE 200 MG TAB PO SCH ×2 (07:33→16:48)
[2020-09-21] MEDS: FLUTICASONE/VILANTEROL 100/25MCG 14 PUFFS/INHALER INH SCH (08:37)
[2020-09-21] MEDS: UMECLIDINIUM BROMIDE 62.5MCG/BLISTER 7 PUFFS/INHALER INH SCH (08:39)
[2020-09-21] MEDS: ENOXAPARIN INJ 40 MG/0.4 ML SYR SQ SCH ×2 (08:41→21:30)
[2020-09-21] MEDS: METOPROLOL SUCC 25MG EXT REL TAB PO SCH (08:43)
[2020-09-21] MEDS: MULTIVITAMIN TAB PO SCH (08:43)
[2020-09-21] MEDS: CHOLECALCIFEROL 1,000 UNITS 25 MCG TAB PO SCH (08:43)
[2020-09-21] MEDS: NYSTATIN SUSP 500,000 U/5 ML UDC PO SCH ×2 (08:43→13:14)
[2020-09-21] MEDS: guaiFENesin 600 MG TABCR PO SCH ×2 (08:43→21:30)
[2020-09-21] MEDS: FINASTERIDE 5 MG TAB PO SCH (08:43)
[2020-09-21] MEDS: ASCORBIC ACID 500 MG TAB PO SCH (08:43)
[2020-09-21] MEDS: TAMSULOSIN HCL 0.4 MG CAP PO SCH (08:43)
[2020-09-21] MEDS: ZINC SULFATE 220 MG CAPSULE PO SCH (08:43)
[2020-09-21] MEDS: THIAMINE HCL 100 MG TAB PO SCH (08:43)
[2020-09-21] MEDS: LORazepam 0.5 MG TAB PO PRN ×2 (14:49→22:57)
--- NOTE | 2020-09-21 19:38 | Hospitalist Progress Note ---
Date of Service September 21, 2020 Assessment & Plan (1) COVID-19: With resulting COPD exacerbation, pneumonia, transaminitis, acute hypoxic respiratory failure. Poor candidate for remdesivir due to transaminitis, 7+ days out from diagnosis at the time of admission, and acute kidney injury. - S/p convalescent plasma on 09/08/20. - Finished a 10-day course of dexamethasone on 09/15/2020. -Continue zinc to 20 mg p.o. once daily Continue ipratropium 4 times daily, Breo once daily Albuterol 4 times daily COVID-19 infection complicated by MRSA pneumonia - see below. Remains on HFNC 80% and 40L, not showing signs of distress or fatigue, needs some Ativan 0.5mg PO PRN for anxiety in the afternoons Overall, seems improved with respiratory status Chest x-ray continues with evidence of pneumonia and with some pulmonary edema on 09/20-received IV Lasix x1 Continued to encourage improved p.o. intake, maintaining strength, getting out of bed to chair which she has been doing updated his over the phone and left a message for his daughter Mary Follow chest x-ray periodically Follow CBC, CMP, CRP, ESR, D-dimer, LDH, ferritin in the morning (2) MRSA pneumonia: Sputum cx on 09/[address] chest on 09/10 showed right-sided multifocal pneumonia. -Has now completed a 7-day course of linezolid has a dry cough, no true fever, WBC normal for days Follow chest x-ray to resolution Remains afebrile (3) Atrial tachycardia: Episodes of tachycardia to the low 100s appear to be PAT. Doubt 2:1 aflutter. Doubt sinus tach as the HRs go from 60s to the low 100s quickly, remain in low 100s for hours, then resolve and revert back to HRs of 60s. - Discussed with Dr. Delgado on 09/14 -> Increased amiodarone to BID. - Still having some brief runs, but the increase in amiodarone seems to be gradually making them shorter and further in between. no major issues for four days -Continue amiodarone 100 mg p.o. twice daily (4) COPD with exacerbation: no wheezing on exam - Finished 10 days of dexamethasone on 09/15. - Continue Combivent, Mucinex, and home inhalers. - Continue high-flow (switched on 09/12) (5) Acute respiratory failure with hypoxia: Secondary to COVID-19 pneumonia/COPD exacerbation/MRSA pneumonia, and also with some superimposed pulmonary edema. still on HFNC, will likely take a long time to recover he is on 40L and 80%, would hope to see some gradual improvement over the next few days/week-titrate down FiO2 as able to keep pulse ox greater than 90-92% -Was given IV Lasix x1 on 09/20 which helped Consider more IV Lasix in the morning if needed (6) Elevated LFTs: Transaminitis likely due to COVID-19. Peak AST/ALT were 365/380 on 09/08. - Appreciate [facility] input. - slightly elevated today but overall improved Follow LFTs in the morning (7) Rectus sheath hematoma: H/H stable since admission. Uncertain if he developed this from forceful coughing at home, straining at stool, etc. - Either way pain resolved. -Continue to hold aspirin, resumed DVT prophylaxis on 09/18 as his D dimer is 5000 and now trending downward -Hemoglobin stable at 10.5 Follow CBC (8) Acute kidney injury: 2nd to over-diuresis, COVID, AIN, etc. - Peak Cr 1.6; now normal (9) Paroxysmal atrial fibrillation: Continue amiodarone for rhythm control. - As above (10) CAD (coronary artery disease): - Continue metoprolol with hold parameters. - Holding ASA due to rectus sheath hematoma but can probably restart again soon (11) Hypertension: BP stable to low overnight and received IV albumin. - Continue metoprolol succinate 25mg PO daily. (12) BPH (benign prostatic hyperplasia): - Continue tamsulosin and finasteride. No acute issues (13) Thrombocytopenia: Likely 2nd COVID-19. - Plts slightly decreased today to 113 but overall stable Follow CBC (14) Gallstone: Large gallstone in gallbladder on CT abd/pelvis on 09/07. T. bili and alk phos wnl. - Transaminases elevated only - more suggestive of reactive transaminitis from COVID-19. - Outpatient follow up. (15) Candidiasis of mouth and esophagus: - Continue nystatin 5cc ac/hs swish/spit (16) DVT prophylaxis: Lovenox, higher dose with COVID 19 Disposition-continued stay on telemetry status, but seems to be stable to slightly improved today Will need PT/OT when weaned off high flow nasal cannula Plan is for discharge to home when medically stable Admission and Anticipated Discharge Date Admission Date: September 06, 2020 Subjective Patient reports feeling much better today. The nurse reports he is much more mentally clear today. He remains on high flow nasal cannula at 40 L with 80% FiO2 but feels less short of breath. He has been requiring some as needed lorazepam in the afternoons which helps. He denies chest pain. He is coughing up a little bit of mucus. He denies any nausea or vomiting and is tolerating most of his meals today. No abdominal pains. Telemetry with normal sinus rhythm, first-degree AV block, PACs, PVCs, a burst of PAT and rates mostly in the 60s to 70s. Review of Systems Review of Systems: All systems reviewed & are unremarkable except as noted in HPI & below Physical Exam Constitutional: WD/WN, vitals as above Eyes: + anicteric sclerae and EOM intact bilaterally Neck: trachea midline, no thyromegaly Respiratory: no respiratory distress, no labored breathing (With high flow nasal cannula in place) and not tachypneic Auscultation: + crackles (In middle lung christopher bilaterally); no wheezes Cardiovascular: RRR, no murmur, no edema Chest (Breasts): Chest: normal inspection of chest Gastrointestinal (Abdomen): normal bowel sounds, soft, nontender, no hepatosplenomegaly Musculoskeletal: Extremities: extremities normal to inspection; no cyanosis and no clubbing Skin: + rash (Chronic venous stasis changes bilaterally of the legs) Neurologic: moves all extremities and awake; no focal motor deficits Psychiatric: A+Ox3, euthymic affect Lymphatic: no lymphedema Results & Data Results & Data ([facility]) Vital Signs (Past 12 Hours) Vital Signs Temp Pulse Resp BP BP Pulse Ox 09/21/20 16:03 36.7 C 66 23 113/52 L 92 09/21/20 15:40 72 28 H 93 09/21/20 15:37 72 28 H 93 09/21/20 11:56 36.7 C 66 19 98/60 L 91 09/21/20 11:32 67 34 H 89 L 09/21/20 11:31 67 34 H 89 L 09/21/20 07:36 36.4 C L 108 H 24 98/63 L 91 Laboratory Results 09/21/20 09/21/20 09/21/20 Range/Units 05:46 05:46 05:46 WBC 8.36 (4.8-10.8) K/uL RBC 3.51 L (4.7-6.1) M/uL Hgb 10.5 L (14.0-18.0) g/dL Hct 32.5 L (42-52) % MCV 92.6 (80-100) fL MCH 29.9 (25-34) pg MCHC 32.3 (32-36) g/dL RDW Std Deviation 54.9 H (36.4-46.3) fL RDW Coeff of Opal 16.4 H (11.5-14.5) % Plt Count 113 L (130-400) K/uL MPV 10.9 H (7.4-10.4) fL D-Dimer 4860 H* (0-500) ug/L FEU Sodium 138 (136-145) mmol/L Potassium 3.7 (3.5-5.1) mmol/L Chloride 106 (98-107) mmol/L Carbon Dioxide 28 (21-32) mmol/L Anion Gap 4.0 (3-11) BUN 41 H (7-18) mg/dl Creatinine 1.18 (0.6-1.4) mg/dl Est Cr Clr Drug Dosing 62.8 ml/min Est GFR ( Amer) 67.6 Est GFR (Non-Af Amer) 58.3 BUN/Creatinine Ratio 35.1 H (10-20) Glucose 87 (70-99) mg/dl Calcium 8.5 (8.5-10.1) mg/dl Total Bilirubin 1.5 H (0.2-1) mg/dl AST 44 H (15-37) U/L ALT 76 (12-78) U/L Alkaline Phosphatase 101 (45-117) U/L Total Protein 6.0 L (6.4-8.2) gm/dl Albumin 2.4 L (3.4-5.0) gm/dl Globulin 3.6 (2.5-4.0) gm/dl Albumin/Globulin Ratio 0.7 L (0.9-2) PG Care Time/CCT Total # of Minutes Spent Total Time Spent with Patient: Total time spent is greater than 50% in coordination of care (as documented) at patient's floor/unit and/or counseling patient: Coding Level of Care Code 55951 Subseq Hosp Care Lvl 3 Diagnoses COVID-19 U07.1 MRSA pneumonia J15. Laterality: unspecified laterality Lung location: unspecified part of lung Atrial tachycardia I47.1 COPD with exacerbation J44.1 Acute respiratory failure with hypoxia J96.01 Elevated LFTs R79.89 Rectus sheath hematoma S30.1XXA Acute kidney injury N17.9 Paroxysmal atrial fibrillation I48.0 CAD (coronary artery disease) I25.10 Hypertension I10 BPH (benign prostatic hyperplasia) N40.0 Thrombocytopenia D69.6 Gallstone K80.20 Candidiasis of mouth and esophagus B37.81; B37.0 DVT prophylaxis Z29.9 (1) MRSA pneumonia Laterality: unspecified laterality Lung location: unspecified part of lung Qualified Code(s): J15.212 - Pneumonia due to Methicillin resistant Staphylococ cus aureus
[2020-09-21] MEDS: clonazePAM 0.5 MG TAB PO PRN (22:57)
[2020-09-22 06:36] LABS: Hematocrit (blood only) 33.1 % (42-52); Hemoglobin 10.5 g/dL (14.0-18.0); Mean Corpuscular Hemoglobin 29.7 pg (25-34); Mean Corpuscular Hgb Conc 31.7 g/dL (32-36); Mean Corpuscular Volume 93.5 fL (80-100); Mean Platelet Volume 12.1 fL (7.4-10.4); Platelet Count 125 K/uL (130-400); RDW Coefficient of Variation 16.4 % (11.5-14.5); RDW Standard Deviation 56.3 fL (36.4-46.3); Red Blood Count 3.54 M/uL (4.7-6.1); White Blood Count 7.54 K/uL (4.8-10.8)
[2020-09-22 06:39] LABS: Basophils # (auto) 0.01 K/uL (0-0.2); Basophils % (auto) 0.1 %; Eosinophils # (auto) 0.05 K/uL (0-0.5); Eosinophils % (auto) 0.7 %; Immature Granulocytes # (auto) 0.09 K/uL (0.00-0.02); Immature Granulocytes % (auto) 1.2 %; Lymphocytes # (auto) 0.68 K/uL (1.2-3.4); Monocytes # (auto) 0.28 K/uL (0.11-0.59); Monocytes % (auto) 3.7 %; Neutrophils # (auto) 6.43 K/uL (1.4-6.5); Neutrophils % (auto) 85.3 %; Platelet Estimate Decreased (Normal)
[2020-09-22 06:41] LABS: Albumin Level 2.4 gm/dl (3.4-5.0); BUN Creatinine Ratio 34.8 (10-20); Calcium 8.7 mg/dl (8.5-10.1); Creatinine Clr Calc Pharmacy 66.6 ml/min; Est GFR (Non-African American) 62.1; Magnesium 2.4 mg/dl (1.8-2.4); Potassium 3.9 mmol/L (3.5-5.1)
[2020-09-22 06:44] LABS: Albumin Globulin Ratio 0.7 (0.9-2); Bilirubin,Total 1.2 mg/dl (0.2-1); Globulin 3.6 gm/dl (2.5-4.0); Phosphorus 3.1 mg/dl (2.5-4.9)
[2020-09-22 06:50] LABS: D Dimer 6360 ug/L FEU (0-500)
[2020-09-22] MEDS: ALBUTEROL HFA 8 GM INHALER INH SCH ×4 (08:03→20:14)
[2020-09-22] MEDS: IPRATROPIUM BROMIDE HFA INHALER INH SCH ×4 (08:04→20:14)
[2020-09-22] MEDS: UMECLIDINIUM BROMIDE 62.5MCG/BLISTER 7 PUFFS/INHALER INH SCH (08:49)
[2020-09-22] MEDS: FLUTICASONE/VILANTEROL 100/25MCG 14 PUFFS/INHALER INH SCH (08:49)
[2020-09-22] MEDS: LORazepam 0.5 MG TAB PO PRN ×2 (08:50→14:38)
[2020-09-22] MEDS: guaiFENesin 600 MG TABCR PO SCH ×2 (08:50→21:49)
[2020-09-22] MEDS: MULTIVITAMIN TAB PO SCH (08:50)
[2020-09-22] MEDS: THIAMINE HCL 100 MG TAB PO SCH (08:51)
[2020-09-22] MEDS: ASCORBIC ACID 500 MG TAB PO SCH (08:51)
[2020-09-22] MEDS: ZINC SULFATE 220 MG CAPSULE PO SCH (08:51)
[2020-09-22] MEDS: TAMSULOSIN HCL 0.4 MG CAP PO SCH (08:51)
[2020-09-22] MEDS: FINASTERIDE 5 MG TAB PO SCH (08:51)
[2020-09-22] MEDS: CHOLECALCIFEROL 1,000 UNITS 25 MCG TAB PO SCH (08:51)
[2020-09-22] MEDS: METOPROLOL SUCC 25MG EXT REL TAB PO SCH (08:51)
[2020-09-22] MEDS: ENOXAPARIN INJ 40 MG/0.4 ML SYR SQ SCH ×2 (08:52→21:49)
[2020-09-22] MEDS: AMIODARONE 200 MG TAB PO SCH ×2 (08:52→16:33)
[2020-09-22] MEDS: FUROSEMIDE 20 MG in SYRINGE 0 ML IV ONE ×2 (11:04→12:03)
--- NOTE | 2020-09-22 15:01 | Hospitalist Progress Note ---
Date of Service September 22, 2020 Assessment & Plan (1) COVID-19: With resulting COPD exacerbation, pneumonia, transaminitis, and acute hypoxic respiratory failure. Poor candidate for Remdesivir due to transaminitis, 7+ days out from diagnosis at the time of admission, and acute kidney injury. - S/p convalescent plasma on 09/08/20. - Finished a 10-day course of dexamethasone on 09/15/2020. -Continue zinc 220 mg p.o. once daily Continue ipratropium 4 times daily, Breo once daily Albuterol 4 times daily COVID-19 infection complicated by MRSA pneumonia - see below. Remains on HFNC 90% and 40L, not showing signs of distress or fatigue, needs some Ativan 0.5mg PO PRN for anxiety in the afternoons Overall, seems stable but not improved with respiratory status from yesterday Chest x-ray continues with evidence of pneumonia and with some pulmonary edema on 09/20-received IV Lasix x1 Markers of inflammation significantly up from previous, D-dimer higher than previous at 6360 Procalcitonin negative Continued to encourage improved p.o. intake, maintaining strength, getting out of bed to chair which she has been doing Follow chest x-ray periodically-we will check tomorrow Follow CBC, CMP, CRP, ESR, D-dimer, LDH, ferritin in the morning Give Lasix 20 mg IV x1 again on 09/22 (2) MRSA pneumonia: Sputum cx on 09/[address] chest on 09/10 showed right-sided multifocal pneumonia. -Has now completed a 7-day course of linezolid has a dry cough, no true fever, WBC normal for days Procalcitonin negative Follow chest x-ray to resolution-check in the morning Remains afebrile (3) Atrial tachycardia: Episodes of tachycardia to the low 100s appear to be PAT. Doubt 2:1 aflutter. Doubt sinus tach as the HRs go from 60s to the low 100s quickly, remain in low 100s for hours, then resolve and revert back to HRs of 60s. - Discussed with Dr. Delgado on 09/14 -> Increased amiodarone to BID. No further atrial tachycardia since 09/21 -Continue amiodarone 100 mg p.o. twice daily (4) COPD with exacerbation: no wheezing on exam but requiring increase in FiO2 and with rhonchi with dexamethasone 6 mg IV every 12 hours - Finished 10 days of dexamethasone on 09/15. Given the respiratory status now improving, will restart steroids - Continue Combivent, Mucinex, and home inhalers. - Continue high-flow (switched on 09/12) and wean off as tolerated (5) Acute respiratory failure with hypoxia: Secondary to COVID-19 pneumonia/COPD exacerbation/MRSA pneumonia, and also with some superimposed pulmonary edema. still on HFNC, will likely take a long time to recover he is on 40L and 90%, would hope to see some gradual improvement over the next few days/week-titrate down FiO2 as able to keep pulse ox greater than 90-92% -Was given IV Lasix x1 on 09/20 which helped giving more IV lasix today (6) Elevated LFTs: Transaminitis likely due to COVID-19. Peak AST/ALT were 365/380 on 09/08. - Appreciate [facility] input. -LFTs back to normal (7) Rectus sheath hematoma: H/H stable since admission. Uncertain if he developed this from forceful coughing at home, straining at stool, etc. - Either way pain resolved. -Continue to hold aspirin, resumed DVT prophylaxis on 09/18 as his D dimer is 5000 and now trending downward -Hemoglobin stable at 10.5 Follow CBC (8) Acute kidney injury: 2nd to over-diuresis, COVID, AIN, etc. - Peak Cr 1.6; now normal (9) Paroxysmal atrial fibrillation: Continue amiodarone for rhythm control. - As above (10) CAD (coronary artery disease): - Continue metoprolol with hold parameters. - Holding ASA due to rectus sheath hematoma but can probably restart again soon (11) Hypertension: BP stable - Continue metoprolol succinate 25mg PO daily. (12) BPH (benign prostatic hyperplasia): - Continue tamsulosin and finasteride. No acute issues (13) Thrombocytopenia: Likely 2nd COVID-19. - improving Follow CBC (14) Gallstone: Large gallstone in gallbladder on CT abd/pelvis on 09/07. T. bili and alk phos wnl. - Transaminases elevated only - more suggestive of reactive transaminitis from COVID-19. - Outpatient follow up. (15) Candidiasis of mouth and esophagus: - Continue nystatin 5cc ac/hs swish/spit (16) DVT prophylaxis: Lovenox, higher dose with COVID 19 Disposition-continued stay on telemetry status, stable but still requiring HFNC Will need PT/OT when weaned off high flow nasal cannula Apparently [employer] working on referral to [facility] Admission and Anticipated Discharge Date Admission Date: September 06, 2020 Subjective Still feeling SOB. Reports he had a good morning, ate a big breakfast and big lunch. Still requiring some Ativan times for anxiety due to wearing the high flow nasal cannula. He denies nausea or vomiting, no abdominal pain. No bowel movement today. He is making urine. Remains on high flow nasal cannula at 40 L and now up to 90% FiO2 Review of Systems Review of Systems: All systems reviewed & are unremarkable except as noted in HPI & below Physical Exam Constitutional: WD/WN, vitals as above Eyes: + anicteric sclerae Neck: trachea midline, no thyromegaly Respiratory: no respiratory distress, no labored breathing (With high flow nasal cannula in place) and not tachypneic Auscultation: + crackles (In middle lung christopher bilaterally) and + rhonchi (On right side); no wheezes Cardiovascular: RRR, no murmur, no edema Chest (Breasts): Chest: normal inspection of chest Gastrointestinal (Abdomen): normal bowel sounds, soft, nontender, no hepatosplenomegaly Musculoskeletal: Extremities: extremities normal to inspection; no cyanosis and no clubbing Skin: + rash (Chronic venous stasis changes bilaterally of the legs) Neurologic: moves all extremities and awake; no focal motor deficits Psychiatric: A+Ox3, euthymic affect Lymphatic: no lymphedema Results & Data Results & Data ([facility]) Vital Signs (Past 12 Hours) Vital Signs Temp Pulse Resp BP Pulse Ox 09/22/20 14:40 36.5 C 63 104/57 L 94 09/22/20 14:06 67 28 H 89 L 09/22/20 14:01 66 28 H 86 L 09/22/20 11:17 90 24 80 L 09/22/20 11:06 36.8 C 65 105/55 L 90 09/22/20 08:04 74 24 91 09/22/20 07:59 36.5 C 81 18 165/74 H 85 L 09/22/20 04:00 36.4 C L 67 18 116/57 L 92 Laboratory Results 09/22/20 09/22/20 09/22/20 Range/Units 05:45 05:45 05:45 WBC (4.8-10.8) K/uL RBC (4.7-6.1) M/uL Hgb (14.0-18.0) g/dL Hct (42-52) % MCV (80-100) fL MCH (25-34) pg MCHC (32-36) g/dL RDW Std Deviation (36.4-46.3) fL RDW Coeff of Opal (11.5-14.5) % Plt Count (130-400) K/uL MPV (7.4-10.4) fL Immature Gran % (Auto) % Neut % (Auto) % Lymph % (Auto) % [place] % (Auto) % Eos % (Auto) % Baso % (Auto) % Neut # (Auto) (1.4-6.5) K/uL Lymph # (Auto) (1.2-3.4) K/uL [place] # (Auto) (0.11-0.59) K/uL Eos # (Auto) (0-0.5) K/uL Baso # (Auto) (0-0.2) K/uL Immature Gran # (Auto) (0.00-0.02) K/uL Platelet Estimate (Normal) ESR (0-14) mm/hr D-Dimer (0-500) ug/L FEU Sodium 140 (136-145) mmol/L Potassium 3.9 (3.5-5.1) mmol/L Chloride 109 H (98-107) mmol/L Carbon Dioxide 29 (21-32) mmol/L Anion Gap 2.0 L (3-11) BUN 39 H (7-18) mg/dl Creatinine 1.12 (0.6-1.4) mg/dl Est Cr Clr Drug Dosing 66.6 ml/min Est GFR ( Amer) 72.0 Est GFR (Non-Af Amer) 62.1 BUN/Creatinine Ratio 34.8 H (10-20) Glucose 95 (70-99) mg/dl Calcium 8.7 (8.5-10.1) mg/dl Phosphorus 3.1 (2.5-4.9) mg/dl Magnesium 2.4 (1.8-2.4) mg/dl Ferritin 1127.0 H (8-388) ng/ml Total Bilirubin 1.2 H (0.2-1) mg/dl AST 38 H (15-37) U/L ALT 72 (12-78) U/L Alkaline Phosphatase 113 (45-117) U/L Lactate Dehydrogenase 245 H (87-241) U/L Total Creatine Kinase 15 L (39-308) U/L C-Reactive Protein 12.00 H (0-0.29) mg/dl Total Protein 6.0 L (6.4-8.2) gm/dl Albumin 2.4 L (3.4-5.0) gm/dl Globulin 3.6 (2.5-4.0) gm/dl Albumin/Globulin Ratio 0.7 L (0.9-2) Procalcitonin 0.10 (0-0.5) ng/ml 09/22/20 09/22/20 09/22/20 Range/Units 05:45 05:45 05:45 WBC 7.54 (4.8-10.8) K/uL RBC 3.54 L (4.7-6.1) M/uL Hgb 10.5 L (14.0-18.0) g/dL Hct 33.1 L (42-52) % MCV 93.5 (80-100) fL MCH 29.7 (25-34) pg MCHC 31.7 L (32-36) g/dL RDW Std Deviation 56.3 H (36.4-46.3) fL RDW Coeff of Opal 16.4 H (11.5-14.5) % Plt Count 125 L (130-400) K/uL MPV 12.1 H (7.4-10.4) fL Immature Gran % (Auto) 1.2 % Neut % (Auto) 85.3 % Lymph % (Auto) 9.0 % [place] % (Auto) 3.7 % Eos % (Auto) 0.7 % Baso % (Auto) 0.1 % Neut # (Auto) 6.43 (1.4-6.5) K/uL Lymph # (Auto) 0.68 L (1.2-3.4) K/uL [place] # (Auto) 0.28 (0.11-0.59) K/uL Eos # (Auto) 0.05 (0-0.5) K/uL Baso # (Auto) 0.01 (0-0.2) K/uL Immature Gran # (Auto) 0.09 H (0.00-0.02) K/uL Platelet Estimate Decreased L (Normal) ESR 29 H (0-14) mm/hr D-Dimer 6360 H* (0-500) ug/L FEU Sodium (136-145) mmol/L Potassium (3.5-5.1) mmol/L Chloride (98-107) mmol/L Carbon Dioxide (21-32) mmol/L Anion Gap (3-11) BUN (7-18) mg/dl Creatinine (0.6-1.4) mg/dl Est Cr Clr Drug Dosing ml/min Est GFR ( Amer) Est GFR (Non-Af Amer) BUN/Creatinine Ratio (10-20) Glucose (70-99) mg/dl Calcium (8.5-10.1) mg/dl Phosphorus (2.5-4.9) mg/dl Magnesium (1.8-2.4) mg/dl Ferritin (8-388) ng/ml Total Bilirubin (0.2-1) mg/dl AST (15-37) U/L ALT (12-78) U/L Alkaline Phosphatase (45-117) U/L Lactate Dehydrogenase (87-241) U/L Total Creatine Kinase (39-308) U/L C-Reactive Protein (0-0.29) mg/dl Total Protein (6.4-8.2) gm/dl Albumin (3.4-5.0) gm/dl Globulin (2.5-4.0) gm/dl Albumin/Globulin Ratio (0.9-2) Procalcitonin (0-0.5) ng/ml PG Care Time/CCT Total # of Minutes Spent Total Time Spent with Patient: Total time spent is greater than 50% in coordination of care (as documented) at patient's floor/unit and/or counseling patient: Coding Level of Care Code 04535 Subseq Hosp Care Lvl 3 Diagnoses COVID-19 U07.1 MRSA pneumonia J15.212 Laterality: unspecified laterality Lung location: unspecified part of lung Atrial tachycardia I47.1 COPD with exacerbation J44.1 Acute respiratory failure with hypoxia J96.01 Elevated LFTs R79.89 Rectus sheath hematoma S30.1XXA Acute kidney injury N17.9 Paroxysmal atrial fibrillation I48.0 CAD (coronary artery disease) I25.10 Hypertension I10 BPH (benign prostatic hyperplasia) N40.0 Thrombocytopenia D69.6 Gallstone K80.20 Candidiasis of mouth and esophagus B37.81; B37.0 DVT prophylaxis Z29.9 (1) MRSA pneumonia Laterality: unspecified laterality Lung location: unspecified part of lung Qualified Code(s): J15.212 - Pneumonia due to Methicillin resistant Staphylococcus aureus
[2020-09-22] MEDS: dexAMETHasone 6 MG in SYRINGE 0 ML IV SCH (16:32)
[2020-09-23] MEDS: dexAMETHasone 6 MG in SYRINGE 0 ML IV SCH ×2 (03:43→17:04)
[2020-09-23 05:44] LABS: Basophils # (auto) 0.01 K/uL (0-0.2); Basophils % (auto) 0.1 %; Hematocrit (blood only) 33.8 % (42-52); Hemoglobin 10.5 g/dL (14.0-18.0); Immature Granulocytes # (auto) 0.09 K/uL (0.00-0.02); Immature Granulocytes % (auto) 1.2 %; Lymphocytes # (auto) 0.22 K/uL (1.2-3.4); Lymphocytes % (auto) 2.8 %; Mean Corpuscular Hemoglobin 29.2 pg (25-34); Mean Corpuscular Hgb Conc 31.1 g/dL (32-36); Mean Corpuscular Volume 93.9 fL (80-100); Mean Platelet Volume 12.1 fL (7.4-10.4); Monocytes # (auto) 0.26 K/uL (0.11-0.59); Monocytes % (auto) 3.4 %; Neutrophils # (auto) 7.15 K/uL (1.4-6.5); Neutrophils % (auto) 92.5 %; Nucleated RBC # (auto) 0.02 K/uL (0-0); Nucleated RBC % (auto) 0.2 %; Platelet Count 138 K/uL (130-400); RDW Coefficient of Variation 16.7 % (11.5-14.5); RDW Standard Deviation 56.9 fL (36.4-46.3); White Blood Count 7.73 K/uL (4.8-10.8)
[2020-09-23 06:14] LABS: D Dimer 4250 ug/L FEU (0-500)
[2020-09-23 06:18] LABS: Albumin Level 2.4 gm/dl (3.4-5.0); BUN Creatinine Ratio 34.8 (10-20); Calcium 8.6 mg/dl (8.5-10.1); Creatinine Clr Calc Pharmacy 64.9 ml/min; Est GFR (African American) 69.8; Est GFR (Non-African American) 60.2; Magnesium 2.3 mg/dl (1.8-2.4); Potassium 4.2 mmol/L (3.5-5.1)
[2020-09-23 06:23] LABS: Albumin Globulin Ratio 0.6 (0.9-2); Bilirubin,Total 1.1 mg/dl (0.2-1); C Reactive Protein 11.9 mg/dl (0-0.29); Ferritin 1038.9 ng/ml (8-388); Globulin 3.8 gm/dl (2.5-4.0); Total Protein 6.2 gm/dl (6.4-8.2)
--- NOTE | 2020-09-23 06:45 | XRay Report ---
XR chest 1V portable HISTORY: 79 years-old Male f/u PNA acute shortness breath with reported pneumonia COMPARISON: Chest radiograph 09/20/2020 TECHNIQUE: Portable AP view of the chest FINDINGS: Cardiac silhouette is enlarged. Prior median sternotomy with cardiac valvular prosthesis. Left subcla vian pacer. No pneumothorax. Severe emphysema with chronic interstitial coarsening. Left greater than right pleural effusions appear unchanged. Bilateral mixed interstitial and alveolar opacities redemo nstrated. Slightly improved aeration of the right lung. Bones appear grossly intact. IMPRESSION: 1. Cardiomegaly with severe emphysema and chronic interstitial coarsening. 2. Bilateral mixed interstitial and alveolar opacities are redemonstrated which overall appear simila r to comparison with mildly improved aeration of the right lung. 3. Left greater than right pleural effusions. ACT 112: Negative or not required by law. The above report was generated using voice recognition software. It may contain grammatical, syntax o r spelling errors. Electronically signed by: Jimenez Beltran M.D. 09/23/2020 6:44 AM
[2020-09-23] MEDS: ALBUTEROL HFA 8 GM INHALER INH SCH ×4 (07:37→19:28)
[2020-09-23] MEDS: IPRATROPIUM BROMIDE HFA INHALER INH SCH ×4 (07:37→19:28)
[2020-09-23] MEDS: TAMSULOSIN HCL 0.4 MG CAP PO SCH (08:41)
[2020-09-23] MEDS: ENOXAPARIN INJ 40 MG/0.4 ML SYR SQ SCH ×2 (08:41→20:59)
[2020-09-23] MEDS: guaiFENesin 600 MG TABCR PO SCH ×2 (08:41→21:01)
[2020-09-23] MEDS: UMECLIDINIUM BROMIDE 62.5MCG/BLISTER 7 PUFFS/INHALER INH SCH (08:41)
[2020-09-23] MEDS: FLUTICASONE/VILANTEROL 100/25MCG 14 PUFFS/INHALER INH SCH (08:41)
[2020-09-23] MEDS: AMIODARONE 200 MG TAB PO SCH ×2 (08:41→17:08)
[2020-09-23] MEDS: FINASTERIDE 5 MG TAB PO SCH (08:42)
[2020-09-23] MEDS: METOPROLOL SUCC 25MG EXT REL TAB PO SCH (08:42)
[2020-09-23] MEDS: ZINC SULFATE 220 MG CAPSULE PO SCH (08:42)
[2020-09-23] MEDS: ASCORBIC ACID 500 MG TAB PO SCH (08:42)
[2020-09-23] MEDS: CHOLECALCIFEROL 1,000 UNITS 25 MCG TAB PO SCH (08:42)
[2020-09-23] MEDS: THIAMINE HCL 100 MG TAB PO SCH (08:42)
[2020-09-23] MEDS: LORazepam 0.5 MG TAB PO PRN (08:42)
[2020-09-23] MEDS: MULTIVITAMIN TAB PO SCH (08:42)
[2020-09-23] MEDS ORDERED: FUROSEMIDE 40 MG in SYRINGE 0 ML IV ONE (09:15)
--- NOTE | 2020-09-23 19:43 | Hospitalist Progress Note ---
Date of Service September 23, 2020 Assessment & Plan (1) COVID-19: With resulting COPD exacerbation, pneumonia, transaminitis, and acute hypoxic respiratory failure. He was a poor candidate for Remdesivir due to transaminitis, 7+ days out from diagnosis at the time of admission, and acute kidney injury. - S/p convalescent plasma on 09/08/20. - Finished a 10-day course of dexamethasone on 09/15/2020. -Continue zinc 220 mg p.o. once daily Continue ipratropium 4 times daily, Breo once daily Albuterol 4 times daily COVID-19 infection complicated by MRSA pneumonia - see below. Remains on HFNC 90% and 40L, not showing signs of distress or fatigue, needs some Ativan 0.5mg PO PRN for anxiety in the afternoons Overall, seems stable but not really improved with respiratory status overall Chest x-ray continues with evidence of pneumonia and with some pulmonary edema on 09/20-received IV Lasix x1 Chest x-ray on 09/23 again with bilateral mixed interstitial and alveolar opacities with slightly improved aeration of the right lung and left greater than right pleural effusions-give another dose of IV Lasix Markers of inflammation slightly decreased from previous, D-dimer slightly lower Procalcitonin negative Continued to encourage improved p.o. intake, maintaining strength, getting out of bed to chair which she has been doing Follow chest x-ray periodically or as needed worsening respiratory status Follow CBC, CMP, CRP, ESR, D-dimer, LDH, ferritin in the morning -Restarted dexamethasone 6 mg IV every 12 hours for wheezing on 09/22 (2) MRSA pneumonia: Sputum cx on 09/[address] chest on 09/10 showed right-sided multifocal pneumonia. -Has now completed a 7-day course of linezolid has a dry cough, no true fever, WBC normal for days Procalcitonin negative Follow chest x-ray to resolution-slightly improved aeration of right lung on 09/23 Remains afebrile Encourage flutter valve (3) Atrial tachycardia: Episodes of tachycardia to the low 100s appear to be PAT. Doubt 2:1 aflutter. Doubt sinus tach as the HRs go from 60s to the low 100s quickly, remain in low 100s for hours, then resolve and revert back to HRs of 60s. - Discussed with Dr. Delgado on 09/14 -> Increased amiodarone to BID. No further atrial tachycardia since 09/21 -Continue amiodarone 100 mg p.o. twice daily Continue telemetry monitoring (4) COPD with exacerbation: no wheezing on exam but requiring increase in FiO2 and with rhonchi with dexamethasone 6 mg IV every 12 hours - Finished 10 days of dexamethasone on 09/15. Given the respiratory status was not improving, restarted steroids as above on 09/22 - Continue Combivent, Mucinex, and home inhalers. - Continue high-flow (switched on 09/12) and wean off as tolerated (5) Acute respiratory failure with hypoxia: Secondary to COVID-19 pneumonia/COPD exacerbation/MRSA pneumonia, and also with some superimposed pulmonary edema. still on HFNC, will likely take a long time to recover he is on 40L and 90%, would hope to see some gradual improvement over the next few days/week-titrate down FiO2 as able to keep pulse ox greater than 90-92% -Was given IV Lasix x1 on 09/20 which helped giving more IV lasix on 09/22 and 09/23 (6) Elevated LFTs: Transaminitis likely due to COVID-19. Peak AST/ALT were 365/380 on 09/08. - Appreciate [facility] GI input. -LFTs back to normal (7) Rectus sheath hematoma: H/H stable since admission. Uncertain if he developed this from forceful coughing at home, straining at stool, etc. - Either way pain resolved. -Continue to hold aspirin, resumed DVT prophylaxis on 09/18 as his D dimer is 5000 and now trending downward -Hemoglobin stable at 10.5 Follow CBC (8) Acute kidney injury: 2nd to over-diuresis, COVID, AIN, etc. - Peak Cr 1.6; now normal (9) Paroxysmal atrial fibrillation: Continue amiodarone for rhythm control. - As above (10) CAD (coronary artery disease): - Continue metoprolol with hold parameters. - Holding ASA due to rectus sheath hematoma but can probably restart again soon (11) Hypertension: BP stable - Continue metoprolol succinate 25mg PO daily. (12) BPH (benign prostatic hyperplasia): - Continue tamsulosin and finasteride. No acute issues (13) Thrombocytopenia: Likely 2nd COVID-19. -Now resolved Follow CBC (14) Gallstone: Large gallstone in gallbladder on CT abd/pelvis on 09/07. T. bili and alk phos wnl. - Transaminases elevated only - more suggestive of reactive transaminitis from COVID-19. - Outpatient follow up. 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 I discussed his care with his daughter, Mary, on the phone on 09/23. Will repeat Covid test on 09/24 to see if negative in preparation for discharge to rehab facility Admission and Anticipated Discharge Date Admission Date: September 06, 2020 Subjective Patient reports feeling little bit better today, less short of breath but remains on FiO2 90%. He is eating well. Had a bowel movement last night. Is making urine. No abdominal pain. Telemetry with sinus rhythm, first-degree AV block, PVCs, rates in the 60s. Review of Systems Review of Systems: All systems reviewed & are unremarkable except as noted in HPI & below Physical Exam Constitutional: WD/WN, vitals as above Eyes: + anicteric sclerae Neck: trachea midline, no thyromegaly Respiratory: no respiratory distress, no labored breathing (With high flow nasal cannula in place) and not tachypneic Auscultation: + crackles (In middle lung christopher bilaterally) and + rhonchi (On right side); no wheezes Cardiovascular: RRR, no murmur, no edema Chest (Breasts): Chest: normal inspection of chest Gastrointestinal (Abdomen): normal bowel sounds, soft, nontender, no hepatosplenomegaly Musculoskeletal: Extremities: extremities normal to inspection; no cyanosis and no clubbing Skin: + rash (Chronic venous stasis changes bilaterally of the legs) Neurologic: moves all extremities and awake; no focal motor deficits Psychiatric: A+Ox3, euthymic affect Lymphatic: no lymphedema Results & Data Results & Data ([facility]) Vital Signs (Past 12 Hours) Vital Signs Temp Pulse Pulse Resp BP Pulse Ox 09/23/20 19:28 67 22 92 09/23/20 17:00 36.8 C 64 18 108/54 L 90 09/23/20 15:44 64 22 88 L 09/23/20 15:19 65 09/23/20 10:58 63 22 92 09/23/20 07:41 35.7 C L 60 62 16 117/66 90 09/23/20 07:37 68 22 96 Laboratory Results 09/23/20 09/23/20 09/23/20 Range/Units 05:31 05:31 05:31 WBC (4.8-10.8) K/uL RBC (4.7-6.1) M/uL Hgb (14.0-18.0) g/dL Hct (42-52) % MCV (80-100) fL MCH (25-34) pg MCHC (32-36) g/dL RDW Std Deviation (36.4-46.3) fL RDW Coeff of Opal (11.5-14.5) % Plt Count (130-400) K/uL MPV (7.4-10.4) fL Immature Gran % (Auto) % Neut % (Auto) % Lymph % (Auto) % [place] % (Auto) % Eos % (Auto) % Baso % (Auto) % Neut # (Auto) (1.4-6.5) K/uL Lymph # (Auto) (1.2-3.4) K/uL [place] # (Auto) (0.11-0.59) K/uL Eos # (Auto) (0-0.5) K/uL Baso # (Auto) (0-0.2) K/uL Immature Gran # (Auto) (0.00-0.02) K/uL Absolute Nucleated RBC (0-0) K/uL Nucleated RBC % (auto) % ESR (0-14) mm/hr D-Dimer 4250 H* (0-500) ug/L FEU Sodium 141 (136-145) mmol/L Potassium 4.2 (3.5-5.1) mmol/L Chloride 109 H (98-107) mmol/L Carbon Dioxide 29 (21-32) mmol/L Anion Gap 3.0 (3-11) BUN 40 H (7-18) mg/dl Creatinine 1.15 (0.6-1.4) mg/dl Est Cr Clr Drug Dosing 64.9 ml/min Est GFR ( Amer) 69.8 Est GFR (Non-Af Amer) 60.2 BUN/Creatinine Ratio 34.8 H (10-20) Glucose 136 H (70-99) mg/dl Calcium 8.6 (8.5-10.1) mg/dl Magnesium 2.3 (1.8-2.4) mg/dl Ferritin 1038.9 H (8-388) ng/ml Total Bilirubin 1.1 H (0.2-1) mg/dl AST 31 (15-37) U/L ALT 68 (12-78) U/L Alkaline Phosphatase 125 H (45-117) U/L Lactate Dehydrogenase 245 H (87-241) U/L C-Reactive Protein 11.90 H (0-0.29) mg/dl Total Protein 6.2 L (6.4-8.2) gm/dl Albumin 2.4 L (3.4-5.0) gm/dl Globulin 3.8 (2.5-4.0) gm/dl Albumin/Globulin Ratio 0.6 L (0.9-2) 09/23/20 09/23/20 Range/Units 05:31 05:31 WBC 7.73 (4.8-10.8) K/uL RBC 3.60 L (4.7-6.1) M/uL Hgb 10.5 L (14.0-18.0) g/dL Hct 33.8 L (42-52) % MCV 93.9 (80-100) fL MCH 29.2 (25-34) pg MCHC 31.1 L (32-36) g/dL RDW Std Deviation 56.9 H (36.4-46.3) fL RDW Coeff of Opal 16.7 H (11.5-14.5) % Plt Count 138 (130-400) K/uL MPV 12.1 H (7.4-10.4) fL Immature Gran % (Auto) 1.2 % Neut % (Auto) 92.5 % Lymph % (Auto) 2.8 % [place] % (Auto) 3.4 % Eos % (Auto) 0.0 % Baso % (Auto) 0.1 % Neut # (Auto) 7.15 H (1.4-6.5) K/uL Lymph # (Auto) 0.22 L (1.2-3.4) K/uL [place] # (Auto) 0.26 (0.11-0.59) K/uL Eos # (Auto) 0.00 (0-0.5) K/uL Baso # (Auto) 0.01 (0-0.2) K/uL Immature Gran # (Auto) 0.09 H (0.00-0.02) K/uL Absolute Nucleated RBC 0.02 H (0-0) K/uL Nucleated RBC % (auto) 0.2 % ESR 30 H (0-14) mm/hr D-Dimer (0-500) ug/L FEU Sodium (136-145) mmol/L Potassium (3.5-5.1) mmol/L Chloride (98-107) mmol/L Carbon Dioxide (21-32) mmol/L Anion Gap (3-11) BUN (7-18) mg/dl Creatinine (0.6-1.4) mg/dl Est Cr Clr Drug Dosing ml/min Est GFR ( Amer) Est GFR (Non-Af Amer) BUN/Creatinine Ratio (10-20) Glucose (70-99) mg/dl Calcium (8.5-10.1) mg/dl Magnesium (1.8-2.4) mg/dl Ferritin (8-388) ng/ml Total Bilirubin (0.2-1) mg/dl AST (15-37) U/L ALT (12-78) U/L Alkaline Phosphatase (45-117) U/L Lactate Dehydrogenase (87-241) U/L C-Reactive Protein (0-0.29) mg/dl Total Protein (6.4-8.2) gm/dl Albumin (3.4-5.0) gm/dl Globulin (2.5-4.0) gm/dl Albumin/Globulin Ratio (0.9-2) Diagnostic Findings Chest x-ray image personally reviewed by me and agree with the following report: XR chest 1V portable HISTORY: 79 years-old Male f/u PNA acute shortness breath with reported pneumonia COMPARISON: Chest radiograph 09/20/2020 TECHNIQUE: Portable AP view of the chest FINDINGS: Cardiac silhouette is enlarged. Prior median sternotomy with cardiac valvular prosthesis. Left subclavian pacer. No pneumothorax. Severe emphysema with chronic interstitial coarsening. Left greater than right pleural effusions appear unchanged. Bilateral mixed interstitial and alveolar opacities redemonstrated. Slightly improved aeration of the right lung. Bones appear gr ossly intact. IMPRESSION: 1. Cardiomegaly with severe emphysema and chronic interstitial coarsening. 2. Bilateral mixed interstitial and alveolar opacities are redemonstrated which overall appear similar to comparison with mildly improved aeration of the right lung. 3. Left greater than right pleural effusions. PG Care Time/CCT Total # of Minutes Spent Total Time Spent with Patient: Total time spent is greater than 50% in coordination of care (as documented) at patient's floor/unit and/or counseling patient: Coding Level of Care Code 95309 Subseq Hosp Care Lvl 2 Diagnoses COVID-19 U07.1 MRSA pneumonia J15. Laterality: unspecified laterality Lung location: unspecified part of lung Atrial tachycardia I47.1 COPD with exacerbation J44.1 Acute respiratory failure with hypoxia J96.01 Elevated LFTs R79.89 Rectus sheath hematoma S30.1XXA Acute kidney injury N17.9 Paroxysmal atrial fibrillation I48.0 CAD (coronary artery disease) I25.10 Hypertension I10 BPH (benign prostatic hyperplasia) N40.0 Thrombocytopenia D69.6 Gallstone K80.20 Candidiasis of mouth and esophagus B37.81; B37.0 DVT prophylaxis Z29.9 (1) MRSA pneumonia Laterality: unspecified laterality Lung location: unspecified part of lung Qualified Code(s): J15.212 - Pneumonia due to Methicillin resistant Staphylococcus aureus
[2020-09-24] MEDS: LORazepam 0.5 MG TAB PO PRN ×2 (01:05→13:04)
[2020-09-24] MEDS: clonazePAM 0.5 MG TAB PO PRN (01:05)
[2020-09-24] MEDS: dexAMETHasone 6 MG in SYRINGE 0 ML IV SCH ×2 (05:15→16:48)
[2020-09-24 05:51] LABS: Hematocrit (blood only) 34.9 % (42-52); Hemoglobin 10.9 g/dL (14.0-18.0); Immature Granulocytes % (auto) 0.9 %; Lymphocytes # (auto) 0.33 K/uL (1.2-3.4); Lymphocytes % (auto) 2.8 %; Mean Corpuscular Hemoglobin 29.4 pg (25-34); Mean Corpuscular Hgb Conc 31.2 g/dL (32-36); Mean Corpuscular Volume 94.1 fL (80-100); Mean Platelet Volume 11.9 fL (7.4-10.4); Monocytes # (auto) 0.64 K/uL (0.11-0.59); Monocytes % (auto) 5.4 %; Neutrophils # (auto) 10.69 K/uL (1.4-6.5); Neutrophils % (auto) 90.9 %; Nucleated RBC # (auto) 0.02 K/uL (0-0); Nucleated RBC % (auto) 0.2 %; Platelet Count 156 K/uL (130-400); RDW Coefficient of Variation 17.1 % (11.5-14.5); RDW Standard Deviation 57.8 fL (36.4-46.3); Red Blood Count 3.71 M/uL (4.7-6.1); White Blood Count 11.76 K/uL (4.8-10.8)
[2020-09-24 06:11] LABS: D Dimer 7490 ug/L FEU (0-500)
[2020-09-24 06:16] LABS: Albumin Level 2.5 gm/dl (3.4-5.0); BUN Creatinine Ratio 38.1 (10-20); Calcium 8.7 mg/dl (8.5-10.1); Creatinine Clr Calc Pharmacy 57.7 ml/min; Est GFR (African American) 64.3; Est GFR (Non-African American) 55.5; Magnesium 2.6 mg/dl (1.8-2.4); Potassium 4.3 mmol/L (3.5-5.1)
[2020-09-24 06:19] LABS: Albumin Globulin Ratio 0.7 (0.9-2); Bilirubin,Total 1.2 mg/dl (0.2-1); C Reactive Protein 6.32 mg/dl (0-0.29); Ferritin 837.3 ng/ml (8-388); Globulin 3.6 gm/dl (2.5-4.0); Phosphorus 3.5 mg/dl (2.5-4.9); Total Protein 6.1 gm/dl (6.4-8.2)
[2020-09-24] MEDS: ALBUTEROL HFA 8 GM INHALER INH SCH ×4 (07:43→19:41)
[2020-09-24] MEDS: IPRATROPIUM BROMIDE HFA INHALER INH SCH ×4 (07:44→19:41)
[2020-09-24] MEDS: ZINC SULFATE 220 MG CAPSULE PO SCH (08:31)
[2020-09-24] MEDS: METOPROLOL SUCC 25MG EXT REL TAB PO SCH (08:31)
[2020-09-24] MEDS: TAMSULOSIN HCL 0.4 MG CAP PO SCH (08:32)
[2020-09-24] MEDS: MULTIVITAMIN TAB PO SCH (08:32)
[2020-09-24] MEDS: CHOLECALCIFEROL 1,000 UNITS 25 MCG TAB PO SCH (08:32)
[2020-09-24] MEDS: THIAMINE HCL 100 MG TAB PO SCH (08:32)
[2020-09-24] MEDS: ASCORBIC ACID 500 MG TAB PO SCH (08:32)
[2020-09-24] MEDS: FINASTERIDE 5 MG TAB PO SCH (08:32)
[2020-09-24] MEDS: ENOXAPARIN INJ 40 MG/0.4 ML SYR SQ SCH ×2 (08:33→22:05)
[2020-09-24] MEDS: FLUTICASONE/VILANTEROL 100/25MCG 14 PUFFS/INHALER INH SCH (08:33)
[2020-09-24] MEDS: AMIODARONE 200 MG TAB PO SCH ×2 (08:34→16:49)
[2020-09-24] MEDS: UMECLIDINIUM BROMIDE 62.5MCG/BLISTER 7 PUFFS/INHALER INH SCH (08:34)
[2020-09-24] MEDS: guaiFENesin 600 MG TABCR PO SCH ×2 (08:35→22:04)
[2020-09-24] MEDS ORDERED: ACETAMINOPHEN 500 MG TAB PO PRN (13:03)
--- NOTE | 2020-09-24 13:04 | Hospitalist Progress Note ---
Date of Service September 24, 2020 Assessment & Plan (1) COVID-19: With resulting COPD exacerbation, pneumonia, transaminitis, and acute hypoxic respiratory failure. He was a poor candidate for Remdesivir due to transaminitis, 7+ days out from diagnosis at the time of admission, and acute kidney injury. - S/p convalescent plasma on 09/08/20. - Finished a 10-day course of dexamethasone on 09/15/2020. COVID-19 infection complicated by MRSA pneumonia - see below. Remains on HFNC but weaned down to 70-80% and 40L, not showing signs of distress or fatigue, needs some Ativan 0.5mg PO PRN for anxiety in the afternoons Overall, seems stable to slightly improved Chest x-ray continues with evidence of pneumonia and with some pulmonary edema on 09/20-received IV Lasix x1 Chest x-ray on 09/23 again with bilateral mixed interstitial and alveolar opacities with slightly improved aeration of the right lung and left greater than right pleural effusions-give another dose of IV Lasix Markers of inflammation are now much decreased from previous, D-dimer however is increased today Procalcitonin negative Continued to encourage improved p.o. intake, maintaining strength Follow chest x-ray periodically or as needed for worsening respiratory status Follow CBC, CMP, CRP, ESR, D-dimer, LDH, ferritin in the morning -Restarted dexamethasone 6 mg IV every 12 hours for wheezing on 09/22-seems to be helping -Continue zinc 220 mg p.o. once daily Continue ipratropium 4 times daily, Breo once daily and albuterol 4 times daily -Wean off high flow nasal cannula as able to (2) MRSA pneumonia: Sputum cx on 09/[address] chest on 09/10 showed right-sided multifocal pneumonia. -Has now completed a 7-day course of linezolid Continues with somewhat productive cough, remains afebrile Procalcitonin negative Follow chest x-ray to resolution-slightly improved aeration of right lung on 09/23 Encourage flutter valve (3) Atrial tachycardia: Episodes of tachycardia to the low 100s appear to be PAT. Doubt 2:1 af lutter. Doubt sinus tach as the HRs go from 60s to the low 100s quickly, remain in low 100s for hours, then resolve and revert back to HRs of 60s. - Discussed with Dr. Delgado on 09/14 -> Increased amiodarone to BID. Had no further atrial tachycardia since 09/21 until noon on 09/24-persists all day -Continue amiodarone 100 mg p.o. twice daily -Give amiodarone 150 mg IV bolus x1 now as per discussion with cardiology Appreciate cardiology consultation Continue telemetry monitoring (4) COPD with exacerbation: no wheezing on exam but requiring increase in FiO2 and with rhonchi with dexamethasone 6 mg IV every 12 hours - Finished 10 days of dexamethasone on 09/15. Given the respiratory status was not improving, restarted steroids as above on 09/22 which seems to be helping - Continue Combivent, Mucinex, and home inhalers. - Continue high-flow (switched on 09/12) and wean off as tolerated (5) Acute respiratory failure with hypoxia: Secondary to COVID-19 pneumonia/COPD exacerbation/MRSA pneumonia, and also with some superimposed pulmonary edema. still on HFNC, will likely take a long time to recover As above Was also given IV Lasix on several occasions-will not give any today as BUN/creatinine are rising (6) Elevated LFTs: Transaminitis likely due to COVID-19. Peak AST/ALT were 365/380 on 09/08. - Appreciate [facility] GI input. -LFTs back to normal (7) Rectus sheath hematoma: H/H stable since admission. Uncertain if he developed this from forceful coughing at home, straining at stool, etc. - Either way pain resolved. -Continue to hold aspirin, resumed DVT prophylaxis on 09/18 -Hemoglobin stable at 10.5 Follow CBC (8) Acute kidney injury: 2nd to over-diuresis, COVID, ATN - Peak Cr 1.6; now normal (9) Paroxysmal atrial fibrillation: Continue amiodarone for rhythm control. - As above (10) CAD (coronary artery disease): - Continue metoprolol with hold parameters. - Holding ASA due to rectus sheath hematoma but can probably restart again soon (11) Hypertension: BP stable slightly on the lower side - Continue metoprolol succinate 25mg PO daily. (12) BPH (benign prostatic hyperplasia): - Continue tamsulosin and finasteride. No acute issues (13) Thrombocytopenia: Likely 2nd COVID-19. -Now resolved Follow CBC (14) Gallstone: Large gallstone in gallbladder on CT abd/pelvis on 09/07. T. bili and alk phos wnl. - Transaminases elevated only - more suggestive of reactive transaminitis from COVID-19. - Outpatient follow up. 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 Will repeat Covid test on 09/25 to see if negative in preparation for discharge to rehab facility Admission and Anticipated Discharge Date Admission Date: September 06, 2020 Subjective Patient is in better spirits this morning. FiO2 weaned down to 80%. He is tolerating p.o. and wishes to be upgraded from a pured diet. Still has some anxiety at times due to his shortness of breath. Still coughing. Did not move his bowels yet today. He is making plenty of urine. Developed atrial tachycardia with rates consistently in the low 100s from noon on today. I discussed his case with his administrative library assistant Dr. Conroy who suggested giving IV amiodarone bolus. Review of Systems Review of Systems: All systems reviewed & are unremarkable except as noted in HPI & below Physical Exam Constitutional: WD/WN, vitals as above Eyes: + anicteric sclerae Neck: trachea midline, no thyromegaly Respiratory: no respiratory distress, no labored breathing (With high flow nasal cannula in place) and not tachypneic Auscultation: + crackles (In middle lung christopher bilaterally) and + rhonchi (On right side); no wheezes Cardiovascular: RRR, no murmur, no edema Chest (Breasts): Chest: normal inspection of chest Gastrointestinal (Abdomen): normal bowel sounds, soft, nontender, no hepatosplenomegaly Musculoskeletal: Extremities: extremities normal to inspection; no cyanosis and no clubbing Skin: + rash (Chronic venous stasis changes bilaterally of the legs) Neurologic: moves all extremities and awake; no focal motor deficits Psychiatric: A+Ox3, euthymic affect Lymphatic: no lymphedema Results & Data Results & Data ([facility]) Vital Signs (Past 12 Hours) Vital Signs Temp Pulse Pulse Resp BP BP Pulse Ox 09/24/20 11:52 36.6 C 60 18 106/57 L 89 L 09/24/20 11:16 62 16 89 L 09/24/20 08:32 36.3 C L 62 18 100/54 L 91 09/24/20 07:46 60 22 90 09/24/20 07:00 60 09/24/20 05:22 36.5 C 63 24 123/65 89 L 09/24/20 03:36 60 30 H 94 Laboratory Results 09/24/20 09/24/20 09/24/20 Range/Units 05:25 05:25 05:25 WBC (4.8-10.8) K/uL RBC (4.7-6.1) M/uL Hgb (14.0-18.0) g/dL Hct (42-52) % MCV (80-100) fL MCH (25-34) pg MCHC (32-36) g/dL RDW Std Deviation (36.4-46.3) fL RDW Coeff of Opal (11.5-14.5) % Plt Count (130-400) K/uL MPV (7.4-10.4) fL Immature Gran % (Auto) % Neut % (Auto) % Lymph % (Auto) % [place] % (Auto) % Eos % (Auto) % Baso % (Auto) % Neut # (Auto) (1.4-6.5) K/uL Lymph # (Auto) (1.2-3.4) K/uL [place] # (Auto) (0.11-0.59) K/uL Eos # (Auto) (0-0.5) K/uL Baso # (Auto) (0-0.2) K/uL Immature Gran # (Auto) (0.00-0.02) K/uL Absolute Nucleated RBC (0-0) K/uL Nucleated RBC % (auto) % ESR (0-14) mm/hr D-Dimer 7490 H* (0-500) ug/L FEU Sodium 141 (136-145) mmol/L Potassium 4.3 (3.5-5.1) mmol/L Chloride 109 H (98-107) mmol/L Carbon Dioxide 30 (21-32) mmol/L Anion Gap 2.0 L (3-11) BUN 47 H (7-18) mg/dl Creatinine 1.23 (0.6-1.4) mg/dl Est Cr Clr Drug Dosing 57.7 ml/min Est GFR ( Amer) 64.3 Est GFR (Non-Af Amer) 55.5 BUN/Creatinine Ratio 38.1 H (10-20) Glucose 117 H (70-99) mg/dl Calcium 8.7 (8.5-10.1) mg/dl Phosphorus 3.5 (2.5-4.9) mg/dl Magnesium 2.6 H (1.8-2.4) mg/dl Ferritin 837.3 H (8-388) ng/ml Total Bilirubin 1.2 H (0.2-1) mg/dl AST 44 H (15-37) U/L ALT 74 (12-78) U/L Alkaline Phosphatase 129 H (45-117) U/L Lactate Dehydrogenase 265 H (87-241) U/L C-Reactive Protein 6.32 H (0-0.29) mg/dl Total Protein 6.1 L (6.4-8.2) gm/dl Albumin 2.5 L (3.4-5.0) gm/dl Globulin 3.6 (2.5-4.0) gm/dl Albumin/Globulin Ratio 0.7 L (0.9-2) 09/24/20 09/24/20 Range/Units 05:25 05:25 WBC 11.76 H (4.8-10.8) K/uL RBC 3.71 L (4.7-6.1) M/uL Hgb 10.9 L (14.0-18.0) g/dL Hct 34.9 L (42-52) % MCV 94.1 (80-100) fL MCH 29.4 (25-34) pg MCHC 31.2 L (32-36) g/dL RDW Std Deviation 57.8 H (36.4-46.3) fL RDW Coeff of Opal 17.1 H (11.5-14.5) % Plt Count 156 (130-400) K/uL MPV 11.9 H (7.4-10.4) fL Immature Gran % (Auto) 0.9 % Neut % (Auto) 90.9 % Lymph % (Auto) 2.8 % [place] % (Auto) 5.4 % Eos % (Auto) 0.0 % Baso % (Auto) 0.0 % Neut # (Auto) 10.69 H (1.4-6.5) K/uL Lymph # (Auto) 0.33 L (1.2-3.4) K/uL [place] # (Auto) 0.64 H (0.11-0.59) K/uL Eos # (Auto) 0.00 (0-0.5) K/uL Baso # (Auto) 0.00 (0-0.2) K/uL Immature Gran # (Auto) 0.10 H (0.00-0.02) K/uL Absolute Nucleated RBC 0.02 H (0-0) K/uL Nucleated RBC % (auto) 0.2 % ESR 28 H (0-14) mm/hr D-Dimer (0-500) ug/L FEU Sodium (136-145) mmol/L Potassium (3.5-5.1) mmol/L Chloride (98-107) mmol/L Carbon Dioxide (21-32) mmol/L Anion Gap (3-11) BUN (7-18) mg/dl Creatinine (0.6-1.4) mg/dl Est Cr Clr Drug Dosing ml/min Est GFR ( Amer) Est GFR (Non-Af Amer) BUN/Creatinine Ratio (10-20) Glucose (70-99) mg/dl Calcium (8.5-10.1) mg/dl Phosphorus (2.5-4.9) mg/dl Magnesium (1.8-2.4) mg/dl Ferritin (8-388) ng/ml Total Bilirubin (0.2-1) mg/dl AST (15-37) U/L ALT (12-78) U/L Alkaline Phosphatase (45-117) U/L Lactate Dehydrogenase (87-241) U/L C-Reactive Protein (0-0.29) mg/dl Total Protein (6.4-8.2) gm/dl Albumin (3.4-5.0) gm/dl Globulin (2.5-4.0) gm/dl Albumin/Globulin Ratio (0.9-2) PG Care Time/CCT Total # of Minutes Spent Total Time Spent with Patient: Total time spent is greater than 50% in coordination of care (as documented) at patient's floor/unit and/or counseling patient: Coding Level of Care Code 28488 Subseq Hosp Care Lvl 3 Diagnoses COVID-19 U07.1 MRSA pneumonia J15.212 Laterality: unspecified laterality Lung location: unspecified part of lung Atrial tachycardia I47.1 COPD with exacerbation J44.1 Acute respiratory failure with hypoxia J96.01 Elevated LFTs R79.89 Rectus sheath hematoma S30.1XXA Acute kidney injury N17.9 Paroxysmal atrial fibrillation I48.0 CAD (coronary artery disease) I25.10 Hypertension I10 BPH (benign prostatic hyperplasia) N40.0 Thrombocytopenia D69.6 Gallstone K80.20 Candidiasis of mouth and esophagus B37.81; B37.0 DVT prophylaxis Z29.9 (1) MRSA pneumonia Laterality: unspecified laterality Lung location: unspecified part of lung Qualified Code(s): J15.212 - Pneumonia due to Methicillin resistant Staphylococcus aureus
[2020-09-24] MEDS ORDERED: AMIODARONE / D5W 150 MG/100 ML BAG IV STA (15:46)
[2020-09-24] MEDS ORDERED: 0.2 MICRON FILTER SET 1 EA IV ONE (15:46)
[2020-09-25] MEDS: clonazePAM 0.5 MG TAB PO PRN ×2 (00:33→22:16)
[2020-09-25] MEDS: LORazepam 0.5 MG TAB PO PRN ×2 (00:33→22:16)
[2020-09-25] MEDS ORDERED: COUGH DROP (SUGAR FREE) LOZ 24 LOZ/1 BOX BUCCAL PRN (02:13)
[2020-09-25] MEDS ORDERED: COUGH DROP (SUGAR FREE) LOZ 24 LOZ/1 BOX BUCCAL ONE (02:22)
[2020-09-25] MEDS: dexAMETHasone 6 MG in SYRINGE 0 ML IV SCH ×2 (04:06→16:53)
[2020-09-25 07:16] LABS: Hematocrit (blood only) 36.9 % (42-52); Hemoglobin 11.4 g/dL (14.0-18.0); Immature Granulocytes # (auto) 0.05 K/uL (0.00-0.02); Immature Granulocytes % (auto) 0.4 %; Lymphocytes # (auto) 0.23 K/uL (1.2-3.4); Lymphocytes % (auto) 1.9 %; Mean Corpuscular Hemoglobin 29.6 pg (25-34); Mean Corpuscular Hgb Conc 30.9 g/dL (32-36); Mean Corpuscular Volume 95.8 fL (80-100); Mean Platelet Volume 11.9 fL (7.4-10.4); Monocytes # (auto) 0.35 K/uL (0.11-0.59); Monocytes % (auto) 2.8 %; Neutrophils # (auto) 11.66 K/uL (1.4-6.5); Neutrophils % (auto) 94.9 %; Nucleated RBC # (auto) 0.03 K/uL (0-0); Nucleated RBC % (auto) 0.2 %; Platelet Count 183 K/uL (130-400); RDW Coefficient of Variation 17.5 % (11.5-14.5); RDW Standard Deviation 60.3 fL (36.4-46.3); Red Blood Count 3.85 M/uL (4.7-6.1); White Blood Count 12.29 K/uL (4.8-10.8)
[2020-09-25] MEDS: ALBUTEROL HFA 8 GM INHALER INH SCH ×4 (07:32→19:13)
[2020-09-25] MEDS: IPRATROPIUM BROMIDE HFA INHALER INH SCH ×4 (07:32→19:13)
[2020-09-25 07:41] LABS: D Dimer 5720 ug/L FEU (0-500)
[2020-09-25 07:49] LABS: Albumin Level 2.5 gm/dl (3.4-5.0); BUN Creatinine Ratio 37.9 (10-20); C Reactive Protein 3.06 mg/dl (0-0.29); Calcium 8.7 mg/dl (8.5-10.1); Creatinine Clr Calc Pharmacy 62.8 ml/min; Est GFR (African American) 71.3; Est GFR (Non-African American) 61.5; Magnesium 2.4 mg/dl (1.8-2.4); Potassium 4.4 mmol/L (3.5-5.1)
[2020-09-25 07:52] LABS: Albumin Globulin Ratio 0.7 (0.9-2); Bilirubin,Total 0.9 mg/dl (0.2-1); Ferritin 715.2 ng/ml (8-388); Globulin 3.6 gm/dl (2.5-4.0); Phosphorus 3.2 mg/dl (2.5-4.9); Total Protein 6.1 gm/dl (6.4-8.2)
[2020-09-25] MEDS: TAMSULOSIN HCL 0.4 MG CAP PO SCH (08:08)
[2020-09-25] MEDS: FINASTERIDE 5 MG TAB PO SCH (08:08)
[2020-09-25] MEDS: ENOXAPARIN INJ 40 MG/0.4 ML SYR SQ SCH ×2 (08:08→19:37)
[2020-09-25] MEDS: MULTIVITAMIN TAB PO SCH (08:09)
[2020-09-25] MEDS: ASCORBIC ACID 500 MG TAB PO SCH (08:09)
[2020-09-25] MEDS: THIAMINE HCL 100 MG TAB PO SCH (08:10)
[2020-09-25] MEDS: ZINC SULFATE 220 MG CAPSULE PO SCH (08:10)
[2020-09-25] MEDS: METOPROLOL SUCC 25MG EXT REL TAB PO SCH (08:11)
[2020-09-25] MEDS: CHOLECALCIFEROL 1,000 UNITS 25 MCG TAB PO SCH (08:11)
[2020-09-25] MEDS: UMECLIDINIUM BROMIDE 62.5MCG/BLISTER 7 PUFFS/INHALER INH SCH (08:11)
[2020-09-25] MEDS: FLUTICASONE/VILANTEROL 100/25MCG 14 PUFFS/INHALER INH SCH (08:11)
[2020-09-25] MEDS: AMIODARONE 200 MG TAB PO SCH ×2 (08:12→16:52)
[2020-09-25] MEDS: guaiFENesin 600 MG TABCR PO SCH ×2 (08:13→19:37)
[2020-09-25] MEDS ORDERED: AMIODARONE / D5W 150 MG/100 ML BAG IV STA (08:39)
[2020-09-25] MEDS ORDERED: STAT IV Infusion **Titration per Protocol STA (08:39)
[2020-09-25] MEDS ORDERED: AMIODARONE / D5W 360 MG/200 ML BAG IV ONE (08:39)
[2020-09-25] MEDS ORDERED: AMIODARONE IV BOLUS & DRIP IV STA (08:39)
[2020-09-25] MEDS ORDERED: 0.2 MICRON FILTER SET 1 EA IV ONE (08:39)
[2020-09-25] MEDS ORDERED: AMIODARONE 200 MG TAB PO ONE (11:30)
[2020-09-25] MEDS: FUROSEMIDE 20 MG TAB PO SCH (13:20)
[2020-09-25] MEDS ORDERED: AMIODARONE / D5W 360 MG/200 ML BAG IV SCH (14:40)
--- NOTE | 2020-09-25 18:35 | Hospitalist Progress Note ---
Date of Service September 25, 2020 Assessment & Plan (1) COVID-19: With resulting COPD exacerbation, pneumonia, transaminitis, and acute hypoxic respiratory failure. He was a poor candidate for Remdesivir due to transaminitis, 7+ days out from diagnosis at the time of admission, and acute kidney injury. - S/p convalescent plasma on 09/08/20. - Finished a 10-day course of dexamethasone on 09/15/2020. COVID-19 infection complicated by MRSA pneumonia - see below. Remains on HFNC but weaning down on FiO2, needs some Ativan 0.5mg PO PRN for anxiety in the afternoons Overall, seems much improved today Chest x-ray continues with evidence of pneumonia and with some pulmonary edema on 09/20-received IV Lasix x1 Chest x-ray on 09/23 again with bilateral mixed interstitial and alveolar opacities with slightly improved aeration of the right lung and left greater than right pleural effusions Markers of inflammation are now much decreased from previous, D-dimer decreased Procalcitonin negative Continued to encourage improved p.o. intake, maintaining strength Follow chest x-ray periodically or as needed for worsening respiratory status Follow CBC, CMP, CRP, ESR, D-dimer, LDH, ferritin in the morning -Restarted dexamethasone 6 mg IV every 12 hours for wheezing on 09/22-helping significantly, will decrease to once daily for tomorrow -Continue zinc 220 mg p.o. once daily Continue ipratropium 4 times daily, Breo once daily and albuterol 4 times daily -Wean off high flow nasal cannula as able to (2) MRSA pneumonia: Sputum cx on 09/[address] chest on 09/10 showed right-sided multifocal pneumonia. -Has now completed a 7-day course of linezolid Continues with somewhat productive cough, remains afebrile Procalcitonin negative Follow chest x-ray to resolution-slightly improved aeration of right lung on 09/23 Encourage flutter valve (3) Atrial tachycardia: Episodes of tachycardia to the low 100s appear to be PAT. Doubt 2:1 aflutter. Doubt sinus tach as the HRs go from 60s to the low 100s quickly, remain in low 100s for hours, then resolve and revert back to HRs of 60s. - Discussed with Dr. Delgado on 09/14 -> Increased amiodarone to BID. Had no further atrial tachycardia since 09/21 until noon on 09/24-finally converted to sinus rhythm around 11 AM on 09/25 Received a bolus of amiodarone 150 mg IV x1 on 09/24 -Increase amiodarone to 200 mg p.o. twice daily as per discussion with guru ponce Appreciate cardiology consultation Continue telemetry monitoring (4) COPD with exacerbation: - Finished 10 days of dexamethasone on 09/15. Given the respiratory status was not improving, restarted steroids as above on 09/22 which is helping significantly Wean down steroids as above - Continue Combivent, Mucinex, and home inhalers. - Continue high-flow (switched on 09/12) and wean off as tolerated (5) Acute respiratory failure with hypoxia: Secondary to COVID-19 pneumonia/COPD exacerbation/MRSA pneumonia, and also with some superimposed pulmonary edema. still on HFNC, will likely take a long time to recover, but finally down to 60% FiO2 today As above Was also given IV Lasix on several occasions-we will start home p.o. Lasix 4 times a week today (6) Elevated LFTs: Transaminitis likely due to COVID-19. Peak AST/ALT were 365/380 on 09/08. - Appreciate [facility] GI input. -LFTs back to normal (7) Rectus sheath hematoma: H/H stable since admission. Uncertain if he developed this from forceful coughing at home, straining at stool, etc. - Either way pain resolved. -Continue to hold aspirin, resumed DVT prophylaxis on 09/18 -Hemoglobin stable at 10.5 Follow CBC (8) Acute kidney injury: 2nd to over-diuresis, DARIUSID ATN - Peak Cr 1.6; now normal (9) Paroxysmal atrial fibrillation: Continue amiodarone for rhythm control. Has a history of maze procedure - As above (10) CAD (coronary artery disease): - Continue metoprolol with hold parameters. - Holding ASA due to rectus sheath hematoma but can probably restart again soon (11) Hypertension: BP stable slightly on the lower side - Continue metoprolol succinate 25mg PO daily. (12) BPH (benign prostatic hyperplasia): - Continue tamsulosin and finasteride. No acute issues (13) Thrombocytopenia: Likely 2nd COVID-19. -Now resolved Follow CBC (14) Gallstone: Large gallstone in gallbladder on CT abd/pelvis on 09/07. T. bili and alk phos wnl. - Transaminases elevated only - more suggestive of reactive transaminitis from COVID-19. - Outpatient follow up. 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 I discussed his care with his stepdaughter, Elizabeth, on 09/25. Elizabeth requests that only she be contacted for updates rather than the patient's . Repeat Covid test on 09/25 still positive Admission and Anticipated Discharge Date Admission Date: September 06, 2020 Subjective Pt had continued atrial tachycardia in the low 100s. Was going to put him on IV amiodarone gtt and then he converted to a sinus rhythm. He is feeling much improved, feels less SOB. I discussed his case with cardiology, Dr. Conroy. He is eating and drinking well, no nausea or vomiting. Moving his bowels making urine. Review of Systems Review of Systems: All systems reviewed & are unremarkable except as noted in HPI & below Physical Exam Constitutional: WD/WN, vitals as above Eyes: + anicteric sclerae Neck: trachea midline, no thyromegaly Respiratory: no respiratory distress, no labored breathing (With high flow nasal cannula in place) and not tachypneic Auscultation: + crackles (mil n right lower lung field, improved from previous) and + rhonchi (On right side); no wheezes Cardiovascular: RRR, no murmur, no edema Chest (Breasts): Chest: normal inspection of chest Gastrointestinal (Abdomen): normal bowel sounds, soft, nontender, no hepatosplenomegaly Musculoskeletal: Extremities: extremities normal to inspection; no cyanosis and no clubbing Skin: + rash (Chronic venous stasis changes bilaterally of the legs) Neurologic: moves all extremities and awake; no focal motor deficits Psychiatric: A+Ox3, euthymic affect Lymphatic: no lymphedema Results & Data Results & Data ([facility]) Vital Signs (Past 12 Hours) Vital Signs Temp Pulse Pulse Pulse Resp BP Pulse Ox 09/25/20 16:00 74 18 93 09/25/20 15:12 71 09/25/20 11:11 75 25 H 92 09/25/20 11:00 36.3 C L 75 22 106/61 92 09/25/20 07:54 36.3 C L 110 H 20 98/63 L 94 09/25/20 07:35 102 H 32 H 96 09/25/20 07:32 102 H 32 H 96 Laboratory Results 09/25/20 09/25/20 09/25/20 Range/Units 08:42 08:42 07:06 WBC (4.8-10.8) K/uL RBC (4.7-6.1) M/uL Hgb (14.0-18.0) g/dL Hct (42-52) % MCV (80-100) fL MCH (25-34) pg MCHC (32-36) g/dL RDW Std Deviation (36.4-46.3) fL RDW Coeff of Opal (11.5-14.5) % Plt Count (130-400) K/uL MPV (7.4-10.4) fL Immature Gran % (Auto) % Neut % (Auto) % Lymph % (Auto) % Rusk % (Auto) % Eos % (Auto) % Baso % (Auto) % Neut # (Auto) (1.4-6.5) K/uL Lymph # (Auto) (1.2-3.4) K/uL Rusk # (Auto) (0.11-0.59) K/uL Eos # (Auto) (0-0.5) K/uL Baso # (Auto) (0-0.2) K/uL Immature Gran # (Auto) (0.00-0.02) K/uL Absolute Nucleated RBC (0-0) K/uL Nucleated RBC % (auto) % ESR (0-14) mm/hr D-Dimer (0-500) ug/L FEU Sodium (136-145) mmol/L Potassium (3.5-5.1) mmol/L Chloride (98-107) mmol/L Carbon Dioxide (21-32) mmol/L Anion Gap (3-11) BUN (7-18) mg/dl Creatinine (0.6-1.4) mg/dl Est Cr Clr Drug Dosing ml/min Est GFR ( Amer) Est GFR (Non-Af Amer) BUN/Creatinine Ratio (10-20) Glucose (70-99) mg/dl Calcium (8.5-10.1) mg/dl Phosphorus (2.5-4.9) mg/dl Magnesium (1.8-2.4) mg/dl Ferritin (8-388) ng/ml Total Bilirubin (0.2-1) mg/dl AST (15-37) U/L ALT (12-78) U/L Alkaline Phosphatase (45-117) U/L Lactate Dehydrogenase 263 H (87-241) U/L C-Reactive Protein (0-0.29) mg/dl Total Protein (6.4-8.2) gm/dl Albumin (3.4-5.0) gm/dl Globulin (2.5-4.0) gm/dl Albumin/Globulin Ratio (0.9-2) COVID-19 Eval Order Covid19 IDNow [facility] SARS-CoV-2, RNA, NAAT POSITIVE A* (NEGATIVE) 09/25/20 09/25/20 09/25/20 Range/Units 07:06 07:06 07:06 WBC 12.29 H (4.8-10.8) K/uL RBC 3.85 L (4.7-6.1) M/uL Hgb 11.4 L (14.0-18.0) g/dL Hct 36.9 L (42-52) % MCV 95.8 (80-100) fL MCH 29.6 (25-34) pg MCHC 30.9 L (32-36) g/dL RDW Std Deviation 60.3 H (36.4-46.3) fL RDW Coeff of Opal 17.5 H (11.5-14.5) % Plt Count 183 (130-400) K/uL MPV 11.9 H (7.4-10.4) fL Immature Gran % (Auto) 0.4 % Neut % (Auto) 94.9 % Lymph % (Auto) 1.9 % Rusk % (Auto) 2.8 % Eos % (Auto) 0.0 % Baso % (Auto) 0.0 % Neut # (Auto) 11.66 H (1.4-6.5) K/uL Lymph # (Auto) 0.23 L (1.2-3.4) K/uL Rusk # (Auto) 0.35 (0.11-0.59) K/uL Eos # (Auto) 0.00 (0-0.5) K/uL Baso # (Auto) 0.00 (0-0.2) K/uL Immature Gran # (Auto) 0.05 H (0.00-0.02) K/uL Absolute Nucleated RBC 0.03 H (0-0) K/uL Nucleated RBC % (auto) 0.2 % ESR 17 H (0-14) mm/hr D-Dimer 5720 H* (0-500) ug/L FEU Sodium (136-145) mmol/L Potassium (3.5-5.1) mmol/L Chloride (98-107) mmol/L Carbon Dioxide (21-32) mmol/L Anion Gap (3-11) BUN (7-18) mg/dl Creatinine (0.6-1.4) mg/dl Est Cr Clr Drug Dosing ml/min Est GFR ( Amer) Est GFR (Non-Af Amer) BUN/Creatinine Ratio (10-20) Glucose (70-99) mg/dl Calcium (8.5-10.1) mg/dl Phosphorus (2.5-4.9) mg/dl Magnesium (1.8-2.4) mg/dl Ferritin (8-388) ng/ml Total Bilirubin (0.2-1) mg/dl AST (15-37) U/L ALT (12-78) U/L Alkaline Phosphatase (45-117) U/L Lactate Dehydrogenase (87-241) U/L C-Reactive Protein (0-0.29) mg/dl Total Protein (6.4-8.2) gm/dl Albumin (3.4-5.0) gm/dl Globulin (2.5-4.0) gm/dl Albumin/Globulin Ratio (0.9-2) COVID-19 Eval Order SARS-CoV-2, RNA, NAAT (NEGATIVE) 09/25/20 Range/Units 07:06 WBC (4.8-10.8) K/uL RBC (4.7-6.1) M/uL Hgb (14.0-18.0) g/dL Hct (42-52) % MCV (80-100) fL MCH (25-34) pg MCHC (32-36) g/dL RDW Std Deviation (36.4-46.3) fL RDW Coeff of Opal (11.5-14.5) % Plt Count (130-400) K/uL MPV (7.4-10.4) fL Immature Gran % (Auto) % Neut % (Auto) % Lymph % (Auto) % Rusk % (Auto) % Eos % (Auto) % Baso % (Auto) % Neut # (Auto) (1.4-6.5) K/uL Lymph # (Auto) (1.2-3.4) K/uL Rusk # (Auto) (0.11-0.59) K/uL Eos # (Auto) (0-0.5) K/uL Baso # (Auto) (0-0.2) K/uL Immature Gran # (Auto) (0.00-0.02) K/uL Absolute Nucleated RBC (0-0) K/uL Nucleated RBC % (auto) % ESR (0-14) mm/hr D-Dimer (0-500) ug/L FEU Sodium 141 (136-145) mmol/L Potassium 4.4 (3.5-5.1) mmol/L Chloride 108 H (98-107) mmol/L Carbon Dioxide 31 (21-32) mmol/L Anion Gap 3.0 (3-11) BUN 43 H (7-18) mg/dl Creatinine 1.13 (0.6-1.4) mg/dl Est Cr Clr Drug Dosing 62.8 ml/min Est GFR ( Amer) 71.3 Est GFR (Non-Af Amer) 61.5 BUN/Creatinine Ratio 37.9 H (10-20) Glucose 116 H (70-99) mg/dl Calcium 8.7 (8.5-10.1) mg/dl Phosphorus 3.2 (2.5-4.9) mg/dl Magnesium 2.4 (1.8-2.4) mg/dl Ferritin 715.2 H (8-388) ng/ml Total Bilirubin 0.9 (0.2-1) mg/dl AST 47 H (15-37) U/L ALT 79 H (12-78) U/L Alkaline Phosphatase 118 H (45-117) U/L Lactate Dehydrogenase (87-241) U/L C-Reactive Protein 3.06 H (0-0.29) mg/dl Total Protein 6.1 L (6.4-8.2) gm/dl Albumin 2.5 L (3.4-5.0) gm/dl Globulin 3.6 (2.5-4.0) gm/dl Albumin/Globulin Ratio 0.7 L (0.9-2) COVID-19 Eval Order SARS-CoV-2, RNA, NAAT (NEGATIVE) PG Care Time/CCT Total # of Minutes Spent Total Time Spent with Patient: Total time spent is greater than 50% in coordination of care (as documented) at patient's floor/unit and/or counseling patient: Coding Level of Care Code 28506 Subseq Hosp Care Lvl 3 Diagnoses COVID-19 U07.1 MRSA pneumonia J15. Laterality: unspecified laterality Lung location: unspecified part of lung Atrial tachycardia I47.1 COPD with exacerbation J44.1 Acute respiratory failure with hypoxia J96.01 Elevated LFTs R79.89 Rectus sheath hematoma S30.1XXA Acute kidney injury N17.9 Paroxysmal atrial fibrillation I48.0 CAD (coronary artery disease) I25.10 Hypertension I10 BPH (benign prostatic hyperplasia) N40.0 Thrombocytopenia D69.6 Gallstone K80.20 Candidiasis of mouth and esophagus B37.81; B37.0 DVT prophylaxis Z29.9 (1) MRSA pneumonia Laterality: unspecified laterality Lung location: unspecified part of lung Qualified Code(s): J15.212 - Pneumonia due to Methicillin resistant Staphylococcus aureus
[2020-09-26] MEDS: IPRATROPIUM BROMIDE HFA INHALER INH SCH ×4 (07:43→20:00)
[2020-09-26] MEDS: ALBUTEROL HFA 8 GM INHALER INH SCH ×4 (07:43→19:59)
[2020-09-26] MEDS: AMIODARONE 200 MG TAB PO SCH ×2 (07:54→17:13)
[2020-09-26] MEDS: guaiFENesin 600 MG TABCR PO SCH ×2 (07:54→20:45)
[2020-09-26] MEDS: UMECLIDINIUM BROMIDE 62.5MCG/BLISTER 7 PUFFS/INHALER INH SCH (07:54)
[2020-09-26] MEDS: FLUTICASONE/VILANTEROL 100/25MCG 14 PUFFS/INHALER INH SCH (07:54)
[2020-09-26] MEDS: CHOLECALCIFEROL 1,000 UNITS 25 MCG TAB PO SCH (07:55)
[2020-09-26] MEDS: ENOXAPARIN INJ 40 MG/0.4 ML SYR SQ SCH ×2 (07:55→20:45)
[2020-09-26] MEDS: METOPROLOL SUCC 25MG EXT REL TAB PO SCH (07:56)
[2020-09-26] MEDS: THIAMINE HCL 100 MG TAB PO SCH (08:01)
[2020-09-26] MEDS: dexAMETHasone 6 MG in SYRINGE 0 ML IV SCH (08:01)
[2020-09-26] MEDS: TAMSULOSIN HCL 0.4 MG CAP PO SCH (08:01)
[2020-09-26] MEDS: FINASTERIDE 5 MG TAB PO SCH (08:01)
[2020-09-26] MEDS: MULTIVITAMIN TAB PO SCH (08:02)
[2020-09-26] MEDS: ASCORBIC ACID 500 MG TAB PO SCH (08:02)
[2020-09-26] MEDS: ZINC SULFATE 220 MG CAPSULE PO SCH (08:02)
[2020-09-26] MEDS: ONDANSETRON INJ 2 MG/ML 2 ML VIAL IV PRN (09:07)
[2020-09-26] MEDS: LORazepam 0.5 MG TAB PO PRN ×2 (10:36→23:05)
--- NOTE | 2020-09-26 20:06 | Hospitalist Progress Note ---
Date of Service September 26, 2020 Assessment & Plan (1) COVID-19: With resulting COPD exacerbation, pneumonia, transaminitis, and acute hypoxic respiratory failure. He was a poor candidate for Remdesivir due to transaminitis, 7+ days out from diagnosis at the time of admission, and acute kidney injury. - S/p convalescent plasma on 09/08/20. - Finished a 10-day course of dexamethasone on 09/15/2020. COVID-19 infection complicated by MRSA pneumonia - see below. Remains on HFNC but slowly weaning down on FiO2, needs some Ativan 0.5mg PO PRN for anxiety in the afternoons Overall, seems much improved today Chest x-ray continues with evidence of pneumonia and with some pulmonary edema on 09/20-received IV Lasix x1 Chest x-ray on 09/23 again with bilateral mixed interstitial and alveolar opacities with slightly improved aeration of the right lung and left greater than right pleural effusions Markers of inflammation are now much decreased from previous, D-dimer decreased Procalcitonin negative Continued to encourage improved p.o. intake, maintaining strength Follow chest x-ray periodically or as needed for worsening respiratory status Follow CBC, CMP, CRP, ESR, D-dimer, LDH, ferritin every other day-we will check tomorrow -Restarted dexamethasone 6 mg IV every 12 hours for wheezing on 09/22-helping significantly, have since decreased to once daily again and will slowly wean down -Continue zinc 220 mg p.o. once daily -Continue ipratropium 4 times daily, Breo once daily and albuterol 4 times daily -Wean off high flow nasal cannula as able to (2) MRSA pneumonia: Sputum cx on 09/[address] chest on 09/10 showed right-sided multifocal pneumonia. -Has now completed a 7-day course of linezolid Continues with somewhat productive cough, remains afebrile Procalcitonin negative Follow chest x-ray to resolution-slightly improved aeration of right lung on 09/23 Encourage flutter valve (3) Atrial tachycardia: Episodes of tachycardia to the low 100s appear to be PAT. Doubt 2:1 aflutt er. Doubt sinus tach as the HRs go from 60s to the low 100s quickly, remain in low 100s for hours, then resolve and revert back to HRs of 60s. - Discussed with Dr. Delgado on 09/14 -> Increased amiodarone to BID. Had no further atrial tachycardia since 09/21 until noon on 09/24-finally converted to sinus rhythm around 11 AM on 09/25 Received a bolus of amiodarone 150 mg IV x1 on 09/24 -Increase amiodarone to 200 mg p.o. twice daily as per discussion with cardiology x1 week and then go down to 200 mg once daily on 10/02 Appreciate cardiology consultation Continue telemetry monitoring (4) COPD with exacerbation: - Finished 10 days of dexamethasone on 09/15. Given the respiratory status was not improving, restarted steroids as above on 09/22 which is helping significantly Wean down steroids as above - Continue Combivent, Mucinex, and home inhalers. - Continue high-flow (switched on 09/12) and wean off as tolerated (5) Acute respiratory failure with hypoxia: Secondary to COVID-19 pneumonia/COPD exacerbation/MRSA pneumonia, and also with some superimposed pulmonary edema. As above -Continue Lasix home dosing p.o. 4 times a week (6) Elevated LFTs: Transaminitis likely due to COVID-19. Peak AST/ALT were 365/380 on 09/08. - Appreciate [facility] GI input. -LFTs back to normal (7) Acute kidney injury: 2nd to over-diuresis, COVID, ATN - Peak Cr 1.6; now normal (8) Paroxysmal atrial fibrillation: Continue amiodarone for rhythm control. Has a history of maze procedure - As above (9) CAD (coronary artery disease): - Continue metoprolol with hold parameters. -Held ASA due to rectus sheath hematoma but will restart in the morning (10) Hypertension: BP stable slightly on the lower side - Continue metoprolol succinate 25mg PO daily. Holding home spironolactone Continuing home Lasix (11) BPH (benign prostatic hyperplasia): - Continue tamsulosin and finasteride. No acute issues (12) Thrombocytopenia: Likely 2nd COVID-19. -Now resolved Follow CBC (13) Gallstone: Large gallstone in gallbladder on CT abd/pelvis on 09/07. T. bili and alk phos wnl. - Transaminases elevated only - more suggestive of reactive transaminitis from COVID-19. - Outpatient follow up. (14) Candidiasis of mouth and esophagus: - Continue nystatin 5cc ac/hs swish/spit (15) Rectus sheath hematoma: H/H stable since admission. Uncertain if he developed this from forceful coughing at home, straining at stool, etc. - Either way pain resolved. 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 I discussed his care with his stepdaughter, Elizabeth, on 09/25 and again on 09/26. Elizabeth requests that only she be contacted for updates rather than the patient's . Repeat Covid test on 09/25 still positive Admission and Anticipated Discharge Date Admission Date: September 06, 2020 Subjective Patient reports he had his best day yet. Feels no shortness of breath at all. His FiO2 was down to 50% through the night but he had an episode of desaturation this morning requiring the FiO2 to be bumped back up to 70%. He is eating and drinking well. Denies chest pains. He was a little bit anxious this morning and was upset as he did not get food on time. He got an Ativan and felt better. Telemetry with sinus rhythm with rates in the 60s I discussed his care with his fisher trap who recommended keeping him on amiodarone 200 mg twice daily x1 week and then reducing down to either 200 mg once daily or 100 mg twice daily again Review of Systems Review of Systems: All systems reviewed & are unremarkable except as noted in HPI & below Physical Exam Constitutional: WD/WN, vitals as above Eyes: + anicteric sclerae Neck: trachea midline, no thyromegaly Respiratory: no respiratory distress, no labored breathing (With high flow nasal cannula in place) and not tachypneic Auscultation: + crackles (mil n right lower lung field, improved from previous) and + rhonchi (On right side); no wheezes Cardiovascular: RRR, no murmur, no edema Chest (Breasts): Chest: normal inspection of chest Gastrointestinal (Abdomen): normal bowel sounds, soft, nontender, no hepatosplenomegaly Musculoskeletal: Extremities: extremities normal to inspection; no cyanosis and no clubbing Skin: + rash (Chronic venous stasis changes bilaterally of the legs) Neurologic: moves all extremities and awake; no focal motor deficits Psychiatric: A+Ox3, euthymic affect Lymphatic: no lymphedema Results & Data Results & Data ([facility]) Vital Signs (Past 12 Hours) Vital Signs Temp Pulse Resp BP Pulse Ox 09/26/20 20:02 66 20 92 09/26/20 20:00 66 20 92 09/26/20 15:12 68 20 92 09/26/20 14:41 36.7 C 70 20 105/56 L 91 09/26/20 11:37 68 21 93 PG Care Time/CCT Total # of Minutes Spent Total Time Spent with Patient: Total time spent is greater than 50% in coordination of care (as documented) at patient's floor/unit and/or counseling patient: Coding Level of Care Code 80648 Subseq Hosp Care Lvl 3 Diagnoses COVID-19 U07.1 MRSA pneumonia J15. Laterality: unspecified laterality Lung location: unspecified part of lung Atrial tachycardia I47.1 COPD with exacerbation J44.1 Acute respiratory failure with hypoxia J96.01 Elevated LFTs R79.89 Acute kidney injury N17.9 Paroxysmal atrial fibrillation I48.0 CAD (coronary artery disease) I25.10 Hypertension I10 BPH (benign prostatic hyperplasia) N40.0 Thrombocytopenia D69.6 Gallstone K80.20 Candidiasis of mouth and esophagus B37.81; B37.0 Rectus sheath hematoma S30.1XXA DVT prophylaxis Z29.9 (1) MRSA pneumonia Laterality: unspecified laterality Lung location: unspecified part of lung Qualified Code(s): J15.212 - Pneumonia due to Methicillin resistant Staphylococcus aureus
[2020-09-26] MEDS: clonazePAM 0.5 MG TAB PO PRN (23:02)
[2020-09-27 06:15] LABS: Eosinophils # (auto) 0.04 K/uL (0-0.5); Eosinophils % (auto) 0.4 %; Hematocrit (blood only) 35.9 % (42-52); Hemoglobin 10.9 g/dL (14.0-18.0); Immature Granulocytes # (auto) 0.06 K/uL (0.00-0.02); Immature Granulocytes % (auto) 0.7 %; Lymphocytes # (auto) 0.42 K/uL (1.2-3.4); Lymphocytes % (auto) 4.6 %; Mean Corpuscular Hemoglobin 29.8 pg (25-34); Mean Corpuscular Hgb Conc 30.4 g/dL (32-36); Mean Corpuscular Volume 98.1 fL (80-100); Mean Platelet Volume 11.8 fL (7.4-10.4); Monocytes # (auto) 0.51 K/uL (0.11-0.59); Monocytes % (auto) 5.6 %; Neutrophils # (auto) 8.01 K/uL (1.4-6.5); Neutrophils % (auto) 88.7 %; Nucleated RBC # (auto) 0.04 K/uL (0-0); Nucleated RBC % (auto) 0.5 %; Platelet Count 141 K/uL (130-400); RDW Coefficient of Variation 17.7 % (11.5-14.5); RDW Standard Deviation 61.9 fL (36.4-46.3); Red Blood Count 3.66 M/uL (4.7-6.1); White Blood Count 9.04 K/uL (4.8-10.8)
[2020-09-27 06:48] LABS: Albumin Level 2.4 gm/dl (3.4-5.0); BUN Creatinine Ratio 34.1 (10-20); C Reactive Protein 1.03 mg/dl (0-0.29); Calcium 8.6 mg/dl (8.5-10.1); Creatinine Clr Calc Pharmacy 66.3 ml/min; Est GFR (African American) 72.8; Est GFR (Non-African American) 62.8; Magnesium 2.2 mg/dl (1.8-2.4); Potassium 4.5 mmol/L (3.5-5.1)
[2020-09-27 06:50] LABS: D Dimer 7000 ug/L FEU (0-500)
[2020-09-27 06:52] LABS: Albumin Globulin Ratio 0.8 (0.9-2); Bilirubin,Total 0.9 mg/dl (0.2-1); Ferritin 541.9 ng/ml (8-388); Globulin 3.1 gm/dl (2.5-4.0); Phosphorus 2.7 mg/dl (2.5-4.9); Total Protein 5.5 gm/dl (6.4-8.2)
[2020-09-27] MEDS: IPRATROPIUM BROMIDE HFA INHALER INH SCH ×4 (07:08→20:02)
[2020-09-27] MEDS: ALBUTEROL HFA 8 GM INHALER INH SCH ×4 (07:09→20:01)
[2020-09-27] MEDS: ASPIRIN 81 MG ECTAB PO SCH (08:41)
[2020-09-27] MEDS: FLUTICASONE/VILANTEROL 100/25MCG 14 PUFFS/INHALER INH SCH (08:41)
[2020-09-27] MEDS: dexAMETHasone 6 MG in SYRINGE 0 ML IV SCH (08:41)
[2020-09-27] MEDS: CHOLECALCIFEROL 1,000 UNITS 25 MCG TAB PO SCH (08:42)
[2020-09-27] MEDS: UMECLIDINIUM BROMIDE 62.5MCG/BLISTER 7 PUFFS/INHALER INH SCH (08:42)
[2020-09-27] MEDS: AMIODARONE 200 MG TAB PO SCH ×2 (08:42→18:01)
[2020-09-27] MEDS: THIAMINE HCL 100 MG TAB PO SCH (08:42)
[2020-09-27] MEDS: ASCORBIC ACID 500 MG TAB PO SCH (08:43)
[2020-09-27] MEDS: METOPROLOL SUCC 25MG EXT REL TAB PO SCH (08:43)
[2020-09-27] MEDS: TAMSULOSIN HCL 0.4 MG CAP PO SCH (08:43)
[2020-09-27] MEDS: FUROSEMIDE 20 MG TAB PO SCH (08:43)
[2020-09-27] MEDS: FINASTERIDE 5 MG TAB PO SCH (08:43)
[2020-09-27] MEDS: MULTIVITAMIN TAB PO SCH (08:43)
[2020-09-27] MEDS: ZINC SULFATE 220 MG CAPSULE PO SCH (08:43)
[2020-09-27] MEDS: ENOXAPARIN INJ 40 MG/0.4 ML SYR SQ SCH ×2 (08:44→22:55)
[2020-09-27] MEDS: guaiFENesin 600 MG TABCR PO SCH ×2 (08:44→22:55)
[2020-09-27] MEDS: COUGH DROP (SUGAR FREE) LOZ 24 LOZ/1 BOX BUCCAL PRN (14:28)
--- NOTE | 2020-09-27 20:22 | Hospitalist Progress Note ---
Date of Service September 27, 2020 Assessment & Plan (1) COVID-19: With resulting COPD exacerbation, pneumonia, transaminitis, and acute hypoxic respiratory failure. He was a poor candidate for Remdesivir due to transaminitis, 7+ days out from diagnosis at the time of admission, and acute kidney injury. - S/p convalescent plasma on 09/08/20. - Finished a 10-day course of dexamethasone on 09/15/2020. COVID-19 infection complicated by MRSA pneumonia - see below. Remains on HFNC but slowly weaning down on FiO2, needs some Ativan 0.5mg PO PRN for anxiety in the afternoons Overall, seems improved, but just cannot seem to wean down his FiO2 Chest x-ray continues with evidence of pneumonia and with some pulmonary edema on 09/20-received IV Lasix x1 Chest x-ray on 09/23 again with bilateral mixed interstitial and alveolar opacities with slightly improved aeration of the right lung and left greater than right pleural effusions Markers of inflammation are now much decreased from previous, D-dimer slightly increased, LFTs back to normal Procalcitonin negative Continued to encourage improved p.o. intake, maintaining strength, discussed with nursing about getting him out of bed to chair for meals if possible Follow chest x-ray periodically or as needed for worsening respiratory status Follow CBC, CMP, CRP, ESR, D-dimer, LDH, ferritin every other day-no labs on Monday -Restarted dexamethasone 6 mg IV every 12 hours for wheezing on 09/22-helping, have since decreased to once daily again and will slowly wean down-decrease to 4 mg daily tomorrow -Continue zinc 220 mg p.o. once daily -Continue ipratropium 4 times daily, Breo once daily and albuterol 4 times daily -Wean off high flow nasal cannula as able to (2) MRSA pneumonia: Sputum cx on 09/[address] chest on 09/10 showed right-sided multifocal pneumonia. -Has now completed a 7-day course of linezolid Continues with somewhat productive cough, remains afebrile Procalcitonin negative Follow chest x-ray to resolution-slightly improved aeration of right lung on 09/23 Encourage flutter valve (3) Atrial tachycardia: Episodes of tachycardia to the low 100s appear to be PAT. Doubt 2:1 aflutter. Doubt sinus tach as the HRs go from 60s to the low 100s quickly, remain in low 100s for hours, then resolve and revert back to HRs of 60s. - Discussed with Dr. Delgado on 09/14 -> Increased amiodarone to BID. Had no further atrial tachycardia since 09/21 until noon on 09/24-finally converted to sinus rhythm around 11 AM on 09/25 Received a bolus of amiodarone 150 mg IV x1 on 09/24 -Increase amiodarone to 200 mg p.o. twice daily as per discussion with cardiology x1 week and then go down to 200 mg once daily on 10/02 Appreciate cardiology consultation Continue telemetry monitoring (4) COPD with exacerbation: - Finished 10 days of dexamethasone on 09/15. Given the respiratory status was not improving, restarted steroids as above on 09/22 which is helping significantly Wean down steroids as above - Continue Combivent, Mucinex, and home inhalers. - Continue high-flow (switched on 09/12) and wean off as tolerated (5) Acute respiratory failure with hypoxia: Secondary to COVID-19 pneumonia/COPD exacerbation/MRSA pneumonia, and also with some superimposed pulmonary edema. As above -Continue Lasix home dosing p.o. 4 times a week (6) Elevated LFTs: Transaminitis likely due to COVID-19. Peak AST/ALT were 365/380 on 09/08. - Appreciate [facility] input. -LFTs back to normal (7) Acute kidney injury: 2nd to over-diuresis, COVID, ATN - Peak Cr 1.6; now normal (8) Paroxysmal atrial fibrillation: Continue amiodarone for rhythm control. Has a history of maze procedure - As above (9) CAD (coronary artery disease): - Continue metoprolol with hold parameters. -Held ASA due to rectus sheath hematoma but have since restarted (10) Hypertension: BP stable slightly on the lower side - Continue metoprolol succinate 25mg PO daily. Holding home spironolactone Continuing home Lasix (11) BPH (benign prostatic hyperplasia): - Continue tamsulosin and finasteride. No acute issues (12) Thrombocytopenia: Likely 2nd COVID-19. -Now resolved Follow CBC (13) Gallstone: Large gallstone in gallbladder on CT abd/pelvis on 09/07. T. bili and alk phos wnl. - Transaminases elevated only - more suggestive of reactive transaminitis from COVID-19. - Outpatient follow up. (14) Candidiasis of mouth and esophagus: - Continue nystatin 5cc ac/hs swish/spit (15) Rectus sheath hematoma: H/H stable since admission. Uncertain if he developed this from forceful coughing at home, straining at stool, etc. - Either way pain resolved. -Okay to restart aspirin, resumed DVT prophylaxis on 09/18 -Hemoglobin stable at 10.5 Follow CBC (16) DVT prophylaxis: Lovenox, higher dose with COVID 19 Disposition-continued stay on telemetry status, stable but still requiring HFNC. Long slow recovery. needs PT/OT and encouraged to get out of bed to chair for all meals with assistance Apparently Subsorter working on referral to [facility]-plan for family meeting to discuss this further on Monday at 1:00 I discussed his care with his daughter, Mary, on the phone on 09/23 and again on 09/24. I discussed his care with his stepdaughter, Elizabeth, on 09/25 and again on 09/26. Margaret shanks requests that only she be contacted for updates rather than the patient's . Repeat Covid test on 09/25 still positive Admission and Anticipated Discharge Date Admission Date: September 06, 2020 Subjective Patient feels okay today. A bit anxious at times. Had been down to 60% FiO2, but then had a pulse ox of 80% this morning was bumped back up to 70% FiO2. Remains on high flow nasal cannula. He is eating well. He has not been out of bed to chair in a few days. I discussed this with nursing care. Telemetry with paced rhythm, normal sinus rhythm and atrial fibrillation Review of Systems Review of Systems: All systems reviewed & are unremarkable except as noted in HPI & below Physical Exam Constitutional: WD/WN, vitals as above Eyes: + anicteric sclerae Neck: trachea midline, no thyromegaly Respiratory: no respiratory distress, no labored breathing (With high flow nasal cannula in place) and not tachypneic Auscultation: + crackles (mil n right lower lung field, improved from previous) and + rhonchi (On right side); no wheezes Cardiovascular: RRR, no murmur, no edema Chest (Breasts): Chest: normal inspection of chest Gastrointestinal (Abdomen): normal bowel sounds, soft, nontender, no hepatosplenomegaly Musculoskeletal: Extremities: extremities normal to inspection; no cyanosis and no clubbing Skin: + rash (Chronic venous stasis changes bilaterally of the legs) Neurologic: moves all extremities and awake; no focal motor deficits Psychiatric: A+Ox3, euthymic affect Lymphatic: no lymphedema Results & Data Results & Data ([facility]) Vital Signs (Past 12 Hours) Vital Signs Temp Pulse Pulse Pulse Resp BP BP 09/27/20 20:05 61 18 09/27/20 20:04 61 18 09/27/20 18:06 60 17 109/57 L 09/27/20 16:00 62 09/27/20 15:01 20 09/27/20 14:27 36.5 C 60 20 95/54 L 09/27/20 11:28 61 28 H 09/27/20 11:24 62 28 H Pulse Ox 09/27/20 20:05 91 09/27/20 20:04 91 09/27/20 18:06 90 09/27/20 16:00 09/27/20 15:01 91 09/27/20 14:27 90 09/27/20 11:28 80 L 09/27/20 11:24 80 L Laboratory Results 09/27/20 09/27/20 09/27/20 Range/Units 05:50 05:50 05:50 WBC (4.8-10.8) K/uL RBC (4.7-6.1) M/uL Hgb (14.0-18.0) g/dL Hct (42-52) % MCV (80-100) fL MCH (25-34) pg MCHC (32-36) g/dL RDW Std Deviation (36.4-46.3) fL RDW Coeff of Opal (11.5-14.5) % Plt Count (130-400) K/uL MPV (7.4-10.4) fL Immature Gran % (Auto) % Neut % (Auto) % Lymph % (Auto) % Travis % (Auto) % Eos % (Auto) % Baso % (Auto) % Neut # (Auto) (1.4-6.5) K/uL Lymph # (Auto) (1.2-3.4) K/uL Travis # (Auto) (0.11-0.59) K/uL Eos # (Auto) (0-0.5) K/uL Baso # (Auto) (0-0.2) K/uL Immature Gran # (Auto) (0.00-0.02) K/uL Absolute Nucleated RBC (0-0) K/uL Nucleated RBC % (auto) % ESR (0-14) mm/hr D-Dimer 7000 H* (0-500) ug/L FEU Sodium 142 (136-145) mmol/L Potassium 4.5 (3.5-5.1) mmol/L Chloride 110 H (98-107) mmol/L Carbon Dioxide 31 (21-32) mmol/L Anion Gap 2.0 L (3-11) BUN 38 H (7-18) mg/dl Creatinine 1.11 (0.6-1.4) mg/dl Est Cr Clr Drug Dosing 66.3 ml/min Est GFR ( Amer) 72.8 Est GFR (Non-Af Amer) 62.8 BUN/Creatinine Ratio 34.1 H (10-20) Glucose 82 (70-99) mg/dl Calcium 8.6 (8.5-10.1) mg/dl Phosphorus 2.7 (2.5-4.9) mg/dl Magnesium 2.2 (1.8-2.4) mg/dl Ferritin 541.9 H (8-388) ng/ml Total Bilirubin 0.9 (0.2-1) mg/dl AST 37 (15-37) U/L ALT 76 (12-78) U/L Alkaline Phosphatase 108 (45-117) U/L Lactate Dehydrogenase 240 (87-241) U/L C-Reactive Protein 1.03 H (0-0.29) mg/dl Total Protein 5.5 L (6.4-8.2) gm/dl Albumin 2.4 L (3.4-5.0) gm/dl Globulin 3.1 (2.5-4.0) gm/dl Albumin/Globulin Ratio 0.8 L (0.9-2) 09/27/20 09/27/20 Range/Units 05:50 05:50 WBC 9.04 (4.8-10.8) K/uL RBC 3.66 L (4.7-6.1) M/uL Hgb 10.9 L (14.0-18.0) g/dL Hct 35.9 L (42-52) % MCV 98.1 (80-100) fL MCH 29.8 (25-34) pg MCHC 30.4 L (32-36) g/dL RDW Std Deviation 61.9 H (36.4-46.3) fL RDW Coeff of Opal 17.7 H (11.5-14.5) % Plt Count 141 (130-400) K/uL MPV 11.8 H (7.4-10.4) fL Immature Gran % (Auto) 0.7 % Neut % (Auto) 88.7 % Lymph % (Auto) 4.6 % Travis % (Auto) 5.6 % Eos % (Auto) 0.4 % Baso % (Auto) 0.0 % Neut # (Auto) 8.01 H (1.4-6.5) K/uL Lymph # (Auto) 0.42 L (1.2-3.4) K/uL Travis # (Auto) 0.51 (0.11-0.59) K/uL Eos # (Auto) 0.04 (0-0.5) K/uL Baso # (Auto) 0.00 (0-0.2) K/uL Immature Gran # (Auto) 0.06 H (0.00-0.02) K/uL Absolute Nucleated RBC 0.04 H (0-0) K/uL Nucleated RBC % (auto) 0.5 % ESR 15 H (0-14) mm/hr D-Dimer (0-500) ug/L FEU Sodium (136-145) mmol/L Potassium (3.5-5.1) mmol/L Chloride (98-107) mmol/L Carbon Dioxide (21-32) mmol/L Anion Gap (3-11) BUN (7-18) mg/dl Creatinine (0.6-1.4) mg/dl Est Cr Clr Drug Dosing ml/min Est GFR ( Amer) Est GFR (Non-Af Amer) BUN/Creatinine Ratio (10-20) Glucose (70-99) mg/dl Calcium (8.5-10.1) mg/dl Phosphorus (2.5-4.9) mg/dl Magnesium (1.8-2.4) mg/dl Ferritin (8-388) ng/ml Total Bilirubin (0.2-1) mg/dl AST (15-37) U/L ALT (12-78) U/L Alkaline Phosphatase (45-117) U/L Lactate Dehydrogenase (87-241) U/L C-Reactive Protein (0-0.29) mg/dl Total Protein (6.4-8.2) gm/dl Albumin (3.4-5.0) gm/dl Globulin (2.5-4.0) gm/dl Albumin/Globulin Ratio (0.9-2) PG Care Time/CCT Total # of Minutes Spent Total Time Spent with Patient: Total time spent is greater than 50% in coordination of care (as documented) at patient's floor/unit and/or counseling patient: Coding Level of Care Code 55971 Subseq Hosp Care Lvl 2 Diagnoses COVID-19 U07.1 MRSA pneumonia J15. Laterality: unspecified laterality Lung location: unspecified part of lung Atrial tachycardia I47.1 COPD with exacerbation J44.1 Acute respiratory failure with hypoxia J96.01 Elevated LFTs R79.89 Acute kidney injury N17.9 Paroxysmal atrial fibrillation I48.0 CAD (coronary artery disease) I25.10 Hypertension I10 BPH (benign prostatic hyperplasia) N40.0 Thrombocytopenia D69.6 Gallstone K80.20 Candidiasis of mouth and esophagus B37.81; B37.0 Rectus sheath hematoma S30.1XXA DVT prophylaxis Z29.9 (1) MRSA pneumonia Laterality: unspecified laterality Lung location: unspecified part of lung Qualified Code(s): J15.212 - Pneumonia due to Methicillin resistant Staphylococcus aureus
[2020-09-27] MEDS: clonazePAM 0.5 MG TAB PO PRN (22:55)
[2020-09-27] MEDS: LORazepam 0.5 MG TAB PO PRN (22:55)
[2020-09-28] MEDS: IPRATROPIUM BROMIDE HFA INHALER INH SCH ×4 (07:49→19:52)
[2020-09-28] MEDS: ALBUTEROL HFA 8 GM INHALER INH SCH ×4 (07:49→19:51)
[2020-09-28] MEDS: AMIODARONE 200 MG TAB PO SCH ×2 (09:14→15:55)
[2020-09-28] MEDS: ASPIRIN 81 MG ECTAB PO SCH (09:15)
[2020-09-28] MEDS: FUROSEMIDE 20 MG TAB PO SCH (09:15)
[2020-09-28] MEDS: guaiFENesin 600 MG TABCR PO SCH ×2 (09:15→20:16)
[2020-09-28] MEDS: TAMSULOSIN HCL 0.4 MG CAP PO SCH (09:15)
[2020-09-28] MEDS: MULTIVITAMIN TAB PO SCH (09:15)
[2020-09-28] MEDS: ASCORBIC ACID 500 MG TAB PO SCH (09:16)
[2020-09-28] MEDS: THIAMINE HCL 100 MG TAB PO SCH (09:16)
[2020-09-28] MEDS: METOPROLOL SUCC 25MG EXT REL TAB PO SCH (09:16)
[2020-09-28] MEDS: CHOLECALCIFEROL 1,000 UNITS 25 MCG TAB PO SCH (09:17)
[2020-09-28] MEDS: ZINC SULFATE 220 MG CAPSULE PO SCH (09:17)
[2020-09-28] MEDS: FINASTERIDE 5 MG TAB PO SCH (09:18)
[2020-09-28] MEDS: ENOXAPARIN INJ 40 MG/0.4 ML SYR SQ SCH ×2 (09:18→20:16)
[2020-09-28] MEDS: dexAMETHasone 4 MG in SYRINGE 0 ML IV SCH (09:19)
[2020-09-28] MEDS: FLUTICASONE/VILANTEROL 100/25MCG 14 PUFFS/INHALER INH SCH (09:32)
[2020-09-28] MEDS: UMECLIDINIUM BROMIDE 62.5MCG/BLISTER 7 PUFFS/INHALER INH SCH (09:32)
[2020-09-28] MEDS: ONDANSETRON INJ 2 MG/ML 2 ML VIAL IV PRN (14:17)
[2020-09-28] MEDS: LORazepam 0.5 MG TAB PO PRN (15:54)
--- NOTE | 2020-09-28 16:29 | Hospitalist Progress Note ---
Date of Service September 28, 2020 Assessment & Plan (1) COVID-19: With resulting COPD exacerbation, pneumonia, transaminitis, and acute hypoxic respiratory failure. He was a poor candidate for Remdesivir due to transaminitis, 7+ days out from diagnosis at the time of admission, and acute kidney injury. - S/p convalescent plasma on 09/08/20. - Finished a 10-day course of dexamethasone on 09/15/2020. COVID-19 infection complicated by MRSA pneumonia - see below. Remains on HFNC but slowly weaning down on FiO2, needs some Ativan 0.5mg PO PRN for anxiety in the afternoons Overall, seems improved, but just cannot seem to wean down his FiO2 Chest x-ray continues with evidence of pneumonia and with some pulmonary edema on 09/20-received IV Lasix x1 Chest x-ray on 09/23 again with bilateral mixed interstitial and alveolar opacities with slightly improved aeration of the right lung and left greater than right pleural effusions Markers of inflammation are now much decreased from previous, D-dimer slightly increased, LFTs back to normal Procalcitonin negative Continued to encourage improved p.o. intake, maintaining strength, discussed with nursing about getting him out of bed to chair for meals if possible Follow chest x-ray periodically or as needed for worsening respiratory status Follow CBC, CMP, CRP, ESR, D-dimer, LDH, ferritin every other day-no labs on Monday -Restarted dexamethasone 6 mg IV every 12 hours for wheezing on 09/22-helping, have since decreased to once daily again and will slowly wean down-decrease to 4 mg daily today -Continue zinc 220 mg p.o. once daily -Continue ipratropium 4 times daily, Breo once daily and albuterol 4 times daily -Wean off high flow nasal cannula as able to looking into transfer to [facility] since he will be on HFNC for some time (2) MRSA pneumonia: Sputum cx on 09/[address] chest on 09/10 showed right-sided multifocal pneumonia. -Has now completed a 7-day course of linezolid Continues with somewhat productive cough, remains afebrile Procalcitonin negative Follow chest x-ray to resolution-slightly improved aeration of right lung on 09/23 Encourage flutter valve (3) Atrial tachycardia: Episodes of tachycardia to the low 100s appear to be PAT. Doubt 2:1 aflutter. Doubt sinus tach as the HRs go from 60s to the low 100s quickly, remain in low 100s for hours, then resolve and revert back to HRs of 60s. - Discussed with Dr. Delgado on 09/14 -> Increased amiodarone to BID. Had no further atrial tachycardia since 09/21 until noon on 09/24-finally converted to sinus rhythm around 11 AM on 09/25 Received a bolus of amiodarone 150 mg IV x1 on 09/24 -Increase amiodarone to 200 mg p.o. twice daily as per discussion with cardiology x1 week and then go down to 200 mg once daily on 10/02 Appreciate cardiology consultation Continue telemetry monitoring, he is stable (4) COPD with exacerbation: - Finished 10 days of dexamethasone on 09/15. Given the respiratory status was not improving, restarted steroids as above on 09/22 which is helping significantly Wean down steroids as above - Continue Combivent, Mucinex, and home inhalers. - Continue high-flow (switched on 09/12) and wean off as tolerated (5) Acute respiratory failure with hypoxia: Secondary to COVID-19 pneumonia/COPD exacerbation/MRSA pneumonia, and also with some superimposed pulmonary edema. As above -Continue Lasix home dosing p.o. 4 times a week (6) Elevated LFTs: Transaminitis likely due to COVID-19. Peak AST/ALT were 365/380 on 09/08. - Appreciate [facility] GI input. -LFTs back to normal (7) Acute kidney injury: 2nd to over-diuresis, COVID, ATN - Peak Cr 1.6; now normal (8) Paroxysmal atrial fibrillation: Continue amiodarone for rhythm control. Has a history of maze procedure - As above (9) CAD (coronary artery disease): - Continue metoprolol with hold parameters. -Held ASA due to rectus sheath hematoma but have since restarted (10) Hypertension: BP stable slightly on the lower side - Continue metoprolol succinate 25mg PO daily. Holding home spironolactone Continuing home Lasix (11) BPH (benign prostatic hyperplasia): - Continue tamsulosin and finasteride. No acute issues (12) Thrombocytopenia: Likely 2nd COVID-19. -Now resolved Follow CBC (13) Gallstone: Large gallstone in gallbladder on CT abd/pelvis on 09/07. T. bili and alk phos wnl. - Transaminases elevated only - more suggestive of reactive transaminitis from COVID-19. - Outpatient follow up. (14) Candidiasis of mouth and esophagus: - Continue nystatin 5cc ac/hs swish/spit (15) Rectus sheath hematoma: H/H stable since admission. Uncertain if he developed this from forceful coughing at home, straining at stool, etc. - Either way pain resolved. -Okay to restart aspirin, resumed DVT prophylaxis on 09/18 -Hemoglobin stable at 10.5 Follow CBC (16) DVT prophylaxis: Lovenox, higher dose with COVID 19 Disposition-continued stay on telemetry status, stable but still requiring HFNC. Long slow recovery. needs PT/OT and encouraged to get out of bed to chair for all meals with assistance [employer] working on referral to [facility]-patient and family in agreement Repeat Covid test on 09/25 still positive Admission and Anticipated Discharge Date Admission Date: September 06, 2020 Subjective patient looks really good, he is on high flow but he is alert, he is oriented he is eating much better than before he and his family are interested in going to [facility] and I am in agreement it will likely take him weeks to be weaned off of oxygen, even high flow Review of Systems Review of Systems: All systems reviewed & are unremarkable except as noted in Subjective Constitutional: + fatigue and + weakness; no fever, no chills and no sweats Respiratory: + dyspnea and + dyspnea on exertion; no cough and no sputum production Cardiovascular: no chest pain and no edema Gastrointestinal: no abdominal pain, no nausea, no vomiting, no constipation and no diarrhea/loose stools Genitourinary: no dysuria Musculoskeletal: + muscle weakness Physical Exam Constitutional: well developed and cooperative; no acute distress Neck: trachea midline, no thyromegaly Respiratory: + labored breathing and + cough; no respiratory distress Auscultation: + diminished lung sounds; no crackles, no rales, no rhonchi and no wheezes Cardiovascular: RRR, no murmur, no edema Gastrointestinal (Abdomen): normal bowel sounds, soft, nontender, no hepatosplenomegaly Musculoskeletal: no cyanosis or clubbing, extremities motor strength 5/5 Skin: no rashes, warm and dry Neurologic: patellar DTR's 2+ bilat, sensation intact and PERRL, EOMI, accommodation nl, no face palsy, no dysarthria Psychiatric: A+Ox3, euthymic affect Lymphatic: no cervical or axillary lymphadenopathy Results & Data Results & Data ([facility]) Vital Signs (Past 12 Hours) Vital Signs Temp Pulse Pulse Resp BP BP Pulse Ox 09/28/20 16:27 60 24 92 09/28/20 16:26 60 24 92 09/28/20 15:59 36.6 C 61 115/62 90 09/28/20 11:31 60 24 78 L 09/28/20 11:17 36.5 C 61 18 114/51 L 78 L 09/28/20 09:22 36.5 C 20 101/56 L 84 L 09/28/20 07:50 60 18 91 09/28/20 07:10 61 Medications Administered Current Inpatient Medications Acetaminophen (Acetaminophen 500 Mg Tab) 1,000 mg PO Q8 PRN PRN Reason: pain Stop: 10/24/20 13:02 Last Admin: 09/24/20 13:13 Dose: 1,000 mg Documented by: Albuterol (Albuterol Hfa 8 Gm Inhaler) 2 puffs INH QID PRN PRN Reason: wheezing, shortness of breath Stop: 10/06/20 14:25 Last Admin: 09/13/20 04:21 Dose: 2 puffs Documented by: Albuterol (Albuterol Hfa 8 Gm Inhaler) 1 puffs INH QIDR GIORGIO Stop: 10/08/20 14:59 Last Admin: 09/28/20 16:26 Dose: 1 puffs Documented by: Amiodarone HCl (Amiodarone 200 Mg Tab) 200 mg PO BIDM [facility] Stop: 10/25/20 16:59 Last Admin: 09/28/20 15:55 Dose: 200 mg Documented by: Ascorbic Acid (Ascorbic Acid 500 Mg Tab) 500 mg PO QAM [facility] Stop: 10/20/20 09:14 Last Admin: 09/28/20 09:16 Dose: 500 mg Documented by: Aspirin (Aspirin 81 Mg Ectab) 81 mg PO QAM [facility] Stop: 10/27/20 08:59 Last Admin: 09/28/20 09:15 Dose: 81 mg Documented by: Clonazepam (Clonazepam 0.5 Mg Tab) 0.5 mg PO HS PRN PRN Reason: insomnia Stop: 10/06/20 14:25 Last Admin: 09/27/20 22:55 Dose: 0.5 mg Documented by: Enoxaparin Sodium (Enoxaparin Inj 40 Mg/0.4 Ml Syr) 40 mg SQ Q12H [facility] Stop: 10/18/20 20:59 Last Admin: 09/28/20 09:18 Dose: 40 mg Documented by: Finasteride (Finasteride 5 Mg Tab) 5 mg PO DAILY [facility] Stop: 10/07/20 08:59 Last Admin: 09/28/20 09:18 Dose: 5 mg Documented by: Fluticasone/Vilanterol (Fluticasone/Vilanterol 100/25mcg 14 Puffs/Inhaler) 1 puffs INH DAILY [facility] Stop: 10/07/20 08:59 Last Admin: 09/28/20 09:32 Dose: 1 puffs Documented by: Furosemide (Furosemide 20 Mg Tab) 20 mg PO SuMoWeFr@0900 [facility] Stop: 10/25/20 11:25 Last Admin: 09/28/20 09:15 Dose: 20 mg Documented by: Guaifenesin (Guaifenesin 600 Mg Tabcr) 1,200 mg PO Q12 [facility] Stop: 10/08/20 13:19 Last Admin: 09/28/20 09:15 Dose: 1,200 mg Documented by: Dexamethasone 4 mg/ Syringe 1 mls @ 1 mls/min IV QAM [facility] Stop: 10/28/20 08:59 Last Admin: 09/28/20 09:19 Dose: 1 mls/min Documented by: Ipratropium Hoffman (Ipratropium Hoffman Hfa Inhaler) 1 puffs INH QIDR [facility] Stop: 10/08/20 14:59 Last Admin: 09/28/20 16:26 Dose: 1 puffs Documented by: Lorazepam (Lorazepam 0.5 Mg Tab) 0.5 mg PO Q8 PRN PRN Reason: Anxiety Stop: 10/17/20 14:53 Last Admin: 09/28/20 15:54 Dose: 0.5 mg Documented by: Menthol (Cough Drop (Sugar Free) Sung 24 Sung/1 Box) 1 sung BUCCAL PRN PRN PRN Reason: Sore Throat Stop: 10/25/20 02:17 Last Admin: 09/27/20 14:28 Dose: 1 sung Documented by: Metoprolol Succinate (Metoprolol Succ 25mg Ext Rel Tab) 25 mg PO DAILY [facility] Stop: 10/07/20 08:59 Last Admin: 09/28/20 09:16 Dose: 25 mg Documented by: Multivitamins (Multivitamin Tab) 1 tab PO DAILY [facility] Stop: 10/07/20 08:59 Last Admin: 09/28/20 09:15 Dose: 1 tab Documented by: Ondansetron HCl (Ondansetron Inj 2 Mg/Ml 2 Ml Vial) 4 mg IV Q6H PRN PRN Reason: Nausea Stop: 10/06/20 14:25 Last Admin: 09/28/20 14:17 Dose: 4 mg Documented by: Polyethylene Glycol (Polyethylene (Miralax) 17 Gm Pack) 17 gm PO DAILY PRN PRN Reason: Constipation Stop: 10/06/20 14:25 Tamsulosin HCl (Tamsulosin Hcl 0.4 Mg Cap) 0.4 mg PO DAILY [facility] Stop: 10/07/20 08:59 Last Admin: 09/28/20 09:15 Dose: 0.4 mg Documented by: Thiamine HCl (Thiamine Hcl 100 Mg Tab) 100 mg PO QAM [facility] Stop: 10/20/20 09:14 Last Admin: 09/28/20 09:16 Dose: 100 mg Documented by: Umeclidinium Hoffman (Umeclidinium Hoffman 62.5mcg/Blister 7 Puffs/Inhaler) 1 puffs INH DAILY [facility] Stop: 10/07/20 08:59 Last Admin: 09/28/20 09:32 Dose: 1 puffs Documented by: Vitamin D (Cholecalciferol 1,000 Units 25 Mcg Tab) 2,000 units PO DAILY [facility] Stop: 10/10/20 08:59 Last Admin: 09/28/20 09:17 Dose: 2,000 units Documented by: Zinc Sulfate (Zinc Sulfate 220 Mg Capsule) 220 mg PO QAM [facility] Stop: 10/20/20 09:14 Last Admin: 09/28/20 09:17 Dose: 220 mg Documented by: PG Care Time/CCT Total # of Minutes Spent Total Time Spent with Patient: Total time spent is greater than 50% in coordination of care (as documented) at patient's floor/unit and/or counseling patient: Coding Level of Care Code 29149 Subseq Hosp Care Lvl 2 Diagnoses COVID-19 U07.1 MRSA pneumonia J15.212 Laterality: unspecified laterality Lung location: unspecified part of lung Atrial tachycardia I47.1 COPD with exacerbation J44.1 Acute respiratory failure with hypoxia J96.01 Elevated LFTs R79.89 Acute kidney injury N17.9 Paroxysmal atrial fibrillation I48.0 CAD (coronary artery disease) I25.10 Hypertension I10 BPH (benign prostatic hyperplasia) N40.0 Thrombocytopenia D69.6 Gallstone K80.20 Candidiasis of mouth and esophagus B37.81; B37.0 Rectus sheath hematoma S30.1XXA DVT prophylaxis Z29.9 (1) MRSA pneumonia Laterality: unspecified laterality Lung location: unspecified part of lung Qualified Code(s): J15.212 - Pneumonia due to Methicillin resistant Staphylococcus aureus
[2020-09-28] MEDS: COUGH DROP (SUGAR FREE) LOZ 24 LOZ/1 BOX BUCCAL PRN (20:19)
[2020-09-28] MEDS: clonazePAM 0.5 MG TAB PO PRN (22:40)
[2020-09-29] MEDS: ALBUTEROL HFA 8 GM INHALER INH SCH ×4 (07:17→19:02)
[2020-09-29] MEDS: IPRATROPIUM BROMIDE HFA INHALER INH SCH ×4 (07:17→19:02)
[2020-09-29] MEDS: guaiFENesin 600 MG TABCR PO SCH ×2 (08:06→20:34)
[2020-09-29] MEDS: dexAMETHasone 4 MG in SYRINGE 0 ML IV SCH (08:06)
[2020-09-29] MEDS: CHOLECALCIFEROL 1,000 UNITS 25 MCG TAB PO SCH (08:07)
[2020-09-29] MEDS: MULTIVITAMIN TAB PO SCH (08:08)
[2020-09-29] MEDS: THIAMINE HCL 100 MG TAB PO SCH (08:08)
[2020-09-29] MEDS: ASPIRIN 81 MG ECTAB PO SCH (08:08)
[2020-09-29] MEDS: TAMSULOSIN HCL 0.4 MG CAP PO SCH (08:08)
[2020-09-29] MEDS: ZINC SULFATE 220 MG CAPSULE PO SCH (08:09)
[2020-09-29] MEDS: METOPROLOL SUCC 25MG EXT REL TAB PO SCH (08:09)
[2020-09-29] MEDS: FINASTERIDE 5 MG TAB PO SCH (08:09)
[2020-09-29] MEDS: ENOXAPARIN INJ 40 MG/0.4 ML SYR SQ SCH ×2 (08:10→20:33)
[2020-09-29] MEDS: ASCORBIC ACID 500 MG TAB PO SCH (08:10)
[2020-09-29] MEDS: FLUTICASONE/VILANTEROL 100/25MCG 14 PUFFS/INHALER INH SCH (08:11)
[2020-09-29] MEDS: UMECLIDINIUM BROMIDE 62.5MCG/BLISTER 7 PUFFS/INHALER INH SCH (08:11)
[2020-09-29] MEDS: AMIODARONE 200 MG TAB PO SCH ×2 (08:15→15:40)
--- NOTE | 2020-09-29 16:22 | Hospitalist Progress Note ---
Date of Service September 29, 2020 Assessment & Plan (1) COVID-19: With resulting COPD exacerbation, pneumonia, transaminitis, and acute hypoxic respiratory failure. He was a poor candidate for Remdesivir due to transaminitis, 7+ days out from diagnosis at the time of admission, and acute kidney injury. - S/p convalescent plasma on 09/08/20. - Finished a 10-day course of dexamethasone on 09/15/2020. COVID-19 infection complicated by MRSA pneumonia - see below. Remains on HFNC but slowly weaning down on FiO2, needs some Ativan 0.5mg PO PRN for anxiety in the afternoons Overall, seems improved, but just cannot seem to wean down his FiO2 Chest x-ray continues with evidence of pneumonia and with some pulmonary edema on 09/20-received IV Lasix x1 Chest x-ray on 09/23 again with bilateral mixed interstitial and alveolar opacities with slightly improved aeration of the right lung and left greater than right pleural effusions Markers of inflammation are now much decreased from previous, D-dimer slightly increased, LFTs back to normal Procalcitonin negative Continued to encourage improved p.o. intake, maintaining strength, discussed with nursing about getting him out of bed to chair for meals if possible Follow chest x-ray periodically or as needed for worsening respiratory status Follow CBC, CMP, CRP, ESR, D-dimer, LDH, ferritin every other day-no labs on Monday -Restarted dexamethasone 6 mg IV every 12 hours for wheezing on 09/22-helping, have since decreased to once daily again and will slowly wean down -Continue zinc 220 mg p.o. once daily -Continue ipratropium 4 times daily, Breo once daily and albuterol 4 times daily -Wean off high flow nasal cannula as able to looking into transfer to [facility] since he will be on HFNC for some time, could be ready tomorrow (2) MRSA pneumonia: Sputum cx on 09/[address] chest on 09/10 showed right-sided multifocal pneumonia. -Has now completed a 7-day course of linezolid Continues with somewhat productive cough, remains afebrile Procalcitonin negative Follow chest x-ray to resolution-slightly improved aeration of right lung on 09/23 Encourage flutter valve (3) Atrial tachycardia: Episodes of tachycardia to the low 100s appear to be PAT. Doubt 2:1 aflutter. Doubt sinus tach as the HRs go from 60s to the low 100s quickly, remain in low 100s for hours, then resolve and revert back to HRs of 60s. - Discussed with Dr. Delgado on 09/14 -> Increased amiodarone to BID. Had no further atrial tachycardia since 09/21 until noon on 09/24-finally converted to sinus rhythm around 11 AM on 09/25 Received a bolus of amiodarone 150 mg IV x1 on 09/24 -Increase amiodarone to 200 mg p.o. twice daily as per discussion with cardiology x1 week and then go down to 200 mg once daily on 10/02 Appreciate cardiology consultation Continue telemetry monitoring, he is stable (4) COPD with exacerbation: - Finished 10 days of dexamethasone on 09/15. Given the respiratory status was not improving, restarted steroids as above on 09/22 which is helping significantly Wean down steroids as above - Continue Combivent, Mucinex, and home inhalers. - Continue high-flow (switched on 09/12) and wean off as tolerated (5) Acute respiratory failure with hypoxia: Secondary to COVID-19 pneumonia/COPD exacerbation/MRSA pneumonia, and also with some superimposed pulmonary edema. As above -Continue Lasix home dosing p.o. 4 times a week (6) Elevated LFTs: Transaminitis likely due to COVID-19. Peak AST/ALT were 365/380 on 09/08. - Appreciate [facility] GI input. -LFTs back to normal (7) Acute kidney injury: 2nd to over-diuresis, COVID, ATN - Peak Cr 1.6; now normal (8) Paroxysmal atrial fibrillation: Continue amiodarone for rhythm control. Has a history of maze procedure - As above (9) CAD (coronary artery disease): - Continue metoprolol with hold parameters. -Held ASA due to rectus sheath hematoma but have since restarted (10) Hypertension: BP stable slightly on the lower side - Continue metoprolol succinate 25mg PO daily. Holding home spironolactone Continuing home Lasix (11) BPH (benign prostatic hyperplasia): - Continue tamsulosin and finasteride. No acute issues (12) Thrombocytopenia: Likely 2nd COVID-19. -Now resolved Follow CBC (13) Gallstone: Large gallstone in gallbladder on CT abd/pelvis on 09/07. T. bili and alk phos wnl. - Transaminases elevated only - more suggestive of reactive transaminitis from COVID-19. - Outpatient follow up. (14) Candidiasis of mouth and esophagus: - Continue nystatin 5cc ac/hs swish/spit (15) Rectus sheath hematoma: H/H stable since admission. Uncertain if he developed this from forceful coughing at home, straining at stool, etc. - Either way pain resolved. -Okay to restart aspirin, resumed DVT prophylaxis on 09/18 -Hemoglobin stable Follow CBC (16) DVT prophylaxis: Lovenox, higher dose with COVID 19 Disposition-continued stay on telemetry status, stable but still requiring HFNC. Long slow recovery. needs PT/OT and encouraged to get out of bed to chair for all meals with assistance Insecticide Sprayer working on referral to [facility]-patient and family in agreement Repeat Covid test on 09/25 still positive Admission and Anticipated Discharge Date Admission Date: September 06, 2020 Subjective patient continues to look better even though he is still requiring HFNC he does not have any dyspnea, he is optimistic about going to [facility] for care he is eating a lot better no labs today updated his step daughter Elizabeth, answered her questions spoke with CM, [facility] could have a bed as early as tomorrow Review of Systems Review of Systems: All systems reviewed & are unremarkable except as noted in Subjective Constitutional: + weakness; no fever and no fatigue Respiratory: + cough, + dyspnea and + dyspnea on exertion; no sputum production Cardiovascular: no chest pain and no edema Gastrointestinal: no abdominal pain, no nausea, no vomiting, no constipation and no diarrhea/loose stools Physical Exam Constitutional: well developed and cooperative; no acute distress Neck: trachea midline, no thyromegaly Respiratory: + cough and + tachypneic; no respiratory distress Auscultation: + diminished lung sounds; no crackles, no rales, no rhonchi and no wheezes Cardiovascular: RRR, no murmur, no edema Gastrointestinal (Abdomen): normal bowel sounds, soft, nontender, no hepatosplenomegaly Musculoskeletal: no cyanosis or clubbing, extremities motor strength 5/5 Skin: no rashes, warm and dry Neurologic: patellar DTR's 2+ bilat, sensation intact and PERRL, EOMI, accommodation nl, no face palsy, no dysarthria Psychiatric: A+Ox3, euthymic affect Lymphatic: no cervical or axillary lymphadenopathy Results & Data Results & Data ([facility]) Vital Signs (Past 12 Hours) Vital Signs Temp Pulse Pulse Resp BP BP Pulse Ox 09/29/20 15:38 36.9 C 106 H 18 90/57 L 94 09/29/20 15:00 91 H 20 91 09/29/20 14:00 37.0 C 60 18 94/48 L 92 09/29/20 11:19 60 22 93 09/29/20 08:00 61 09/29/20 07:20 60 20 90 Medications Administered Current Inpatient Medications Acetaminophen (Acetaminophen 500 Mg Tab) 1,000 mg PO Q8 PRN PRN Reason: pain Stop: 10/24/20 13:02 Last Admin: 09/24/20 13:13 Dose: 1,000 mg Documented by: Albuterol (Albuterol Hfa 8 Gm Inhaler) 2 puffs INH QID PRN PRN Reason: wheezing, shortness of breath Stop: 10/06/20 14:25 Last Admin: 09/13/20 04:21 Dose: 2 puffs Documented by: Albuterol (Albuterol Hfa 8 Gm Inhaler) 1 puffs INH QIDR GIORGIO Stop: 10/08/20 14:59 Last Admin: 09/29/20 14:59 Dose: 1 puffs Documented by: Amiodarone HCl (Amiodarone 200 Mg Tab) 200 mg PO BIDM [facility] Stop: 10/25/20 16:59 Last Admin: 09/29/20 15:40 Dose: 200 mg Documented by: Ascorbic Acid (Ascorbic Acid 500 Mg Tab) 500 mg PO QAM [facility] Stop: 10/20/20 09:14 Last Admin: 09/29/20 08:10 Dose: 500 mg Documented by: Aspirin (Aspirin 81 Mg Ectab) 81 mg PO QAM [facility] Stop: 10/27/20 08:59 Last Admin: 09/29/20 08:08 Dose: 81 mg Documented by: Clonazepam (Clonazepam 0.5 Mg Tab) 0.5 mg PO HS PRN PRN Reason: insomnia Stop: 10/06/20 14:25 Last Admin: 09/28/20 22:40 Dose: 0.5 mg Documented by: Enoxaparin Sodium (Enoxaparin Inj 40 Mg/0.4 Ml Syr) 40 mg SQ Q12H GIORGIO Stop: 10/18/20 20:59 Last Admin: 09/29/20 08:10 Dose: 40 mg Documented by: Finasteride (Finasteride 5 Mg Tab) 5 mg PO DAILY GIORGIO Stop: 10/07/20 08:59 Last Admin: 09/29/20 08:09 Dose: 5 mg Documented by: Fluticasone/Vilanterol (Fluticasone/Vilanterol 100/25mcg 14 Puffs/Inhaler) 1 puffs INH DAILY GIORGIO Stop: 10/07/20 08:59 Last Admin: 09/29/20 08:11 Dose: 1 puffs Documented by: Furosemide (Furosemide 20 Mg Tab) 20 mg PO SuMoWeFr@0900 [facility] Stop: 10/25/20 11:25 Last Admin: 09/28/20 09:15 Dose: 20 mg Documented by: Guaifenesin (Guaifenesin 600 Mg Tabcr) 1,200 mg PO Q12 [facility] Stop: 10/08/20 13:19 Last Admin: 09/29/20 08:06 Dose: 1,200 mg Documented by: Dexamethasone 4 mg/ Syringe 1 mls @ 1 mls/min IV QAM [facility] Stop: 10/28/20 08:59 Last Admin: 09/29/20 08:06 Dose: 1 mls/min Documented by: Ipratropium [place] (Ipratropium [place] Hfa Inhaler) 1 puffs INH QIDR [facility] Stop: 10/08/20 14:59 Last Admin: 09/29/20 14:59 Dose: 1 puffs Documented by: Lorazepam (Lorazepam 0.5 Mg Tab) 0.5 mg PO Q8 PRN PRN Reason: Anxiety Stop: 10/17/20 14:53 Last Admin: 09/28/20 15:54 Dose: 0.5 mg Documented by: Menthol (Cough Drop (Sugar Free) Sung 24 Sung/1 Box) 1 sung BUCCAL PRN PRN PRN Reason: Sore Throat Stop: 10/25/20 02:17 Last Admin: 09/28/20 20:19 Dose: 1 sung Documented by: Metoprolol Succinate (Metoprolol Succ 25mg Ext Rel Tab) 25 mg PO DAILY [facility] Stop: 10/07/20 08:59 Last Admin: 09/29/20 08:09 Dose: 25 mg Documented by: Multivitamins (Multivitamin Tab) 1 tab PO DAILY GIORGIO Stop: 10/07/20 08:59 Last Admin: 09/29/20 08:08 Dose: 1 tab Documented by: Ondansetron HCl (Ondansetron Inj 2 Mg/Ml 2 Ml Vial) 4 mg IV Q6H PRN PRN Reason: Nausea Stop: 10/06/20 14:25 Last Admin: 09/28/20 14:17 Dose: 4 mg Documented by: Polyethylene Glycol (Polyethylene (Miralax) 17 Gm Pack) 17 gm PO DAILY PRN PRN Reason: Constipation Stop: 10/06/20 14:25 Tamsulosin HCl (Tamsulosin Hcl 0.4 Mg Cap) 0.4 mg PO DAILY GIORGIO Stop: 10/07/20 08:59 Last Admin: 09/29/20 08:08 Dose: 0.4 mg Documented by: Thiamine HCl (Thiamine Hcl 100 Mg Tab) 100 mg PO QAM [facility] Stop: 10/20/20 09:14 Last Admin: 09/29/20 08:08 Dose: 100 mg Documented by: Umeclidinium [place] (Umeclidinium [place] 62.5mcg/Blister 7 Puffs/Inhaler) 1 puffs INH DAILY GIORGIO Stop: 10/07/20 08:59 Last Admin: 09/29/20 08:11 Dose: 1 puffs Documented by: Vitamin D (Cholecalciferol 1,000 Units 25 Mcg Tab) 2,000 units PO DAILY GIORGIO Stop: 10/10/20 08:59 Last Admin: 09/29/20 08:07 Dose: 2,000 units Documented by: Zinc Sulfate (Zinc Sulfate 220 Mg Capsule) 220 mg PO QAM [facility] Stop: 10/20/20 09:14 Last Admin: 09/29/20 08:09 Dose: 220 mg Documented by: PG Care Time/CCT Total # of Minutes Spent Total Time Spent with Patient: Total time spent is greater than 50% in coordination of care (as documented) at patient's floor/unit and/or counseling patient: Coding Level of Care Code 47447 Subseq Hosp Care Lvl 2 Diagnoses COVID-19 U07.1 MRSA pneumonia J15.212 Laterality: unspecified laterality Lung location: unspecified part of lung Atrial tachycardia I47.1 COPD with exacerbation J44.1 Acute respiratory failure with hypoxia J96.01 Elevated LFTs R79.89 Acute kidney injury N17.9 Paroxysmal atrial fibrillation I48.0 CAD (coronary artery disease) I25.10 Hypertension I10 BPH (benign prostatic hyperplasia) N40.0 Thrombocytopenia D69.6 Gallstone K80.20 Candidiasis of mouth and esophagus B37.81; B37.0 Rectus sheath hematoma S30.1XXA DVT prophylaxis Z29.9 (1) MRSA pneumonia Laterality: unspecified laterality Lung location: unspecified part of lung Qualified Code(s): J15.212 - Pneumonia due to Methicillin resistant Staphylococcus aureus
[2020-09-30] MEDS: IPRATROPIUM BROMIDE HFA INHALER INH SCH ×2 (07:09→11:18)
[2020-09-30] MEDS: ALBUTEROL HFA 8 GM INHALER INH SCH ×2 (07:10→11:18)
[2020-09-30] MEDS: ENOXAPARIN INJ 40 MG/0.4 ML SYR SQ SCH (08:45)
[2020-09-30] MEDS: dexAMETHasone 4 MG in SYRINGE 0 ML IV SCH (08:45)
[2020-09-30] MEDS: ASPIRIN 81 MG ECTAB PO SCH (08:46)
[2020-09-30] MEDS: ASCORBIC ACID 500 MG TAB PO SCH (08:46)
[2020-09-30] MEDS: MULTIVITAMIN TAB PO SCH (08:47)
[2020-09-30] MEDS: ZINC SULFATE 220 MG CAPSULE PO SCH (08:47)
[2020-09-30] MEDS: TAMSULOSIN HCL 0.4 MG CAP PO SCH (08:48)
[2020-09-30] MEDS: CHOLECALCIFEROL 1,000 UNITS 25 MCG TAB PO SCH (08:48)
[2020-09-30] MEDS: guaiFENesin 600 MG TABCR PO SCH (08:48)
[2020-09-30] MEDS: FUROSEMIDE 20 MG TAB PO SCH (08:49)
[2020-09-30] MEDS: AMIODARONE 200 MG TAB PO SCH (08:50)
[2020-09-30] MEDS: FLUTICASONE/VILANTEROL 100/25MCG 14 PUFFS/INHALER INH SCH (08:52)
[2020-09-30] MEDS: UMECLIDINIUM BROMIDE 62.5MCG/BLISTER 7 PUFFS/INHALER INH SCH (08:52)
[2020-09-30] MEDS: METOPROLOL SUCC 25MG EXT REL TAB PO SCH (08:52)
[2020-09-30] MEDS: THIAMINE HCL 100 MG TAB PO SCH (08:57)
[2020-09-30] MEDS: FINASTERIDE 5 MG TAB PO SCH (11:14)
[2020-09-30 12:09] VITALS: BP 116/61; TEMP 97.7; O2SAT 93
[2020-09-30 13:58] VITALS: PULSE 67
[2020-09-30] MEDS: LORazepam 0.5 MG TAB PO PRN (14:13)
--- NOTE | 2020-10-03 14:55 | Discharge Summary ---
Date of Service September 30, 2020 Admission HPI Per Admitting Provider Cristofer Vallejo is a 79-year-old male with COPD, atrial fibrillation, CHF, nocturnal hypoxia who presents to the ER with shortness of breath. He reports getting the influenza vaccination 1.5 weeks ago, 2-3 days after this started "feeling bad", felt down, mildly short of breath. Has been getting progressively worse since. Called physician to get a z-tg but recommended he takes nasopharyngeal COVID-19 PCR test 4 days ago was positive. has also come back positive. 2L O2 at night. Last night. Not eaten for a couple of days. His PCP called him and recommend he goes to the hospital so came in via EMS. Mainly having shortness of breath. No fevers or chills, smell " I don't know", appetite been poor. Diarrhea 1 day ago, loose, black. No normal BM since then. Taking robitussin, mucinex, quinine, flu medicine - unknown how much acetaminophen he has been taking. Principal Diagnosis COVID 19 pneumonia Discharge Exam Constitutional well developed and cooperative; no acute distress Neck trachea midline, no thyromegaly Respiratory + cough and + tachypneic; no respiratory distress Auscultation: + diminished lung sounds; no crackles, no rales, no rhonchi and no wheezes Cardiovascular RRR, no murmur, no edema Gastrointestinal (Abdomen) normal bowel sounds, soft, nontender, no hepatosplenomegaly Musculoskeletal no cyanosis or clubbing, extremities motor strength 5/5 Skin no rashes, warm and dry Neurologic patellar DTR's 2+ bilat, sensation intact and PERRL, EOMI, accommodation nl, no face palsy, no dysarthria Psychiatric A+Ox3, euthymic affect Lymphatic no cervical or axillary lymphadenopathy Discharge Data Allergies Allergy/AdvReac Type Severity Reaction Status Date / Time azithromycin Allergy Intermediate A.FIB Verified 09/06/20 13:18 levofloxacin Allergy Intermediate A.Fib Verified 09/06/20 13:18 Consultations 09/06/20 11:05 ED Decision to Admit Stat 09/07/20 10:28 Consult Gastroenterology Routine 09/07/20 11:13 Consult General Surgery Routine 09/10/20 10:37 Consult Pulmonology Routine 09/24/20 13:55 Consult Cardiology Routine Ordered Studies 09/07/20 08:26 CT abdomen w IV con Urgent 09/10/20 10:35 CT angio chest PE protocol Urgent Hospital Course (1) COVID-19: With resulting COPD exacerbation, pneumonia, transaminitis, and acute hypoxic respiratory failure. He was a poor candidate for Remdesivir due to transaminitis, 7+ days out from diagnosis at the time of admission, and acute kidney injury. - S/p convalescent plasma on 09/08/20. - Finished a 10-day course of dexamethasone on 09/15/2020. COVID-19 infection complicated by MRSA pneumonia - see below. Remains on HFNC but slowly weaning down on FiO2, needs some Ativan 0.5mg PO PRN for anxiety in the afternoons Overall, seems improved, but just cannot seem to wean down his FiO2 Chest x-ray continues with evidence of pneumonia and with some pulmonary edema on 09/20-received IV Lasix x1 Chest x-ray on 09/23 again with bilateral mixed interstitial and alveolar opacities with slightly improved aeration of the right lung and left greater than right pleural effusions Markers of inflammation are now much decreased from previous, D-dimer slightly increased, LFTs back to normal Procalcitonin negative Continued to encourage improved p.o. intake, maintaining strength, discussed with nursing about getting him out of bed to chair for meals if possible Follow chest x-ray periodically or as needed for worsening respiratory status Follow CBC, CMP, CRP, ESR, D-dimer, LDH, ferritin every other day-no labs on Monday -Restarted dexamethasone 6 mg IV every 12 hours for wheezing on 09/22-helping, have since decreased to once daily again and will slowly wean down -Continue zinc 220 mg p.o. once daily -Continue ipratropium 4 times daily, Breo once daily and albuterol 4 times daily -Wean off high flow nasal cannula as able to will transfer to [facility] since he will be on HFNC for some time, will need rehab (2) MRSA pneumonia: Sputum cx on 09/[address] chest on 09/10 showed right-sided multifocal pneumonia. -Has now completed a 7-day course of linezolid Continues with somewhat productive cough, remains afebrile Procalcitonin negative Follow chest x-ray to resolution-slightly improved aeration of right lung on 09/23 Encourage flutter valve (3) Atrial tachycardia: Episodes of tachycardia to the low 100s appear to be PAT. Doubt 2:1 aflutter. Doubt sinus tach as the HRs go from 60s to the low 100s quickly, remain in low 100s for hours, then resolve and revert back to HRs of 60s. - Discussed with Dr. Delgado on 09/14 -> Increased amiodarone to BID. Had no further atrial tachycardia since 09/21 until noon on 09/24-finally converted to sinus rhythm around 11 AM on 09/25 Received a bolus of amiodarone 150 mg IV x1 on 09/24 -Increase amiodarone to 200 mg p.o. twice daily as per discussion with cardiology x1 week and then go down to 200 mg once daily on 10/02 Appreciate cardiology consultation Continue telemetry monitoring, he is stable (4) COPD with exacerbation: - Finished 10 days of dexamethasone on 09/15. Given the respiratory status was not improving, restarted steroids as above on 09/22 which is helping significantly Wean down steroids as above - Continue Combivent, Mucinex, and home inhalers. - Continue high-flow (switched on 09/12) and wean off as tolerated (5) Acute respiratory failure with hypoxia: Secondary to COVID-19 pneumonia/COPD exacerbation/MRSA pneumonia, and also with some superimposed pulmonary edema. As above -Continue Lasix home dosing p.o. 4 times a week (6) Elevated LFTs: Transaminitis likely due to COVID-19. Peak AST/ALT were 365/380 on 09/08. - Appreciate [facility] GI input. -LFTs back to normal (7) Acute kidney injury: 2nd to over-diuresis, DARIUSID ATN - Peak Cr 1.6; now normal (8) Paroxysmal atrial fibrillation: Continue amiodarone for rhythm control. Has a history of maze procedure - As above (9) CAD (coronary artery disease): - Continue metoprolol with hold parameters. -Held ASA due to rectus sheath hematoma but have since restarted (10) Hypertension: BP stable slightly on the lower side - Continue metoprolol succinate 25mg PO daily. Holding home spironolactone Continuing home Lasix (11) BPH (benign prostatic hyperplasia): - Continue tamsulosin and finasteride. No acute issues (12) Thrombocytopenia: Likely 2nd COVID-19. -Now resolved Follow CBC (13) Gallstone: Large gallstone in gallbladder on CT abd/pelvis on 09/07. T. bili and alk phos wnl. - Transaminases elevated only - more suggestive of reactive transaminitis from COVID-19. - Outpatient follow up. (14) Candidiasis of mouth and esophagus: - Continue nystatin 5cc ac/hs swish/spit (15) Rectus sheath hematoma: H/H stable since admission. Uncertain if he developed this from forceful coughing at home, straining at stool, etc. - Either way pain resolved. -Okay to restart aspirin, resumed DVT prophylaxis on 09/18 -Hemoglobin stable Follow CBC Total Time Total Time Spent Total Time Spent (In Minutes): 36 minutes Total Time Includes: Examination of the Patient, Discharge Planning and Medication Reconciliation Discharge Plan Discharge Items Patient Disposition: Transfer Acute [facility] Reason For Visit: COVID 19 PNEUMONIA Discharge Diagnosis: COVID 19 pneumonia MRSA pneumonia, resolved Atrial fibrillation Acute hypoxic respiratory failure deconditioning Condition on Discharge: Good Goals: titrate down oxygen requirements improve strength and mobility Activity: Resume your previous activity Weightbearing: Full weightbearing Non-emergency contact: Primary Care Provider Call non-emergency contact if: you have any medication questions Follow-up/Referrals: Fabiola Soares DO [Primary Care Provider] - Diet: Heart Healthy Addtl Attending Provider Instructions: Medications: - AMIODARONE: 200mg twice a day until 10/02 then start 200mg daily on 10/03 - DEXAMETHASONE: 4mg IV daily until 10/03 then consider tapering or discontinue, defer to physician at [facility] - ZINC, THIAMINE, VITAMIN C: started for immune support, defer to physician at [facility] - LORAZEPAM: 0.5mg PO q8 PRN, helps him a lot with anxiety, when he worries about breathing - LOVENOX: using 40mg q12 for higher dosing DVT prophylaxis COVID 19, MRSA pneumonia, acute hypoxic respiratory failure patient has been admitted for 24 days, he is still on HFNC at 40L and 70% FiO2 overall he looks and feels a lot better, he is eating well, much better compared to 10 days ago his main issue is oxygen requirements and generalized weakness and deconditioning he completed a 7 day course of Linezolid for pneumonia, still has rhonchi his Dexamethasone was initially stopped after 10 day course, re-started 09/22 due to increased wheezing and it helped now on 4mg IV, can taper further or discontinue per accepting physician continue his Lasix 4x a week for volume control patient remains highly motivated to recover completely from COVID 19, despite requiring HFNC his overall appearance and how he feels has improved a great deal the past 10 days Pending Studies at Discharge: No Stand-Alone Forms: My [facility] Skilled Items Patient informed of condition?: Yes DNR: No Discharge Level of Care: Other Communicable Disease: Yes Discharge Prognosis: Improving Lines: Peripheral IV Urinary Catheter: No Medications and DC Order Prescriptions: New clonazepam 0.5 mg Tablet 0.5 mg PO HS PRN30 Days Qty: 0 RF: 0 lorazepam 0.5 mg Tablet 0.5 mg PO Q8 PRN30 Days Qty: 0 RF: 0 enoxaparin 40 mg/0.4 mL Syringe 40 mg subcut Q12H 30 Days Qty: 24 RF: 0 zinc sulfate [Orazinc] 220 (50) mg Capsule 220 mg PO QAM 30 Days Qty: 0 RF: 0 guaifenesin [Mucinex] 600 mg Tablet Extended Release 12hr 1,200 mg PO Q12 Qty: 0 RF: 0 thiamine HCl (vitamin B1) [Vitamin B-1] 100 mg Tablet 100 mg PO QAM 30 Days Qty: 0 RF: 0 ascorbic acid (vitamin C) [Vitamin C] 500 mg Tablet 500 mg PO QAM 30 Days Qty: 0 RF: 0 Continued ferrous sulfate 325 mg (65 mg iron) tablet 325 mg PO DAILY RF: 0 acetaminophen 500 mg capsule 1,000 mg PO Q8 PRN (Reason: Pain) RF: 0 aspirin 81 mg tablet,delayed release (DR/EC) 81 mg PO DAILY RF: 0 finasteride 5 mg tablet 5 mg PO DAILY RF: 0 tiotropium bromide [Spiriva with HandiHaler] 18 mcg capsule, w/inhalation device 1 cap INH DAILY RF: 0 budesonide-formoterol [Symbicort] 160-4.5 mcg/actuation HFA aerosol inhaler 2 puffs INH BID RF: 0 cholecalciferol (vitamin D3) 1,000 unit capsule 1,000 units PO DAILY RF: 0 multivitamin capsule 1 cap PO DAILY RF: 0 tamsulosin 0.4 mg capsule 0.4 mg PO DAILY Qty: 90 RF: 1 metoprolol succinate [Toprol XL] 25 mg tablet extended release 24 hr 25 mg PO DAILY RF: 0 albuterol sulfate [ProAir HFA] 90 mcg/actuation HFA aerosol inhaler 2 puff inhalation QID RF: 0 furosemide 40 mg tablet 20 mg PO [id number] Qty: 0 RF: 0 Discontinued spironolactone [Aldactone] 25 mg tablet 25 mg PO DAILY RF: 0 amiodarone 200 mg tablet 100 mg PO DAILY RF: 0 amoxicillin 500 mg capsule 500 mg PO QID RF: 0 Discharge Orders: Discharge Order (Routine); Ordered 09/30/20 Ordered By: Davonte Arredondo Admission Data Admit Date/Time: 09/06/20 12:42 Attending Provider: Davonte Arredondo Admit Provider: Alex Lim Primary Care Provider: Fabiola Soares Other Providers: Adi Anderson ; AlexSiren ; [facility] ; Alex Lim ; Kiran He ; Jewel Llamas ; Mihir Delgado Other Interventions: Discharge Summary Assessment (RN) Last Done: 09/30/20 13:52 Coding Level of Care Code D/C Day Management >30 mins Diagnoses COVID-19 U07.1 MRSA pneumonia J15.212 Laterality: unspecified laterality Lung location: unspecified part of lung Atrial tachycardia I47.1 COPD with exacerbation J44.1 Acute respiratory failure with hypoxia J96.01 Elevated LFTs R79.89 Acute kidney injury N17.9 Paroxysmal atrial fibrillation I48.0 CAD (coronary artery disease) I25.10 Hypertension I10 BPH (benign prostatic hyperplasia) N40.0 Thrombocytopenia D69.6 Gallstone K80.20 Candidiasis of mouth and esophagus B37.81; B37.0 Rectus sheath hematoma S30.1XXA
--- NOTE | 2020-10-07 12:27 | Cardiology Consultation ---
Date of Consultation A consult was requested on this Covid + patient. His records from throughout his hospitalization were reviewed and a verbal assessment was d/w Dr Weiss to increase his Amiodarone to 200mg BID. Dr Weiss was agreeable to completing the consult in this manner. The patient was not seen in person. October 07, 2020 History of Present Illness Attending Physician: Davonte Arredondo DO Allergies Allergy/AdvReac Type Severity Reaction Status Date / Time azithromycin Allergy Intermediate A.FIB Verified 09/06/20 13:18 levofloxacin Allergy Intermediate A.Fib Verified 09/06/20 13:18 Home Medications Medication Instructions Recorded Confirmed Type acetaminophen 500 mg capsule 1,000 mg PO Q8 PRN cap 10/09/18 09/06/20 History aspirin 81 mg tablet,delayed 81 mg PO DAILY 10/09/18 09/06/20 History release budesonide-formoterol HFA 160 2 puffs INH BID 10/09/18 09/06/20 History mcg-4.5 mcg/actuation aerosol inhaler cholecalciferol (vitamin D3) 25 1,000 units PO DAILY 10/09/18 09/06/20 History mcg (1,000 unit) capsule ferrous sulfate 325 mg (65 mg 325 mg PO DAILY tab 10/09/18 09/06/20 History iron) tablet finasteride 5 mg tablet 5 mg PO DAILY 10/09/18 09/06/20 History multivitamin 1 cap PO DAILY 10/09/18 09/06/20 History tiotropium bromide 18 mcg capsule 1 cap INH DAILY 10/09/18 09/06/20 History with inhalation device furosemide 20 mg PO 4XWK #0 tab 11/10/18 09/06/20 Rx albuterol sulfate 90 mcg/actuation 2 puff INHALATION QID 08/11/20 09/06/20 History aerosol inhaler metoprolol succinate 25 mg 25 mg PO DAILY 08/11/20 09/06/20 History tablet,extended release 24 hr tamsulosin 0.4 mg capsule 0.4 mg PO DAILY #90 cap 08/11/20 09/06/20 Rx ascorbic acid (vitamin C) [Vitamin 500 mg PO QAM 30 Days #0 tab 09/30/20 Rx C] clonazepam 0.5 mg PO HS PRN 30 Days #0 tab 09/30/20 Rx enoxaparin 40 mg SUBCUT Q12H 30 Days #24 ml 09/30/20 Rx guaifenesin [Mucinex] 1,200 mg PO Q12 #0 tab 09/30/20 Rx lorazepam 0.5 mg PO Q8 PRN 30 Days #0 tab 09/30/20 Rx thiamine HCl (vitamin B1) [Vitamin 100 mg PO QAM 30 Days #0 tab 09/30/20 Rx B-1] zinc sulfate [Orazinc] 220 mg PO QAM 30 Days #0 cap 09/30/20 Rx Patient History Medical History (Updated 10/01/20 @ 00:02 by [employer]) AAA (abdominal aortic aneurysm) Acute exacerbation of chronic obstructive airways disease Acute respiratory failure with hypoxia Aortic stenosis s/p valve repair Atrial fibrillation with RVR BPH (benign prostatic hyperplasia) CAD (coronary artery disease) Cataract Cervical spondylosis Cervicalgia Chest pain CKD (chronic kidney disease) Constipation COPD (chronic obstructive pulmonary disease) COPD exacerbation Edema Hematuria History of congestive heart failure Diastolic History of hypertension History of pacemaker Hypercholesteremia Left asymmetrical SNHL New onset atrial fibrillation No family history of adverse response to anesthesia No family history of bleeding disorder Pleural effusion Secondary pulmonary hypertension SNHL (sensorineural hearing loss) SOB (shortness of breath) on exertion Spondylolisthesis of cervical region Symptomatic anemia Surgical History History of colonoscopy History of hernia repair History of prostate surgery History of repair of dissection of abdominal aorta History of transurethral resection of prostate S/P aortic valve repair S/P Maze operation for atrial fibrillation Family History Father AAA (abdominal aortic aneurysm) Heart disease Brother Cancer Other No family history of adverse response to anesthesia No family history of bleeding disorder Social History Smoking Status: Former smoker (QUIT PRIOR TO 1999) Second Hand Exposure: No; Hx Alcohol Use: No Hx Substance Use: No Preferred Language: Bhutanese Communication Ability: Effective Visual Impairment: No Limitations Test Hole Driller Required: No Beliefs That Will Affect Care: None marital status: Current Living Situation: Spouse current occupational status: retired Feels Safe at Home: Yes Assistive Devices: Glasses, Oxygen - Continuous and Walker
== END 2020-09-30 14:45 | DRG 177 ==
LOC: ED 09:48 → 2E 12:42 → SUATTDRO 12:42 → 2E 14:11 → 2S 09-14 16:12 → 2W 09-21 22:41
DX: Y92.230 Patient room in hospital as the place of occurrence of the external cause; I50.9 Heart failure, unspecified; J96.01 Acute respiratory failure with hypoxia; Z87.891 Personal history of nicotine dependence; M79.81 Nontraumatic hematoma of soft tissue; R74.01 Elevation of levels of liver transaminase levels; J44.1 Chronic obstructive pulmonary disease with (acute) exacerbation; J15.212 Pneumonia due to Methicillin resistant Staphylococcus aureus; I25.10 Atherosclerotic heart disease of native coronary artery without angina pectoris; Z79.82 Long term (current) use of aspirin; I47.1 Supraventricular tachycardia; Y84.8 Other medical procedures as the cause of abnormal reaction of the patient, or of later complication, without mention of misadventure at the time of the procedure; K80.42 Calculus of bile duct with acute cholecystitis without obstruction; J91.8 Pleural effusion in other conditions classified elsewhere; I11.0 Hypertensive heart disease with heart failure; B37.81 Candidal esophagitis; N40.0 Benign prostatic hyperplasia without lower urinary tract symptoms; I27.29 Other secondary pulmonary hypertension; B37.0 Candidal stomatitis; U07.1 COVID-19; J12.89 Other viral pneumonia; H90.5 Unspecified sensorineural hearing loss; N17.0 Acute kidney failure with tubular necrosis; N18.9 Chronic kidney disease, unspecified; I48.0 Paroxysmal atrial fibrillation; Z95.0 Presence of cardiac pacemaker; D69.59 Other secondary thrombocytopenia; Z88.1 Allergy status to other antibiotic agents